=== PATIENT | male | born 1935 | race Caucasian/White ===

== ENCOUNTER 2020-06-05 06:22 | Emergency (ER) | payer MEDICARE, BC ==
[2020-06-05 06:29] VITALS: RESP 18; TEMP 97.7
--- NOTE | 2020-06-05 06:34 | ED ---
General Adult HPI - General Source: patient, EMS, RN notes reviewed Mode of arrival: EMS Limitations: no limitations <Eduard Bassett - Last Filed: 06/05/20 07:53> <Salomón Maldonado - Last Filed: 06/05/20 08:04> - General Chief complaint: Fall Stated complaint: FALL Time Seen by Provider: 06/05/20 06:26 - History of Present Illness Initial comments: Patient is an 85-year-old male with a past medical history of atrial fibrillation, CAD, heart failure, hypertension, MT presents to the emergency room for a chief complaint of head injury. Patient states that he was getting out of bed on the opposite side that he normally does. States he slipped and fell and hit his head. Patient did not lose consciousness. Patient denies headache at this time. However patient does take Coumadin and wanted to be evaluated. Patient denies any head or neck pain.Patient has no other complaints at this time including shortness of breath, chest pain, abdominal pain, nausea or vomiting, headache, or visual changes. (Eduard Bassett) - Related Data Home Medications Medication Instructions Recorded Confirmed Aspirin EC [Ecotrin Low Dose] 81 mg PO HS 07/11/16 07/11/16 Furosemide [Lasix] 40 mg PO DAILY 07/11/16 07/11/16 Lutein 10 mg PO BID 07/11/16 07/11/16 Nitroglycerin Sl Tabs [Nitrostat] 0.4 mg SUBLINGUAL Q5M PRN 07/11/16 07/11/16 Potassium Chloride ER [K-Dur 20] 20 meq PO DAILY 07/11/16 07/11/16 Simvastatin [Zocor] 80 mg PO QAM 07/11/16 07/11/16 Tamsulosin HCl [Flomax] 0.4 mg PO DAILY@1200 07/11/16 07/11/16 Warfarin [Coumadin] 1.25 mg PO MOWEFR 07/11/16 07/11/16 Warfarin [Coumadin] 2.5 mg PO SUTUTHSA 07/11/16 07/11/16 Previous Rx's Medication Instructions Recorded Benazepril [Lotensin] 5 mg PO DAILY #30 tab 07/13/16 atenoloL [Tenormin] 50 mg PO DAILY #30 tab 07/13/16 Allergies Allergy/AdvReac Type Severity Reaction Status Date / Time No Known Allergies Allergy Verified 06/05/20 06:29 Review of Systems ROS Other: All systems not noted in ROS Statement are negative. <Eduard Bassett - Last Filed: 06/05/20 07:53> ROS Other: All systems not noted in ROS Statement are negative. <Salomón Maldonado - Last Filed: 06/05/20 08:04> ROS Statement: Those systems with pertinent positive or pertinent negative responses have been documented in the HPI. Past Medical History Past Medical History: Atrial Fibrillation, Coronary Artery Disease (CAD), Heart Failure, Eye Disorder, Hypertension, Myocardial Infarction (MT), Osteoarthritis (OA), Prostate Disorder Additional Past Medical History / Comment(s): Bilateral macular degeneration- eyesight is poor, pt was told by physician that he had MT in past, "reyna's lung", bilateral lower leg edema-takes lasix and wears bilateral compression stockings. Last Myocardial Infarction Date:: unkn History of Any Multi-Drug Resistant Organisms: None Reported Past Surgical History: Hernia Repair, Joint Replacement Additional Past Surgical History / Comment(s): Bilateral total hip replacements, varicose veins stripped L leg, bilateral laser surgery on eyes for macular degeneration, bilateral inguinal hernia repairs with L testicle removed, eye injections. Additional Past Anesthesia/Blood Transfusion Reaction / Comment(s): Pt states he has been told that he is slow to wake with anesthesia. Past Psychological History: No Psychological Hx Reported Smoking Status: Never smoker Past Alcohol Use History: None Reported Past Drug Use History: None Reported - Past Family History Father Family Medical History: Cancer Additional Family Medical History / Comment(s): Father of leukemia at the age of 49 yrs. Mother Family Medical History: Coronary Artery Disease (CAD) Additional Family Medical History / Comment(s): Mother of a MT at the age of 67yrs. She also had varicose veins. <Eduard Bassett - Last Filed: 06/05/20 07:53> General Exam Limitations: no limitations General appearance: alert, in no apparent distress Head exam: Present: atraumatic (Small abrasion noted to the right parietal scalp as well as the right frontal scalp.) Eye exam: Present: normal appearance, PERRL, EOMI. Absent: scleral icterus, conjunctival injection, periorbital swelling ENT exam: Present: normal exam, mucous membranes moist Neck exam: Present: normal inspection, full ROM. Absent: tenderness, meningismus Respiratory exam: Present: normal lung sounds bilaterally. Absent: respiratory distress, wheezes, rales, rhonchi, stridor Cardiovascular Exam: Present: regular rate, normal rhythm, normal heart sounds. Absent: systolic murmur, diastolic murmur, rubs, gallop, clicks GI/Abdominal exam: Present: soft, normal bowel sounds. Absent: distended, tenderness, guarding, rebound, rigid Extremities exam: Present: other (Moving all extremities no evidence of trauma) Back exam: Absent: CVA tenderness (R), CVA tenderness (L), vertebral tenderness (No thoracic or lumbar spine tenderness) Neurological exam: Present: alert, oriented X3, other (GCS 15) <Eduard Bassett - Last Filed: 06/05/20 07:53> Course <Salomón Maldonado - Last Filed: 06/05/20 08:04> Vital Signs 06/05/20 06:25 Temperature 97.7 F Pulse Rate 65 Respiratory 18 Rate Blood Pressure 109/73 O2 Sat by Pulse 96 Oximetry - Reevaluation(s) Reevaluation #1: 06/05/20 08:04 PA supervision: I appreciated [id number] evaluation the patient. He did present after sliding out of bed this morning with my examination no complaints he did have a complete evaluation. No evidence of any bleeding. Patient is awake alert oriented 3 with a Justin Coma Scale of 15. He replaced CT imaging versus show some evidence of small balls in the cavernous sinus likely secondary to peripheral IV. The patient has no symptoms at this time. Patient will be discharge and do agree with the current assessment and plan. The patient family is agreeable to going home. (Salomón Maldonado) EKG Findings - EKG Comments: EKG Findings:: Ventricular rate 70, sinus rhythm with PVCs, CA interval 154, QTC 410 <Eduard Bassett - Last Filed: 06/05/20 07:53> Medical Decision Making - Lab Data Result diagrams: 06/05/20 06:36 06/05/20 06:36 <Eduard Bassett - Last Filed: 06/05/20 07:53> - Lab Data Result diagrams: 06/05/20 06:36 06/05/20 06:36 <Salomón Maldonado - Last Filed: 06/05/20 08:04> - Medical Decision Making CT brain showed a mild generalized atrophy and patchy changes. No acute intracranial abnormality seen. There is scattered venous air along the right side of the face, right pattern attendant space in within the right cavernous space probably relating to air introduced during peripheral line placement. Patient line was placed on the right upper extremity. No other acute fracture or of the cervical spine. At this time patient can be discharged home to follow up with primary care. He will return for any worsening symptoms. (Eduard Bassett) - Lab Data Lab Results 06/05/20 06/05/20 06/05/20 Range/Units 06:36 06:36 06:36 WBC 6.3 (3.8-10.6) k/uL RBC 4.77 (4.30-5.90) m/uL Hgb 14.4 (13.0-17.5) gm/dL Hct 46.5 (39.0-53.0) % MCV 97.4 (80.0-100.0) fL MCH 30.2 (25.0-35.0) pg MCHC 31.1 (31.0-37.0) g/dL RDW 15.3 (11.5-15.5) % Plt Count 187 (150-450) k/uL Neutrophils % 59 % Lymphocytes % 24 % Monocytes % 8 % Eosinophils % 6 % Basophils % 1 % Neutrophils # 3.7 (1.3-7.7) k/uL Lymphocytes # 1.5 (1.0-4.8) k/uL Monocytes # 0.5 (0-1.0) k/uL Eosinophils # 0.4 (0-0.7) k/uL Basophils # 0.1 (0-0.2) k/uL Hypochromasia Slight PT 20.2 H (9.0-12.0) sec INR 2.1 H (<1.2) APTT 30.4 H (22.0-30.0) sec Sodium 136 L (137-145) mmol/L Potassium 5.0 (3.5-5.1) mmol/L Chloride 102 (98-107) mmol/L Carbon Dioxide 25 (22-30) mmol/L Anion Gap 9 mmol/L BUN 20 (9-20) mg/dL Creatinine 0.69 (0.66-1.25) mg/dL Est GFR (CKD-EPI)AfAm >90 (>60 ml/min/1.73 sqM) Est GFR (CKD-EPI)NonAf 86 (>60 ml/min/1.73 sqM) Glucose 96 (74-99) mg/dL Calcium 9.2 (8.4-10.2) mg/dL Total Bilirubin 1.1 (0.2-1.3) mg/dL AST 23 (17-59) U/L ALT 13 (4-49) U/L Alkaline Phosphatase 102 (38-126) U/L Total Protein 7.0 (6.3-8.2) g/dL Albumin 4.0 (3.5-5.0) g/dL Disposition Is patient prescribed a controlled substance at d/c from ED?: No Time of Disposition: 07:45 <Eduard Bassett - Last Filed: 06/05/20 07:53> <Salomón Maldonado - Last Filed: 06/05/20 08:04> Clinical Impression: Head injury Disposition: HOME SELF-CARE Condition: Good Instructions (If sedation given, give patient instructions): Fall Prevention for Older Adults (ED), Head Injury (ED) Additional Instructions: Please follow up with primary care in 1-2 days. Return to the emergency room for any worsening symptoms Referrals: Ramiro Yost MD [Primary Care Provider] - 1-2 days
[2020-06-05 06:59] LABS: INR 2.1 (<1.2); Partial Thromboplastin Time 30.4 sec (22.0-30.0); Prothrombin Time 20.2 sec (9.0-12.0)
[2020-06-05 07:01] LABS: ALT 13 U/L (4-49); AST 23 U/L (17-59); African American GFR (CKD) >90 (>60 ml/min/1.73 sqM); Alkaline Phosphatase 102 U/L (38-126); Anion Gap 9 mmol/L; Blood Urea Nitrogen 20 mg/dL (9-20); Calcium 9.2 mg/dL (8.4-10.2); Carbon Dioxide 25 mmol/L (22-30); Chloride 102 mmol/L (98-107); Glucose 96 mg/dL (74-99); Non-African American GFR(CKD) 86 (>60 ml/min/1.73 sqM); Sodium 136 mmol/L (137-145); Total Bilirubin 1.1 mg/dL (0.2-1.3)
[2020-06-05 07:03] LABS: Basophils # (A) 0.1 k/uL (0-0.2); Basophils % (A) 1 %; Eosinophils # (A) 0.4 k/uL (0-0.7); Eosinophils % (A) 6 %; HCT 46.5 % (39.0-53.0); HGB 14.4 gm/dL (13.0-17.5); Hypochromasia Slight; Lymphocytes # (A) 1.5 k/uL (1.0-4.8); Lymphocytes % (A) 24 %; MCH 30.2 pg (25.0-35.0); MCHC 31.1 g/dL (31.0-37.0); MCV 97.4 fL (80.0-100.0); Mean Platelet Volume 7.9; Monocytes # (A) 0.5 k/uL (0-1.0); Monocytes % (A) 8 %; Neutrophils # (A) 3.7 k/uL (1.3-7.7); Neutrophils % (A) 59 %; Platelet Count 187 k/uL (150-450); RBC 4.77 m/uL (4.30-5.90); RDW 15.3 % (11.5-15.5); WBC 6.3 k/uL (3.8-10.6)
--- NOTE | 2020-06-05 07:35 | CT ---
EXAMINATION TYPE: CT brain lidia finley con DATE OF EXAM: 06/05/2020 COMPARISON: Brain 02/02/2010 HISTORY: 85-year-old male with head injury, pain, Fall CT DLP: 1450.6 mGycm Automated exposure control for dose reduction was used. Technique: Examination of the head was done in axial plane without intravenous contrast. Coronal and sagittal reconstructions performed. CT of the cervical spine was obtained in axial plane without intravenous injection of contrast mater ial. Coronal and sagittal reformatted images were obtained from the axial views for evaluation of f ractures, spinal alignment and canal. FINDINGS: Head: There is no evidence of acute intracranial hemorrhage, acute ischemic changes, mass, mass-effect, or extra-axial fluid collection. There is no effacement of cerebral sulci or basal subarachnoid cister ns. There is no hydrocephalus. There is no midline shift. Swenson-white matter distinction is preserv ed. Mild generalized supratentorial volume loss. Prostatic calcifications within the carotid siphons. Mil d patchy white matter hypodensities posterior hemispheres Scattered venous air along the right side of the face and right photo stylist space. Foci of air within the right cavernous sinus as well. Paranasal sinuses and mastoid air is also well pneumatized. Rightward nasal septal deviation. Orbits and globes are intact. No calvarial fracture. Cervical spine: No craniocervical junction abnormality, predental space widening, or prevertebral soft tissue swellin g. Degenerative changes of the C1 dens articulation. Degenerative grade 1 anterolisthesis at C2-C3, C3-C4, C4-C5. The remaining alignment is maintained. Moderate to advanced degenerative disc disease and endplate spondylosis C4-C7 levels. Multilevel facet and uncovertebral joint arthropathy. There is some degenerative bony ankylosis on the right involving the C4-C5 facet joints. No acute fracture of the cervical spine. Moderate right neuroforaminal stenosis at C3-C4, moderate to severe on the left at C5-C6, mild on the right at C7-T1. COMBINED IMPRESSION: 1. Mild generalized atrophy and patchy changes of chronic small vessel ischemic disease. No acute int racranial abnormality seen. 2. Scattered venous air along the right side of the face, right photo stylist space, and within the righ t cavernous sinus probably relating to air introduced during peripheral line placement. Clinically co rrelate to exclude other etiologies of venous air such as facial infection or IVDA. 3. No acute fracture of the cervical spine. Degenerative grade 1 anterolisthesis from C2 through C5 l evels. Moderate spondylotic change C4-C7 levels.
[2020-06-05 08:09] VITALS: BP 114/82; PULSE 53
== END 2020-06-05 08:09 | disposition home or self-care (01) ==
LOC: EC 06:22
DX: S09.90XA Unspecified injury of head, initial encounter (principal); G31.1 Senile degeneration of brain, not elsewhere classified; I48.91 Unspecified atrial fibrillation; I25.10 Atherosclerotic heart disease of native coronary artery without angina pectoris; I11.0 Hypertensive heart disease with heart failure; I50.9 Heart failure, unspecified; I25.2 Old myocardial infarction; Z79.01 Long term (current) use of anticoagulants; Z79.82 Long term (current) use of aspirin; Z79.899 Other long term (current) drug therapy; W01.198A Fall on same level from slipping, tripping and stumbling with subsequent striking against other object, initial encounter
CPT/HCPCS: 36415; 70450; 72125; 80053; 85025; 85610; 85730; 99284

== ENCOUNTER 2020-07-08 09:55 | Inpatient (IN) | payer MEDICARE, BC ==
[2020-07-08 10:26] LABS: Basophils % (A) 1 %; Eosinophils # (A) 0.2 k/uL (0-0.7); Eosinophils % (A) 2 %; HCT 40.7 % (39.0-53.0); HGB 13.1 gm/dL (13.0-17.5); Hypochromasia Slight; Lymphocytes # (A) 0.9 k/uL (1.0-4.8); Lymphocytes % (A) 12 %; MCH 31.2 pg (25.0-35.0); MCHC 32.2 g/dL (31.0-37.0); Monocytes # (A) 0.5 k/uL (0-1.0); Monocytes % (A) 7 %; Neutrophils # (A) 5.6 k/uL (1.3-7.7); Neutrophils % (A) 77 %; Platelet Count 147 k/uL (150-450); RBC 4.19 m/uL (4.30-5.90); WBC 7.2 k/uL (3.8-10.6)
[2020-07-08 10:34] LABS: ALT 12 U/L (4-49); AST 24 U/L (17-59); African American GFR (CKD) >90 (>60 ml/min/1.73 sqM); Albumin 3.1 g/dL (3.5-5.0); Alkaline Phosphatase 83 U/L (38-126); Anion Gap 6 mmol/L; Blood Urea Nitrogen 24 mg/dL (9-20); Calcium 8.7 mg/dL (8.4-10.2); Carbon Dioxide 25 mmol/L (22-30); Chloride 101 mmol/L (98-107); Glucose 97 mg/dL (74-99); Non-African American GFR(CKD) 83 (>60 ml/min/1.73 sqM); Potassium 4.6 mmol/L (3.5-5.1); Sodium 132 mmol/L (137-145); Total Bilirubin 1.3 mg/dL (0.2-1.3); Total Protein 5.8 g/dL (6.3-8.2)
[2020-07-08 10:37] LABS: INR 1.9 (<1.2)
[2020-07-08] MEDS ORDERED: FUROSEMIDE 10 MG/ML 4 ML VIAL IV STA (10:42)
--- NOTE | 2020-07-08 11:11 | XR ---
EXAMINATION TYPE: XR chest 2V DATE OF EXAM: 07/08/2020 COMPARISON: Chest CT 2013. Prior chest x-ray July 11, 2016 HISTORY: Difficulty breathing and lower extremity swelling. TECHNIQUE: Frontal and lateral views of the chest are obtained. FINDINGS: The osseous structures redemonstrated demineralized. Old left lateral rib fractures with a djacent pleural thickening redemonstrated. There is additional old posterior left fifth rib fracture redemonstrated. Advanced degenerative change bilateral glenohumeral joints noted. Background chronic emphysematous change with more prominent cardiomegaly along with atherosclerotic a nd ectatic thoracic aorta. No new suspicious focal airspace opacity or pneumothorax seen bilaterally. New small to tiny bilateral pleural effusions noted. IMPRESSION: More prominent cardiomegaly with new small to tiny bilateral pleural effusions. Correlat e for CHF exacerbation.
--- NOTE | 2020-07-08 11:54 | ED ---
General Adult HPI <Salomón Maldonado - Last Filed: 07/08/20 12:14> - General Source: patient, EMS, RN notes reviewed Mode of arrival: EMS Limitations: no limitations <German Hawk - Last Filed: 07/08/20 12:16> - General Chief complaint: Extremity Problem,Nontraumatic Stated complaint: Edema Time Seen by Provider: 07/08/20 09:55 - History of Present Illness Initial comments: This 85-year-old male presents emergency Department chief complaint of leg edema. This has been worsening over the last week or so. Patient did talk to her revenue audit clerk who advised increase Lasix and if worsened come emergency department. Patient does have shortness of breath but states this is ongoing. Patient denies any fevers or chills. He's had multiple falls this week. Patient does take Coumadin for A. fib. Patient states he did strike his head has mild headache which is improving. No neck pain. Patient states is difficult family secondary to swelling. (German Hawk) - Related Data Home Medications Medication Instructions Recorded Confirmed Aspirin EC [Ecotrin Low Dose] 81 mg PO HS 07/11/16 07/11/16 Furosemide [Lasix] 40 mg PO DAILY 07/11/16 07/11/16 Lutein 10 mg PO BID 07/11/16 07/11/16 Nitroglycerin Sl Tabs [Nitrostat] 0.4 mg SUBLINGUAL Q5M PRN 07/11/16 07/11/16 Potassium Chloride ER [K-Dur 20] 20 meq PO DAILY 07/11/16 07/11/16 Simvastatin [Zocor] 80 mg PO QAM 07/11/16 07/11/16 Tamsulosin HCl [Flomax] 0.4 mg PO DAILY@1200 07/11/16 07/11/16 Warfarin [Coumadin] 1.25 mg PO MOWEFR 07/11/16 07/11/16 Warfarin [Coumadin] 2.5 mg PO SUTUTHSA 07/11/16 07/11/16 Previous Rx's Medication Instructions Recorded Benazepril [Lotensin] 5 mg PO DAILY #30 tab 07/13/16 atenoloL [Tenormin] 50 mg PO DAILY #30 tab 07/13/16 Allergies Allergy/AdvReac Type Severity Reaction Status Date / Time No Known Allergies Allergy Verified 06/05/20 06:29 Review of Systems ROS Other: All systems not noted in ROS Statement are negative. <JoelSalomón - Last Filed: 07/08/20 12:14> ROS Other: All systems not noted in ROS Statement are negative. <RadhaGerman wright - Last Filed: 07/08/20 12:16> ROS Statement: Those systems with pertinent positive or pertinent negative responses have been documented in the HPI. Past Medical History Past Medical History: Atrial Fibrillation, Coronary Artery Disease (CAD), Heart Failure, Eye Disorder, Hypertension, Myocardial Infarction (MA), Osteoarthritis (OA), Prostate Disorder Additional Past Medical History / Comment(s): Bilateral macular degeneration- eyesight is poor, pt was told by physician that he had MA in past, "reyna's lung", bilateral lower leg edema-takes lasix and wears bilateral compression stockings. Last Myocardial Infarction Date:: unkn History of Any Multi-Drug Resistant Organisms: None Reported Past Surgical History: Hernia Repair, Joint Replacement Additional Past Surgical History / Comment(s): Bilateral total hip replacements, varicose veins stripped L leg, bilateral laser surgery on eyes for macular degeneration, bilateral inguinal hernia repairs with L testicle removed, eye injections. Additional Past Anesthesia/Blood Transfusion Reaction / Comment(s): Pt states he has been told that he is slow to wake with anesthesia. Past Psychological History: No Psychological Hx Reported Smoking Status: Never smoker Past Alcohol Use History: None Reported Past Drug Use History: None Reported - Past Family History Father Family Medical History: Cancer Additional Family Medical History / Comment(s): Father of leukemia at the age of 49 yrs. Mother Family Medical History: Coronary Artery Disease (CAD) Additional Family Medical History / Comment(s): Mother of a MA at the age of 67yrs. She also had varicose veins. <German Hawk Rajni - Last Filed: 07/08/20 12:16> General Exam Limitations: no limitations General appearance: alert, in no apparent distress Head exam: Present: atraumatic, normocephalic, normal inspection Neck exam: Present: normal inspection. Absent: tenderness, meningismus, lymphadenopathy Respiratory exam: Present: rales. Absent: normal lung sounds bilaterally, respi ratory distress, wheezes, rhonchi, stridor Cardiovascular Exam: Present: regular rate, normal rhythm, normal heart sounds. Absent: systolic murmur, diastolic murmur, rubs, gallop, clicks GI/Abdominal exam: Present: soft, normal bowel sounds. Absent: distended, tenderness, guarding, rebound, rigid Extremities exam: Present: pedal edema (Significant lower extremity swelling with pitting edema) Neurological exam: Present: alert, oriented X3, CN II-XII intact <German Hawk - Last Filed: 07/08/20 12:16> Course <Salomón Maldonado - Last Filed: 07/08/20 12:14> Vital Signs 07/08/20 09:56 Temperature 97.8 F Pulse Rate 73 Respiratory 19 Rate Blood Pressure 100/70 O2 Sat by Pulse 97 Oximetry - Reevaluation(s) Reevaluation #1: 07/08/20 12:14 PA supervision: I proceeded [id number] evaluation the patient. He does present with the shortness of breath and frequent falls. Does have evidence of CHF. The patient will be admitted lung sounds were diminished. Evidence of pleural effusion and increased pulmonary vascular congestion on x-ray. Case is discussed with Dr. Austin (Salomón Maldonado) EKG Findings - EKG Comments: EKG Findings:: EKG performed at 10:15 A. fib rate of 92 QRS 118 QT/QTC 386/477 <German Hawk - Last Filed: 07/08/20 12:16> Medical Decision Making - Lab Data Result diagrams: 07/08/20 10:13 07/08/20 10:13 <Salomón Maldonado - Last Filed: 07/08/20 12:14> - Lab Data Result diagrams: 07/08/20 10:13 07/08/20 10:13 <German Hawk - Last Filed: 07/08/20 12:16> - Medical Decision Making Chest x-ray reviewed shows evidence of deformity congestion, trace pleural effusion. CT of brain is unremarkable. Patient does have elevation of BNP of 4000. Patient has acute CHF exacerbation. Patient will be admitted for diuresis. (German Hawk) - Lab Data Lab Results 07/08/20 07/08/20 07/08/20 Range/Units 10:13 10:13 10:13 WBC 7.2 (3.8-10.6) k/uL RBC 4.19 L (4.30-5.90) m/uL Hgb 13.1 (13.0-17.5) gm/dL Hct 40.7 (39.0-53.0) % MCV 97.0 (80.0-100.0) fL MCH 31.2 (25.0-35.0) pg MCHC 32.2 (31.0-37.0) g/dL RDW 15.0 (11.5-15.5) % Plt Count 147 L (150-450) k/uL Neutrophils % 77 % Lymphocytes % 12 % Monocytes % 7 % Eosinophils % 2 % Basophils % 1 % Neutrophils # 5.6 (1.3-7.7) k/uL Lymphocytes # 0.9 L (1.0-4.8) k/uL Monocytes # 0.5 (0-1.0) k/uL Eosinophils # 0.2 (0-0.7) k/uL Basophils # 0.0 (0-0.2) k/uL Hypochromasia Slight PT 19.0 H (9.0-12.0) sec INR 1.9 H (<1.2) APTT 32.0 H (22.0-30.0) sec Sodium 132 L (137-145) mmol/L Potassium 4.6 (3.5-5.1) mmol/L Chloride 101 (98-107) mmol/L Carbon Dioxide 25 (22-30) mmol/L Anion Gap 6 mmol/L BUN 24 H (9-20) mg/dL Creatinine 0.73 (0.66-1.25) mg/dL Est GFR (CKD-EPI)AfAm >90 (>60 ml/min/1.73 sqM) Est GFR (CKD-EPI)NonAf 83 (>60 ml/min/1.73 sqM) Glucose 97 (74-99) mg/dL Plasma Lactic Acid Aakash (0.7-2.0) mmol/L Calcium 8.7 (8.4-10.2) mg/dL Magnesium 2.0 (1.6-2.3) mg/dL Total Bilirubin 1.3 (0.2-1.3) mg/dL AST 24 (17-59) U/L ALT 12 (4-49) U/L Alkaline Phosphatase 83 (38-126) U/L Troponin I (0.000-0.034) ng/mL NT-Pro-B Natriuret Pep pg/mL Total Protein 5.8 L (6.3-8.2) g/dL Albumin 3.1 L (3.5-5.0) g/dL 07/08/20 07/08/20 07/08/20 Range/Units 10:13 10:13 10:13 WBC (3.8-10.6) k/uL RBC (4.30-5.90) m/uL Hgb (13.0-17.5) gm/dL Hct (39.0-53.0) % MCV (80.0-100.0) fL MCH (25.0-35.0) pg MCHC (31.0-37.0) g/dL RDW (11.5-15.5) % Plt Count (150-450) k/uL Neutrophils % % Lymphocytes % % Monocytes % % Eosinophils % % Basophils % % Neutrophils # (1.3-7.7) k/uL Lymphocytes # (1.0-4.8) k/uL Monocytes # (0-1.0) k/uL Eosinophils # (0-0.7) k/uL Basophils # (0-0.2) k/uL Hypochromasia PT (9.0-12.0) sec INR (<1.2) APTT (22.0-30.0) sec Sodium (137-145) mmol/L Potassium (3.5-5.1) mmol/L Chloride (98-107) mmol/L Carbon Dioxide (22-30) mmol/L Anion Gap mmol/L BUN (9-20) mg/dL Creatinine (0.66-1.25) mg/dL Est GFR (CKD-EPI)AfAm (>60 ml/min/1.73 sqM) Est GFR (CKD-EPI)NonAf (>60 ml/min/1.73 sqM) Glucose (74-99) mg/dL Plasma Lactic Acid Aakash 2.1 H* (0.7-2.0) mmol/L Calcium (8.4-10.2) mg/dL Magnesium (1.6-2.3) mg/dL Total Bilirubin (0.2-1.3) mg/dL AST (17-59) U/L ALT (4-49) U/L Alkaline Phosphatase (38-126) U/L Troponin I 0.017 (0.000-0.034) ng/mL NT-Pro-B Natriuret Pep 4290 pg/mL Total Protein (6.3-8.2) g/dL Albumin (3.5-5.0) g/dL Disposition <Salomón Maldonado - Last Filed: 07/08/20 12:14> <German Hawk - Last Filed: 07/08/20 12:16> Clinical Impression: Multiple falls, Acute exacerbation of CHF (congestive heart failure) Disposition: ADMITTED IP TO THIS HOSP Condition: Fair Referrals: Ramiro Yost MD [Primary Care Provider] - 1-2 days
--- NOTE | 2020-07-08 12:12 | CT ---
EXAMINATION TYPE: CT brain cspine wo con DATE OF EXAM: 07/08/2020 COMPARISON: CT brain and cervical spine June 05, 2020 HISTORY: Fall, On coumadin with headache and neck pain. CT DLP: 1442.2 mGycm. Automated Exposure Control for Dose Reduction was Utilized. TECHNIQUE: CT scan of the head and cervical spine are performed without contrast. FINDINGS: There is no acute intracranial hemorrhage or midline shift identified. Diffuse ventricula r and sulcal prominence. Low-attenuation in the deep white matter. The calvarium is intact. Some hype rostosis frontalis redemonstrated. The globes are intact and the visualized sinuses are clear. Cervical spine is visualized in its entirety from C1 through upper thoracic levels and redemonstrates levoconvex scoliotic curvature centered upper thoracic spine and straightening of cervical spine on sagittal images without evidence of acute fracture or dislocation. Slight grade 1 anterolisthesis C2 on C3, C3 on C4, and C4 and C5 is redemonstrated. Vertebral body heights are maintained. Mild to mode rate disc space narrowing with disc calcification C4-C5 level. Moderate to advanced disc space narrow ing and moderate spurring C5-C6 level. Mild to moderate disc space narrowing with moderate spurring C 6-C7 level. Spinal canal grossly preserved. Prevertebral soft tissue appears within normal limits. T he C1-C2 articulation is within normal limits on the coronal images. Review of axial images shows multilevel uncovertebral facet degenerative changes contributing to mul tilevel bilateral neural foraminal narrowing, for reference bilateral C3-C4 level noted. Lung apices show no pneumothorax. IMPRESSION: 1. There is no acute fracture or dislocation evident in the cervical spine. Stable multilevel degener ative changes. 2. No acute intracranial hemorrhage or midline shift is seen. Moderate diffuse cerebral atrophy and m ild chronic small vessel ischemic change redemonstrated without significant interval change
[2020-07-08] MEDS ORDERED: IPRATROPIUM-ALBUTEROL 3 ML NEB INHALATION PRN (13:05)
--- NOTE | 2020-07-08 14:02 | P.CRDCN ---
History of Present Illness Consult date: 07/08/20 Chief complaint: Lower extremities edema History of present illness: This is a very pleasant 85-year-old gentleman who sees Dr. Gonzalez in the office on regular basis with a past medical history significant for permanent atrial fibrillation oral anticoagulation was Coumadin as well as hypertension and dyslipidemia who was brought by ambulance to the emergency department because of generalized weakness and lower extremities edema. The patient stated that the symptoms started was edema in the legs about 3 weeks ago but for the last 48 hours it has progressed significantly. He felt very weak earlier today. He was unable to move even for few steps. Beside that for the last 2 days he developed shortness of breath with exertion without any symptoms of chest pain or chest discomfort or dizziness or lightheadedness or any feeling of heart racing or fluttering. The patient is on oral diuretics at home and he stated that he has been compliant with all of his medications. Beside that he stated that he has been compliant with his diet as well. He doesn't eat any salt and his does not cook with any salt. In the emergency department he underwent a workup including computed tomography scan of the brain which showed no acute abnor malities. The EKG showed atrial fibrillation was controlled heart rate and diffuse ST and T wave abnormalities. The chest x-ray showed small bilateral pleural effusion. The BNP came in to be elevated. Lactic acid is elevated as well. The last echocardiogram was from 2015 and at that point the echo was technically difficult. On examination the patient does have severe bilateral lower extremity edema and diminished breathing sounds bilaterally. Past Medical History Past Medical History: Atrial Fibrillation, Coronary Artery Disease (CAD), Heart Failure, Eye Disorder, Hypertension, Myocardial Infarction (AL), Osteoarthritis (OA), Prostate Disorder Additional Past Medical History / Comment(s): Bilateral macular degeneration- eyesight is poor, pt was told by physician that he had AL in past, "reyna's lung", bilateral lower leg edema-takes lasix and wears bilateral compression stockings. Last Myocardial Infarction Date:: unkn History of Any Multi-Drug Resistant Organisms: None Reported Past Surgical History: Hernia Repair, Joint Replacement Additional Past Surgical History / Comment(s): Bilateral total hip replacements, varicose veins stripped L leg, bilateral laser surgery on eyes for macular degeneration, bilateral inguinal hernia repairs with L testicle removed, eye injections. Additional Past Anesthesia/Blood Transfusion Reaction / Comment(s): Pt states he has been told that he is slow to wake with anesthesia. Past Psychological History: No Psychological Hx Reported Smoking Status: Never smoker Past Alcohol Use History: None Reported Past Drug Use History: None Reported - Past Family History Father Family Medical History: Cancer Additional Family Medical History / Comment(s): Father of leukemia at the age of 49 yrs. Mother Family Medical History: Coronary Artery Disease (CAD) Additional Family Medical History / Comment(s): Mother of a AL at the age of 67yrs. She also had varicose veins. Medications and Allergies Home Medications Medication Instructions Recorded Confirmed Type Aspirin EC [Ecotrin Low Dose] 81 mg PO HS 07/11/16 07/11/16 History Furosemide [Lasix] 40 mg PO DAILY 07/11/16 07/11/16 History Lutein 10 mg PO BID 07/11/16 07/11/16 History Nitroglycerin Sl Tabs [Nitrostat] 0.4 mg SUBLINGUAL Q5M PRN 07/11/16 07/11/16 History Potassium Chloride ER [K-Dur 20] 20 meq PO DAILY 07/11/16 07/11/16 History Simvastatin [Zocor] 80 mg PO QAM 07/11/16 07/11/16 History Tamsulosin HCl [Flomax] 0.4 mg PO DAILY@1200 07/11/16 07/11/16 History Warfarin [Coumadin] 1.25 mg PO MOWEFR 07/11/16 07/11/16 History Warfarin [Coumadin] 2.5 mg PO SUTUTHSA 07/11/16 07/11/16 History Benazepril [Lotensin] 5 mg PO DAILY #30 tab 07/13/16 Rx atenoloL [Tenormin] 50 mg PO DAILY #30 tab 07/13/16 Rx Allergies Allergy/AdvReac Type Severity Reaction Status Date / Time No Known Allergies Allergy Verified 06/05/20 06:29 Physical Exam Vitals: Vital Signs Temp Pulse Resp BP Pulse Ox 07/08/20 12:30 104 H 18 94/66 97 07/08/20 12:00 101 H 21 101/81 97 07/08/20 11:30 107 H 19 138/104 95 07/08/20 11:28 108 H 07/08/20 09:56 97.8 F 73 19 100/70 97 Intake and Output 07/07/20 07/08/20 07/08/20 22:59 06:59 14:59 Other: Weight 117.934 kg - Constitutional General appearance: no acute distress - Respiratory Respiratory: bilateral: diminished - Cardiovascular Rhythm: irregularly irregular Heart sounds: normal: S1, S2 Abnormal Heart Sounds: systolic murmur Results 07/08/20 10:13 07/08/20 10:13 Cardiac Enzymes 07/08/20 07/08/20 Range/Units 10:13 10:13 AST 24 (17-59) U/L Troponin I 0.017 (0.000-0.034) ng/mL Coagulation 07/08/20 Range/Units 10:13 PT 19.0 H (9.0-12.0) sec APTT 32.0 H (22.0-30.0) sec CBC 07/08/20 Range/Units 10:13 WBC 7.2 (3.8-10.6) k/uL RBC 4.19 L (4.30-5.90) m/uL Hgb 13.1 (13.0-17.5) gm/dL Hct 40.7 (39.0-53.0) % Plt Count 147 L (150-450) k/uL Comprehensive Metabolic Panel 07/08/20 Range/Units 10:13 Sodium 132 L (137-145) mmol/L Potassium 4.6 (3.5-5.1) mmol/L Chloride 101 (98-107) mmol/L Carbon Dioxide 25 (22-30) mmol/L BUN 24 H (9-20) mg/dL Creatinine 0.73 (0.66-1.25) mg/dL Glucose 97 (74-99) mg/dL Calcium 8.7 (8.4-10.2) mg/dL AST 24 (17-59) U/L ALT 12 (4-49) U/L Alkaline Phosphatase 83 (38-126) U/L Total Protein 5.8 L (6.3-8.2) g/dL Albumin 3.1 L (3.5-5.0) g/dL Current Medications Generic Name Dose Route Start Last Admin Trade Name Freq PRN Reason Stop Dose Admin Albuterol/Ipratropium 3 ml 07/08/20 13:05 Ipratropium-Albuterol 3 Ml Neb INHALATION RT-QID PRN Shortness Of Breath Or Wheezing Furosemide 40 mg 07/08/20 21:00 Furosemide 10 Mg/Ml 4 Ml Vial IV Q12H RENNY Intake and Output 07/07/20 07/08/20 07/08/20 22:59 06:59 14:59 Other: Weight 117.934 kg Patient Weight 07/09/20 06:59 Weight 117.934 kg 07/08/20 10:13 07/08/20 10:13 Assessment and Plan Assessment: Assessment #1 congestive heart failure exacerbation of unknown etiology at this point #2 permanent atrial fibrillation was controlled heart rate #3 hypertension #4 dyslipidemia #5 multiple comorbid conditions Plan #1 the patient was started on Lasix IV we'll continue that #2 continue monitor the kidney function and electrolytes #3 obtain an echocardiogram was Doppler #4 continue oral anticoagulation #5 follow-up with the patient
[2020-07-08] MEDS ORDERED: ALBUTEROL HFA INHALER INHALATION PRN (19:56)
[2020-07-08] MEDS ORDERED: NITROGLYCERIN SL TABS 0.4 MG TAB SUBLINGUAL PRN (19:56)
[2020-07-08] MEDS ORDERED: WARFARIN 1.25 MG TAB PO ONE (20:00)
[2020-07-08] MEDS ORDERED: WARFARIN 2.5 MG TAB PO ONE (20:30)
[2020-07-08] MEDS: METOPROLOL TARTRATE 25 MG TAB PO SCH (20:56)
[2020-07-08] MEDS: FAMOTIDINE 20 MG/2 ML VIAL IV SCH (20:56)
[2020-07-08] MEDS: ASPIRIN 81 MG PO SCH (20:56)
[2020-07-08] MEDS: FUROSEMIDE 10 MG/ML 4 ML VIAL IV SCH (20:57)
--- NOTE | 2020-07-08 21:56 | P.HPIM ---
History of Present Illness This is a pleasant 85 years old male from home with multiple medical problems as below, he is a patient of Dr. Yost. Patient presents because of bilateral leg swelling, this professor of nursing referred him to the hospital for worsening like edema. He was started on Lasix and he'll also have some shortness of breath. Patient himself states that mainly he came because of worsening leg swelling over 2-3 weeks, he has some little dyspnea and he has chronic, with the lara phlegm with no recent worsening. He denies chest pain or abdominal pain he has some loose stool but no nausea vomiting. No change in urine habits. On exam his legs looks pretty swollen and there is some swelling in the abdominal area. He is slightly tachycardic at 101-104. Blood pressure 94/66. Lap showing unremarkable CBC, INR no acute fracture or dislocation. No acute intracranial hemorrhage or process by the radiologist diffuse cerebral atrophy. is 1.9, sodium 132, creatinine 0.7, lactic acid slightly high at 2.1. Liver enzymes not elevated. EKG: Atrial fibrillation at [address]-T changes. CT of the head and neck: No fracture or acute process, no intracranial process by radiologist Chest x-ray: His advanced changes no suspicious focal airspace opacity or pneumothorax by radiologist. New small to tiny bilateral pleural effusion noted. Review of Systems CONSTITUTIONAL: No fever, no malaise, no fatigue. HEENT: No recent visual problems or hearing problems. Denied any sore throat. CARDIOVASCULAR: No orthopnea, PND, no palpitations, no syncope. PULMONARY: No shortness of breath, no cough, no hemoptysis. GASTROINTESTINAL: No diarrhea, no nausea, no vomiting, no abdominal pain. Normo active bowel sounds. NEUROLOGICAL: No headaches, no weakness, no numbness. HEMATOLOGICAL: Denies any bleeding or petechiae. GENITOURINARY: Denies any burning micturition, frequency, or urgency. MUSCULOSKELETAL/RHEUMATOLOGICAL: Denies any joint pain, swelling, or any muscle pain. ENDOCRINE: Denies any polyuria or polydipsia. Past Medical History Past Medical History: Atrial Fibrillation, Coronary Artery Disease (CAD), Heart Failure, Eye Disorder, Hypertension, Myocardial Infarction (NV), Osteoarthritis (OA), Prostate Disorder Additional Past Medical History / Comment(s): Bilateral macular degeneration- eyesight is poor, pt was told by physician that he had NV in past, "reyna's lung", bilateral lower leg edema-takes lasix and wears bilateral compression stockings. Last Myocardial Infarction Date:: unkn History of Any Multi-Drug Resistant Organisms: None Reported Past Surgical History: Hernia Repair, Joint Replacement Additional Past Surgical History / Comment(s): Bilateral total hip replacements, varicose veins stripped L leg, bilateral laser surgery on eyes for macular degeneration, bilateral inguinal hernia repairs with L testicle removed, eye injections. Additional Past Anesthesia/Blood Transfusion Reaction / Comment(s): Pt states he has been told that he is slow to wake with anesthesia. Past Psychological History: No Psychological Hx Reported Smoking Status: Never smoker Past Alcohol Use History: None Reported Past Drug Use History: None Reported - Past Family History Father Family Medical History: Cancer Additional Family Medical History / Comment(s): Father of leukemia at the age of 49 yrs. Mother Family Medical History: Coronary Artery Disease (CAD) Additional Family Medical History / Comment(s): Mother of a NV at the age of 67yrs. She also had varicose veins. Medications and Allergies Home Medications Medication Instructions Recorded Confirmed Type Aspirin EC [Ecotrin Low Dose] 81 mg PO HS 07/11/16 07/11/16 History Furosemide [Lasix] 40 mg PO DAILY 07/11/16 07/11/16 History Lutein 10 mg PO BID 07/11/16 07/11/16 History Nitroglycerin Sl Tabs [Nitrostat] 0.4 mg SUBLINGUAL Q5M PRN 07/11/16 07/11/16 History Potassium Chloride ER [K-Dur 20] 20 meq PO DAILY 07/11/16 07/11/16 History Simvastatin [Zocor] 80 mg PO QAM 07/11/16 07/11/16 History Tamsulosin HCl [Flomax] 0.4 mg PO DAILY@1200 07/11/16 07/11/16 History Warfarin [Coumadin] 1.25 mg PO MOWEFR 07/11/16 07/11/16 History Warfarin [Coumadin] 2.5 mg PO SUTUTHSA 07/11/16 07/11/16 History Benazepril [Lotensin] 5 mg PO DAILY #30 tab 07/13/16 Rx atenoloL [Tenormin] 50 mg PO DAILY #30 tab 07/13/16 Rx Allergies Allergy/AdvReac Type Severity Reaction Status Date / Time No Known Allergies Allergy Verified 06/05/20 06:29 Physical Exam Vitals: Vital Signs Temp Pulse Resp BP Pulse Ox 07/08/20 12:30 104 H 18 94/66 97 07/08/20 12:00 101 H 21 101/81 97 07/08/20 11:30 107 H 19 138/104 95 07/08/20 11:28 108 H 07/08/20 09:56 97.8 F 73 19 100/70 97 Intake and Output 07/07/20 07/08/20 07/08/20 22:59 06:59 14:59 Other: Weight 117.934 kg GENERAL: The patient is alert and oriented x3, not in any acute distress. Well developed, well nourished. HEENT: Pupils are round and equally reacting to light. EOMI. No scleral icterus. No conjunctival pallor. Normocephalic, atraumatic. No pharyngeal erythema. No thyromegaly. CARDIOVASCULAR: S1 and S2 present. No murmurs, rubs, or gallops. PULMONARY: Chest is clear to auscultation, no wheezing or crackles. ABDOMEN: Soft, nontender, nondistended, normoactive bowel sounds. No palpable organomegaly. MUSCULOSKELETAL: No joint swelling or deformity. EXTREMITIES: No cyanosis, clubbing, or pedal edema. NEUROLOGICAL: Gross neurological examination did not reveal any focal deficits. SKIN: No rashes. No petechiae Results CBC & Chem 7: 07/08/20 10:13 07/08/20 10:13 Labs: Abnormal Lab Results - Last 24 Hours (Table) 07/08/20 07/08/20 07/08/20 Range/Units 10:13 10:13 10:13 RBC 4.19 L (4.30-5.90) m/uL Plt Count 147 L (150-450) k/uL Lymphocytes # 0.9 L (1.0-4.8) k/uL PT 19.0 H (9.0-12.0) sec INR 1.9 H (<1.2) APTT 32.0 H (22.0-30.0) sec Sodium 132 L (137-145) mmol/L BUN 24 H (9-20) mg/dL Plasma Lactic Acid Aakash (0.7-2.0) mmol/L Total Protein 5.8 L (6.3-8.2) g/dL Albumin 3.1 L (3.5-5.0) g/dL 07/08/20 Range/Units 10:13 RBC (4.30-5.90) m/uL Plt Count (150-450) k/uL Lymphocytes # (1.0-4.8) k/uL PT (9.0-12.0) sec INR (<1.2) APTT (22.0-30.0) sec Sodium (137-145) mmol/L BUN (9-20) mg/dL Plasma Lactic Acid Aakash 2.1 H* (0.7-2.0) mmol/L Total Protein (6.3-8.2) g/dL Albumin (3.5-5.0) g/dL Assessment and Plan Assessment: Fall Cardiomegaly with bilateral small pleural effusion, suspicious for acute on chronic heart failure, unknown ejection fraction. Bilateral leg edema, secondary to above Chronic atrial fibrillation Chronic heart failure Coronary artery disease Hypertension Osteoarthritis Benign prostatic hypertrophy This is a pleasant 85 years old female who presents with chronic swelling and fall. We'll ask for physical therapy evaluation This is a pleasant 85 years old male who presents with fall and bilateral leg edema, there is suspicion of some fluid overload of the chest x-ray. However hi s blood pressure is low normal at 94/66 reviewed. He was started on Lasix and emergency room. Keep monitoring kidney function, electrolytes and daily weights. Labs and medication were reviewed.. Continue same treatment. Continue with symptomatic treatment. Resume home medication. Monitor lytes and vitals. DVT and GI prophylaxis. Further recommendations depends on the clinical course of the patient DVT prophylaxisContinue with Coumadin GI Prophylaxis: Pepcid PT/OT: Pending Long-term prognosis is guarded
[2020-07-09] MEDS: POTASSIUM CHLORIDE ER 20 MEQ TAB.ER PO SCH (08:15)
[2020-07-09] MEDS: METOPROLOL TARTRATE 25 MG TAB PO SCH ×2 (08:15→20:55)
[2020-07-09] MEDS: FUROSEMIDE 10 MG/ML 4 ML VIAL IV SCH ×2 (08:15→20:55)
[2020-07-09] MEDS: FAMOTIDINE 20 MG/2 ML VIAL IV SCH ×2 (08:15→20:55)
[2020-07-09] MEDS: TAMSULOSIN 0.4 MG CAP.ER.24H PO SCH (08:15)
[2020-07-09 08:35] LABS: INR 2.1 (<1.2); Prothrombin Time 20.5 sec (9.0-12.0)
[2020-07-09 08:37] LABS: African American GFR (CKD) >90 (>60 ml/min/1.73 sqM); Anion Gap 7 mmol/L; Blood Urea Nitrogen 23 mg/dL (9-20); Calcium 8.7 mg/dL (8.4-10.2); Carbon Dioxide 28 mmol/L (22-30); Chloride 97 mmol/L (98-107); Glucose 106 mg/dL (74-99); Magnesium 1.9 mg/dL (1.6-2.3); Non-African American GFR(CKD) 80 (>60 ml/min/1.73 sqM); Potassium 4.4 mmol/L (3.5-5.1); Sodium 132 mmol/L (137-145)
[2020-07-09 09:02] LABS: HCT 42.7 % (39.0-53.0); HGB 13.7 gm/dL (13.0-17.5); Hypochromasia Slight; MCH 31.3 pg (25.0-35.0); MCHC 32.1 g/dL (31.0-37.0); MCV 97.7 fL (80.0-100.0); Platelet Count 166 k/uL (150-450); RBC 4.37 m/uL (4.30-5.90); RDW 14.9 % (11.5-15.5); WBC 6.6 k/uL (3.8-10.6)
[2020-07-09 10:54] LABS: Eosinophils # (M) 0.33 k/uL (0-0.7); Lymphocytes # (M) 1.06 k/uL (1.0-4.8); Monocytes # (M) 0.66 k/uL (0-1.0); Neutrophils # (M) 4.55 k/uL (1.3-7.7); Neutrophils % (M) 69 %; Nucleated Red Blood Cells 0 /100 WBC (0-0); Total Cells Counted 100
--- NOTE | 2020-07-09 11:47 | P.PN ---
Subjective Progress Note Date: 07/09/20 This is a very pleasant 85-year-old gentleman who sees Dr. Gonzalez in the office on regular basis with a past medical history significant for permanent atrial fibrillation oral anticoagulation was Coumadin as well as hypertension and dyslipidemia who was brought by ambulance to the emergency department because of generalized weakness and lower extremities edema. The patient stated that the symptoms started was edema in the legs about 3 weeks ago but for the last 48 hours it has progressed significantly. He felt very weak earlier today. He was unable to move even for few steps. Beside that for the last 2 days he developed shortness of breath with exertion without any symptoms of chest pain or chest discomfort or dizziness or lightheadedness or any feeling of heart racing or fluttering. The patient is on oral diuretics at home and he stated that he has been compliant with all of his medications. Beside that he stated that he has been compliant with his diet as well. He doesn't eat any salt and his does not cook with any salt. In the emergency department he underwent a workup inclu ding computed tomography scan of the brain which showed no acute abnormalities. The EKG showed atrial fibrillation was controlled heart rate and diffuse ST and T wave abnormalities. The chest x-ray showed small bilateral pleural effusion. The BNP came in to be elevated. Lactic acid is elevated as well. The last echocardiogram was from 2015 and at that point the echo was technically difficult. On examination the patient does have severe bilateral lower extremity edema and diminished breathing sounds bilaterally. 07/09: Echocardiogram report is pending. Patient has been afebrile, heart rate 62, blood pressure 116/73, pulse ox 91% on room air this morning and was placed on 2 L nasal cannula with pulse ox of 95-96%. He continues to have lower extremity edema but improving. Repeat blood work reveals CBC unremarkable. INR is 2.1. Potassium 132, potassium 4.4, chloride 97, CO2 28, BUN 23 and creatinine 0.81. Weight is documented as decreased by 12 kg. No accurate I&O's as patient is incontinent. He is currently on Lasix 40 mg IV every 12 hours. Patient continues to have shortness of breath with minimal activity. Physical examination Gen: This is obesity 5-year-old male. He is resting in bed and appears to be comfortable and in no acute distress. HEENT: Head is atraumatic, normocephalic. Pupils equal, round. Sclerae is anicteric. NECK: Supple. No lymphadenopathy. LUNGS: Clear to auscultation. No wheezes or rhonchi. No intercostal retractions. HEART Irregularly irregular rate and rhythm Systolic murmur. ABDOMEN: Soft. Bowel sounds are present. No masses. No tenderness. EXTREMITIES 2+ bilateral pedal edema. No calf tenderness.Dorsalis pedis palpable bilaterally. NEUROLOGICAL: Patient is awake, alert and oriented x3. Cranial nerves 2 through 12 are grossly intact. Assessment #1 congestive heart failure exacerbation of unknown etiology at this point #2 permanent atrial fibrillation was controlled heart rate #3 hypertension #4 dyslipidemia #5 multiple comorbid conditions Plan #1 continue Lasix 40 mg IV every 12 hours #2 continue monitor the kidney function and electrolytes, INR 1 daily weights #3 obtain an echocardiogra and Doppler #4 continue oral anticoagulation with Coumadin and monitor INR #5 follow-up with the patient Nurse practitioner note has been reviewed, I agree with documented findings and plan of care. Patient was seen and examined. Objective - Vital Signs Vital signs: Vital Signs Temp 97.8 F 07/09/20 08:00 Pulse 62 07/09/20 08:00 Resp 22 07/09/20 08:00 BP 116/73 07/09/20 08:00 Pulse Ox 92 L 07/09/20 08:00 Intake & Output 07/08/20 07/09/20 07/09/20 18:59 06:59 18:59 Weight 117.934 kg 95.5 kg Other: Voiding Method Urinal Urinal Diaper Diaper # Voids 0 1 # Bowel Movements 2 - Labs CBC & Chem 7: 07/09/20 07:59 07/09/20 07:59 Labs: Abnormal Lab Results - Last 24 Hours (Table) 07/09/20 07/09/20 Range/Units 07:59 07:59 PT 20.5 H (9.0-12.0) sec INR 2.1 H (<1.2) Sodium 132 L (137-145) mmol/L Chloride 97 L (98-107) mmol/L BUN 23 H (9-20) mg/dL Glucose 106 H (74-99) mg/dL
--- NOTE | 2020-07-09 13:05 | P.PN ---
Subjective This is a pleasant 85 years old male from home with multiple medical problems as below, he is a patient of Dr. Yost. Patient presents because of bilateral leg swelling, this insulator apprentice referred him to the hospital for worsening like edema. He was started on Lasix and he'll also have some shortness of breath. Patient himself states that mainly he came because of worsening leg swelling over 2-3 weeks, he has some little dyspnea and he has chronic, with the lara phlegm with no recent worsening. He denies chest pain or abdominal pain he has some loose stool but no nausea vomiting. No change in urine habits. On exam his legs looks pretty swollen and there is some swelling in the abdominal area. He is slightly tachycardic at 101-104. Blood pressure 94/66. Lap showing unremarkable CBC, INR no acute fracture or dislocation. No acute intracranial hemorrhage or process by the radiologist diffuse cerebral atrophy. is 1.9, sodium 132, creatinine 0.7, lactic acid slightly high at 2.1. Liver enzymes not elevated. EKG: Atrial fibrillation at [address]-T changes. CT of the head and neck: No fracture or acute process, no intracranial process by radiologist Chest x-ray: His advanced changes no suspicious focal airspace opacity or pneumothorax by radiologist. New small to tiny bilateral pleural effusion noted. 07/09/2020 Patient is still dyspneic with slight improvement. He continued to have a chronic cough with white phlegm. He still have significant bilateral lower extremity swelling. His hemodynamically stable. CBC is stable, creatinine is normal at 0.8, sodium stable 132, INR is 2.1 while on Coumadin. Lactic acid is back to normal at 1.1 Cardiology input is appreciated, echocardiogram is pending. Continue with Lasix 40 mg IV twice daily. Continue with Coumadin Review of Systems CONSTITUTIONAL: No fever, no malaise, no fatigue. HEENT: No recent visual problems or hearing problems. Denied any sore throat. CARDIOVASCULAR: No orthopnea, PND, no palpitations, no syncope. PULMONARY: No shortness of breath, no cough, no hemoptysis. GASTROINTESTINAL: No diarrhea, no nausea, no vomiting, no abdominal pain. Normoactive bowel sounds. NEUROLOGICAL: No headaches, no weakness, no numbness. HEMATOLOGICAL: Denies any bleeding or petechiae. GENITOURINARY: Denies any burning micturition, frequency, or urgency. MUSCULOSKELETAL/RHEUMATOLOGICAL: Denies any joint pain, swelling, or any muscle pain. ENDOCRINE: Denies any polyuria or polydipsia. Active Medications Generic Name Dose Route Start Last Admin Trade Name Freq PRN Reason Stop Dose Admin Albuterol/Ipratropium 3 ml 07/08/20 13:05 Ipratropium-Albuterol 3 Ml Neb INHALATION RT-QID PRN Shortness Of Breath Or Wheezing Aspirin 81 mg 07/08/20 21:00 07/08/20 20:56 Aspirin 81 Mg PO 81 mg HS RENNY Administration Famotidine 10 mg 07/08/20 21:00 07/09/20 08:15 Famotidine 20 Mg/2 Ml Vial IV 10 mg Q12HR RENNY Administration Furosemide 40 mg 07/08/20 21:00 07/09/20 08:15 Furosemide 10 Mg/Ml 4 Ml Vial IV 40 mg Q12H RENNY Administration Metoprolol Tartrate 25 mg 07/08/20 21:00 07/09/20 08:15 Metoprolol Tartrate 25 Mg Tab PO 25 mg BID RENNY Administration Miscellaneous Information 0 each 07/08/20 20:02 Warfarin Per Pharmacy MISCELLANE DIRECTED PRN PHARMACY DOSING WARFARIN Nitroglycerin 0.4 mg 07/08/20 19:56 Nitroglycerin Sl Tabs 0.4 Mg Tab SUBLINGUAL Q5M PRN Chest Pain Potassium Chloride 20 meq 07/09/20 09:00 07/09/20 08:15 Potassium Chloride Er 20 Meq Tab.Er PO 20 meq DAILY RENNY Administration Tamsulosin HCl 0.4 mg 07/09/20 12:00 07/09/20 08:15 Tamsulosin 0.4 Mg Cap.Er.24h PO 0.4 mg DAILY@1200 [facility] Administration Warfarin Sodium 1.25 mg 07/09/20 18:00 Warfarin 1.25 Mg Tab PO SuMoWeSa@1800 [facility] Protocol Warfarin Sodium 2.5 mg 07/11/20 18:00 Warfarin 2.5 Mg Tab PO TuThFr@1800 [facility] Protocol Objective - Vital Signs Vital signs: Vital Signs Temp 97.8 F 07/09/20 08:00 Pulse 62 07/09/20 08:00 Resp 22 07/09/20 08:00 BP 116/73 07/09/20 08:00 Pulse Ox 92 L 09/27/20 08:00 Intake & Output 07/08/20 07/09/20 07/09/20 18:59 06:59 18:59 Weight 117.934 kg 95.5 kg Other: Voiding Method Urinal Urinal Diaper Diaper # Voids 0 1 # Bowel Movements 2 - Exam GENERAL: The patient is alert and oriented x3, not in any acute distress. Well developed, well nourished. HEENT: Pupils are round and equally reacting to light. EOMI. No scleral icterus. No conjunctival pallor. Normocephalic, atraumatic. No pharyngeal erythema. No thyromegaly. CARDIOVASCULAR: S1 and S2 present. No murmurs, rubs, or gallops. PULMONARY: Chest is clear to auscultation, no wheezing or crackles. ABDOMEN: Soft, nontender, nondistended, normoactive bowel sounds. No palpable or ganomegaly. MUSCULOSKELETAL: No joint swelling or deformity. EXTREMITIES: No cyanosis, clubbing, or pedal edema. NEUROLOGICAL: Gross neurological examination did not reveal any focal deficits. SKIN: No rashes. No petechiae - Labs CBC & Chem 7: 07/09/20 07:59 07/09/20 07:59 Labs: Abnormal Lab Results - Last 24 Hours (Table) 07/09/20 07/09/20 Range/Units 07:59 07:59 PT 20.5 H (9.0-12.0) sec INR 2.1 H (<1.2) Sodium 132 L (137-145) mmol/L Chloride 97 L (98-107) mmol/L BUN 23 H (9-20) mg/dL Glucose 106 H (74-99) mg/dL Assessment and Plan Assessment: Fall Cardiomegaly with bilateral small pleural effusion, suspicious for acute on ch ronic heart failure, unknown ejection fraction. Bilateral leg edema, secondary to above Chronic atrial fibrillation Chronic heart failure Coronary artery disease Hypertension Osteoarthritis Benign prostatic hypertrophy This is a pleasant 85 years old female who presents with chronic swelling and fall. We'll ask for physical therapy evaluation This is a pleasant 85 years old male who presents with fall and bilateral leg edema, there is suspicion of some fluid overload of the chest x-ray. However his blood pressure is low normal at 94/66 reviewed. He was started on Lasix and emergency room. Keep monitoring kidney function, electrolytes and daily weights. Labs and medication were reviewed.. Continue same treatment. Continue with symptomatic treatment. Resume home medication. Monitor lytes and vitals. DVT and GI prophylaxis. Further recommendations depends on the clinical course of the patient DVT prophylaxisContinue with Coumadin GI Prophylaxis: Pepcid PT/OT: Pending Long-term prognosis is guarded
[2020-07-09] MEDS ORDERED: QUEtiapine 25 MG TAB PO STA (15:41)
[2020-07-09 17:24] LABS: Glucose,Whole Blood 94 mg/dL (75-99)
[2020-07-09] MEDS: WARFARIN 1.25 MG TAB PO SCH ×2 (17:31→17:36)
--- NOTE | 2020-07-09 17:36 | CT ---
EXAMINATION TYPE: CT brain wo con DATE OF EXAM: 07/09/2020 COMPARISON: Yesterday HISTORY: confusion CT DLP: 1149.4 mGycm Automated exposure control for dose reduction was used. There is cerebral atrophy. There is no mass effect nor midline shift. There is no sign of intracrania l hemorrhage. Calvarium is intact. IMPRESSION: Cerebral atrophy. No acute intracranial abnormality. No change compared to yesterday.
[2020-07-09 18:52] LABS: Amorphous Sediment,Urine Rare /hpf; Appearance,Urine Cloudy (Clear); Bacteria,Urine Rare /hpf; Bilirubin,Urine Negative (Negative); Blood,Urine Large (Negative); Color,Urine Yellow; Glucose,Urine (UA) Negative (Negative); Ketones,Urine Negative (Negative); Leukocyte Esterase,Urine Negative (Negative); Mucus,Urine Occasional /hpf; Nitrite,Urine Negative (Negative); Protein,Urine Negative (Negative); RBC,Urine 147 /hpf (0-5); Specific Gravity,Urine 1.007 (1.001-1.035); Urobilinogen,Urine <2.0 mg/dL (<2.0); WBC,Urine 3 /hpf (0-5)
[2020-07-09] MEDS: ASPIRIN 81 MG PO SCH (20:55)
[2020-07-10 07:59] LABS: Basophils % (A) 1 %; Eosinophils # (A) 0.2 k/uL (0-0.7); Eosinophils % (A) 3 %; HCT 44.8 % (39.0-53.0); HGB 13.9 gm/dL (13.0-17.5); Hypochromasia Slight; Lymphocytes % (A) 14 %; MCH 29.9 pg (25.0-35.0); MCV 96.4 fL (80.0-100.0); Mean Platelet Volume 7.8; Monocytes # (A) 0.5 k/uL (0-1.0); Monocytes % (A) 7 %; Neutrophils # (A) 5.1 k/uL (1.3-7.7); Neutrophils % (A) 74 %; Platelet Count 161 k/uL (150-450); RBC 4.65 m/uL (4.30-5.90); RDW 14.5 % (11.5-15.5); WBC 6.9 k/uL (3.8-10.6)
--- NOTE | 2020-07-10 08:05 | P.PN ---
Subjective Progress Note Date: 07/10/20 Principal diagnosis: The patient is here essentially for exacerbation of CHF. Still with some mild shortness of breath but his overall edematous leg and lower extremities are impr oving. No voiding difficulties. The patient states he had significant issues regarding his emotionality and is very remorseful this morning. Objective - Vital Signs Vital signs: Vital Signs Temp 97.8 F 07/09/20 20:00 Pulse 56 L 07/10/20 03:52 Resp 20 07/10/20 03:52 BP 117/79 07/10/20 03:52 Pulse Ox 93 L 07/10/20 03:52 Intake & Output 07/09/20 07/10/20 07/10/20 18:59 06:59 18:59 Intake Total 530 120 Output Total 700 550 Balance -170 -550 120 Weight 94.5 kg Intake: Oral 530 120 Output: Urine 700 550 Other: Voiding Method Urinal Indwelling Catheter Diaper # Voids 3 # Bowel Movements 1 - Constitutional General appearance: Present: average body habitus - EENT Eyes: Absent: abnormal pupil - Neck Neck: Absent: lymphadenopathy - Respiratory Respiratory: bilateral: diminished - Cardiovascular Rhythm: irregularly irregular Heart sounds: normal: S1, S2 Abnormal Heart Sounds: Absent: S3 Gallop - Gastrointestinal General gastrointestinal: Present: soft. Absent: splenomegaly, tenderness - Integumentary Integumentary: Absent: cellulitis - Labs CBC & Chem 7: 07/10/20 07:28 07/09/20 07:59 Labs: Abnormal Lab Results - Last 24 Hours (Table) 07/09/20 07/09/20 07/09/20 Range/Units 07:59 07:59 18:30 PT 20.5 H (9.0-12.0) sec INR 2.1 H (<1.2) Sodium 132 L (137-145) mmol/L Chloride 97 L (98-107) mmol/L BUN 23 H (9-20) mg/dL Glucose 106 H (74-99) mg/dL Urine Blood Large H (Negative) Urine RBC 147 H (0-5) /hpf Amorphous Sediment Rare H (None) /hpf Urine Bacteria Rare H (None) /hpf Urine Mucus Occasional H (None) /hpf Assessment and Plan (1) Acute exacerbation of CHF (congestive heart failure) Current Visit: Yes Status: Acute Code(s): I50.9 - HEART FAILURE, UNSPECIFIED SNOMED Code(s): 732337265 (2) Multiple falls Current Visit: Yes Status: Acute Code(s): R29.6 - REPEATED FALLS SNOMED Code(s): 402787476 (3) CAD (coronary artery disease) Current Visit: No Status: Acute Code(s): I25.10 - ATHSCL HEART DISEASE OF [place] CORONARY ARTERY W/O ANG PCTRS SNOMED Code(s): 26211501 (4) COPD (chronic obstructive pulmonary disease) Current Visit: No Status: Acute Code(s): J44.9 - CHRONIC OBSTRUCTIVE PULMONARY DISEASE, UNSPECIFIED SNOMED Code(s): 14936368 (5) HTN (hypertension) Current Visit: No Status: Acute Code(s): I10 - ESSENTIAL (PRIMARY) HYPERTEN SADAF SNOMED Code(s): 01518191 Plan: Continue appropriate diuresis. Check CBC and CMP in a.m. We'll continue follow with consultants. Time with Patient: Greater than 30
[2020-07-10 08:14] LABS: Prothrombin Time 19.7 sec (9.0-12.0)
[2020-07-10 08:15] LABS: African American GFR (CKD) >90 (>60 ml/min/1.73 sqM); Anion Gap 7 mmol/L; Blood Urea Nitrogen 23 mg/dL (9-20); Calcium 8.7 mg/dL (8.4-10.2); Carbon Dioxide 28 mmol/L (22-30); Chloride 98 mmol/L (98-107); Glucose 90 mg/dL (74-99); Non-African American GFR(CKD) 83 (>60 ml/min/1.73 sqM); Potassium 4.2 mmol/L (3.5-5.1); Sodium 133 mmol/L (137-145)
[2020-07-10] MEDS: FUROSEMIDE 10 MG/ML 4 ML VIAL IV SCH ×2 (09:01→21:20)
[2020-07-10] MEDS: POTASSIUM CHLORIDE ER 20 MEQ TAB.ER PO SCH (09:01)
[2020-07-10] MEDS: FAMOTIDINE 20 MG/2 ML VIAL IV SCH (09:01)
[2020-07-10] MEDS: METOPROLOL TARTRATE 25 MG TAB PO SCH ×2 (09:01→21:20)
--- NOTE | 2020-07-10 10:59 | P.PN ---
Subjective Progress Note Date: 07/10/20 This is a very pleasant 85-year-old gentleman who sees Dr. Gonzalez in the office on regular basis with a past medical history significant for permanent atrial fibrillation oral anticoagulation was Coumadin as well as hypertension and dyslipidemia who was brought by ambulance to the emergency department because of generalized weakness and lower extremities edema. Patient has been diuresing well on IV Lasix, his weight today is 1 down 1 kg. Blood pressure 116/70 with a heart rate in the 50s, 93% on 2 L of oxygen. Blood pressure 114/70 with a heart rate in the 50s, 94% on 2 L of oxygen. White blood cell count 6.9, hemoglobin 13.9, platelet count 161. INR 2.0. Sodium 133, potassium 4.2, BUN 23, cr eatinine 0.7. Objective - Vital Signs Vital signs: Vital Signs Temp 97.7 F 07/10/20 09:07 Pulse 57 L 07/10/20 09:08 Resp 20 07/10/20 09:07 BP 113/72 07/10/20 09:07 Pulse Ox 94 L 07/10/20 09:07 Intake & Output 07/09/20 07/10/20 07/10/20 18:59 06:59 18:59 Intake Total 530 200 Output Total 700 550 125 Balance -170 -550 75 Weight 94.5 kg Intake: Oral 530 200 Output: Urine 700 550 125 Uretheral (Mariee) 125 Other: Voiding Method Urinal Indwelling Catheter Indwelling Catheter Diaper # Voids 3 # Bowel Movements 1 - Exam Gen: This is obesity 5-year-old male. He is resting in bed and appears to be comfortable and in no acute distress. HEENT: Head is atraumatic, normocephalic. Pupils equal, round. Sclerae is anicteric. NECK: Supple. No lymphadenopathy. LUNGS: Clear to auscultation. No wheezes or rhonchi. No intercostal retractions. HEART Irregularly irregular rate and rhythm Systolic murmur. ABDOMEN: Soft. Bowel sounds are present. No masses. No tenderness. EXTREMITIES 2+ bilateral pedal edema. No calf tenderness.Dorsalis pedis palpable bilaterally. NEUROLOGICAL: Patient is awake, alert and oriented x3. Cranial nerves 2 through 12 are grossly intact. - Labs CBC & Chem 7: 07/10/20 07:28 07/10/20 07:28 Labs: Abnormal Lab Results - Last 24 Hours (Table) 07/09/20 07/10/20 07/10/20 Range/Units 18:30 07: 07:28 PT 19.7 H (9.0-12.0) sec INR 2.0 H (<1.2) Sodium 133 L (137-145) mmol/L BUN 23 H (9-20) mg/dL Urine Blood Large H (Negative) Urine RBC 147 H (0-5) /hpf Amorphous Sediment Rare H (None) /hpf Urine Bacteria Rare H (None) /hpf Urine Mucus Occasional H (None) /hpf Assessment and Plan Plan: Assessment and plan #1 congestive heart failure exacerbation of unknown etiology at this point, echo remains pending #2 permanent atrial fibrillation was controlled heart rate #3 hypertension #4 dyslipidemia #5 multiple comorbid conditions Plan We will continue the patient on current dose of IV Lasix, continue to monitor the intake and output along with daily weights and daily lytes BUN and creatinine. We will also review the patient's echocardiogram with Doppler study. DNP note has been reviewed, I agree with a documented findings and plan of care. Patient was seen and examined.
[2020-07-10] MEDS: TAMSULOSIN 0.4 MG CAP.ER.24H PO SCH (12:04)
--- NOTE | 2020-07-10 13:28 | P.CONS ---
History of Present Illness - Reason for Consult Consult date: 07/10/20 Wound care - History of Present Illness This is an 85-year-old patient being seen on 3 S. by the wound care center for nonhealing ulceration to the right gluteus. Patient states that the ulceration has been there for about a week and half. He is unsure how it started. Patient states that he has significant amount of pain to the site. Patient has not been utilizing any type of dressing to the site. She test medical history significant for coronary artery disease, atrial fibrillation, heart failure, hypertension, myocardial infection, prostate disorder, Review of Systems Review Of Systems: Constitutional: No fever, no chills, no night sweats. No weight change. No weakness, fatigue or lethargy. No daytime sleepiness. Integumentary:reports wounds, no lesions. No rash or pruritus. No unusual bruising. No change in hair or nails. Past Medical History Past Medical History: Atrial Fibrillation, Coronary Artery Disease (CAD), Heart Failure, Eye Disorder, Hypertension, Myocardial Infarction (MA), Osteoarthritis (OA), Prostate Disorder Additional Past Medical History / Comment(s): Bilateral macular degeneration- eyesight is poor, pt was told by physician that he had MA in past, "reyna's lung", bilateral lower leg edema-takes lasix and wears bilateral compression stockings. Last Myocardial Infarction Date:: unkn History of Any Multi-Drug Resistant Organisms: None Reported Past Surgical History: Hernia Repair, Joint Replacement Additional Past Surgical History / Comment(s): Bilateral total hip replacements, varicose veins stripped L leg, bilateral laser surgery on eyes for macular degeneration, bilateral inguinal hernia repairs with L testicle removed, eye injections. Past Anesthesia/Blood Transfusion Reactions: No Reported Reaction Additional Past Anesthesia/Blood Transfusion Reaction / Comm: Pt states he has been told that he is slow to wake with anesthesia. Past Psychological History: No Psychological Hx Reported Smoking Status: Never smoker Past Alcohol Use History: None Reported Past Drug Use History: None Reported - Past Family History Father Family Medical History: Cancer Additional Family Medical History / Comment(s): Father of leukemia at the age of 49 yrs. Mother Family Medical History: Coronary Artery Disease (CAD) Additional Family Medical History / Comment(s): Mother of a MA at the age of 67yrs. She also had varicose veins. Medications and Allergies Home Medications Medication Instructions Recorded Confirmed Type Aspirin EC [Ecotrin Low Dose] 81 mg PO HS 07/11/16 07/08/20 History Nitroglycerin Sl Tabs [Nitrostat] 0.4 mg SUBLINGUAL Q5M PRN 07/11/16 07/08/20 History Potassium Chloride ER [K-Dur 20] 20 meq PO DAILY 07/11/16 07/08/20 History Simvastatin [Zocor] 80 mg PO QAM 07/11/16 07/08/20 History Tamsulosin HCl [Flomax] 0.4 mg PO DAILY@1200 07/11/16 07/08/20 History Warfarin [Coumadin] 1.25 mg PO [place] 07/11/16 07/08/20 History Warfarin [Coumadin] 2.5 mg PO TUTHFR 07/11/16 07/08/20 History Albuterol Inhaler [Ventolin Hfa 2 puff INHALATION RT-Q4H PRN 07/08/20 07/08/20 History Inhaler] Benazepril [Lotensin] 10 mg PO DAILY 07/08/20 07/08/20 History Furosemide [Lasix] 20 mg PO DAILY 07/08/20 07/08/20 History Metoprolol Tartrate [Lopressor] 25 mg PO BID 07/08/20 07/08/20 History Vit C/E/Zn/Coppr/Lutein/Zeaxan 1 tab PO BID 07/08/20 07/08/20 History [Preservision Areds 2 Softgel] Allergies Allergy/AdvReac Type Severity Reaction Status Date / Time No Known Allergies Allergy Verified 07/08/20 14:17 Physical Exam Vitals: Vital Signs Temp Pulse Resp BP Pulse Ox 07/10/20 11:10 97.5 F L 56 L 18 112/73 95 07/10/20 09:08 57 L 07/10/20 09:07 97.7 F 57 L 20 113/72 94 L 07/10/20 03:52 56 L 20 117/79 93 L 07/10/20 00:00 54 L 20 101/63 95 07/09/20 20:00 97.8 F 56 L 20 146/84 97 07/09/20 16:00 97.8 F 61 20 124/76 98 Intake and Output 07/09/20 07/10/20 07/10/20 22:59 06:59 14:59 Intake Total 200 200 Output Total 700 550 675 Balance -500 -727 -801 Intake: Oral 200 200 Output: Urine 700 550 675 Uretheral (Mariee) 675 Other: Voiding Method Indwelling Catheter Indwelling Catheter Indwelling Catheter # Bowel Movements 1 Weight 94.5 kg 94.5 kg Physical exam: General Appearance: Alert, cooperative, no distress, appears stated age. Skin: Nonhealing ulceration to the right gluteus Limited to skin breakdown. Periwound shows excoriation and maceration. No tunneling or undermining noted granulation seen throughout the wound bed. Measuring approximately 4 x 3 x 0.1 cm all other Skin color, texture, tugor normal, no rashes or lesions. 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 Keep the area clean and dry. Thank you, for the consultation any questions contact the wound care center DNP note has been reviewed and discussed with Dr. Gamble and the impression and plan of care has been directed as dictated.
[2020-07-10] MEDS: HYDROPHILIC CREAM 180 GM TUBE TOPICAL SCH (17:40)
[2020-07-10] MEDS ORDERED: WARFARIN 2.5 MG TAB PO ONE (18:00)
--- NOTE | 2020-07-10 18:00 | ECHOF ---
Referral Reason:CHF MEASUREMENTS -------- HEIGHT: 175.3 cm WEIGHT: 94.3 kg BP: 117/79 RVIDd: 4.1 cm (< 3.3) IVSd: 1.9 cm (0.6 - 1.1) LVIDd: 4.8 cm (3.9 - 5.3) LVPWd: 1.9 cm (0.6 - 1.1) IVSs: 1.8 cm LVIDs: 4.3 cm LVPWs: 2.1 cm LAESV Index (A-L): 122.64 ml/m Ao Diam: 3.5 cm (2.0 - 3.7) AV Cusp: 2.1 cm (1.5 - 2.6) LA Diam: 6.6 cm (2.7 - 3.8) MV EXCURSION: 15.662 mm (> 18.000) MV EF SLOPE: 100 mm/s (70 - 150) EPSS: 1.5 cm AR PHT: 430 ms RAP: 20.00 mmHg RVSP: 68.23 mmHg FINDINGS -------- This was a technically adequate study. The left ventricular size is normal. There is severe concentric left ventricular hypertrophy. The re is severe global hypokinesis of LV . Overall left ventricular systolic function is severely impa ired with, an EF between 20 - 25 %. Left ventricular fillimg pressure cannot be estimated due to At rial fibrillation. The right ventricle is moderately enlarged. LA is severely dilated >40 ml/m2 The right atrium is markedly enlarged. Interatrial and interventricular septum intact. There is mild aortic valve sclerosis. There is mild aortic regurgitation. There is no evidence of aortic stenosis. Cqzdpkxo-rd-qxbnsl mitral regurgitation is present. Moderate to severe tricuspid regurgitation present. There is severe pulmonary hypertension. The r ight ventricular systolic pressure, as measured by Doppler, is 68.23mmHg. There is no pulmonic regurgitation present. The aortic root size is normal. The inferior vena cava is dilated with no significant inspiratory collapse which is consistent estima mickey right atrial pressure of >20 mmHg. There is no pericardial effusion. CONCLUSIONS -------- 1. The left ventricular size is normal. 2. There is severe concentric left ventricular hypertrophy. 3. There is severe global hypokinesis of LV . 4. Overall left ventricular systolic function is severely impaired with, an EF between 20 - 25 %. 5. Left ventricular fillimg pressure cannot be estimated due to Atrial fibrillation. 6. The right ventricle is moderately enlarged. 7. LA is severely dilated >40 ml/m2 8. The right atrium is markedly enlarged. 9. There is mild aortic valve sclerosis. 10. There is mild aortic regurgitation. 11. Ixtyxguj-jx-erynei mitral regurgitation is present. 12. Moderate to severe tricuspid regurgitation present. 13. There is severe pulmonary hypertension. 14. The right ventricular systolic pressure, as measured by Doppler, is 68.23mmHg. GENERATION MANAGER: Mana Leija RDCS
[2020-07-10] MEDS: FAMOTIDINE 20 MG TAB PO SCH (21:20)
[2020-07-10] MEDS: ASPIRIN 81 MG PO SCH (21:20)
--- NOTE | 2020-07-11 08:03 | P.PN ---
Subjective Principal diagnosis: The patient is here essentially for exacerbation of CHF. Still with some mild shortness of breath but his overall edematous leg and lower extremities are improving. No voiding difficulties. The patient states he had significant issues regarding his emotionality and is very remorseful this morning. He is so much better. We will switch over to oral diuresis today. Objective - Vital Signs Vital signs: Vital Signs Temp 98.2 F 07/10/20 20:00 Pulse 70 07/11/20 04:00 Resp 18 07/11/20 04:00 BP 128/70 07/11/20 04:00 Pulse Ox 91 L 07/11/20 04:00 Intake & Output 07/10/20 07/11/20 07/11/20 18:59 06:59 18:59 Intake Total 840 Output Total 1175 1620 Balance -335 -1620 Weight 94.5 kg 75.5 kg Intake: Oral 840 Output: Urine 1175 1620 Uretheral (Mariee) 1175 500 Other: Voiding Method Indwelling Catheter Indwelling Catheter # Voids 2 - Constitutional General appearance: Present: cooperative, no acute distress - EENT Eyes: Absent: abnormal pupil - Neck Neck: Absent: lymphadenopathy - Respiratory Respiratory: bilateral: diminished - Cardiovascular Rhythm: regular Heart sounds: normal: S1, S2 Abnormal Heart Sounds: Absent: S3 Gallop - Gastrointestinal General gastrointestinal: Present: soft. Absent: tenderness - Integumentary Integumentary: Absent: cellulitis - Musculoskeletal Musculoskeletal: Present: generalized weakness - Psychiatric Psychiatric: Present: A&O x's 3 - Labs CBC & Chem 7: 07/10/20 07:28 07/10/20 07:28 Labs: Abnormal Lab Results - Last 24 Hours (Table) 07/10/20 07/10/20 Range/Units 07:28 07:28 PT 19.7 H (9.0-12.0) sec INR 2.0 H (<1.2) Sodium 133 L (137-145) mmol/L BUN 23 H (9-20) mg/dL Assessment and Plan (1) Acute exacerbation of CHF (congestive heart failure) Current Visit: Yes Status: Acute Code(s): I50.9 - HEART FAILURE, UNSPECIFIED SNOMED Code(s): 437901451 (2) Multiple falls Current Visit: Yes Status: Acute Code(s): R29.6 - REPEATED FALLS SNOMED Code(s): 263631303 (3) CAD (coronary artery disease) Current Visit: No Status: Acute Code(s): I25.10 - ATHSCL HEART DISEASE OF [place] CORONARY ARTERY W/O ANG PCTRS SNOMED Code(s): 85984217 (4) COPD (chronic obstructive pulmonary disease) Current Visit: No Status: Acute Code(s): J44.9 - CHRONIC OBSTRUCTIVE PULMONARY DISEASE, UNSPECIFIED SNOMED Code(s): 95140216 (5) HTN (hypertension) Current Visit: No Status: Acute Code(s): I10 - ESSENTIAL (PRIMARY) HYPER TENSION SNOMED Code(s): 20364044 Plan: Continue appropriate diuresis. We'll switch over to oral Lasix today. Check CMP in a.m. Anticipate discharge in next 24 hours
[2020-07-11] MEDS: METOPROLOL TARTRATE 25 MG TAB PO SCH ×2 (08:24→19:52)
[2020-07-11] MEDS: POTASSIUM CHLORIDE ER 20 MEQ TAB.ER PO SCH (08:24)
[2020-07-11] MEDS: FUROSEMIDE 40 MG TAB PO SCH ×2 (08:24→16:54)
[2020-07-11] MEDS: HYDROPHILIC CREAM 180 GM TUBE TOPICAL SCH (08:24)
[2020-07-11] MEDS: FAMOTIDINE 20 MG TAB PO SCH ×2 (08:27→19:52)
[2020-07-11 08:44] LABS: Basophils # (A) 0.1 k/uL (0-0.2); Basophils % (A) 1 %; Eosinophils # (A) 0.3 k/uL (0-0.7); Eosinophils % (A) 6 %; HCT 42.4 % (39.0-53.0); HGB 13.1 gm/dL (13.0-17.5); Hypochromasia Slight; Lymphocytes # (A) 0.9 k/uL (1.0-4.8); Lymphocytes % (A) 16 %; MCH 29.9 pg (25.0-35.0); MCHC 30.8 g/dL (31.0-37.0); Mean Platelet Volume 8.1; Monocytes # (A) 0.4 k/uL (0-1.0); Monocytes % (A) 6 %; Neutrophils # (A) 4.1 k/uL (1.3-7.7); Neutrophils % (A) 70 %; Platelet Count 153 k/uL (150-450); RBC 4.37 m/uL (4.30-5.90); RDW 14.5 % (11.5-15.5); WBC 5.9 k/uL (3.8-10.6)
[2020-07-11 08:48] LABS: INR 2.4 (<1.2); Prothrombin Time 23.1 sec (9.0-12.0)
[2020-07-11 09:11] LABS: ALT 13 U/L (4-49); AST 24 U/L (17-59); African American GFR (CKD) >90 (>60 ml/min/1.73 sqM); Alkaline Phosphatase 86 U/L (38-126); Anion Gap 5 mmol/L; Blood Urea Nitrogen 21 mg/dL (9-20); Calcium 8.6 mg/dL (8.4-10.2); Carbon Dioxide 30 mmol/L (22-30); Chloride 95 mmol/L (98-107); Glucose 103 mg/dL (74-99); Magnesium 1.9 mg/dL (1.6-2.3); Non-African American GFR(CKD) 88 (>60 ml/min/1.73 sqM); Potassium 4.3 mmol/L (3.5-5.1); Sodium 130 mmol/L (137-145); Total Bilirubin 0.9 mg/dL (0.2-1.3); Total Protein 5.7 g/dL (6.3-8.2)
[2020-07-11] MEDS: TAMSULOSIN 0.4 MG CAP.ER.24H PO SCH (11:45)
--- NOTE | 2020-07-11 13:32 | P.PN ---
Subjective Progress Note Date: 07/11/20 This is a very pleasant 85-year-old gentleman who sees Dr. Gonzalez in the office on regular basis with a past medical history significant for permanent atrial fibrillation oral anticoagulation was Coumadin as well as hypertension and dyslipidemia who was brought by ambulance to the emergency department because of generalized weakness and lower extremities edema. Patient has been diuresing well on IV Lasix, his weight today is 1 down 1 kg. Blood pressure 116/70 with a heart rate in the 50s, 93% on 2 L of oxygen. Blood pressure 114/70 with a heart rate in the 50s, 94% on 2 L of oxygen. White blood cell count 6.9, hemoglobin 13.9, platelet count 161. INR 2.0. Sodium 133, potassium 4.2, BUN 23, cr eatinine 0.7. 07/11/2020 Patient was seen and examined this morning, he does still state that he feels significantly better than he did on arrival here, he continues to diurese, his urine is very dark in color. Echocardiogram with Doppler study revealed an ejection fraction of 20-25%, moderate to severe MR with moderate to severe TR. Patient states that he does recall being told in the past to have a weak heart muscle but he was unsure of just how week it was in the past. Blood pressure 110/60 with a heart rate in the 80s, 98% on 2 L of oxygen. White blood cell count 5.9, hemoglobin 13.1, platelet count 153. INR 2.4 today. Objective - Vital Signs Vital signs: Vital Signs Temp 96.9 F L 07/11/20 12:00 Pulse 86 07/11/20 12:00 Resp 18 07/11/20 12:00 BP 110/60 07/11/20 12:00 Pulse Ox 98 07/11/20 12:00 Intake & Output 07/10/20 07/11/20 07/11/20 18:59 06:59 18:59 Intake Total 840 630 Output Total 1175 1620 200 Balance -335 -1620 430 Weight 94.5 kg 75.5 kg Intake: Oral 840 630 Output: Urine 1175 1620 200 Uretheral (Mariee) 1175 500 200 Other: Voiding Method Indwelling Catheter Indwelling Catheter Indwelling Catheter # Voids 2 - Exam Gen: This is obesity 5-year-old male. He is resting in bed and appears to be comfortable and in no acute distress. HEENT: Head is atraumatic, normocephalic. Pupils equal, round. Sclerae is anicteric. NECK: Supple. No lymphadenopathy. LUNGS: Clear to auscultation. No wheezes or rhonchi. No intercostal retractions. HEART Irregularly irregular rate and rhythm Systolic murmur. ABDOMEN: Soft. Bowel sounds are present. No masses. No tenderness. EXTREMITIES 2+ bilateral pedal edema. No calf tenderness.Dorsalis pedis palpable bilaterally. NEUROLOGICAL: Patient is awake, alert and oriented x3. Cranial nerves 2 through 12 are grossly intact. - Labs CBC & Chem 7: 07/11/20 08:07 07/11/20 08:07 Labs: Abnormal Lab Results - Last 24 Hours (Table) 07/11/20 07/11/20 07/11/20 Range/Units 08:07 08:07 08:07 MCHC 30.8 L (31.0-37.0) g/dL Lymphocytes # 0.9 L (1.0-4.8) k/uL PT 23.1 H (9.0-12.0) sec INR 2.4 H (<1.2) Sodium 130 L (137-145) mmol/L Chloride 95 L (98-107) mmol/L BUN 21 H (9-20) mg/dL Creatinine 0.64 L (0.66-1.25) mg/dL Glucose 103 H (74-99) mg/dL Total Protein 5.7 L (6.3-8.2) g/dL Albumin 3.0 L (3.5-5.0) g/dL Assessment and Plan Plan: Assessment and plan #1 congestive heart failure exacerbation of systolic acute on chronic #2 permanent atrial fibrillation was controlled heart rate #3 hypertension #4 dyslipidemia #5 multiple comorbid conditions Plan We will continue the patient on current dose of IV Lasix, continue to monitor the intake and output along with daily weights and daily lytes BUN and creati nine. We will also repeat a chest x-ray, resume the patient's metoprolol and add Aldactone to the medication regime, discontinue the potassium. DNP note has been reviewed, I agree with a documented findings and plan of care. Patient was seen and examined.
--- NOTE | 2020-07-11 15:13 | XR ---
EXAMINATION TYPE: XR chest 2V DATE OF EXAM: 07/11/2020 COMPARISON: Prior chest x-ray 07/08/2020 HISTORY: Congestive heart failure, follow-up TECHNIQUE: Frontal and lateral views of the chest are obtained on 3 images. FINDINGS: The heart is markedly enlarged. Aorta is dense and aneurysmal. Patient is rotated. There i s no evident pneumothorax. Blunting the posterior costophrenic angles is present. The lungs show incr eased volume suggesting underlying COPD. Multiple old rib fractures are present, thoracic spine shows multilevel spondylosis. No evident pneumothorax. Interstitium is increased. IMPRESSION: There are pleural effusions. Marked cardiomegaly. Rotated exam. There may be component o f interstitial edema. Aortic aneurysm.
[2020-07-11 16:23] LABS: Appearance,Urine Cloudy (Clear); Bacteria,Urine Rare /hpf; Bilirubin,Urine Negative (Negative); Blood,Urine Large (Negative); Color,Urine Light Red; Glucose,Urine (UA) Negative (Negative); Ketones,Urine Negative (Negative); Leukocyte Esterase,Urine Large (Negative); Mucus,Urine Rare /hpf; Nitrite,Urine Negative (Negative); Protein,Urine Trace (Negative); RBC,Urine 170 /hpf (0-5); Specific Gravity,Urine 1.007 (1.001-1.035); Squamous Epithelial Cell,Urine <1 /hpf (0-4); Urobilinogen,Urine <2.0 mg/dL (<2.0); WBC,Urine 17 /hpf (0-5)
[2020-07-11] MEDS: WARFARIN 2.5 MG TAB PO SCH (16:55)
[2020-07-11] MEDS: ASPIRIN 81 MG PO SCH (19:52)
[2020-07-12 07:39] LABS: ALT 16 U/L (4-49); AST 28 U/L (17-59); African American GFR (CKD) >90 (>60 ml/min/1.73 sqM); Albumin 3.3 g/dL (3.5-5.0); Alkaline Phosphatase 92 U/L (38-126); Anion Gap 9 mmol/L; Blood Urea Nitrogen 24 mg/dL (9-20); Calcium 8.7 mg/dL (8.4-10.2); Carbon Dioxide 28 mmol/L (22-30); Chloride 95 mmol/L (98-107); Glucose 104 mg/dL (74-99); Non-African American GFR(CKD) 79 (>60 ml/min/1.73 sqM); Potassium 4.3 mmol/L (3.5-5.1); Sodium 132 mmol/L (137-145); Total Protein 6.1 g/dL (6.3-8.2)
[2020-07-12 07:48] LABS: INR 2.3 (<1.2); Prothrombin Time 22.2 sec (9.0-12.0)
--- NOTE | 2020-07-12 08:01 | P.PN ---
Subjective Principal diagnosis: The patient is here essentially for exacerbation of CHF. Still with some mild shortness of breath but his overall edematous leg and lower extremities are improving. No voiding difficulties. The patient states he had significant issues regarding his emotionality and is very remorseful this morning. He is so much better. We will switch over to oral diuresis today. The patient is complaining of significant weakness. Hopefully we can DC Mariee today. Objective - Vital Signs Vital signs: Vital Signs Temp 97.4 F L 07/12/20 04:00 Pulse 106 H 07/12/20 04:00 Resp 20 07/12/20 04:00 BP 132/81 07/12/20 04:00 Pulse Ox 94 L 07/12/20 04:00 Intake & Output 07/11/20 07/12/20 07/12/20 18:59 06:59 18:59 Intake Total 966 Output Total 1050 800 Balance -84 -800 Weight 93 kg Intake: Oral 966 Output: Urine 1050 800 Uretheral (Mariee) 1050 Other: Voiding Method Indwelling Catheter Indwelling Catheter - Constitutional General appearance: Present: obese - Neck Neck: Absent: lymphadenopathy - Respiratory Respiratory: bilateral: CTA - Cardiovascular Rhythm: regular Heart sounds: normal: S1, S2 Abnormal Heart Sounds: Absent: S3 Gallop - Gastrointestinal General gastrointestinal: Absent: tenderness - Integumentary Integumentary: Absent: cellulitis - Labs CBC & Chem 7: 07/11/20 08:07 07/12/20 07:09 Labs: Abnormal Lab Results - Last 24 Hours (Table) 07/11/20 07/11/20 07/11/20 Range/Units 08:07 08:07 08:07 MCHC 30.8 L (31.0-37.0) g/dL Lymphocytes # 0.9 L (1.0-4.8) k/uL PT 23.1 H (9.0-12.0) sec INR 2.4 H (<1.2) Sodium 130 L (137-145) mmol/L Chloride 95 L (98-107) mmol/L BUN 21 H (9-20) mg/dL Creatinine 0.64 L (0.66-1.25) mg/dL Glucose 103 H (74-99) mg/dL Total Protein 5.7 L (6.3-8.2) g/dL Albumin 3.0 L (3.5-5.0) g/dL Urine Protein (Negative) Urine Blood (Negative) Ur Leukocyte Esterase (Negative) Urine RBC (0-5) /hpf Urine WBC (0-5) /hpf Urine Bacteria (None) /hpf Urine Mucus (None) /hpf 07/11/20 07/12/20 07/12/20 Range/Units 16:01 07:09 07:09 MCHC (31.0-37.0) g/dL Lymphocytes # (1.0-4.8) k/uL PT 22.2 H (9.0-12.0) sec INR 2.3 H (<1.2) Sodium 132 L (137-145) mmol/L Chloride 95 L (98-107) mmol/L BUN 24 H (9-20) mg/dL Creatinine (0.66-1.25) mg/dL Glucose 104 H (74-99) mg/dL Total Protein 6.1 L (6.3-8.2) g/dL Albumin 3.3 L (3.5-5.0) g/dL Urine Protein Trace H (Negative) Urine Blood Large H (Negative) Ur Leukocyte Esterase Large H (Negative) Urine RBC 170 H (0-5) /hpf Urine WBC 17 H (0-5) /hpf Urine Bacteria Rare H (None) /hpf Urine Mucus Rare H (None) /hpf Microbiology - Last 24 Hours (Table) 07/11/20 16:01 Urine Culture - Preliminary Urine,Voided Assessment and Plan (1) Acute exacerbation of CHF (congestive heart failure) Current Visit: Yes Status: Acute Code(s): I50.9 - HEART FAILURE, UNSPECIFIED SNOMED Code(s): 293721232 (2) Multiple falls Current Visit: Yes Status: Acute Code(s): R29.6 - REPEATED FALLS SNOMED Code(s): 926720213 (3) CAD (coronary artery disease) Current Visit: No Status: Acute Code(s): I25.10 - ATHSCL HEART DISEASE OF [place] CORONARY ARTERY W/O ANG PCTRS SNOMED Code(s): 49287383 (4) COPD (chronic obstructive pulmonary disease) Current Visit: No Status: Acute Code(s): J44.9 - CHRONIC OBSTRUCTIVE PULMONARY DISEASE, UNSPECIFIED SNOMED Code(s): 49190879 (5) HTN (hypertension) Current Visit: No Status: Acute Code(s): I10 - ESSENTIAL (PRIMARY) HYPERTENSION SNOMED Code(s): 16636023 Plan: Continue appropriate diuresis. We'll switch over to oral Lasix today. NADINE Mariee today. Increase ambulation. Transferred to rehab in the next 24-48 hours.
[2020-07-12] MEDS: FAMOTIDINE 20 MG TAB PO SCH ×2 (08:45→19:35)
[2020-07-12] MEDS: METOPROLOL TARTRATE 25 MG TAB PO SCH ×2 (08:46→19:34)
[2020-07-12] MEDS: SPIRONOLACTONE 25 MG TAB PO SCH (08:46)
[2020-07-12] MEDS: lisinopriL 10 MG TAB PO SCH (08:46)
[2020-07-12] MEDS: HYDROPHILIC CREAM 180 GM TUBE TOPICAL SCH (08:46)
[2020-07-12] MEDS: FUROSEMIDE 40 MG TAB PO SCH ×2 (08:47→17:14)
--- NOTE | 2020-07-12 12:51 | P.PN ---
Subjective Progress Note Date: 07/12/20 This is a very pleasant 85-year-old gentleman who sees Dr. Gonzalez in the office on regular basis with a past medical history significant for permanent atrial fibrillation oral anticoagulation was Coumadin as well as hypertension and dyslipidemia who was brought by ambulance to the emergency department because of generalized weakness and lower extremities edema. Patient has been diuresing well on IV Lasix, his weight today is 1 down 1 kg. Blood pressure 116/70 with a heart rate in the 50s, 93% on 2 L of oxygen. Blood pressure 114/70 with a heart rate in the 50s, 94% on 2 L of oxygen. White blood cell count 6.9, hemoglobin 13.9, platelet count 161. INR 2.0. Sodium 133, potassium 4.2, BUN 23, cr eatinine 0.7. 07/11/2020 Patient was seen and examined this morning, he does still state that he feels significantly better than he did on arrival here, he continues to diurese, his urine is very dark in color. Echocardiogram with Doppler study revealed an ejection fraction of 20-25%, moderate to severe MR with moderate to severe TR. Patient states that he does recall being told in the past to have a weak heart muscle but he was unsure of just how week it was in the past. Blood pressure 110/60 with a heart rate in the 80s, 98% on 2 L of oxygen. White blood cell count 5.9, hemoglobin 13.1, platelet count 153. INR 2.4 today. 07/12/2020 Patient was seen and examined this morning, sitting up in the chair at bedside. He still complains today of feeling quite short of breath. He was changed over to oral diuretics today. His chest x-ray shows pleural effusions, marked cardiomegaly, interstitial edema. Blood pressure 132/70 with a heart rate in the 70s, 98% on 2 L. Pro time 22.2, INR 2.3. Sodium 132, potassium 4.3, BUN 24, creatinine 0.8. Positive UTI. Objective - Vital Signs Vital signs: Vital Signs Temp 97.9 F 07/12/20 11:47 Pulse 106 H 07/12/20 11:47 Resp 19 07/12/20 11:47 BP 133/75 07/12/20 11:47 Pulse Ox 98 07/12/20 11:47 Intake & Output 07/11/20 07/12/20 07/12/20 18:59 06:59 18:59 Intake Total 966 Output Total 1050 800 Balance -84 -800 Weight 93 kg Intake: Oral 966 Output: Urine 1050 800 Uretheral (Mariee) 1050 Other: Voiding Method Indwelling Catheter Indwelling Catheter Indwelling Catheter - Exam Gen: This is obesity 5-year-old male. He is resting in bed and appear s to be comfortable and in no acute distress. HEENT: Head is atraumatic, normocephalic. Pupils equal, round. Sclerae is anicteric. NECK: Supple. No lymphadenopathy. LUNGS: Clear to auscultation. No wheezes or rhonchi. No intercostal retractions. HEART Irregularly irregular rate and rhythm Systolic murmur. ABDOMEN: Soft. Bowel sounds are present. No masses. No tenderness. EXTREMITIES 2+ bilateral pedal edema. No calf tenderness.Dorsalis pedis palpable bilaterally. NEUROLOGICAL: Patient is awake, alert and oriented x3. Cranial nerves 2 through 12 are grossly intact. - Labs CBC & Chem 7: 07/11/20 08:07 07/12/20 07:09 Labs: Abnormal Lab Results - Last 24 Hours (Table) 07/11/20 07/12/20 07/12/20 Range/Units 16:01 07:09 07:09 PT 22.2 H (9.0-12.0) sec INR 2.3 H (<1.2) Sodium 132 L (137-145) mmol/L Chloride 95 L (98-107) mmol/L BUN 24 H (9-20) mg/dL Glucose 104 H (74-99) mg/dL Total Protein 6.1 L (6.3-8.2) g/dL Albumin 3.3 L (3.5-5.0) g/dL Urine Protein Trace H (Negative) Urine Blood Large H (Negative) Ur Leukocyte Esterase Large H (Negative) Urine RBC 170 H (0-5) /hpf Urine WBC 17 H (0-5) /hpf Urine Bacteria Rare H (None) /hpf Urine Mucus Rare H (None) /hpf Microbiology - Last 24 Hours (Table) 07/11/20 16:01 Urine Culture - Preliminary Urine,Voided Assessment and Plan Plan: Assessment and plan #1 congestive heart failure exacerbation of systolic acute on chronic #2 permanent atrial fibrillation was controlled heart rate #3 hypertension #4 dyslipidemia #5 multiple comorbid conditions Plan Patient has been changed over to oral diuretics. Repeat chest x-ray showed pleural effusions, component of interstitial edema. Patient is anticipating transferred to rehab soon. DNP note has been reviewed, I agree with a documented findings and plan of care. Patient was seen and examined.
[2020-07-12] MEDS: TAMSULOSIN 0.4 MG CAP.ER.24H PO SCH (13:56)
[2020-07-12] MEDS ORDERED: FUROSEMIDE 10 MG/ML 4 ML VIAL IV STA (14:08)
[2020-07-12] MEDS ORDERED: WARFARIN 1.25 MG TAB PO SCH (18:00)
[2020-07-12] MEDS: ASPIRIN 81 MG PO SCH (19:34)
--- NOTE | 2020-07-13 08:03 | P.PN ---
Subjective Principal diagnosis: The patient is here essentially for exacerbation of CHF. Still with some mild shortness of breath but his overall edematous leg and lower extremities are improving. No voiding difficulties. The patient seems in better spirits however today. The patient is wanting to be transferred soon. The patient is complaining of significant weakness. Jaylene has been DC'd as of this morning. We will make sure that he can void prior to discharge. Heart rate has been very very erratic with significant tachycardia and multiple PVCs. Objective - Vital Signs Vital signs: Vital Signs Temp 97.6 F 07/13/20 04:00 Pulse 57 L 07/13/20 04:00 Resp 18 07/13/20 04:00 BP 102/70 07/13/20 04:00 Pulse Ox 96 07/13/20 04:00 Intake & Output 07/12/20 07/13/20 07/13/20 18:59 06:59 18:59 Intake Total 720 Output Total 1200 1350 Balance -480 -1350 Intake: Oral 720 Output: Urine 1200 1350 Uretheral (Mariee) 650 Other: Voiding Method Indwelling Catheter Indwelling Catheter # Voids 2 - Constitutional General appearance: Present: no acute distress - EENT Eyes: Absent: abnormal pupil - Neck Neck: Absent: lymphadenopathy - Respiratory Respiratory: bilateral: diminished - Cardiovascular Rhythm: irregularly irregular Heart sounds: normal: S1, S2 Abnormal Heart Sounds: Absent: S3 Gallop - Gastrointestinal General gastrointestinal: Present: soft. Absent: tenderness - Integumentary Integumentary: Absent: cellulitis - Neurologic Neurologic: Present: CNII-XII intact - Labs CBC & Chem 7: 07/11/20 08:07 07/12/20 07:09 Labs: Microbiology - Last 24 Hours (Table) 07/11/20 16:01 Urine Culture - Final Urine,Voided Assessment and Plan (1) Acute exacerbation of CHF (congestive heart failure) Current Visit: Yes Status: Acute Code(s): I50.9 - HEART FAILURE, UNSPECIFIED SNOMED Code(s): 261192105 (2) Multiple falls Current Visit: Yes Status: Acute Code(s): R29.6 - REPEATED FALLS SNOMED Code(s): 167447637 (3) CAD (coronary artery disease) Current Visit: No Status: Acute Code(s): I25.10 - ATHSCL HEART DISEASE OF [place] CORONARY ARTERY W/O ANG PCTRS SNOMED Code(s): 01807313 (4) COPD (chronic obstructive pulmonary disease) Current Visit: No Status: Acute Code(s): J44.9 - CHRONIC OBSTRUCTIVE PULMONARY DISEASE, UNSPECIFIED SNOMED Code(s): 88506232 (5) HTN (hypertension) Current Visit: No Status: Acute Code(s): I10 - ESSENTIAL (PRIMARY) HYPERTENSION SNOMED Code(s): 69613461 Plan: Continue appropriate diuresis. We'll switch over to oral Lasix today. NADINE Mariee today. Increase ambulation. Transferred to rehab in the next 24-48 hours.
[2020-07-13] MEDS: SPIRONOLACTONE 25 MG TAB PO SCH (09:16)
[2020-07-13] MEDS: FAMOTIDINE 20 MG TAB PO SCH ×2 (09:16→19:44)
[2020-07-13] MEDS: METOPROLOL TARTRATE 25 MG TAB PO SCH ×2 (09:16→19:44)
[2020-07-13] MEDS: lisinopriL 10 MG TAB PO SCH (09:16)
[2020-07-13] MEDS: FUROSEMIDE 40 MG TAB PO SCH (09:16)
[2020-07-13] MEDS: HYDROPHILIC CREAM 180 GM TUBE TOPICAL SCH (09:17)
[2020-07-13 09:48] LABS: HCT 43.8 % (39.0-53.0); HGB 13.4 gm/dL (13.0-17.5); Hypochromasia Slight; MCH 29.9 pg (25.0-35.0); MCHC 30.6 g/dL (31.0-37.0); MCV 97.7 fL (80.0-100.0); Mean Platelet Volume 7.6; Platelet Count 209 k/uL (150-450); RBC 4.48 m/uL (4.30-5.90); RDW 14.5 % (11.5-15.5); WBC 7.2 k/uL (3.8-10.6)
[2020-07-13 09:58] LABS: ALT 18 U/L (4-49); AST 29 U/L (17-59); African American GFR (CKD) >90 (>60 ml/min/1.73 sqM); Alkaline Phosphatase 88 U/L (38-126); Anion Gap 5 mmol/L; Blood Urea Nitrogen 24 mg/dL (9-20); Calcium 8.7 mg/dL (8.4-10.2); Carbon Dioxide 35 mmol/L (22-30); Chloride 95 mmol/L (98-107); Glucose 104 mg/dL (74-99); Non-African American GFR(CKD) 87 (>60 ml/min/1.73 sqM); Potassium 3.9 mmol/L (3.5-5.1); Sodium 135 mmol/L (137-145); Total Bilirubin 0.9 mg/dL (0.2-1.3); Total Protein 5.9 g/dL (6.3-8.2)
[2020-07-13 10:13] LABS: INR 2.1 (<1.2); Prothrombin Time 20.7 sec (9.0-12.0)
[2020-07-13] MEDS: TAMSULOSIN 0.4 MG CAP.ER.24H PO SCH (11:24)
--- NOTE | 2020-07-13 11:45 | P.PN ---
Subjective Progress Note Date: 07/13/20 This is a very pleasant 85-year-old gentleman who sees Dr. Gonzalez in the office on regular basis with a past medical history significant for permanent atrial fibrillation oral anticoagulation was Coumadin as well as hypertension and dyslipidemia who was brought by ambulance to the emergency department because of generalized weakness and lower extremities edema. Patient has been diuresing well on IV Lasix, his weight today is 1 down 1 kg. Blood pressure 116/70 with a heart rate in the 50s, 93% on 2 L of oxygen. Blood pressure 114/70 with a heart rate in the 50s, 94% on 2 L of oxygen. White blood cell count 6.9, hemoglobin 13.9, platelet count 161. INR 2.0. Sodium 133, potassium 4.2, BUN 23, cr eatinine 0.7. 07/11/2020 Patient was seen and examined this morning, he does still state that he feels significantly better than he did on arrival here, he continues to diurese, his urine is very dark in color. Echocardiogram with Doppler study revealed an ejection fraction of 20-25%, moderate to severe MR with moderate to severe TR. Patient states that he does recall being told in the past to have a weak heart muscle but he was unsure of just how week it was in the past. Blood pressure 110/60 with a heart rate in the 80s, 98% on 2 L of oxygen. White blood cell count 5.9, hemoglobin 13.1, platelet count 153. INR 2.4 today. 07/12/2020 Patient was seen and examined this morning, sitting up in the chair at bedside. He still complains today of feeling quite short of breath. He was changed over to oral diuretics today. His chest x-ray shows pleural effusions, marked cardiomegaly, interstitial edema. Blood pressure 132/70 with a heart rate in the 70s, 98% on 2 L. Pro time 22.2, INR 2.3. Sodium 132, potassium 4.3, BUN 24, creatinine 0.8. Positive UTI. 07/13/2020 Patient seen and examined this morning sitting up in the chair at bedside. Breathing appears to be improved as compared with yesterday, still quite short of breath just with speaking. He continues to have significant bilateral peripheral edema. He has atrial fibrillation on the monitor with frequent PVCs and short runs of nonsustained ventricular tachycardia. Blood pressure 98/60 with a heart rate in the 90s, 97% on 2 L of oxygen. White blood cell count 7.2, hemoglobin 13.4, platelet count 209. Pro time 20.7 with an INR of 2.1. Sodium 135, potassium 3.9, BUN 24 and creatinine 0.6. Objective - Vital Signs Vital signs: Vital Signs Temp 97.4 F L 07/13/20 11:23 Pulse 95 07/13/20 11:23 Resp 17 07/13/20 11:23 BP 97/61 07/13/20 11:23 Pulse Ox 97 07/13/20 11:23 Intake & Output 07/12/20 07/13/20 07/13/20 18:59 06:59 18:59 Intake Total 720 Output Total 1200 1350 Balance -480 -1350 Intake: Oral 720 Output: Urine 1200 1350 Uretheral (Mariee) 650 Other: Voiding Method Indwelling Catheter Indwelling Catheter Urinal Indwelling Catheter # Voids 2 - Exam Gen: This is obesity 5-year-old male. He is resting in bed and appears to be comfortable and in no acute distress. HEENT: Head is atraumatic, normocephalic. Pupils equal, round. Sclerae is anicteric. NECK: Supple. No lymphadenopathy. LUNGS: Clear to auscultation. No wheezes or rhonchi. No intercostal retractions. HEART Irregularly irregular rate and rhythm Systolic murmur. ABDOMEN: Soft. Bowel sounds are present. No masses. No tenderness. EXTREMITIES 2+ bilateral pedal edema. No calf tenderness.Dorsalis pedis palpable bilaterally. NEUROLOGICAL: Patient is awake, alert and oriented x3. Cranial nerves 2 through 12 are grossly intact. - Labs CBC & Chem 7: 07/13/20 08:52 07/13/20 08:52 Labs: Abnormal Lab Results - Last 24 Hours (Table) 07/13/20 07/13/20 07/13/20 Range/Units 08:52 08:52 08:52 MCHC 30.6 L (31.0-37.0) g/dL PT 20.7 H (9.0-12.0) sec INR 2.1 H (<1.2) Sodium 135 L (137-145) mmol/L Chloride 95 L (98-107) mmol/L Carbon Dioxide 35 H (22-30) mmol/L BUN 24 H (9-20) mg/dL Glucose 104 H (74-99) mg/dL Total Protein 5.9 L (6.3-8.2) g/dL Albumin 3.0 L (3.5-5.0) g/dL Microbiology - Last 24 Hours (Table) 07/11/20 16:01 Urine Culture - Final Urine,Voided Assessment and Plan Plan: Assessment and plan #1 congestive heart failure exacerbation of systolic acute on chronic #2 permanent atrial fibrillation was controlled heart rate #3 hypertension #4 dyslipidemia #5 multiple comorbid conditions Plan We will discontinue the oral diuretics today and start the patient back on IV diuretics, monitor intake and output along with daily weight. Check labs in the morning. DNP note has been reviewed, I agree with a documented findings and plan of care. Patient was seen and examined.
[2020-07-13] MEDS: FUROSEMIDE 10 MG/ML 4 ML VIAL IV SCH ×2 (12:33→19:44)
[2020-07-13 14:36] VITALS: BMI 30.2
[2020-07-13] MEDS: WARFARIN 2.5 MG TAB PO SCH (18:26)
[2020-07-13] MEDS: ASPIRIN 81 MG PO SCH (19:44)
[2020-07-14 04:50] VITALS: RESP 18
--- NOTE | 2020-07-14 08:33 | P.DS ---
Providers Date of admission: 07/08/20 12:11 Attending physician: Ramiro Yost Consults: 07/08/20 12:17 Consult Physician Routine Consulting Provider: Mark Anthony Gonzalez Consult Reason/Comments: CHF Do you want consulting provider notified?: Yes Primary care physician: Ramiro Yost - Discharge Diagnosis(es) (1) Acute exacerbation of CHF (congestive heart failure) Current Visit: Yes Status: Acute (2) Multiple falls Current Visit: Yes Status: Acute (3) CAD (coronary artery disease) Current Visit: No Status: Acute (4) COPD (chronic obstructive pulmonary disease) Current Visit: No Status: Acute (5) HTN (hypertension) Current Visit: No Status: Acute Hospital Course: This is a discharge summary 85-year-old white male essentially admitted for congestive heart failure. The patient has also urinary retention element and will go home with ECF with element of the catheter. The patient was diuresed and still has significant issues secondary to multiple comorbidities. He will be discharged in stable but guarded condition once cleared by cardiology on increase of Lasix as noted in his discharge medication reconciliation. The patient will follow-up with me in 3-4 days. Patient Condition at Discharge: Fair Plan - Discharge Summary Discharge Rx Participant: Yes New Discharge Prescriptions: New Spironolactone [Aldactone] 25 mg PO DAILY #30 tab Hydrophilic Cream [Triad Cream] 1 applic TOPICAL DAILY #120 gm Continue Warfarin [Coumadin] 2.5 mg PO TUTHFR Warfarin [Coumadin] 1.25 mg PO [place] Tamsulosin HCl [Flomax] 0.4 mg PO DAILY@1200 Potassium Chloride ER [K-Dur 20] 20 meq PO DAILY Nitroglycerin Sl Tabs [Nitrostat] 0.4 mg SUBLINGUAL Q5M PRN PRN Reason: Chest Pain Aspirin EC [Ecotrin Low Dose] 81 mg PO HS Simvastatin [Zocor] 80 mg PO QAM Vit C/E/Zn/Coppr/Lutein/Zeaxan [Preservision Areds 2 Softgel] 1 tab PO BID Benazepril [Lotensin] 10 mg PO DAILY Metoprolol Tartrate [Lopressor] 25 mg PO BID Albuterol Inhaler [Ventolin Hfa Inhaler] 2 puff INHALATION RT-Q4H PRN PRN Reason: Shortness Of Breath Changed Furosemide [Lasix] 20 mg PO BID #60 tab Discharge Medication List Aspirin EC [Ecotrin Low Dose] 81 mg PO HS 07/11/16 [History] Nitroglycerin Sl Tabs [Nitrostat] 0.4 mg SUBLINGUAL Q5M PRN 07/11/16 [History] Potassium Chloride ER [K-Dur 20] 20 meq PO DAILY 07/11/16 [History] Simvastatin [Zocor] 80 mg PO QAM 07/11/16 [History] Tamsulosin HCl [Flomax] 0.4 mg PO DAILY@1200 07/11/16 [History] Warfarin [Coumadin] 1.25 mg PO [place] 07/11/16 [History] Warfarin [Coumadin] 2.5 mg PO TUTHFR 07/11/16 [History] Albuterol Inhaler [Ventolin Hfa Inhaler] 2 puff INHALATION RT-Q4H PRN 07/08/20 [History] Benazepril [Lotensin] 10 mg PO DAILY 07/08/20 [History] Metoprolol Tartrate [Lopressor] 25 mg PO BID 07/08/20 [History] Vit C/E/Zn/Coppr/Lutein/Zeaxan [Preservision Areds 2 Softgel] 1 tab PO BID 07/08/20 [History] Furosemide [Lasix] 20 mg PO BID #60 tab 07/14/20 [Rx] Hydrophilic Cream [Triad Cream] 1 applic TOPICAL DAILY #120 gm 07/14/20 [Rx] Spironolactone [Aldactone] 25 mg PO DAILY #30 tab 07/14/20 [Rx] Follow up Appointment(s)/Referral(s): Ramiro Yost MD [Primary Care Provider] - 3 Days Discharge Disposition: TRANSFER TO SNF/ECF
[2020-07-14] MEDS: FUROSEMIDE 10 MG/ML 4 ML VIAL IV SCH (08:51)
[2020-07-14] MEDS: SPIRONOLACTONE 25 MG TAB PO SCH (08:52)
[2020-07-14] MEDS: lisinopriL 10 MG TAB PO SCH (08:52)
[2020-07-14] MEDS: METOPROLOL TARTRATE 25 MG TAB PO SCH (08:52)
[2020-07-14] MEDS: FAMOTIDINE 20 MG TAB PO SCH (08:52)
[2020-07-14 09:04] VITALS: BP 122/68; PULSE 53; TEMP 98.2
--- NOTE | 2020-07-14 11:59 | PN ---
PROGRESS NOTE Mr. Chatterjee is an 85-year-old male who presented with symptoms of worsening dyspnea. He has evidence of congestive heart failure. He is feeling reasonably better today. His breathing is better. He denies any dizziness or palpitation. He denies any nausea. He continues to be on Coumadin, spironolactone 25 mg daily, metoprolol tartrate 25 mg twice a day, Zestril 10 mg daily, furosemide 40 mg IV q.12 hours, and aspirin. PHYSICAL EXAMINATION: Blood pressure running in the 90s with a heart rate in 90s. LUNGS: No wheezes. HEART: Irregular, regular. S1-S2. No S3, with a systolic ejection murmur. No diastolic murmur, no rub. ABDOMEN: Soft and nontender. EXTREMITIES: +1 edema bilaterally. LAB DATA: Revealed an INR of 2.1, BUN and creatinine 24 and 0.66, potassium 3.9. IMPRESSION: 1. Congestive heart failure with severe cardiomyopathy. 2. Atrial fibrillation, anticoagulated. 3. Hyperlipidemia. RECOMMENDATION: From the cardiac standpoint, he should be able to be discharged home to extended care facility and follow up with Dr. Gonzalez on a regular basis. MMODL / IJN: [id number] /
== END 2020-07-14 10:57 | DRG 292 ==
LOC: EC 09:55 → 3SCARD 12:11
PROVIDERS: ADMIT Family Medicine; ATTEND Family Medicine
DX: I11.0 Hypertensive heart disease with heart failure (principal); I48.21 Permanent atrial fibrillation; I47.2 Ventricular tachycardia; I42.9 Cardiomyopathy, unspecified; E78.5 Hyperlipidemia, unspecified; I25.10 Atherosclerotic heart disease of native coronary artery without angina pectoris; I50.23 Acute on chronic systolic (congestive) heart failure; J44.9 Chronic obstructive pulmonary disease, unspecified; M19.90 Unspecified osteoarthritis, unspecified site; N40.0 Benign prostatic hyperplasia without lower urinary tract symptoms; H35.30 Unspecified macular degeneration; Z96.643 Presence of artificial hip joint, bilateral; I49.3 Ventricular premature depolarization; L89.312 Pressure ulcer of right buttock, stage 2; I08.1 Rheumatic disorders of both mitral and tricuspid valves; R29.6 Repeated falls; I25.2 Old myocardial infarction; Z79.899 Other long term (current) drug therapy; Z79.01 Long term (current) use of anticoagulants; Z98.890 Other specified postprocedural states; Z90.79 Acquired absence of other genital organ(s); Z82.49 Family history of ischemic heart disease and other diseases of the circulatory system; Z80.6 Family history of leukemia; Z91.81 History of falling
CPT/HCPCS: 36415; 70450; 71046; 72125; 80048; 80053; 81001; 83605; 83735; 83880; 84484; 85025; 85027; 85610; 85730; 87086; 93005; 93306; 96374; 99285

== ENCOUNTER 2020-07-22 23:22 | Emergency (ER) | payer MEDICARE, BC ==
[2020-07-22 23:34] VITALS: TEMP 98.1
[2020-07-23 00:20] LABS: Basophils % (A) 1 %; Eosinophils # (A) 0.3 k/uL (0-0.7); Eosinophils % (A) 3 %; HCT 42.6 % (39.0-53.0); HGB 13.2 gm/dL (13.0-17.5); Hypochromasia Slight; Lymphocytes # (A) 0.8 k/uL (1.0-4.8); Lymphocytes % (A) 11 %; MCH 29.7 pg (25.0-35.0); MCV 95.8 fL (80.0-100.0); Mean Platelet Volume 7.7; Monocytes # (A) 0.6 k/uL (0-1.0); Monocytes % (A) 7 %; Neutrophils # (A) 6.1 k/uL (1.3-7.7); Neutrophils % (A) 77 %; Platelet Count 213 k/uL (150-450); RBC 4.44 m/uL (4.30-5.90); RDW 14.9 % (11.5-15.5)
[2020-07-23 00:25] LABS: INR 2.6 (<1.2); Prothrombin Time 24.9 sec (9.0-12.0)
[2020-07-23 01:01] LABS: Appearance,Urine Turbid (Clear); Bilirubin,Urine Negative (Negative); Blood,Urine Large (Negative); Color,Urine Red; Glucose,Urine (UA) Negative (Negative); Ketones,Urine Negative (Negative); Leukocyte Esterase,Urine Large (Negative); Mucus,Urine Many /hpf; Nitrite,Urine Negative (Negative); PH, Urine 5.5 (5.0-8.0); Protein,Urine 2+ (Negative); RBC,Urine >182 /hpf (0-5); Specific Gravity,Urine 1.021 (1.001-1.035); Squamous Epithelial Cell,Urine 2 /hpf (0-4); Urobilinogen,Urine <2.0 mg/dL (<2.0); WBC,Urine >182 /hpf (0-5)
[2020-07-23] MEDS ORDERED: SULFAMETH-TMP DS STARTER PACK 2 TAB BTL PO STA (01:12)
--- NOTE | 2020-07-23 01:13 | ED ---
Male Urogenital HPI - General Chief complaint: Urogenital Stated complaint: Blood in Urine Time Seen by Provider: 07/22/20 23:38 Source: EMS Mode of arrival: EMS Limitations: no limitations - History of Present Illness Initial comments: 85-year-old male presents to emergency department this evening with complaints of blood in his Mariee catheter. Patient states he was discharged from [facility] earlier today and prior to departure staff changed his Mariee catheter because the existing one had been in for 7 days. Denies any difficulty with Mariee insertion but states he noticed blood in the urine immediately after placement. States he was informed that bleeding after Mariee insertion is not uncommon and that it ought to resolve by the end of the day. He expresses concern that the blood does not appear to be lessening. History of urinary incontinence for which the catheter was initially placed. Patient denies any recent rash, fever, chills, shortness of breath, chest pain, abdominal pain, nausea, vomiting, diarrhea, constipation, back pain, numbness, tingling, dizziness, weakness,dysuria, headache, visual changes, or any other complaints. - Related Data Home Medications Medication Instructions Recorded Confirmed Aspirin EC [Ecotrin Low Dose] 81 mg PO HS 07/11/16 07/08/20 Nitroglycerin Sl Tabs [Nitrostat] 0.4 mg SUBLINGUAL Q5M PRN 07/11/16 07/08/20 Potassium Chloride ER [K-Dur 20] 20 meq PO DAILY 07/11/16 07/08/20 Simvastatin [Zocor] 80 mg PO QAM 07/11/16 07/08/20 Tamsulosin HCl [Flomax] 0.4 mg PO DAILY@1200 07/11/16 07/08/20 Warfarin [Coumadin] 1.25 mg PO SUMOWESA 07/11/16 07/08/20 Warfarin [Coumadin] 2.5 mg PO TUTHFR 07/11/16 07/08/20 Albuterol Inhaler [Ventolin Hfa 2 puff INHALATION RT-Q4H PRN 07/08/20 07/08/20 Inhaler] Benazepril [Lotensin] 10 mg PO DAILY 07/08/20 07/08/20 Metoprolol Tartrate [Lopressor] 25 mg PO BID 07/08/20 07/08/20 Vit C/E/Zn/Coppr/Lutein/Zeaxan 1 tab PO BID 07/08/20 07/08/20 [Preservision Areds 2 Softgel] Previous Rx's Medication Instructions Recorded Furosemide [Lasix] 40 mg PO BID #60 tablet 07/14/20 Hydrophilic Cream [Triad Cream] 1 applic TOPICAL DAILY #120 gm 07/14/20 Spironolactone [Aldactone] 25 mg PO DAILY #30 tab 07/14/20 Sulfamethoxazole/Trimethoprim 1 each PO BID #20 tablet 07/23/20 [Bactrim DS 800-160 mg] Allergies Allergy/AdvReac Type Severity Reaction Status Date / Time No Known Allergies Allergy Verified 07/22/20 23:34 Review of Systems ROS Statement: Those systems with pertinent positive or pertinent negative responses have been documented in the HPI. ROS Other: All systems not noted in ROS Statement are negative. Past Medical History Past Medical History: Atrial Fibrillation, Coronary Artery Disease (CAD), Heart Failure, Eye Disorder, Hypertension, Myocardial Infarction (CA), Osteoarthritis (OA), Prostate Disorder Additional Past Medical History / Comment(s): Bilateral macular degeneration- eyesight is poor, pt was told by physician that he had CA in past, "reyna's lung", bilateral lower leg edema-takes lasix and wears bilateral compression stockings. Last Myocardial Infarction Date:: unkn History of Any Multi-Drug Resistant Organisms: None Reported Past Surgical History: Hernia Repair, Joint Replacement Additional Past Surgical History / Comment(s): Bilateral total hip replacements, varicose veins stripped L leg, bilateral laser surgery on eyes for macular degeneration, bilateral inguinal hernia repairs with L testicle removed, eye injections. Past Anesthesia/Blood Transfusion Reactions: No Reported Reaction Additional Past Anesthesia/Blood Transfusion Reaction / Comment(s): Pt states he has been told that he is slow to wake with anesthesia. Past Psychological History: No Psychological Hx Reported Smoking Status: Never smoker Past Alcohol Use History: None Reported Past Drug Use History: None Reported - Past Family History Father Family Medical History: Cancer Additional Family Medical History / Comment(s): Father of leukemia at the age of 49 yrs. Mother Family Medical History: Coronary Artery Disease (CAD) Additional Family Medical History / Comment(s): Mother of a CA at the age of 67yrs. She also had varicose veins. General Exam Limitations: no limitations General appearance: alert, in no apparent distress, other (Well-developed, well- nourished male in no acute distress. Initial temperature 98.1F, pulse 59, respirations 20, blood pressure 128/48, pulse ox 98% on room air.) Respiratory exam: Present: normal lung sounds bilaterally. Absent: respiratory distress, wheezes, rales, rhonchi, stridor Cardiovascular Exam: Present: regular rate, normal rhythm, normal heart sounds. Absent: systolic murmur, diastolic murmur, rubs, gallop, clicks GI/Abdominal exam: Present: soft, normal bowel sounds. Absent: distended, tenderness, guarding, rebound, rigid exam: Present: other (The Mariee catheter in place draining jay urine with red sediment.) Neurological exam: Present: alert, oriented X3, CN II-XII intact Psychiatric exam: Present: normal affect, normal mood Skin exam: Present: warm, dry, intact, normal color. Absent: rash Course Vital Signs 07/22/20 07/23/20 23:28 01:54 Temperature 98.1 F 98.1 F Pulse Rate 59 L 66 Respiratory 20 18 Rate Blood Pressure 128/48 102/58 O2 Sat by Pulse 98 95 Oximetry Medical Decision Making - Medical Decision Making 85-year-old male presents to the emergency department with Mariee catheter in place draining jay colored urine with dark red sediment. Patient's Mariee was changed today prior to his discharge from [facility]. Patient acknowledges blood in his urine immediately after insertion. Reports concern that the bleeding has appeared to lessen. Patient does take Coumadin and baby aspirin daily. Coags were drawn, PT was 24.9 and INR was 2.6. Urine was positive for large amounts of blood and leukocyte esterase, and white blood cell clumps. Patient is pain- free and afebrile. Will be discharged home with Mariee in place and on antibi otics. Instructed to follow-up with his primary care doctor in the next 1-2 days. Return parameters were discussed. Patient verbalizes understanding and agrees with this plan. - Lab Data Result diagrams: 07/23/20 00:01 Lab Results 07/23/20 07/23/20 07/23/20 Range/Units 00:01 00:01 00:23 WBC 8.0 (3.8-10.6) k/uL RBC 4.44 (4.30-5.90) m/uL Hgb 13.2 (13.0-17.5) gm/dL Hct 42.6 (39.0-53.0) % MCV 95.8 (80.0-100.0) fL MCH 29.7 (25.0-35.0) pg MCHC 31.0 (31.0-37.0) g/dL RDW 14.9 (11.5-15.5) % Plt Count 213 (150-450) k/uL Neutrophils % 77 % Lymphocytes % 11 % Monocytes % 7 % Eosinophils % 3 % Basophils % 1 % Neutrophils # 6.1 (1.3-7.7) k/uL Lymphocytes # 0.8 L (1.0-4.8) k/uL Monocytes # 0.6 (0-1.0) k/uL Eosinophils # 0.3 (0-0.7) k/uL Basophils # 0.0 (0-0.2) k/uL Hypochromasia Slight PT 24.9 H (9.0-12.0) sec INR 2.6 H (<1.2) Urine Color Red Urine Appearance Turbid (Clear) Urine pH 5.5 (5.0-8.0) Ur Specific [place] 1.021 (1.001-1.035) Urine Protein 2+ H (Negative) Urine Glucose (UA) Negative (Negative) Urine Ketones Negative (Negative) Urine Blood Large H (Negative) Urine Nitrite Negative (Negative) Urine Bilirubin Negative (Negative) Urine Urobilinogen <2.0 (<2.0) mg/dL Ur Leukocyte Esterase Large H (Negative) Urine RBC >182 H (0-5) /hpf Urine WBC >182 H (0-5) /hpf Urine WBC Clumps Many H (None) /hpf Ur Squamous Epith Cells 2 (0-4) /hpf Urine Mucus Many H (None) /hpf Disposition Clinical Impression: Hematuria, Mariee catheter in place on admission Disposition: HOME SELF-CARE Condition: Good Instructions (If sedation given, give patient instructions): Mariee Catheter Placement and Care (ED), Hematuria (ED) Additional Instructions: Increase fluids. Complete antibiotic prescription in full. Follow-up with your primary care physician and the urologist for further evaluation as soon as possible. Return to the emergency department immediately for any new, worsening, or concerning symptoms. Prescriptions: Sulfamethoxazole/Trimethoprim [Bactrim DS 800-160 mg] 1 each PO BID #20 tablet Is patient prescribed a controlled substance at d/c from ED?: No Referrals: Ramiro Yots MD [Primary Care Provider] - 1-2 days Bradley Guzman MD [STAFF PHYSICIAN] - 1-2 days Time of Disposition: 01:13
[2020-07-23 01:58] VITALS: BP 102/58; PULSE 66; RESP 18
== END 2020-07-23 01:58 | disposition home or self-care (01) ==
LOC: EC 23:22
DX: R31.9 Hematuria, unspecified (principal); I11.0 Hypertensive heart disease with heart failure; I50.9 Heart failure, unspecified; M19.90 Unspecified osteoarthritis, unspecified site; I25.2 Old myocardial infarction; Z79.899 Other long term (current) drug therapy; Z79.82 Long term (current) use of aspirin; Z79.01 Long term (current) use of anticoagulants; Z96.643 Presence of artificial hip joint, bilateral; Z96.0 Presence of urogenital implants
CPT/HCPCS: 36415; 81001; 85025; 85610; 87086; 99283

== ENCOUNTER 2020-11-17 17:23 | Inpatient (IN) | payer MEDICARE, BC ==
[2020-11-17 17:56] LABS: Basophils # (A) 0.1 k/uL (0-0.2); Basophils % (A) 1 %; Eosinophils # (A) 0.2 k/uL (0-0.7); Eosinophils % (A) 3 %; HCT 43.3 % (39.0-53.0); Lymphocytes # (A) 1.1 k/uL (1.0-4.8); Lymphocytes % (A) 15 %; MCH 32.2 pg (25.0-35.0); MCHC 32.3 g/dL (31.0-37.0); MCV 99.6 fL (80.0-100.0); Macrocytosis Slight; Mean Platelet Volume 8.4; Monocytes # (A) 0.6 k/uL (0-1.0); Monocytes % (A) 8 %; Neutrophils # (A) 5.1 k/uL (1.3-7.7); Neutrophils % (A) 72 %; Platelet Count 123 k/uL (150-450); RBC 4.35 m/uL (4.30-5.90); WBC 7.1 k/uL (3.8-10.6)
--- NOTE | 2020-11-17 17:57 | ED ---
General Adult HPI - General Chief complaint: Extremity Problem,Nontraumatic Stated complaint: Bilateral Leg Swelling Time Seen by Provider: 11/17/20 17:25 Source: patient, RN notes reviewed, old records reviewed Mode of arrival: EMS Limitations: no limitations - History of Present Illness Initial comments: 85-year-old male presented for evaluation of worsening bilateral lower extremity swelling. He states this is predominantly behind his knees. He has history of CHF, atrial fibrillation, and chronic dyspnea. He states that he does have dyspnea but believes this is not much worse than normal. He denies central chest pain. He denies fever. He's had a minimally productive cough. - Related Data Home Medications Medication Instructions Recorded Confirmed Aspirin EC [Ecotrin Low Dose] 81 mg PO HS 07/11/16 11/17/20 Nitroglycerin Sl Tabs [Nitrostat] 0.4 mg SUBLINGUAL Q5M PRN 07/11/16 11/17/20 Potassium Chloride ER [K-Dur 20] 20 meq PO DAILY 07/11/16 11/17/20 Simvastatin [Zocor] 80 mg PO QAM 07/11/16 11/17/20 Tamsulosin HCl [Flomax] 0.4 mg PO DAILY@1200 07/11/16 11/17/20 Warfarin [Coumadin] 1.25 mg PO SUM[place]ESA 07/11/16 11/17/20 Warfarin [Coumadin] 2.5 mg PO TUTHFR 07/11/16 11/17/20 Albuterol Inhaler [Ventolin Hfa 2 puff INHALATION RT-Q4H PRN 07/08/20 11/17/20 Inhaler] Benazepril [Lotensin] 10 mg PO DAILY 07/08/20 11/17/20 Metoprolol Tartrate [Lopressor] 25 mg PO BID 07/08/20 11/17/20 Vit C/E/Zn/Coppr/Lutein/Zeaxan 1 tab PO BID 07/08/20 11/17/20 [Preservision Areds 2 Softgel] Furosemide [Lasix] 20 mg PO DAILY PRN 11/17/20 11/17/20 Previous Rx's Medication Instructions Recorded Hydrophilic Cream [Triad Cream] 1 applic TOPICAL DAILY #120 gm 07/14/20 Spironolactone [Aldactone] 25 mg PO DAILY #30 tab 07/14/20 Allergies Allergy/AdvReac Type Severity Reaction Status Date / Time No Known Allergies Allergy Verified 11/17/20 17:33 Review of Systems ROS Statement: Those systems with pertinent positive or pertinent negative responses have been documented in the HPI. ROS Other: All systems not noted in ROS Statement are negative. Past Medical History Past Medical History: Atrial Fibrillation, Coronary Artery Disease (CAD), Heart Failure, Eye Disorder, Hypertension, Myocardial Infarction (ME), Osteoarthritis (OA), Prostate Disorder Additional Past Medical History / Comment(s): Bilateral macular degeneration- eyesight is poor, pt was told by physician that he had ME in past, "reyna's lung", bilateral lower leg edema-takes lasix and wears bilateral compression stockings. Last Myocardial Infarction Date:: unkn History of Any Multi-Drug Resistant Organisms: None Reported Past Surgical History: Hernia Repair, Joint Replacement Additional Past Surgical History / Comment(s): Bilateral total hip replacements, varicose veins stripped L leg, bilateral laser surgery on eyes for macular degeneration, bilateral inguinal hernia repairs with L testicle removed, eye injections. Past Anesthesia/Blood Transfusion Reactions: No Reported Reaction Additional Past Anesthesia/Blood Transfusion Reaction / Comment(s): Pt states he has been told that he is slow to wake with anesthesia. Past Psychological History: No Psychological Hx Reported Smoking Status: Never smoker Past Alcohol Use History: None Reported Past Drug Use History: None Reported - Past Family History Father Family Medical History: Cancer Additional Family Medical History / Comment(s): Father of leukemia at the age of 49 yrs. Mother Family Medical History: Coronary Artery Disease (CAD) Additional Family Medical History / Comment(s): Mother of a ME at the age of 67yrs. She also had varicose veins. General Exam Limitations: no limitations General appearance: alert, in no apparent distress Head exam: Present: atraumatic, normocephalic Eye exam: Present: normal appearance, PERRL Neck exam: Present: normal inspection. Absent: tenderness, meningismus Respiratory exam: Present: respiratory distress, rales, decreased breath sounds Cardiovascular Exam: Present: normal rhythm, irregular rhythm GI/Abdominal exam: Present: soft. Absent: distended, tenderness Extremities exam: Present: normal capillary refill, pedal edema, calf tenderness Neurological exam: Present: alert Psychiatric exam: Present: normal affect, normal mood Skin exam: Present: warm, dry, intact. Absent: cyanosis, diaphoretic Course Vital Signs 11/17/20 11/17/20 17:27 18:48 Temperature 97.9 F Pulse Rate 110 H 98 Respiratory 18 18 Rate Blood Pressure 125/96 112/92 O2 Sat by Pulse 96 98 Oximetry EKG Findings - EKG Comments: EKG Findings:: EKG: Atrial fibrillation with RVR, left axis, no ST segment elevation, rate of 115, QRS duration 122, QTC 462 Medical Decision Making - Medical Decision Making 85-year-old with bilateral lower extremity swelling, and dyspnea. Chest x-ray showing CHF, ultrasound performed of both legs which is negative for DVT. Patient has a negative troponin, elevated BNP 5300. He will be admitted for IV diuresis. Case discussed with Nya chan for [facility]. - Lab Data Result diagrams: 11/17/20 17:43 11/17/20 17:43 Lab Results 11/17/20 11/17/20 11/17/20 Range/Units 17:43 17:43 17:43 WBC 7.1 (3.8-10.6) k/uL RBC 4.35 (4.30-5.90) m/uL Hgb 14.0 (13.0-17.5) gm/dL Hct 43.3 (39.0-53.0) % MCV 99.6 (80.0-100.0) fL MCH 32.2 (25.0-35.0) pg MCHC 32.3 (31.0-37.0) g/dL RDW 15.0 (11.5-15.5) % Plt Count 123 L (150-450) k/uL MPV 8.4 Neutrophils % 72 % Lymphocytes % 15 % Monocytes % 8 % Eosinophils % 3 % Basophils % 1 % Neutrophils # 5.1 (1.3-7.7) k/uL Lymphocytes # 1.1 (1.0-4.8) k/uL Monocytes # 0.6 (0-1.0) k/uL Eosinophils # 0.2 (0-0.7) k/uL Basophils # 0.1 (0-0.2) k/uL Macrocytosis Slight PT 18.1 H (9.0-12.0) sec INR 1.8 H (<1.2) APTT 28.8 (22.0-30.0) sec Sodium 130 L (137-145) mmol/L Potassium 4.6 (3.5-5.1) mmol/L Chloride 93 L (98-107) mmol/L Carbon Dioxide 27 (22-30) mmol/L Anion Gap 10 mmol/L BUN 16 (9-20) mg/dL Creatinine 0.62 L (0.66-1.25) mg/dL Est GFR (CKD-EPI)AfAm >90 (>60 ml/min/1.73 sqM) Est GFR (CKD-EPI)NonAf 90 (>60 ml/min/1.73 sqM) Glucose 106 H (74-99) mg/dL Plasma Lactic Acid Aakash (0.7-2.0) mmol/L Calcium 9.3 (8.4-10.2) mg/dL Total Bilirubin 1.2 (0.2-1.3) mg/dL AST 21 (17-59) U/L ALT 13 (4-49) U/L Alkaline Phosphatase 93 (38-126) U/L Troponin I (0.000-0.034) ng/mL NT-Pro-B Natriuret Pep pg/mL Total Protein 6.7 (6.3-8.2) g/dL Albumin 3.8 (3.5-5.0) g/dL 11/17/20 11/17/20 11/17/20 Range/Units 17:43 17:43 17:43 WBC (3.8-10.6) k/uL RBC (4.30-5.90) m/uL Hgb (13.0-17.5) gm/dL Hct (39.0-53.0) % MCV (80.0-100.0) fL MCH (25.0-35.0) pg MCHC (31.0-37.0) g/dL RDW (11.5-15.5) % Plt Count (150-450) k/uL MPV Neutrophils % % Lymphocytes % % Monocytes % % Eosinophils % % Basophils % % Neutrophils # (1.3-7.7) k/uL Lymphocytes # (1.0-4.8) k/uL Monocytes # (0-1.0) k/uL Eosinophils # (0-0.7) k/uL Basophils # (0-0.2) k/uL Macrocytosis PT (9.0-12.0) sec INR (<1.2) APTT (22.0-30.0) sec Sodium (137-145) mmol/L Potassium (3.5-5.1) mmol/L Chloride (98-107) mmol/L Carbon Dioxide (22-30) mmol/L Anion Gap mmol/L BUN (9-20) mg/dL Creatinine (0.66-1.25) mg/dL Est GFR (CKD-EPI)AfAm (>60 ml/min/1.73 sqM) Est GFR (CKD-EPI)NonAf (>60 ml/min/1.73 sqM) Glucose (74-99) mg/dL Plasma Lactic Acid Aakash 2.6 H* (0.7-2.0) mmol/L Calcium (8.4-10.2) mg/dL Total Bilirubin (0.2-1.3) mg/dL AST (17-59) U/L ALT (4-49) U/L Alkaline Phosphatase (38-126) U/L Troponin I <0.012 (0.000-0.034) ng/mL NT-Pro-B Natriuret Pep 5330 pg/mL Total Protein (6.3-8.2) g/dL Albumin (3.5-5.0) g/dL Disposition Clinical Impression: Acute exacerbation of CHF (congestive heart failure) Disposition: ADMITTED IP TO THIS HOSP Condition: Stable Is patient prescribed a controlled substance at d/c from ED?: No Referrals: Ramiro Yost MD [Primary Care Provider] - 1-2 days Decision to Admit Reason: Admit from EC Decision Date: 11/17/20 Decision Time: 19:48
--- NOTE | 2020-11-17 18:04 | XR ---
EXAMINATION TYPE: XR chest 2V DATE OF EXAM: 11/17/2020 COMPARISON: 07/11/2020 HISTORY: Short of breath TECHNIQUE: 2 views FINDINGS: There is blunting of the costophrenic angles bilaterally. Heart is enlarged. There is mild pulmonary congestion. There are chest leads. Thoracic aorta is atheromatous. IMPRESSION: Mild heart failure. Increased pleural fluid compared to old exam. Cardiomegaly unchanged.
[2020-11-17 18:05] LABS: ALT 13 U/L (4-49); AST 21 U/L (17-59); African American GFR (CKD) >90 (>60 ml/min/1.73 sqM); Albumin 3.8 g/dL (3.5-5.0); Alkaline Phosphatase 93 U/L (38-126); Anion Gap 10 mmol/L; Blood Urea Nitrogen 16 mg/dL (9-20); Calcium 9.3 mg/dL (8.4-10.2); Carbon Dioxide 27 mmol/L (22-30); Chloride 93 mmol/L (98-107); Glucose 106 mg/dL (74-99); INR 1.8 (<1.2); Non-African American GFR(CKD) 90 (>60 ml/min/1.73 sqM); Partial Thromboplastin Time 28.8 sec (22.0-30.0); Potassium 4.6 mmol/L (3.5-5.1); Prothrombin Time 18.1 sec (9.0-12.0); Sodium 130 mmol/L (137-145); Total Bilirubin 1.2 mg/dL (0.2-1.3); Total Protein 6.7 g/dL (6.3-8.2)
[2020-11-17] MEDS ORDERED: FUROSEMIDE 10 MG/ML 4 ML VIAL IV STA (18:42)
--- NOTE | 2020-11-17 19:34 | US ---
EXAMINATION TYPE: US venous doppler duplex LE DATE OF EXAM: 11/17/2020 6:38 PM COMPARISON: NONE CLINICAL HISTORY: DVT. Swelling x 1 day. R/O DVT. Patient on warfarin. Poor historian. SIDE PERFORMED: Bilateral TECHNIQUE: The lower extremity deep venous system is examined utilizing real time linear array sonog kole with graded compression, doppler sonography and color-flow sonography. VESSELS IMAGED: Common Femoral Vein Deep Femoral Vein Greater Saphenous Vein * Femoral Vein Popliteal Vein Small Saphenous Vein * Proximal Calf Veins (* superficial vessels) Right Leg: Limited due to edema. No evidence of DVT in veins imaged at this time from prox calf vein s to CFV/GSV. Left Leg: Limited due to edema. No evidence of DVT in veins imaged at this time from prox calf veins to CFV/GSV. IMPRESSION: No sign of deep vein thrombosis in both legs.
[2020-11-17] MEDS ORDERED: NALOXONE 0.4 MG/ML 1 ML VIAL IV PRN (19:44)
[2020-11-17] MEDS ORDERED: ACETAMINOPHEN TAB 325 MG TAB PO PRN (19:44)
[2020-11-17] MEDS ORDERED: ALBUTEROL HFA INHALER INHALATION PRN (19:44)
[2020-11-17] MEDS ORDERED: WARFARIN 2.5 MG TAB PO SCH (19:45)
[2020-11-17] MEDS ORDERED: WARFARIN 3 MG TAB PO ONE (21:00)
[2020-11-17] MEDS: FUROSEMIDE 10 MG/ML 4 ML VIAL IV SCH (21:16)
[2020-11-17] MEDS: ASPIRIN 81 MG PO SCH (21:27)
[2020-11-17] MEDS: METOPROLOL TARTRATE 25 MG TAB PO SCH (21:27)
[2020-11-18 08:41] LABS: INR 1.8 (<1.2); Prothrombin Time 17.5 sec (9.0-12.0)
[2020-11-18] MEDS ORDERED: lisinopriL 10 MG TAB PO SCH (09:00)
[2020-11-18] MEDS: SPIRONOLACTONE 25 MG TAB PO SCH (10:02)
[2020-11-18] MEDS: FUROSEMIDE 10 MG/ML 4 ML VIAL IV SCH ×2 (10:02→21:06)
[2020-11-18] MEDS: METOPROLOL TARTRATE 25 MG TAB PO SCH ×4 (10:02→21:05)
[2020-11-18] MEDS: POTASSIUM CHLORIDE ER 20 MEQ TAB.ER PO SCH (10:03)
--- NOTE | 2020-11-18 13:13 | P.CRDCN ---
History of Present Illness Consult date: 11/18/20 Consult reason: congestive heart failure History of present illness: The patient is a 85-year-old male who follows with Dr. Gonzalez in the office. His past history includes persistent atrial fibrillation, hypertension, dyslipidemia, coronary artery disease, and known cardiomyopathy, who presented to the hospital with increased shortness of breath and lower extremity edema. The patient states he became quite tired and fatigued. Previous admission last fall for heart failure, echocardiogram revealed severe global hypokinesis with ejection fraction at 20-25% with moderate to severe mitral regurgitation and moderate to severe tricuspid regurgitation. Severe pulmonary hypertension was noted with RVSP at 60 mmHg. DIAGNOSTICS: Chest x-ray shows mild heart failure with increased pleural fluid and cardiomegaly EKG shows atrial fibrillation with heart rate 115 bpm His laboratory data shows WBC 7.1, hemoglobin 14.0, hematocrit 43.3, platelet 123, sodium 130, potassium 4.6, BUN 16, creatinine 0.62, AST 21, ALT 13, troponin less than 0.012, BNP 5330 Ultrasound of lower extremities negative for DVT PAST MEDICAL HISTORY: Persistent atrial fibrillation, coronary artery disease, heart failure, hypertension, myocardial infarction, cardiomyopathy, hypertension, and dyslipidemia REVIEW OF SYSTEMS: No fever or chills. No cough or expectoration. No diaphoresis. Patient denies headache, dizziness, blurred vision, double vision. Patient denies any stomach discomfort. No nausea, vomiting. No hematochezia. No hematemesis. Denies any black stools or blood in his stools. Denies dysuria or hematuria. No muscle weakness or numbness. PHYSICAL EXAMINATION: This is a 85-year-old male in no apparent distress at the time of my examination. HEENT: Head is atraumatic, normocephalic. Pupils are equal, round. Sclerae anicteric. Conjunctivae are clear. Mucous membranes of the mouth are moist. Neck is supple. There is no jugular venous distention. No carotid bruit is heard. CHEST EXAMINATION: Lungs are clear to auscultation. No chest wall tenderness is noted on palpation or with deep breathing. HEART EXAMINATION: Irregular rate and rhythm. S1, S2 heard. Systolic murmur. No gallops or rub. ABDOMEN: Soft, nontender. Bowel sounds are heard. No organomegaly noted. EXTREMITIES: 2+ peripheral pulses. Mild peripheral edema. No calf tenderness noted. NEUROLOGIC EXAMINATION: Patient is awake, alert and oriented x3. FINAL ASSESSMENT AND PLAN: #1 acute exacerbation of congestive heart failure, BNP 5330 #2 known cardiomyopathy, previous refusal AICD implant #3 persistent atrial fibrillation, currently RVR, on Coumadin #4 history of coronary artery disease #5 hypertension #6 dyslipidemia PLAN: Discontinue lisinopril and start Entresto after 71 hours for heart failure and cardiomyopathy Continue diuresis and monitoring electrolytes Increase metoprolol to 3 times a day for rate control Recommend compression sleeves/socks for edema Continue to monitor closely The patient has been seen and evaluated. Plan of care has been reviewed and agreed upon by Dr Grossman. Past Medical History Past Medical History: Atrial Fibrillation, Coronary Artery Disease (CAD), Heart Failure, Eye Disorder, Hypertension, Myocardial Infarction ([place]), Osteoarthritis (OA), Prostate Disorder Additional Past Medical History / Comment(s): Bilateral macular degeneration- eyesight is poor, pt was told by physician that he had [place] in past, "reyna's lung", bilateral lower leg edema-takes lasix and wears bilateral compression stockings. Last Myocardial Infarction Date:: unkn History of Any Multi-Drug Resistant Organisms: None Reported Past Surgical History: Hernia Repair, Joint Replacement Additional Past Surgical History / Comment(s): Bilateral total hip replacements, varicose veins stripped L leg, bilateral laser surgery on eyes for macular degeneration, bilateral inguinal hernia repairs with L testicle removed, eye injections. Past Anesthesia/Blood Transfusion Reactions: No Reported Reaction Additional Past Anesthesia/Blood Transfusion Reaction / Comment(s): Pt states he has been told that he is slow to wake with anesthesia. Past Psychological History: No Psychological Hx Reported Additional Psychological History / Comment(s): Pt resides with his spouse. He has a wheeled walker that he uses. He no longer drives d/t poor vision-his can drive him to [employer]. Smoking Status: Never smoker Past Alcohol Use History: None Reported Additional Past Alcohol Use History / Comment(s): Pt states he would smoke a rare cigar. He quit smoking cigars around 1981. Past Drug Use History: None Reported - Past Family History Father Family Medical History: Cancer Additional Family Medical History / Comment(s): Father of leukemia at the age of 49 yrs. Mother Family Medical History: Coronary Artery Disease (CAD) Additional Family Medical History / Comment(s): Mother of a [place] at the age of 67yrs. She also had varicose veins. Medications and Allergies Home Medications Medication Instructions Recorded Confirmed Type Aspirin EC [Ecotrin Low Dose] 81 mg PO HS 07/11/16 11/17/20 History Nitroglycerin Sl Tabs [Nitrostat] 0.4 mg SUBLINGUAL Q5M PRN 07/11/16 11/17/20 History Potassium Chloride ER [K-Dur 20] 20 meq PO DAILY 07/11/16 11/17/20 History Simvastatin [Zocor] 80 mg PO QAM 07/11/16 11/17/20 History Tamsulosin HCl [Flomax] 0.4 mg PO DAILY@1200 07/11/16 11/17/20 History Warfarin [Coumadin] 1.25 mg PO [place]A 07/11/16 11/17/20 History Warfarin [Coumadin] 2.5 mg PO TUTHFR 07/11/16 11/17/20 History Albuterol Inhaler [Ventolin Hfa 2 puff INHALATION RT-Q4H PRN 07/08/20 11/17/20 History Inhaler] Benazepril [Lotensin] 10 mg PO DAILY 07/08/20 11/17/20 History Metoprolol Tartrate [Lopressor] 25 mg PO BID 07/08/20 11/17/20 History Vit C/E/Zn/Coppr/Lutein/Zeaxan 1 tab PO BID 07/08/20 11/17/20 History [Preservision Areds 2 Softgel] Hydrophilic Cream [Triad Cream] 1 applic TOPICAL DAILY #120 gm 07/14/20 11/17/20 Rx Spironolactone [Aldactone] 25 mg PO DAILY #30 tab 07/14/20 11/17/20 Rx Furosemide [Lasix] 20 mg PO DAILY PRN 11/17/20 11/17/20 History Allergies Allergy/AdvReac Type Severity Reaction Status Date / Time No Known Allergies Allergy Verified 11/17/20 17:33 Physical Exam Vitals: Vital Signs Temp Pulse Pulse Resp BP BP Pulse Ox 11/18/20 08:00 97.9 F 84 19 115/72 95 11/18/20 03:40 97.4 F L 64 17 103/69 95 11/17/20 23:50 98.2 F 90 17 114/71 100 11/17/20 21:56 97.7 F 70 17 110/66 97 11/17/20 21:37 98.3 F 112 H 18 99/63 97 11/17/20 20:07 110 H 18 119/80 97 11/17/20 18:48 98 18 112/92 98 11/17/20 17:27 97.9 F 110 H 18 125/96 96 Intake and Output 11/17/20 11/18/20 11/18/20 22:59 06:59 14:59 Output Total 900 1200 600 Balance -900 -1200 -600 Output: Urine 900 1200 600 Other: Voiding Method Indwelling Catheter Indwelling Catheter # Bowel Movements 1 Weight 107.955 kg 101 kg Results 11/17/20 17:43 11/17/20 17:43 Cardiac Enzymes 11/17/20 11/17/20 Range/Units 17:43 17:43 AST 21 (17-59) U/L Troponin I <0.012 (0.000-0.034) ng/mL Coagulation 11/17/20 11/18/20 Range/Units 17:43 08:18 PT 18.1 H 17.5 H (9.0-12.0) sec APTT 28.8 (22.0-30.0) sec CBC 11/17/20 Range/Units 17:43 WBC 7.1 (3.8-10.6) k/uL RBC 4.35 (4.30-5.90) m/uL Hgb 14.0 (13.0-17.5) gm/dL Hct 43.3 (39.0-53.0) % Plt Count 123 L (150-450) k/uL Comprehensive Metabolic Panel 11/17/20 Range/Units 17:43 Sodium 130 L (137-145) mmol/L Potassium 4.6 (3.5-5.1) mmol/L Chloride 93 L (98-107) mmol/L Carbon Dioxide 27 (22-30) mmol/L BUN 16 (9-20) mg/dL Creatinine 0.62 L (0.66-1.25) mg/dL Glucose 106 H (74-99) mg/dL Calcium 9.3 (8.4-10.2) mg/dL AST 21 (17-59) U/L ALT 13 (4-49) U/L Alkaline Phosphatase 93 (38-126) U/L Total Protein 6.7 (6.3-8.2) g/dL Albumin 3.8 (3.5-5.0) g/dL Current Medications Generic Name Dose Route Start Last Admin Trade Name Freq PRN Reason Stop Dose Admin Acetaminophen 650 mg 11/17/20 19:44 Acetaminophen Tab 325 Mg Tab PO Q6HR PRN Mild Pain or Fever > 100.5 Albuterol Sulfate 2 puff 11/17/20 19:44 Albuterol Hfa Inhaler INHALATION RT-Q4H PRN Shortness Of Breath Aspirin 81 mg 11/17/20 21:00 11/17/20 21:27 Aspirin 81 Mg PO 81 mg DAILY@2100 RENNY Administration Furosemide 40 mg 11/17/20 21:00 11/18/20 10:02 Furosemide 10 Mg/Ml 4 Ml Vial IV 40 mg Q12HR RENNY Administration Metoprolol Tartrate 25 mg 11/17/20 21:00 11/18/20 10:02 Metoprolol Tartrate 25 Mg Tab PO 25 mg BID RENNY Administration Miscellaneous Information 0 each 11/17/20 20:05 Warfarin Per Pharmacy MISCELLANE DIRECTED PRN PHARMACY DOSING PROTOCOL Naloxone HCl 0.2 mg 11/17/20 19:44 Naloxone 0.4 Mg/Ml 1 Ml Vial IV Q2M PRN Opioid Reversal Potassium Chloride 20 meq 11/18/20 09:00 11/18/20 10:03 Potassium Chloride Er 20 Meq Tab.Er PO 20 meq DAILY RENNY Administration Spironolactone 25 mg 11/18/20 09:00 11/18/20 10:02 Spironolactone 25 Mg Tab PO 25 mg DAILY RENNY Administration Warfarin Sodium 3 mg 11/18/20 18:00 Warfarin 3 Mg Tab PO 11/18/20 18:01 ONCE@1800 ONE Intake and Output 11/17/20 11/18/20 11/18/20 22:59 06:59 14:59 Output Total 900 1200 600 Balance -900 -1200 -600 Output: Urine 900 1200 600 Other: Voiding Method Indwelling Catheter Indwelling Catheter # Bowel Movements 1 Weight 107.955 kg 101 kg Patient Weight 11/19/20 06:59 Weight 101 kg 11/17/20 17:43 11/17/20 17:43
[2020-11-18] MEDS ORDERED: NITROGLYCERIN SL TABS 0.4 MG TAB SUBLINGUAL PRN (16:37)
[2020-11-18] MEDS ORDERED: ALPRAZolam 0.25 MG TAB PO PRN (16:38)
[2020-11-18] MEDS ORDERED: WARFARIN 3 MG TAB PO ONE (18:00)
[2020-11-18] MEDS: NYSTATIN 100,000 UNIT/GM POWD 15 GM TOPICAL SCH ×2 (18:48→22:48)
--- NOTE | 2020-11-18 19:08 | HP ---
HISTORY AND PHYSICAL I am covering for Dr. Yost. DATE OF SERVICE: 11/18/2020. CHIEF COMPLAINTS: Bilateral leg swelling and shortness of breath. HISTORY OF PRESENT ILLNESS: This 85-year-old gentleman with a past medical history of multiple medical problems including history of atrial fibrillation, CHF, hypertension, hyperlipidemia, being followed by Dr. Yost in the outpatient setting is complaining of increasing shortness of breath and as well as bilateral leg swelling. The swelling was predominantly behind the knee and the patient came to [facility] and was admitted for further evaluation and treatment. Cardiology evaluation in progress and customer response representative recommended continue with IV diuretics at this time. The patient has persistent atrial fibrillation. The patient also had history of cardiomyopathy, previously refused AICD. The venous Doppler was limited because of edema. No evidence of DVT was noted. There is no history of fever, rigors. No history of headache, loss of consciousness or seizures. PAST MEDICAL HISTORY: Atrial fibrillation, CAD, CHF, history of myocardial infarction, DJD, history of hernia repair. MEDICATIONS: Home medications are Coumadin, Flomax, Aldactone, Zocor, K-Dur, Nitrostat. Lopressor, triad cream, , Lotensin. ALLERGIES: None. FAMILY HISTORY: History of leukemia. SOCIAL HISTORY: Previous history of smoking. No history of current smoking or alcohol intake. REVIEW OF SYSTEMS: ENT: No diminished vision. No diminished hearing. CARDIOVASCULAR as mentioned earlier. RESPIRATORY: As mentioned earlier. GI no nausea or vomiting. no dysuria or hematuria. NERVOUS SYSTEM: No numbness, weakness. ALLERGY/IMMUNOLOGY: No asthma or hayfever. MUSCULOSKELETAL: As mentioned earlier. HEMATOLOGY/ONCOLOGY: No history of anemia. ENDOCRINE: No history of diabetes. CONSTITUTIONAL: As mentioned earlier. DERMATOLOGY: Negative. RHEUMATOLOGY: Negative. PSYCHIATRIC: As mentioned earlier. PHYSICAL EXAMINATION: Alert and oriented x2. Pulse 77, blood pressure 105/69, respiration 18, temperature 98.4, pulse ox 97% on 2 L. HEENT: Conjunctivae normal. Oral mucosa moist. NECK is no jugular venous distention. CARDIOVASCULAR system: S1, S2 muffled. RESPIRATIONS: A few scattered rhonchi. ABDOMEN: Soft, obese, nontender. LEGS: Bilateral leg edema. NERVOUS SYSTEM: Higher functions as mentioned earlier. Moves all 4 limbs. No focal motor or sensory deficits. LYMPHATICS: No lymph nodes palpable in the neck, axillae or groin. SKIN: No ulcer, no rash and no bleeding. JOINTS: No active deforming arthropathy. LABS: CBC showed platelets 123. INR 1.2, sodium 130. Lactic acid 2.6 and BNP was 5330. Chest x-ray reviewed personally. Covid 19 was negative. ASSESSMENT: 1. Congestive heart failure acute exacerbation with acute on chronic systolic dysfunction, ejection fraction 20-25 percent. 2. Possible ischemic cardiomyopathy, refused AICD before. 3. Atrial fibrillation, chronic, persistent. 4. History of coronary artery disease. 5. Hypertension. 6. History of myocardial infarction. 7. History of degenerative joint disease. 8. History of bilateral macular degeneration. 9. History of hernia repair. 10.History of degenerative joint disease. 11.Obesity with body mass index of 31.9. 12.FULL CODE. RECOMMENDATIONS AND DISCUSSION: This 85-year-old gentleman who presented with multiple complex medical issues, we will monitor the patient closely. Continue the current medications. Continue symptomatic treatment. We will initiate diuresis, Lasix 40 mg IV b.i.d. Continue the rest of the home medication. Monitor PT, INR closely. Monitor fluid and electrolyte balance and lytes very closely. Closely follow with Cardiology. The prognosis guarded because of multiple complex medical issues. Further recommendations to follow. Symptomatic treatment will be provided. Repeat labs. A copy of dictation being forwarded to Dr. Yost who is the primary physician. MONICA / LILY: [id number] / MTDD
[2020-11-18] MEDS ORDERED: WARFARIN 2.5 MG TAB PO SCH (19:44)
[2020-11-18] MEDS: ASPIRIN 81 MG PO SCH (21:05)
[2020-11-19] MEDS: PANTOPRAZOLE 40 MG TABLET PO SCH (06:30)
[2020-11-19 07:17] LABS: Basophils % (A) 1 %; Eosinophils # (A) 0.2 k/uL (0-0.7); Eosinophils % (A) 4 %; HCT 41.7 % (39.0-53.0); HGB 13.4 gm/dL (13.0-17.5); Lymphocytes # (A) 0.9 k/uL (1.0-4.8); Lymphocytes % (A) 16 %; MCH 32.4 pg (25.0-35.0); MCHC 32.2 g/dL (31.0-37.0); MCV 100.7 fL (80.0-100.0); Macrocytosis Slight; Mean Platelet Volume 8.2; Monocytes # (A) 0.5 k/uL (0-1.0); Monocytes % (A) 10 %; Neutrophils # (A) 3.8 k/uL (1.3-7.7); Neutrophils % (A) 68 %; Platelet Count 122 k/uL (150-450); RBC 4.14 m/uL (4.30-5.90); RDW 14.8 % (11.5-15.5); WBC 5.6 k/uL (3.8-10.6)
[2020-11-19 07:21] LABS: INR 2.1 (<1.2); Prothrombin Time 20.4 sec (9.0-12.0)
[2020-11-19 07:29] LABS: African American GFR (CKD) >90 (>60 ml/min/1.73 sqM); Anion Gap 7 mmol/L; Blood Urea Nitrogen 16 mg/dL (9-20); Carbon Dioxide 32 mmol/L (22-30); Chloride 95 mmol/L (98-107); Glucose 92 mg/dL (74-99); Non-African American GFR(CKD) 87 (>60 ml/min/1.73 sqM); Potassium 4.1 mmol/L (3.5-5.1); Sodium 134 mmol/L (137-145)
[2020-11-19] MEDS: METOPROLOL TARTRATE 25 MG TAB PO SCH ×4 (07:44→20:42)
[2020-11-19] MEDS: VIT A,C & E-LUTEIN-MINERALS 1 EACH TAB PO SCH (09:23)
[2020-11-19] MEDS: HYDROPHILIC CREAM 180 GM TUBE TOPICAL SCH (09:23)
[2020-11-19] MEDS: POTASSIUM CHLORIDE ER 20 MEQ TAB.ER PO SCH (09:23)
[2020-11-19] MEDS: ATORVASTATIN 40 MG TAB PO SCH (09:23)
[2020-11-19] MEDS: SPIRONOLACTONE 25 MG TAB PO SCH (09:23)
[2020-11-19] MEDS: FUROSEMIDE 10 MG/ML 4 ML VIAL IV SCH (09:24)
[2020-11-19] MEDS: MULTIVITAMINS, THERA 1 EACH TAB PO SCH (12:40)
[2020-11-19] MEDS: TAMSULOSIN 0.4 MG CAP.ER.24H PO SCH (12:40)
[2020-11-19] MEDS: NYSTATIN 100,000 UNIT/GM POWD 15 GM TOPICAL SCH ×2 (12:41→17:26)
--- NOTE | 2020-11-19 12:45 | P.PN ---
Subjective Progress Note Date: 11/19/20 The patient was interviewed and examined lying comfortably in bed. He states he continues to improve. He states his shortness of breath is not apparent, however he has not been up ambulating at this morning. He does not have any chest pain, chest pressure, palpitations, dizziness, or lightheadedness. GENERAL: Well-appearing, well-nourished and in no acute distress. NECK: Supple without JVD or thyromegaly. LUNGS: Breath sounds clear to auscultation bilaterally. Respiration equal and unlabored. No wheezes, rales or rhonchi. HEART: Irregular rate and rhythm without murmurs, rubs or gallops. S1 and S2 heard. EXTREMITIES: Normal range of motion. Trace edema. No clubbing or cyanosis. Peripheral pulses intact and strong. VITALS: Blood pressure 103/64, heart rate 86, respiratory rate 18, SpO2 94% on 2 L nasal cannula, temperature 97.8F TELEMETRY: Rate controlled atrial fibrillation in 80s LABS: WBC 5.6, hemoglobin 13.4, hematocrit 41.7, platelet 122, sodium 134, BUN 16, c reatinine 0.67 IMPRESSION: #1 acute exacerbation of congestive heart failure, improving #2 known cardiomyopathy, previous refusal of ASCVD, starting Entresto #3 persistent atrial fibrillation, on warfarin #4 history of coronary artery disease #5 hypertension #6 dyslipidemia PLAN: Transition patient to oral diuretics as he has lost approximately 6 kg since admission Will start Entresto tomorrow which will be 48 hour washout after stopping benazepril Continue with compression socks and leg elevation for lower extremity swelling, which is almost completely resolved The patient has been seen and evaluated. Plan of care has been reviewed and agreed upon by Dr Grossman. Objective - Vital Signs Vital signs: Vital Signs Temp 97.8 F 11/19/20 08:00 Pulse 86 11/19/20 08:00 Resp 18 11/19/20 08:00 BP 103/64 11/19/20 08:00 Pulse Ox 94 L 11/19/20 08:00 Intake & Output 11/18/20 11/19/20 11/19/20 18:59 06:59 18:59 Intake Total 720 480 Output Total 2074 1400 1200 Balance -1355 -1400 -720 Weight 101 kg 101.5 kg Intake: Oral 720 480 Output: Urine 2075 1400 1200 Other: Voiding Method Indwelling Catheter Indwelling Catheter Indwelling Catheter # Bowel Movements 1 - Labs CBC & Chem 7: 11/19/20 06:53 11/19/20 06:53 Labs: Abnormal Lab Results - Last 24 Hours (Table) 11/19/20 11/19/20 11/19/20 Range/Units 06:53 06:53 06:53 RBC 4.14 L (4.30-5.90) m/uL MCV 100.7 H (80.0-100.0) fL Plt Count 122 L (150-450) k/uL Lymphocytes # 0.9 L (1.0-4.8) k/uL PT 20.4 H (9.0-12.0) sec INR 2.1 H (<1.2) Sodium 134 L (137-145) mmol/L Chloride 95 L (98-107) mmol/L Carbon Dioxide 32 H (22-30) mmol/L
--- NOTE | 2020-11-19 14:03 | PN ---
PROGRESS NOTE DATE OF SERVICE: 11/19/2020 I am covering for Dr. Yost. This 85-year-old gentleman who was admitted with CHF acute exacerbation, ejection fraction 20 to 25% being closely monitored at this time. Cardiology following the patient closely. The patient's INR is 2.1. Sodium is 134. The patient is apparently diuresing about -2.7 L since yesterday. Past medical history reviewed. REVIEW OF SYSTEMS: CARDIOVASCULAR: No angina. RESPIRATORY: As mentioned earlier. GI as mentioned earlier. no dysuria. NERVOUS SYSTEM: No numbness or weakness. CURRENT MEDICATIONS: Tylenol, Ventolin, Xanax, aspirin, Lipitor, Lasix, Lopressor. Doses reviewed. PHYSICAL EXAMINATION: The patient is alert and oriented times two. Pulse 86, blood pressure 103/64, respiration 18, temperature 97.8, pulse ox 94% on 2 L. HEENT: Conjunctivae normal. NECK: No JVD. CARDIOVASCULAR: S1, S2 muffled. RESPIRATIONS: Breath sounds diminished in the bases. A few scattered rhonchi and crackles. ABDOMEN: Soft. LEGS: Bilateral leg edema. NERVOUS SYSTEM: No focal deficits. LABS: WBC 5.2, hemoglobin 13.5 and INR 2.1, sodium 134. Chest x-ray which was reviewed personally by me showed some evidence of CHF and maybe some pleural effusion. ASSESSMENT: 1. Congestive heart failure, acute exacerbation with acute on chronic systolic dysfunction, ejection fraction 20-25 percent. 2. Possible ischemic cardiomyopathy, refused AICD before. 3. Atrial fibrillation, chronic persistent. 4. History of coronary artery disease. 5. Hypertension. 6. History of myocardial infarction. 7. History of degenerative joint disease. 8. History of bilateral macular degeneration. 9. History of hernia repair. 10.Obesity with body mass index of 31.9. 11.FULL CODE. RECOMMENDATIONS AND DISCUSSION: Continue current medications, management and symptomatic treatment. The patient is on Lasix currently and continue to monitor. Continue the Coumadin. Repeat labs. Monitor potassium closely. Entresto has been initiated, b.i.d. dosage. Dr. Yost will follow tomorrow. MMODL / IJN: [id number] /
[2020-11-19] MEDS: FUROSEMIDE 20 MG TAB PO SCH (17:26)
[2020-11-19] MEDS ORDERED: WARFARIN 1.25 MG TAB PO ONE (18:00)
[2020-11-19] MEDS: ASPIRIN 81 MG PO SCH (20:42)
[2020-11-20] MEDS: NYSTATIN 100,000 UNIT/GM POWD 15 GM TOPICAL SCH ×4 (00:12→20:42)
[2020-11-20 07:02] LABS: Basophils # (A) 0.1 k/uL (0-0.2); Basophils % (A) 1 %; Eosinophils # (A) 0.4 k/uL (0-0.7); Eosinophils % (A) 6 %; HCT 41.6 % (39.0-53.0); HGB 13.4 gm/dL (13.0-17.5); Lymphocytes % (A) 15 %; MCH 32.4 pg (25.0-35.0); MCHC 32.3 g/dL (31.0-37.0); MCV 100.3 fL (80.0-100.0); Macrocytosis Slight; Mean Platelet Volume 8.1; Monocytes # (A) 0.6 k/uL (0-1.0); Monocytes % (A) 9 %; Neutrophils # (A) 4.2 k/uL (1.3-7.7); Neutrophils % (A) 67 %; Platelet Count 122 k/uL (150-450); RBC 4.14 m/uL (4.30-5.90); RDW 14.7 % (11.5-15.5); WBC 6.3 k/uL (3.8-10.6)
[2020-11-20] MEDS: PANTOPRAZOLE 40 MG TABLET PO SCH (07:04)
[2020-11-20 07:14] LABS: INR 2.1 (<1.2); Prothrombin Time 20.8 sec (9.0-12.0)
[2020-11-20 07:17] LABS: African American GFR (CKD) >90 (>60 ml/min/1.73 sqM); Anion Gap 7 mmol/L; Blood Urea Nitrogen 17 mg/dL (9-20); Carbon Dioxide 33 mmol/L (22-30); Chloride 93 mmol/L (98-107); Glucose 91 mg/dL (74-99); Non-African American GFR(CKD) 86 (>60 ml/min/1.73 sqM); Sodium 133 mmol/L (137-145)
[2020-11-20] MEDS: VIT A,C & E-LUTEIN-MINERALS 1 EACH TAB PO SCH (08:18)
[2020-11-20] MEDS: ATORVASTATIN 40 MG TAB PO SCH (08:18)
[2020-11-20] MEDS: SPIRONOLACTONE 25 MG TAB PO SCH (08:18)
[2020-11-20] MEDS: POTASSIUM CHLORIDE ER 20 MEQ TAB.ER PO SCH (08:18)
[2020-11-20] MEDS: SACUBITRIL/VALSARTAN 24 MG-26 MG TABLET PO SCH ×2 (08:18→21:24)
[2020-11-20] MEDS: HYDROPHILIC CREAM 180 GM TUBE TOPICAL SCH (08:19)
[2020-11-20] MEDS: METOPROLOL TARTRATE 25 MG TAB PO SCH ×3 (08:19→20:42)
[2020-11-20] MEDS: FUROSEMIDE 20 MG TAB PO SCH ×2 (08:19→16:03)
[2020-11-20] MEDS: TAMSULOSIN 0.4 MG CAP.ER.24H PO SCH (11:40)
[2020-11-20] MEDS: MULTIVITAMINS, THERA 1 EACH TAB PO SCH (11:40)
[2020-11-20] MEDS ORDERED: ALPRAZolam 0.5 MG TAB PO PRN (12:39)
--- NOTE | 2020-11-20 12:42 | P.PN ---
Subjective Progress Note Date: 11/20/20 Principal diagnosis: The patient is here essentially because of just of heart failure. He does seem fatigued today. Appreciate cardiology input. No significant nausea, vomiting or diarrhea. The patient states no voiding difficulties but is not very ambulatory at this point. Objective - Vital Signs Vital signs: Vital Signs Temp 97.6 F 11/20/20 11:37 Pulse 53 L 11/20/20 11:37 Resp 18 11/20/20 11:37 BP 112/61 11/20/20 11:37 Pulse Ox 96 11/20/20 11:37 Intake & Output 11/19/20 11/20/20 11/20/20 18:59 06:59 18:59 Intake Total 720 240 480 Output Total 2850 600 300 Balance -2130 -360 180 Weight 101 kg Intake: Oral 720 240 480 Output: Urine 2850 600 300 Other: Voiding Method Indwelling Catheter Indwelling Catheter Indwelling Catheter - Constitutional General appearance: Present: mild distress - EENT Eyes: Absent: abnormal pupil - Neck Neck: Absent: lymphadenopathy - Respiratory Respiratory: bilateral: CTA - Cardiovascular Rhythm: regular Heart sounds: normal: S1, S2 Abnormal Heart Sounds: Absent: S3 Gallop - Gastrointestinal General gastrointestinal: Present: soft. Absent: tenderness - Integumentary Integumentary: Absent: cellulitis - Labs CBC & Chem 7: 11/20/20 06:24 11/20/20 06:24 Labs: Abnormal Lab Results - Last 24 Hours (Table) 11/20/20 11/20/20 11/20/20 Range/Units 06:24 06:24 06:24 RBC 4.14 L (4.30-5.90) m/uL MCV 100.3 H (80.0-100.0) fL Plt Count 122 L (150-450) k/uL PT 20.8 H (9.0-12.0) sec INR 2.1 H (<1.2) Sodium 133 L (137-145) mmol/L Chloride 93 L (98-107) mmol/L Carbon Dioxide 33 H (22-30) mmol/L Assessment and Plan (1) Acute exacerbation of CHF (congestive heart failure) Current Visit: Yes Status: Acute Code(s): I50.9 - HEART FAILURE, UNSPECIFIED SNOMED Code(s): 913784116 (2) COPD (chronic obstructive pulmonary disease) Current Visit: No Status: Acute Code(s): J44.9 - CHRONIC OBSTRUCTIVE PULMONARY DISEASE, UNSPECIFIED SNOMED Code(s): 28033753 (3) Multiple falls Current Visit: No Status: Acute Code(s): R29.6 - REPEATED FALLS SNOMED Code(s): 236028022 Plan: The patient is here essentially because of significant problems related to congestive heart failure. Continue current regimen of medication as per cardiology We will go ahead and increase his Xanax when necessary. Check CBC and CMP in a.m. Anticipate discharge in the next 24-48 hours if he continues appropriate Trajectory of recovery.
--- NOTE | 2020-11-20 14:43 | P.PN ---
Subjective Progress Note Date: 11/20/20 HISTORY OF PRESENT ILLNESS: 85-year-old male, patient of Dr. Gonzalez, who was admitted to the hospital secondary to congestive heart failure. Patient examined this morning at the bedside. Denies chest pain or pressure. Denies dizziness or lightheadedness. Patient has been transitioned to oral Lasix. Vital signs are stable. PHYSICAL EXAM: VITAL SIGNS: Reviewed. GENERAL: Well-developed in no acute distress. NECK: Supple. No JVD or thyromegaly LUNGS: Respirations even and unlabored. Lungs essentially clear to auscultation bilaterally. HEART: Irregular rate and rhythm. S1 and S2 heard. EXTREMITIES: Normal range of motion. No clubbing or cyanosis. Peripheral pulses intact. Trace bilateral lower extremity edema ASSESSMENT: Acute exacerbation of systolic heart failure, EF 20-25% Chronic persistent atrial fibrillation, on anticoagulation with Coumadin Ischemic cardiomyopathy, previously refused AICD History of coronary artery disease Hypertension Hyperlipidemia PLAN: Patient started on Entresto today Monitor kidney function and blood pressure Continue Coumadin Continue oral Lasix and spironolactone Possible discharge tomorrow if patient remains stable Nurse practitioner note has been reviewed by physician. Signing provider agrees with the documented findings, assessment, and plan of care. Objective - Vital Signs Vital signs: Vital Signs Temp 97.6 F 11/20/20 11:37 Pulse 53 L 11/20/20 13:35 Resp 18 11/20/20 13:35 BP 112/61 11/20/20 11:37 Pulse Ox 96 11/20/20 11:37 Intake & Output 11/19/20 11/20/20 11/20/20 18:59 06:59 18:59 Intake Total 720 240 480 Output Total 2850 600 300 Balance -2130 -360 180 Weight 101 kg Intake: Oral 720 240 480 Output: Urine 2850 600 300 Other: Voiding Method Indwelling Catheter Indwelling Catheter Indwelling Catheter - Labs CBC & Chem 7: 11/20/20 06:24 11/20/20 06:24 Labs: Abnormal Lab Results - Last 24 Hours (Table) 11/20/20 11/20/20 11/20/20 Range/Units 06:24 06:24 06:24 RBC 4.14 L (4.30-5.90) m/uL MCV 100.3 H (80.0-100.0) fL Plt Count 122 L (150-450) k/uL PT 20.8 H (9.0-12.0) sec INR 2.1 H (<1.2) Sodium 133 L (137-145) mmol/L Chloride 93 L (98-107) mmol/L Carbon Dioxide 33 H (22-30) mmol/L
[2020-11-20] MEDS ORDERED: WARFARIN 1.25 MG TAB PO ONE (18:00)
[2020-11-20] MEDS: ASPIRIN 81 MG PO SCH (20:41)
[2020-11-21 05:11] VITALS: RESP 18
[2020-11-21] MEDS: PANTOPRAZOLE 40 MG TABLET PO SCH (06:42)
--- NOTE | 2020-11-21 08:04 | P.DS ---
Providers Date of admission: 11/17/20 19:44 Attending physician: Ramiro Yost Consults: 11/18/20 09:54 Consult Physician Routine Consulting Provider: Jean Grossman Consult Reason/Comments: heart failure Do you want consulting provider notified?: Already Contacted Primary care physician: Ramiro Yost - Discharge Diagnosis(es) (1) Acute exacerbation of CHF (congestive heart failure) Current Visit: Yes Status: Acute (2) COPD (chronic obstructive pulmonary disease) Current Visit: No Status: Acute (3) Multiple falls Current Visit: No Status: Acute Hospital Course: Discharge summary 68-year-old white male admitted for CHF. The patient significant immobility but does not want time. His been stabilized with congestive and appropriate beta ankur. The patient will be discharged in stable condition to follow-up in about 3 days Patient Condition at Discharge: Stable Plan - Discharge Summary Discharge Rx Participant: No New Discharge Prescriptions: New Sacubitril/Valsartan [Entresto 24 mg-26 mg Tablet] 1 each PO BID #60 tablet Metoprolol Tartrate [Lopressor] 25 mg PO TID #90 tab Nystatin 100,000 Unit/gm Powd [Mycostatin Powder] 1 applic TOPICAL TID applic Continue Warfarin [Coumadin] 2.5 mg PO TUTHFR Warfarin [Coumadin] 1.25 mg PO SUMOWESA Tamsulosin HCl [Flomax] 0.4 mg PO DAILY@1200 Potassium Chloride ER [K-Dur 20] 20 meq PO DAILY Nitroglycerin Sl Tabs [Nitrostat] 0.4 mg SUBLINGUAL Q5M PRN PRN Reason: Chest Pain Aspirin EC [Ecotrin Low Dose] 81 mg PO HS Simvastatin [Zocor] 80 mg PO QAM Vit C/E/Zn/Coppr/Lutein/Zeaxan [Preservision Areds 2 Softgel] 1 tab PO BID Benazepril [Lotensin] 10 mg PO DAILY Albuterol Inhaler [Ventolin Hfa Inhaler] 2 puff INHALATION RT-Q4H PRN PRN Reason: Shortness Of Breath Spironolactone [Aldactone] 25 mg PO DAILY #30 tab Hydrophilic Cream [Triad Cream] 1 applic TOPICAL DAILY #120 gm Furosemide [Lasix] 20 mg PO DAILY PRN PRN Reason: Edema Discontinued Metoprolol Tartrate [Lopressor] 25 mg PO BID Discharge Medication List Aspirin EC [Ecotrin Low Dose] 81 mg PO HS 07/11/16 [History] Nitroglycerin Sl Tabs [Nitrostat] 0.4 mg SUBLINGUAL Q5M PRN 07/11/16 [History] Potassium Chloride ER [K-Dur 20] 20 meq PO DAILY 07/11/16 [History] Simvastatin [Zocor] 80 mg PO QAM 07/11/16 [History] Tamsulosin HCl [Flomax] 0.4 mg PO DAILY@1200 07/11/16 [History] Warfarin [Coumadin] 1.25 mg PO SUM[place]ESA 07/11/16 [History] Warfarin [Coumadin] 2.5 mg PO TUTHFR 07/11/16 [History] Albuterol Inhaler [Ventolin Hfa Inhaler] 2 puff INHALATION RT-Q4H PRN 07/08/20 [History] Benazepril [Lotensin] 10 mg PO DAILY 07/08/20 [History] Vit C/E/Zn/Coppr/Lutein/Zeaxan [Preservision Areds 2 Softgel] 1 tab PO BID 07/08/20 [History] Hydrophilic Cream [Triad Cream] 1 applic TOPICAL DAILY #120 gm 07/14/20 [Rx] Spironolactone [Aldactone] 25 mg PO DAILY #30 tab 07/14/20 [Rx] Furosemide [Lasix] 20 mg PO DAILY PRN 11/17/20 [History] Metoprolol Tartrate [Lopressor] 25 mg PO TID #90 tab 11/21/20 [Rx] Nystatin 100,000 Unit/gm Powd [Mycostatin Powder] 1 applic TOPICAL TID applic 11/21/20 [Rx] Sacubitril/Valsartan [Entresto 24 mg-26 mg Tablet] 1 each PO BID #60 tablet 11/21/20 [Rx] Follow up Appointment(s)/Referral(s): [facility] Vis[facility] Nurse, [NON-STAFF] - 1 Week Ramiro Yost MD [Primary Care Provider] - 3 Days
[2020-11-21 08:12] LABS: Basophils # (A) 0.1 k/uL (0-0.2); Basophils % (A) 1 %; Eosinophils # (A) 0.5 k/uL (0-0.7); Eosinophils % (A) 8 %; HCT 44.5 % (39.0-53.0); HGB 14.3 gm/dL (13.0-17.5); Lymphocytes # (A) 0.8 k/uL (1.0-4.8); Lymphocytes % (A) 14 %; MCH 32.6 pg (25.0-35.0); MCHC 32.1 g/dL (31.0-37.0); MCV 101.6 fL (80.0-100.0); Macrocytosis Slight; Mean Platelet Volume 7.9; Monocytes # (A) 0.5 k/uL (0-1.0); Monocytes % (A) 8 %; Neutrophils % (A) 68 %; Platelet Count 133 k/uL (150-450); RBC 4.38 m/uL (4.30-5.90); RDW 14.6 % (11.5-15.5)
[2020-11-21 08:31] LABS: ALT 12 U/L (4-49); AST 22 U/L (17-59); African American GFR (CKD) >90 (>60 ml/min/1.73 sqM); Albumin 3.4 g/dL (3.5-5.0); Alkaline Phosphatase 76 U/L (38-126); Anion Gap 5 mmol/L; Blood Urea Nitrogen 20 mg/dL (9-20); Calcium 8.9 mg/dL (8.4-10.2); Carbon Dioxide 33 mmol/L (22-30); Chloride 95 mmol/L (98-107); Glucose 87 mg/dL (74-99); Non-African American GFR(CKD) 86 (>60 ml/min/1.73 sqM); Potassium 4.2 mmol/L (3.5-5.1); Sodium 133 mmol/L (137-145); Total Protein 6.1 g/dL (6.3-8.2)
[2020-11-21 08:36] LABS: INR 2.2 (<1.2); Prothrombin Time 21.1 sec (9.0-12.0)
[2020-11-21 08:40] VITALS: BP 113/61; PULSE 57; TEMP 97.6
[2020-11-21] MEDS: FUROSEMIDE 20 MG TAB PO SCH (10:25)
[2020-11-21] MEDS: ATORVASTATIN 40 MG TAB PO SCH (10:25)
[2020-11-21] MEDS: METOPROLOL TARTRATE 25 MG TAB PO SCH (10:27)
[2020-11-21] MEDS: POTASSIUM CHLORIDE ER 20 MEQ TAB.ER PO SCH (10:27)
[2020-11-21] MEDS: SPIRONOLACTONE 25 MG TAB PO SCH (10:28)
[2020-11-21] MEDS: SACUBITRIL/VALSARTAN 24 MG-26 MG TABLET PO SCH (10:28)
[2020-11-21] MEDS: VIT A,C & E-LUTEIN-MINERALS 1 EACH TAB PO SCH (10:29)
--- NOTE | 2020-11-21 14:34 | P.PN ---
Subjective Progress Note Date: 11/21/20 HISTORY OF PRESENT ILLNESS: 11/20/2020 85-year-old male, patient of Dr. Gonzalez, who was admitted to the hospital secondary to congestive heart failure. Patient examined this morning at the bedside. Denies chest pain or pressure. Denies dizziness or lightheadedness. Patient has been transitioned to oral Lasix. Vital signs are stable. 11/21/2020 Patient examined this point bedside. Patient denies chest pain or pressure. Denies shortness of breath. He remains on oral Lasix. He is hoping to be discharged home today. PHYSICAL EXAM: VITAL SIGNS: Reviewed. GENERAL: Well-developed in no acute distress. NECK: Supple. No JVD or thyromegaly LUNGS: Respirations even and unlabored. Lungs essentially clear to auscultation bilaterally. HEART: Irregular rate and rhythm. S1 and S2 heard. EXTREMITIES: Normal range of motion. No clubbing or cyanosis. Peripheral pulses intact. Trace bilateral lower extremity edema ASSESSMENT: Acute exacerbation of systolic heart failure, EF 20-25% Chronic persistent atrial fibrillation, on anticoagulation with Coumadin Ischemic cardiomyopathy, previously refused AICD History of coronary artery disease Hypertension Hyperlipidemia PLAN: Continue current cardiac medications Patient is stable for discharge home today from a cardiac standpoint. Patient to follow up outpatient with Dr. Gonzalez. Nurse practitioner note has been reviewed by physician. Signing provider agrees with the documented findings, assessment, and plan of care. Objective - Vital Signs Vital signs: Vital Signs Temp 97.6 F 11/21/20 08:00 Pulse 57 L 11/21/20 08:00 Resp 18 11/21/20 08:00 BP 113/61 11/21/20 08:00 Pulse Ox 95 11/21/20 08:00 Intake & Output 11/20/20 11/21/20 11/21/20 18:59 06:59 18:59 Intake Total 960 240 Output Total 1050 900 Balance -90 -900 240 Weight 96.5 kg Intake: Oral 960 240 Output: Urine 1050 900 Other: Voiding Method Indwelling Catheter Indwelling Catheter Indwelling Catheter - Labs CBC & Chem 7: 11/21/20 07:27 11/21/20 07:27 Labs: Abnormal Lab Results - Last 24 Hours (Table) 11/21/20 11/21/20 11/21/20 Range/Units 07:27 07:27 07:27 MCV 101.6 H (80.0-100.0) fL Plt Count 133 L (150-450) k/uL Lymphocytes # 0.8 L (1.0-4.8) k/uL PT 21.1 H (9.0-12.0) sec INR 2.2 H (<1.2) Sodium 133 L (137-145) mmol/L Chloride 95 L (98-107) mmol/L Carbon Dioxide 33 H (22-30) mmol/L Total Protein 6.1 L (6.3-8.2) g/dL Albumin 3.4 L (3.5-5.0) g/dL
[2020-11-21] MEDS ORDERED: WARFARIN 2.5 MG TAB PO ONE (18:00)
== END 2020-11-21 11:53 | disposition home or self-care (01) | DRG 292 ==
LOC: EC 17:23 → 3SCARD 19:44
PROVIDERS: ADMIT Family Medicine; ATTEND Family Medicine
DX: I11.0 Hypertensive heart disease with heart failure (principal); I48.19 Other persistent atrial fibrillation; E66.9 Obesity, unspecified; E78.5 Hyperlipidemia, unspecified; I08.1 Rheumatic disorders of both mitral and tricuspid valves; I25.10 Atherosclerotic heart disease of native coronary artery without angina pectoris; I25.2 Old myocardial infarction; I25.5 Ischemic cardiomyopathy; I27.20 Pulmonary hypertension, unspecified; I50.23 Acute on chronic systolic (congestive) heart failure; M19.90 Unspecified osteoarthritis, unspecified site; J44.9 Chronic obstructive pulmonary disease, unspecified; R29.6 Repeated falls; Z68.31 Body mass index [BMI] 31.0-31.9, adult; Z79.01 Long term (current) use of anticoagulants; Z79.899 Other long term (current) drug therapy; Z80.6 Family history of leukemia; Z82.49 Family history of ischemic heart disease and other diseases of the circulatory system; Z87.891 Personal history of nicotine dependence; Z90.79 Acquired absence of other genital organ(s); Z96.643 Presence of artificial hip joint, bilateral; Z95.810 Presence of automatic (implantable) cardiac defibrillator; H35.30 Unspecified macular degeneration
CPT/HCPCS: 36415; 71046; 80048; 80053; 83605; 83880; 84484; 85025; 85610; 85730; 87635; 93005; 93970; 96374; 99285

== ENCOUNTER 2020-12-31 09:58 | Emergency (ER) | payer MEDICARE, BC ==
[2020-12-31 10:17] VITALS: BP 94/57; PULSE 70; RESP 18; TEMP 97.5
[2020-12-31] MEDS ORDERED: LIDOCAINE/EPINEPHR/TETRACAINE 5 ML BOTTLE TOPICAL ONE (10:42)
--- NOTE | 2020-12-31 10:49 | ED ---
Skin/Abscess/FB HPI - General Chief complaint: Skin/Abscess/Foreign Body Stated complaint: Boil on back & sores on buttocks Time Seen by Provider: 12/31/20 10:33 Source: patient, RN notes reviewed Mode of arrival: ambulatory Limitations: no limitations - History of Present Illness Initial comments: 85-year-old white male presents with family member with complaints of a boil to the upper back for 4 days today is the first day it has not been draining per patient. They've been using [id number] drawing salve with adhesive bandage. Patient denies any fevers, nausea or vomiting. Site is ecchymotic and family states she has been trying to squeeze it to express pus for the past 4 days. Patient states he takes blood thinner for his atrial fibrillation but denies any bleeding from the site. Patient states he has ulcers to his buttocks which are being seen by the home care nurse and does not want those assessed today. Patient adamant that he only wants the abscess drained today and wants to go home. MD complaint: abscess/boil (upper back, no drainage) -: days(s) (4) Location: back Severity: mild Severity scale (1-10): 3 Quality: dull, other Consistency: intermittent Improves with: none Worsens with: palpation Associated symptoms: denies other symptoms Treatments Prior to Arrival: OTC topical medication (drawing salve OTC) - Related Data Home Medications Medication Instructions Recorded Confirmed Aspirin EC [Ecotrin Low Dose] 81 mg PO HS 07/11/16 11/17/20 Nitroglycerin Sl Tabs [Nitrostat] 0.4 mg SUBLINGUAL Q5M PRN 07/11/16 11/17/20 Potassium Chloride ER [K-Dur 20] 20 meq PO DAILY 07/11/16 11/17/20 Simvastatin [Zocor] 80 mg PO QAM 07/11/16 11/17/20 Tamsulosin HCl [Flomax] 0.4 mg PO DAILY@1200 07/11/16 11/17/20 Warfarin [Coumadin] 1.25 mg PO [place]ESA 07/11/16 11/17/20 Warfarin [Coumadin] 2.5 mg PO TUTHFR 07/11/16 11/17/20 Albuterol Inhaler [Ventolin Hfa 2 puff INHALATION RT-Q4H PRN 07/08/20 11/17/20 Inhaler] Benazepril [Lotensin] 10 mg PO DAILY 07/08/20 11/17/20 Vit C/E/Zn/Coppr/Lutein/Zeaxan 1 tab PO BID 07/08/20 11/17/20 [Preservision Areds 2 Softgel] Furosemide [Lasix] 20 mg PO DAILY PRN 11/17/20 11/17/20 Previous Rx's Medication Instructions Recorded Hydrophilic Cream [Triad Cream] 1 applic TOPICAL DAILY #120 gm 07/14/20 Spironolactone [Aldactone] 25 mg PO DAILY #30 tab 07/14/20 Metoprolol Tartrate [Lopressor] 25 mg PO TID #90 tab 11/21/20 Nystatin 100,000 Unit/gm Powd 1 applic TOPICAL TID applic 11/21/20 [Mycostatin Powder] Sacubitril/Valsartan [Entresto 24 1 each PO BID #60 tablet 11/21/20 mg-26 mg Tablet] Cephalexin [Keflex] 500 mg PO Q6HR 1 Days #4 cap 12/31/20 Allergies Allergy/AdvReac Type Severity Reaction Status Date / Time No Known Allergies Allergy Verified 12/31/20 10:17 Review of Systems ROS Statement: Those systems with pertinent positive or pertinent negative responses have been documented in the HPI. ROS Other: All systems not noted in ROS Statement are negative. Past Medical History Past Medical History: Atrial Fibrillation, Coronary Artery Disease (CAD), Heart Failure, Eye Disorder, Hypertension, Myocardial Infarction (VT), Osteoarthritis (OA), Prostate Disorder Additional Past Medical History / Comment(s): Bilateral macular degeneration- eyesight is poor, pt was told by physician that he had VT in past, "reyna's lung", bilateral lower leg edema-takes lasix and wears bilateral compression stockings. Last Myocardial Infarction Date:: unkn History of Any Multi-Drug Resistant Organisms: None Reported Past Surgical History: Hernia Repair, Joint Replacement Additional Past Surgical History / Comment(s): Bilateral total hip replacements, varicose veins stripped L leg, bilateral laser surgery on eyes for macular degeneration, bilateral inguinal hernia repairs with L testicle removed, eye injections. Past Anesthesia/Blood Transfusion Reactions: No Reported Reaction Additional Past Anesthesia/Blood Transfusion Reaction / Comment(s): Pt states he has been told that he is slow to wake with anesthesia. Past Psychological History: No Psychological Hx Reported Smoking Status: Never smoker Past Alcohol Use History: None Reported Past Drug Use History: None Reported - Past Family History Father Family Medical History: Cancer Additional Family Medical History / Comment(s): Father of leukemia at the age of 49 yrs. Mother Family Medical History: Coronary Artery Disease (CAD) Additional Family Medical History / Comment(s): Mother of a VT at the age of 67yrs. She also had varicose veins. General Exam Limitations: no limitations General appearance: alert, in no apparent distress Head exam: Present: atraumatic, normocephalic, normal inspection Eye exam: Present: normal appearance (glasses), PERRL, EOMI. Absent: scleral icterus, conjunctival injection, periorbital swelling ENT exam: Present: other (dry mucous membranes) Neck exam: Present: normal inspection, full ROM. Absent: tenderness, meningismus, lymphadenopathy Respiratory exam: Present: decreased breath sounds Cardiovascular Exam: Present: regular rate, irregular rhythm, normal heart sounds. Absent: systolic murmur, diastolic murmur, rubs, gallop, clicks GI/Abdominal exam: Present: soft, normal bowel sounds. Absent: distended, tenderness, guarding, rebound, rigid Rectal exam: Present: deferred Back exam: Present: tenderness, other (abscess noted to upper back , area of fluctuance and induration 10cm x 6cm) Neurological exam: Present: alert, oriented X3, CN II-XII intact Psychiatric exam: Present: normal affect, normal mood Skin exam: Present: warm, dry, intact, normal color. Absent: rash Course Vital Signs 12/31/20 10:08 Temperature 97.5 F L Pulse Rate 70 Respiratory 18 Rate Blood Pressure 94/57 Procedures - Incision & Drainage Site: back Size (cm): 10 (10 x 6) I&D Cleaning Method: Betadine Sterile Field Used?: Yes Scalpel Used: #11 Needle Aspiration Performed?: No Irrigation Performed?: No I&D Drainage Obtained: Pus, Blood Culture Obtained?: Yes Patient Tolerated Procedure: well Medical Decision Making - Medical Decision Making The patient and family member these are recurrent abscesses. Patient nontoxic appearing, no fevers, wound culture sent, has a home care nurse scheduled to come tomorrow, directed to use bacitracin and bandage and return if worsening. Patient will be placed on oral antibiotics. Case discussed with Dr. Maldonado who is agreeable to this plan. Disposition Clinical Impression: Abscess Disposition: HOME SELF-CARE Condition: Good Instructions (If sedation given, give patient instructions): Abscess Incision and Drainage (ED) Additional Instructions: Bacitracin and bandage on-site and change twice a day. Take antibiotic medication as prescribed. Prescriptions: Cephalexin [Keflex] 500 mg PO Q6HR 1 Days #4 cap Is patient prescribed a controlled substance at d/c from ED?: No Referrals: Ramiro Yost MD [Primary Care Provider] - 1-2 days Time of Disposition: 11:36
== END 2020-12-31 12:17 | disposition home or self-care (01) ==
LOC: EC 09:58
DX: L02.31 Cutaneous abscess of buttock (principal); I11.0 Hypertensive heart disease with heart failure; I50.9 Heart failure, unspecified; I25.10 Atherosclerotic heart disease of native coronary artery without angina pectoris; I48.91 Unspecified atrial fibrillation; M19.90 Unspecified osteoarthritis, unspecified site; I25.2 Old myocardial infarction
CPT/HCPCS: 10060; 87070; 87205; 99283

== ENCOUNTER 2021-02-04 14:21 | Inpatient (IN) | payer MEDICARE, BC ==
[2021-02-04] MEDS ORDERED: ALBUTEROL HFA INHALER INHALATION STA (14:33)
[2021-02-04] MEDS ORDERED: ALBUTEROL HFA INHALER INHALATION PRN (14:33)
--- NOTE | 2021-02-04 14:35 | ED ---
General Adult HPI - General Source: patient, EMS, RN notes reviewed Mode of arrival: EMS Limitations: no limitations <Sadi Moreau - Last Filed: 02/04/21 14:51> <Salomón Trujillo - Last Filed: 02/04/21 17:00> - General Chief complaint: Shortness of Breath Stated complaint: LEVI Time Seen by Provider: 02/04/21 14:26 - History of Present Illness Initial comments: Patient is a pleasant 85-year-old male presenting to the emergency department with difficulty in breathing. Onset of symptoms was close to 2 weeks ago. Patient was tested positive for Crohn virus as an outpatient. Patient is somewhat a poor historian. Dyspnea has increased over the past day or so. Patient does have cough. Patient has had some leg swelling. No calf pain. No chest pain. (Sadi Moreau) - Related Data Home Medications Medication Instructions Recorded Confirmed Aspirin EC [Ecotrin Low Dose] 81 mg PO HS 07/11/16 02/04/21 Nitroglycerin Sl Tabs [Nitrostat] 0.4 mg SUBLINGUAL Q5M PRN 07/11/16 02/04/21 Potassium Chloride ER [K-Dur 20] 20 meq PO DAILY 07/11/16 02/04/21 Simvastatin [Zocor] 80 mg PO HS 07/11/16 02/04/21 Tamsulosin HCl [Flomax] 0.4 mg PO DAILY 07/11/16 02/04/21 Warfarin [Coumadin] 1.25 mg PO [place] 07/11/16 02/04/21 Warfarin [Coumadin] 2.5 mg PO TUTHFR 07/11/16 02/04/21 Vit C/E/Zn/Coppr/Lutein/Zeaxan 1 tab PO BID 07/08/20 02/04/21 [Preservision Areds 2 Softgel] Furosemide [Lasix] 20 mg PO DAILY 11/17/20 02/04/21 ALPRAZolam [Xanax] 0.5 mg PO TID PRN 02/04/21 02/04/21 Metoprolol Tartrate [Lopressor] 25 mg PO BID 02/04/21 02/04/21 Nitrofurantoin Monohyd/M-Cryst 100 mg PO Q12HR 02/04/21 02/04/21 [Macrobid] Sacubitril/Valsartan [Entresto 24 1 tab PO BID 02/04/21 02/04/21 mg-26 mg Tablet] methylPREDNISolone Dose Pack See Taper PO DAILY 02/04/21 02/04/21 [Medrol Dose Pack] Allergies Allergy/AdvReac Type Severity Reaction Status Date / Time No Known Allergies Allergy Verified 02/04/21 14:45 Review of Systems ROS Other: All systems not noted in ROS Statement are negative. Constitutional: Reports: chills Eyes: Denies: eye pain ENT: Denies: ear pain Respiratory: Reports: cough, dyspnea Cardiovascular: Denies: chest pain Endocrine: Reports: fatigue Gastrointestinal: Denies: abdominal pain Genitourinary: Denies: urgency Musculoskeletal: Denies: back pain Skin: Denies: rash Neurological: Denies: headache <Sadi Moreau - Last Filed: 02/04/21 14:51> ROS Other: All systems not noted in ROS Statement are negative. <Salomón Trujillo - Last Filed: 02/04/21 17:00> ROS Statement: Those systems with pertinent positive or pertinent negative responses have been documented in the HPI. Past Medical History Past Medical History: Atrial Fibrillation, Coronary Artery Disease (CAD), Heart Failure, Eye Disorder, Hypertension, Myocardial Infarction (NM), Osteoarthritis (OA), Prostate Disorder Additional Past Medical History / Comment(s): Bilateral macular degeneration- eyesight is poor, pt was told by physician that he had NM in past, "reyna's lung", bilateral lower leg edema-takes lasix and wears bilateral compression stockings. Last Myocardial Infarction Date:: unkn History of Any Multi-Drug Resistant Organisms: CRE Date of last positivie culture/infection: 01/26/21 MDRO Source:: URINE Past Surgical History: Hernia Repair, Joint Replacement Additional Past Surgical History / Comment(s): Bilateral total hip replacements, varicose veins stripped L leg, bilateral laser surgery on eyes for macular degeneration, bilateral inguinal hernia repairs with L testicle removed, eye injections. Past Anesthesia/Blood Transfusion Reactions: No Reported Reaction Additional Past Anesthesia/Blood Transfusion Reaction / Comment(s): Pt states he has been told that he is slow to wake with anesthesia. Past Psychological History: No Psychological Hx Reported Smoking Status: Never smoker Past Alcohol Use History: None Reported Past Drug Use History: None Reported - Past Family History Father Family Medical History: Cancer Additional Family Medical History / Comment(s): Father of leukemia at the age of 49 yrs. Mother Family Medical History: Coronary Artery Disease (CAD) Additional Family Medical History / Comment(s): Mother of a NM at the age of 67yrs. She also had varicose veins. <Sadi Moreau - Last Filed: 02/04/21 14:51> General Exam Limitations: no limitations General appearance: alert Head exam: Present: normocephalic Eye exam: Present: normal appearance Neck exam: Present: normal inspection Respiratory exam: Present: respiratory distress, rhonchi Cardiovascular Exam: Present: tachycardia GI/Abdominal exam: Present: soft. Absent: tenderness Extremities exam: Present: pedal edema. Absent: calf tenderness Neurological exam: Present: alert Psychiatric exam: Present: normal affect, normal mood Skin exam: Present: normal color <Sadi Moreau - Last Filed: 02/04/21 14:51> Course Vital Signs 02/04/21 02/04/21 02/04/21 14:23 15:48 16:00 Temperature 96 F L Pulse Rate 64 121 H 118 H Respiratory 24 22 22 Rate Blood Pressure 125/89 106/72 120/104 O2 Sat by Pulse 95 96 96 Oximetry 02/04/21 16:55 Temperature Pulse Rate 104 H Respiratory 22 Rate Blood Pressure O2 Sat by Pulse 96 Oximetry EKG Findings - EKG Comments: EKG Findings:: A. fib with rate of 141. QRS 116. QT 302. QTC 462. Left axis. Poor R-wave progression. Nonspecific ST-T. <Sadi Moreau - Last Filed: 02/04/21 14:51> Medical Decision Making - Lab Data Result diagrams: 02/04/21 14:50 02/04/21 15:58 <Salomón Trujillo - Last Filed: 02/04/21 17:00> - Medical Decision Making Patient will be admitted for multifactorial dyspnea, CHF, COPD, recent diagnosis of coronavirus. His BMP is significant elevated 7900. Given IV diuresis in the emergency department. He had been started on Cardizem 4H fibrillation with RVR. He is rate controlled while in the emergency department. He's given diuretics, his Coumadin will be held second or 2 elevated INR. No signs of active bleeding, stable hemoglobin. Discussed with Dr. Underwood who will admit, cardiology placed on consult. ([facility] Salomón ray) - Lab Data Lab Results 02/04/21 02/04/21 02/04/21 Range/Units 14:35 14:50 14:50 WBC 9.8 (3.8-10.6) k/uL RBC 4.75 (4.30-5.90) m/uL Hgb 14.5 (13.0-17.5) gm/dL Hct 44.9 (39.0-53.0) % MCV 94.5 (80.0-100.0) fL MCH 30.5 (25.0-35.0) pg MCHC 32.3 (31.0-37.0) g/dL RDW 14.6 (11.5-15.5) % Plt Count 142 L (150-450) k/uL MPV 9.7 Neutrophils % 88 % Lymphocytes % 5 % Monocytes % 6 % Eosinophils % 0 % Basophils % 0 % Neutrophils # 8.6 H (1.3-7.7) k/uL Lymphocytes # 0.5 L (1.0-4.8) k/uL Monocytes # 0.5 (0-1.0) k/uL Eosinophils # 0.0 (0-0.7) k/uL Basophils # 0.0 (0-0.2) k/uL Hypochromasia Slight PT (9.0-12.0) sec INR (<1.2) APTT (22.0-30.0) sec Sodium (137-145) mmol/L Potassium (3.5-5.1) mmol/L Chloride (98-107) mmol/L Carbon Dioxide (22-30) mmol/L Anion Gap mmol/L BUN (9-20) mg/dL Creatinine (0.66-1.25) mg/dL Est GFR (CKD-EPI)AfAm (>60 ml/min/1.73 sqM) Est GFR (CKD-EPI)NonAf (>60 ml/min/1.73 sqM) Glucose (74-99) mg/dL Plasma Lactic Acid Aakash 2.3 H* (0.7-2.0) mmol/L Calcium (8.4-10.2) mg/dL Magnesium (1.6-2.3) mg/dL Total Bilirubin (0.2-1.3) mg/dL AST (17-59) U/L ALT (4-49) U/L Alkaline Phosphatase (38-126) U/L Lactate Dehydrogenase (313-618) U/L C-Reactive Protein (<1.0) mg/dL NT-Pro-B Natriuret Pep 7900 pg/mL Total Protein (6.3-8.2) g/dL Albumin (3.5-5.0) g/dL 02/04/21 02/04/21 Range/Units 15:58 15:58 WBC (3.8-10.6) k/uL RBC (4.30-5.90) m/uL Hgb (13.0-17.5) gm/dL Hct (39.0-53.0) % MCV (80.0-100.0) fL MCH (25.0-35.0) pg MCHC (31.0-37.0) g/dL RDW (11.5-15.5) % Plt Count (150-450) k/uL MPV Neutrophils % % Lymphocytes % % Monocytes % % Eosinophils % % Basophils % % Neutrophils # (1.3-7.7) k/uL Lymphocytes # (1.0-4.8) k/uL Monocytes # (0-1.0) k/uL Eosinophils # (0-0.7) k/uL Basophils # (0-0.2) k/uL Hypochromasia PT 103.9 H (9.0-12.0) sec INR >10.0 H* (<1.2) APTT 48.7 H (22.0-30.0) sec Sodium 123 L (137-145) mmol/L Potassium 5.0 (3.5-5.1) mmol/L Chloride 87 L (98-107) mmol/L Carbon Dioxide 27 (22-30) mmol/L Anion Gap 9 mmol/L BUN 14 (9-20) mg/dL Creatinine 0.35 L (0.66-1.25) mg/dL Est GFR (CKD-EPI)AfAm >90 (>60 ml/min/1.73 sqM) Est GFR (CKD-EPI)NonAf >90 (>60 ml/min/1.73 sqM) Glucose 120 H (74-99) mg/dL Plasma Lactic Acid Aakash (0.7-2.0) mmol/L Calcium 9.0 (8.4-10.2) mg/dL Magnesium 1.7 (1.6-2.3) mg/dL Total Bilirubin 1.1 (0.2-1.3) mg/dL AST 26 (17-59) U/L ALT 15 (4-49) U/L Alkaline Phosphatase 92 (38-126) U/L Lactate Dehydrogenase 374 (313-618) U/L C-Reactive Protein 1.8 H (<1.0) mg/dL NT-Pro-B Natriuret Pep pg/mL Total Protein 6.2 L (6.3-8.2) g/dL Albumin 3.4 L (3.5-5.0) g/dL Disposition <Sadi Moreau - Last Filed: 02/04/21 14:51> Is patient prescribed a controlled substance at d/c from ED?: No Decision to Admit Reason: Admit from EC Decision Date: 02/04/21 Decision Time: 16:59 <Salomón Trujillo - Last Filed: 02/04/21 17:00> Clinical Impression: Acute exacerbation of CHF (congestive heart failure), Atrial fibrillation with RVR, COVID-19 Disposition: ADMITTED IP TO THIS HOSP Condition: Stable
[2021-02-04 15:11] LABS: Basophils % (A) 0 %; Eosinophils % (A) 0 %; HCT 44.9 % (39.0-53.0); HGB 14.5 gm/dL (13.0-17.5); Hypochromasia Slight; Lymphocytes # (A) 0.5 k/uL (1.0-4.8); Lymphocytes % (A) 5 %; MCH 30.5 pg (25.0-35.0); MCHC 32.3 g/dL (31.0-37.0); MCV 94.5 fL (80.0-100.0); Mean Platelet Volume 9.7; Monocytes # (A) 0.5 k/uL (0-1.0); Monocytes % (A) 6 %; Neutrophils # (A) 8.6 k/uL (1.3-7.7); Neutrophils % (A) 88 %; Platelet Count 142 k/uL (150-450); RBC 4.75 m/uL (4.30-5.90); RDW 14.6 % (11.5-15.5); WBC 9.8 k/uL (3.8-10.6)
--- NOTE | 2021-02-04 15:27 | XR ---
EXAMINATION TYPE: XR chest 1V portable DATE OF EXAM: 02/04/2021 COMPARISON: 11/17/2020 HISTORY: Short of breath. Pneumonia. TECHNIQUE: Single view FINDINGS: Heart is moderately enlarged. There is blunting of the costophrenic angles. There is mild p ulmonary congestion. There is some airspace infiltrate in both lower lobes. There are chest leads. IMPRESSION: There is probably some mild chronic congestive heart failure. There is increased pleural fluid and infiltrate at the lung bases compared to old exam.
[2021-02-04] MEDS: DILTIAZEM 125 MG in SODIUM CHLORIDE 0.9% 100 ML IV SCH (15:45)
[2021-02-04 16:14] LABS: Partial Thromboplastin Time 48.7 sec (22.0-30.0); Prothrombin Time 103.9 sec (9.0-12.0)
[2021-02-04 16:17] LABS: INR >10.0 (<1.2)
[2021-02-04] MEDS ORDERED: FUROSEMIDE 10 MG/ML 4 ML VIAL IV STA (16:26)
[2021-02-04] MEDS ORDERED: NALOXONE 0.4 MG/ML 1 ML VIAL IV PRN (16:27)
[2021-02-04] MEDS ORDERED: ACETAMINOPHEN TAB 325 MG TAB PO PRN (16:27)
[2021-02-04] MEDS ORDERED: LORazepam 1 MG TAB PO STA (16:40)
[2021-02-04 16:45] LABS: ALT 15 U/L (4-49); AST 26 U/L (17-59); African American GFR (CKD) >90 (>60 ml/min/1.73 sqM); Albumin 3.4 g/dL (3.5-5.0); Alkaline Phosphatase 92 U/L (38-126); Anion Gap 9 mmol/L; Blood Urea Nitrogen 14 mg/dL (9-20); C Reactive Protein 1.8 mg/dL (<1.0); Carbon Dioxide 27 mmol/L (22-30); Chloride 87 mmol/L (98-107); Glucose 120 mg/dL (74-99); LDH 374 U/L (313-618); Magnesium 1.7 mg/dL (1.6-2.3); Non-African American GFR(CKD) >90 (>60 ml/min/1.73 sqM); Sodium 123 mmol/L (137-145); Total Bilirubin 1.1 mg/dL (0.2-1.3); Total Protein 6.2 g/dL (6.3-8.2)
[2021-02-04] MEDS ORDERED: NITROGLYCERIN SL TABS 0.4 MG TAB SUBLINGUAL PRN (18:55)
[2021-02-04] MEDS ORDERED: PHYTONADIONE 5 MG in SODIUM CHLORIDE 0.9% 50 ML IVPB STA (19:01)
[2021-02-04] MEDS: SACUBITRIL/VALSARTAN 24 MG-26 MG TABLET PO SCH ×2 (19:42→20:23)
[2021-02-04] MEDS ORDERED: ALBUTEROL HFA INHALER INHALATION SCH (20:00)
[2021-02-04] MEDS: METOPROLOL TARTRATE 25 MG TAB PO SCH (20:22)
[2021-02-04] MEDS: PANTOPRAZOLE 40 MG TABLET PO SCH (20:22)
[2021-02-04] MEDS: ASCORBIC ACID 500 MG TAB PO SCH (20:23)
[2021-02-04] MEDS: ZINC SULFATE 220 MG CAP PO SCH (20:23)
[2021-02-04] MEDS: CHOLECALCIFEROL 25 MCG (1000 IU) TABLET PO SCH (20:23)
[2021-02-04] MEDS: ATORVASTATIN 40 MG TAB PO SCH (20:23)
[2021-02-04] MEDS: FUROSEMIDE 10 MG/ML 4 ML VIAL IV SCH (20:24)
--- NOTE | 2021-02-04 20:40 | HP ---
HISTORY AND PHYSICAL I am covering for Dr. Yost. DATE OF SERVICE: 02/04/2021. CHIEF COMPLAINT: Shortness of breath. HISTORY OF PRESENT ILLNESS: This 85-year-old gentleman with a past medical history of multiple medical problems including history of atrial fibrillation, CAD, history of myocardial infarction, DJD, history of bilateral macular degeneration, being followed by Dr. Yost in the outpatient setting was admitted in November with congestive heart failure, acute exacerbation of chronic obstructive pulmonary disease. The patient was treated symptomatically during that time. The patient also had apparently cardiomyopathy and patient refused AICD before. Currently the patient is not found to have COVID 19 positive in the outpatient setting, but currently because the patient is complaining of significant shortness of breath and cough and other symptoms, patient came to [facility] and admitted for further evaluation and treatment. The current Covid 19 is negative at this time but the patient was found to be slightly drowsy and confused and the patient was hypoxic and on 15% Venti mask, the patient is saturating around 96%. Most recent chest x-ray which I reviewed personally showed bilateral pneumonia, right more the left, possibly COVID-19 pneumonia. The patient is admitted for evaluation and treatment. Patient unable to give coherent history. Most of the history taken from my discussion with staff and discussion with the ER physician at this time. PAST MEDICAL HISTORY: History of atrial fibrillation, history of CAD, CHF, hypertension, myocardial infarction, DJD, history of CRE, history of hernia repair. MEDICATIONS: Prior to admission include home medications are: Medrol Dosepak, Coumadin, Flomax, Zocor, Entresto, K-Dur, Nitrostat, Macrobid, Lopressor, Lasix, Ecotrin, Xanax. ALLERGIES: None. Family history, social history and review of systems could not be taken because of the patient's change in mental status. PHYSICAL EXAMINATION: Patient is conscious, confused. Pulse is 100, blood pressure 129/107, respiration 18, temperature normal, pulse ox 96% on 15 L. HEENT: Conjunctivae normal. NECK: No JVD. CARDIOVASCULAR: S1, S2 muffled. RESPIRATION: Breath sounds diminished in the bases. A few scattered rhonchi and crackles. ABDOMEN: Soft, nontender. LEGS: No edema. No swelling. NERVOUS SYSTEM: Higher functions as mentioned. Moves all four limbs. No focal deficits. LYMPHATICS: No lymph nodes palpable in the neck, axillae or groin. SKIN: No ulcer, no rashes and no bleeding. JOINTS: No active deforming arthropathy. LABS: Platelets 142 and sodium 123, potassium 5. Other labs are noted. ASSESSMENT: 1. Acute COVID-19 infection with acute bilateral interstitial pneumonia with acute hypoxic respiratory failure. 2. Change in mental status acute metabolic encephalopathy. 3. Hyponatremia. 4. Elevated plasma lactic acid. 5. Increased CRP. 6. Coumadin coagulopathy. 7. Thrombocytopenia mild. 8. History of atrial fibrillation. 9. History of congestive heart failure. 10.History of hypertension. 11.History of myocardial infarction. 12.Cardiomyopathy, refused AICD before. 13.History of bilateral macular degeneration. 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 15.History of hernia repair. RECOMMENDATIONS AND DISCUSSION: In this 85-year-old gentleman who presented with multiple complex medical issues, we will monitor the patient closely, continue the current medications, management and symptomatic treatment. Otherwise, at this time, we will initiate broad-spectrum IV antibiotics. I would also recommend pulmonary consultation. Otherwise, I would also recommend to obtain the cultures. DVT prophylaxis. Usual treatment for Covid 19. Vitamin K for Coumadin coagulopathy. We will monitor PT/INR closely. Prognosis guarded. Further recommendations to follow. A copy of dictation being forwarded to Dr. Yost who is the primary physician. All charts reviewed at length and Dr. Yost will follow the patient tomorrow. MMODL / IJN: [id number] /
[2021-02-04 21:28] LABS: Prothrombin Time 50.8 sec (9.0-12.0)
[2021-02-04 21:29] LABS: INR 5.3 (<1.2)
[2021-02-04 21:44] LABS: ALT 14 U/L (4-49); AST 23 U/L (17-59); African American GFR (CKD) >90 (>60 ml/min/1.73 sqM); Albumin 3.2 g/dL (3.5-5.0); Alkaline Phosphatase 96 U/L (38-126); Anion Gap 8 mmol/L; Blood Urea Nitrogen 13 mg/dL (9-20); Calcium 8.4 mg/dL (8.4-10.2); Carbon Dioxide 32 mmol/L (22-30); Chloride 87 mmol/L (98-107); Glucose 105 mg/dL (74-99); Non-African American GFR(CKD) >90 (>60 ml/min/1.73 sqM); Potassium 4.1 mmol/L (3.5-5.1); Sodium 127 mmol/L (137-145); Total Bilirubin 1.3 mg/dL (0.2-1.3)
[2021-02-04 23:29] LABS: Ferritin 284.4 ng/mL (22.0-322.0)
[2021-02-05 05:14] LABS: Basophils % (A) 0 %; Eosinophils % (A) 0 %; HCT 39.4 % (39.0-53.0); HGB 13.1 gm/dL (13.0-17.5); Lymphocytes # (A) 0.3 k/uL (1.0-4.8); Lymphocytes % (A) 4 %; MCH 30.9 pg (25.0-35.0); MCHC 33.4 g/dL (31.0-37.0); MCV 92.4 fL (80.0-100.0); Mean Platelet Volume 8.1; Monocytes # (A) 0.5 k/uL (0-1.0); Monocytes % (A) 6 %; Neutrophils # (A) 6.7 k/uL (1.3-7.7); Neutrophils % (A) 89 %; Platelet Count 130 k/uL (150-450); RBC 4.26 m/uL (4.30-5.90); RDW 14.2 % (11.5-15.5); WBC 7.6 k/uL (3.8-10.6)
[2021-02-05 05:31] LABS: ALT 13 U/L (4-49); AST 21 U/L (17-59); African American GFR (CKD) >90 (>60 ml/min/1.73 sqM); Albumin 2.8 g/dL (3.5-5.0); Alkaline Phosphatase 84 U/L (38-126); Anion Gap 3 mmol/L; Blood Urea Nitrogen 14 mg/dL (9-20); Calcium 8.2 mg/dL (8.4-10.2); Carbon Dioxide 34 mmol/L (22-30); Chloride 87 mmol/L (98-107); Glucose 88 mg/dL (74-99); Non-African American GFR(CKD) >90 (>60 ml/min/1.73 sqM); Sodium 124 mmol/L (137-145); Total Bilirubin 1.6 mg/dL (0.2-1.3); Total Protein 5.5 g/dL (6.3-8.2)
[2021-02-05 05:40] LABS: INR 1.7 (<1.2); Prothrombin Time 17.2 sec (9.0-12.0)
[2021-02-05] MEDS: PANTOPRAZOLE 40 MG TABLET PO SCH (06:27)
[2021-02-05 07:17] LABS: Appearance,Urine Turbid (Clear); Bacteria,Urine Occasional /hpf; Bilirubin,Urine Negative (Negative); Blood,Urine Moderate (Negative); Color,Urine Yellow; Glucose,Urine (UA) Negative (Negative); Ketones,Urine Negative (Negative); Leukocyte Esterase,Urine Large (Negative); Mucus,Urine Few /hpf; Nitrite,Urine Positive (Negative); Protein,Urine Trace (Negative); RBC,Urine 49 /hpf (0-5); Specific Gravity,Urine 1.017 (1.001-1.035); Squamous Epithelial Cell,Urine 1 /hpf (0-4); Urobilinogen,Urine <2.0 mg/dL (<2.0); WBC,Urine >182 /hpf (0-5)
[2021-02-05] MEDS: ALBUTEROL HFA INHALER INHALATION SCH ×3 (07:34→19:39)
[2021-02-05] MEDS: TAMSULOSIN 0.4 MG CAP.ER.24H PO SCH (08:55)
[2021-02-05] MEDS: POTASSIUM CHLORIDE ER 20 MEQ TAB.ER PO SCH (08:55)
[2021-02-05] MEDS: FUROSEMIDE 10 MG/ML 4 ML VIAL IV SCH ×2 (08:56→20:24)
--- NOTE | 2021-02-05 11:07 | P.CNPUL ---
History of Present Illness Consult date: 02/05/21 Reason for consult: dyspnea, hypoxemia, pneumonia Chief complaint: Progressive shortness of breath along with cough History of present illness: This is a pleasant 85-year-old male who developed increasing symptoms started about 2 weeks ago have been progressive, patient came into the hospital with shortness of breath and hypoxia currently on 5 L oxygen, patient was diagnosed with the COVID-19 as outpatient, his prior history is significant for coronary artery disease, dyslipidemia, BPH, hypertension hypertensive cardiovascular disease, and atrial fibrillation, patient is on tapering steroids and anti coagulation with Coumadin as outpatient, he is a nonsmoker, normal renal functions, his labs are significant for high BNP over 79,000, he was also noted to be in A. fib with RVR, started on Cardizem drip, his lactic acid was mildly elevated at 2.3, patient was extremely coagulopathic with INR over 10, PTT was 103, LDH was 374, C-reactive protein 1.8, his liver functions are within normal limit, S x-ray significant for a small bilateral pleural effusion and atelectasis at the bases versus infiltrate, currently patient is being treated with continuation of his home medicine along with IV Rocephin Cardizem drip diuretics with Lasix 40 mg IV every 12, Review of Systems All systems: negative Past Medical History Past Medical History: Atrial Fibrillation, Coronary Artery Disease (CAD), Heart Failure, Eye Disorder, Hypertension, Myocardial Infarction (IA), Osteoarthritis (OA), Prostate Disorder Additional Past Medical History / Comment(s): Bilateral macular degeneration-eyesight is poor, pt was told by physician that he had IA in past, "reyna's lung", bilateral lower leg edema-takes lasix and wears bilateral compression stockings. Last Myocardial Infarction Date:: unkn History of Any Multi-Drug Resistant Organisms: CRE Date of last positivie culture/infection: 01/26/21 MDRO Source:: URINE Past Surgical History: Hernia Repair, Joint Replacement Additional Past Surgical History / Comment(s): Bilateral total hip replacements, varicose veins stripped L leg, bilateral laser surgery on eyes for macular degeneration, bilateral inguinal hernia repairs with L testicle removed, eye injections. Past Anesthesia/Blood Transfusion Reactions: No Reported Reaction Additional Past Anesthesia/Blood Transfusion Reaction / Comment(s): Pt states he has been told that he is slow to wake with anesthesia. Past Psychological History: No Psychological Hx Reported Additional Psychological History / Comment(s): Pt resides with his spouse. He has a wheeled walker that he uses. He no longer drives d/t poor vision-his can drive him to appts. Smoking Status: Never smoker Past Alcohol Use History: None Reported Additional Past Alcohol Use History / Comment(s): Pt states he would smoke a rare cigar. He quit smoking cigars around 1981. Past Drug Use History: None Reported - Past Family History Father Family Medical History: Cancer Additional Family Medical History / Comment(s): Father of leukemia at the age of 49 yrs. Mother Family Medical History: Coronary Artery Disease (CAD) Additional Family Medical History / Comment(s): Mother of a IA at the age of 67yrs. She also had varicose veins. Medications and Allergies Home Medications Medication Instructions Recorded Confirmed Type Aspirin EC [Ecotrin Low Dose] 81 mg PO HS 07/11/16 02/04/21 History Nitroglycerin Sl Tabs [Nitrostat] 0.4 mg SUBLINGUAL Q5M PRN 07/11/16 02/04/21 History Potassium Chloride ER [K-Dur 20] 20 meq PO DAILY 07/11/16 02/04/21 History Simvastatin [Zocor] 80 mg PO HS 07/11/16 02/04/21 History Tamsulosin HCl [Flomax] 0.4 mg PO DAILY 07/11/16 02/04/21 History Warfarin [Coumadin] 1.25 mg PO [place] 07/11/16 02/04/21 History Warfarin [Coumadin] 2.5 mg PO TUTHFR 07/11/16 02/04/21 History Vit C/E/Zn/Coppr/Lutein/Zeaxan 1 tab PO BID 07/08/20 02/04/21 History [Preservision Areds 2 Softgel] Furosemide [Lasix] 20 mg PO DAILY 11/17/20 02/04/21 History ALPRAZolam [Xanax] 0.5 mg PO TID PRN 02/04/21 02/04/21 History Metoprolol Tartrate [Lopressor] 25 mg PO BID 02/04/21 02/04/21 History Nitrofurantoin Monohyd/M-Cryst 100 mg PO Q12HR 02/04/21 02/04/21 History [Macrobid] Sacubitril/Valsartan [Entresto 24 1 tab PO BID 02/04/21 02/04/21 History mg-26 mg Tablet] methylPREDNISolone Dose Pack See Taper PO DAILY 02/04/21 02/04/21 History [Medrol Dose Pack] Allergies Allergy/AdvReac Type Severity Reaction Status Date / Time No Known Allergies Allergy Verified 02/04/21 14:45 Physical Exam Vitals: Vital Signs Temp Pulse Pulse Resp BP BP Pulse Ox 02/05/21 08:00 97.2 F L 88 113/77 92 L 02/05/21 05:28 16 93 L 02/05/21 04:14 98.4 F 74 16 90/52 97 02/05/21 02:45 18 02/05/21 00:55 97.5 F L 67 18 96/55 96 02/04/21 23:07 18 02/04/21 23:02 96.9 F L 61 18 97/55 95 02/04/21 21:45 94 20 91/78 95 02/04/21 21:15 105 H 20 118/89 96 02/04/21 20:45 106 H 20 128/84 95 02/04/21 20:35 95 02/04/21 20:15 106 H 20 137/99 96 02/04/21 19:45 123 H 20 133/80 02/04/21 19:31 105 H 20 141/107 02/04/21 18:00 100 18 129/107 96 02/04/21 17:00 97 18 110/90 96 02/04/21 16:55 104 H 22 96 02/04/21 16:00 118 H 22 120/104 96 02/04/21 15:48 121 H 22 106/72 96 02/04/21 14:23 96 F L 64 24 125/89 95 Intake and Output 02/04/21 02/05/21 02/05/21 22:59 06:59 14:59 Intake Total 0 300 Output Total 1000 Balance -1000 300 Intake: Intake, IV Titration 60 Amount Diltiazem 125 mg In 10 Sodium Chloride 0.9% 100 ml @ 5 MG/HR 5 mls/hr IV .Q24H RENNY Rx#:[id number] cefTRIAXone 1 gm In 50 Sodium Chloride 0.9% 50 ml @ 100 mls/hr IVPB Q24HR RENNY Rx#:[id number] Oral 0 240 Output: Urine 1000 Other: Voiding Method Indwelling Catheter Indwelling Catheter Weight 95.254 kg - Constitutional General appearance: average body habitus, cooperative, disheveled - EENT Eyes: EOMI, PERRLA ENT: hearing grossly normal Ears: bilateral: normal - Neck Carotids: bilateral: upstroke normal Thyroid: bilateral: normal size - Respiratory Respiratory: bilateral: diminished, dullness, rales - Cardiovascular Rhythm: irregularly irregular Heart sounds: normal: S1, S2 - Gastrointestinal General gastrointestinal: normal bowel sounds, soft - Integumentary Integumentary: normal turgor - Neurologic Neurologic: CNII-XII intact - Musculoskeletal Musculoskeletal: gait normal, generalized weakness, strength equal bilaterally - Psychiatric Psychiatric: A&O x's 3, appropriate affect, intact judgment & insight Results - Laboratory Findings CBC and BMP: 02/05/21 04:32 02/05/21 04:32 PT/INR, D-dimer PT 17.2 sec (9.0-12.0) H 02/05/21 04:32 INR 1.7 (<1.2) H 02/05/21 04:32 Abnormal lab findings: Abnormal Labs 02/04/21 02/04/21 02/04/21 14:50 14:50 15:58 RBC Plt Count 142 L Neutrophils # 8.6 H Lymphocytes # 0.5 L PT INR APTT Sodium 123 L Chloride 87 L Carbon Dioxide Creatinine 0.35 L Glucose 120 H Plasma Lactic Acid Aakash 2.3 H* Calcium Total Bilirubin C-Reactive Protein 1.8 H Total Protein 6.2 L Albumin 3.4 L Urine Protein Urine Blood Ur Leukocyte Esterase Urine RBC Urine WBC Urine WBC Clumps Urine Bacteria Urine Mucus 02/04/21 02/04/21 02/04/21 15:58 18:34 21:05 RBC Plt Count Neutrophils # Lymphocytes # PT 103.9 H 50.8 H INR >10.0 H* 5.3 H* APTT 48.7 H Sodium Chloride Carbon Dioxide Creatinine Glucose Plasma Lactic Acid Aakash 2.9 H* Calcium Total Bilirubin C-Reactive Protein Total Protein Albumin Urine Protein Urine Blood Ur Leukocyte Esterase Urine RBC Urine WBC Urine WBC Clumps Urine Bacteria Urine Mucus 02/04/21 02/04/21 02/05/21 21:05 21:05 04:32 RBC 4.26 L Plt Count 130 L Neutrophils # Lymphocytes # 0.3 L PT INR APTT Sodium 127 L Chloride 87 L Carbon Dioxide 32 H Creatinine 0.40 L Glucose 105 H Plasma Lactic Acid Aakash 2.2 H* Calcium Total Bilirubin C-Reactive Protein Total Protein 6.0 L Albumin 3.2 L Urine Protein Urine Blood Ur Leukocyte Esterase Urine RBC Urine WBC Urine WBC Clumps Urine Bacteria Urine Mucus 02/05/21 02/05/21 02/05/21 04:32 04:32 06:42 RBC Plt Count Neutrophils # Lymphocytes # PT 17.2 H INR 1.7 H APTT Sodium 124 L Chloride 87 L Carbon Dioxide 34 H Creatinine 0.43 L Glucose Plasma Lactic Acid Aakash Calcium 8.2 L Total Bilirubin 1.6 H C-Reactive Protein Total Protein 5.5 L Albumin 2.8 L Urine Protein Trace H Urine Blood Moderate H Ur Leukocyte Esterase Large H Urine RBC 49 H Urine WBC >182 H Urine WBC Clumps Many H Urine Bacteria Occasional H Urine Mucus Few H - Diagnostic Findings Chest x-ray: report reviewed, image reviewed (Finding as noted above) Assessment and Plan Assessment: Covid 19 infection however COVID-19 pneumonia cannot be excluded Acute exacerbation of heart failure likely acute on chronic diastolic heart failure, echocardiogram pending Uncontrolled Atrial fibrillation with rapid ventricular response Acute hypoxic respiratory failure multifactorial with combination of Covid 19 pneumonia as well as heart failure Severe hyponatremia Elevated PT/INR Coagulopathy due to Coumadin Small bilateral pleural effusion Basal bilateral atelectasis versus pneumonia Plan: Continue supplemental oxygen Deep breathing exercise incentive spirometry Decadron 6 mg daily Pro-calcitonin level Agree with diuresis and maximal medical therapy for heart failure We'll closely monitor observe pleural effusion as anticipated will improve with diuresis The plan of care as per clinical response of the patient Time with Patient: Greater than 30
[2021-02-05] MEDS ORDERED: HEPARIN SODIUM 1,000 UN/ML (10ML VL) IV PRN (12:32)
[2021-02-05] MEDS ORDERED: HEPARIN SODIUM 1,000 UN/ML (10ML VL) IV ONE (12:32)
[2021-02-05] MEDS ORDERED: DIGOXIN 250 MCG/ML 2 ML AMP IVP ONE ×2 (12:34→18:35)
--- NOTE | 2021-02-05 12:50 | P.CRDCN ---
History of Present Illness Consult date: 02/05/21 History of present illness: 85-year-old gentleman with history of atrial fibrillation, cardiomyopathy, coronary artery disease and chronic CHF was diagnosed to have COVID fraction as an outpatient. He also has a severe cardiomyopathy with an ejection fraction about 20-25%. Patient has refused defibrillator implantation in the past. He came to the hospital this time with complaints of increasing shortness of breath. No complaints of fever or chills. His proBNP is elevated. His EKG showed atrial fibrillation with rapid ventricular response. Chest x-ray showed bilateral pleural effusion. His renal function is normal, but sodium is low. Patient was found to be hypoxic. It felt that patient may have respiratory failure related to CHF and possibly concomitant Covid infection. Patient was on steroids and also Coumadin as an outpatient. His INR was high on admission. It came down to 1.7 now. He is on IV Cardizem with controlled rate. I'm going to start him IV Lanoxin with couple of IV doses today of 0.125 mg. Tomorrow we can discontinue Cardizem. Given her is age, his prognosis is guarded. We'll continue with diuretics, beta blockers, and rest of the medication as tolerated. We'll also initiate him on IV heparin. We'll get an echocardiogram. To reduce the risk of infection, this patient was not personally examined. Information is calculated from the chart and consultants notes and also nurse. Review of Systems As per the chart Past Medical History Past Medical History: Atrial Fibrillation, Coronary Artery Disease (CAD), Heart Failure, Eye Disorder, Hypertension, Myocardial Infarction (MS), Osteoarthritis (OA), Prostate Disorder Additional Past Medical History / Comment(s): Bilateral macular degeneration- eyesight is poor, pt was told by physician that he had MS in past, "reyna's lung", bilateral lower leg edema-takes lasix and wears bilateral compression stockings. Last Myocardial Infarction Date:: unkn History of Any Multi-Drug Resistant Organisms: CRE Date of last positivie culture/infection: 01/26/21 MDRO Source:: URINE Past Surgical History: Hernia Repair, Joint Replacement Additional Past Surgical History / Comment(s): Bilateral total hip replacements, varicose veins stripped L leg, bilateral laser surgery on eyes for macular degeneration, bilateral inguinal hernia repairs with L testicle removed, eye injections. Past Anesthesia/Blood Transfusion Reactions: No Reported Reaction Additional Past Anesthesia/Blood Transfusion Reaction / Comment(s): Pt states he has been told that he is slow to wake with anesthesia. Past Psychological History: No Psychological Hx Reported Additional Psychological History / Comment(s): Pt resides with his spouse. He has a wheeled walker that he uses. He no longer drives d/t poor vision-his can drive him to appts. Smoking Status: Never smoker Past Alcohol Use History: None Reported Additional Past Alcohol Use History / Comment(s): Pt states he would smoke a rare cigar. He quit smoking cigars around 1981. Past Drug Use History: None Reported - Past Family History Father Family Medical History: Cancer Additional Family Medical History / Comment(s): Father of leukemia at the age of 49 yrs. Mother Family Medical History: Coronary Artery Disease (CAD) Additional Family Medical History / Comment(s): Mother of a MS at the age of 67yrs. She also had varicose veins. Medications and Allergies Home Medications Medication Instructions Recorded Confirmed Type Aspirin EC [Ecotrin Low Dose] 81 mg PO HS 07/11/16 02/04/21 History Nitroglycerin Sl Tabs [Nitrostat] 0.4 mg SUBLINGUAL Q5M PRN 07/11/16 02/04/21 History Potassium Chloride ER [K-Dur 20] 20 meq PO DAILY 07/11/16 02/04/21 History Simvastatin [Zocor] 80 mg PO HS 07/11/16 02/04/21 History Tamsulosin HCl [Flomax] 0.4 mg PO DAILY 07/11/16 02/04/21 History Warfarin [Coumadin] 1.25 mg PO SUMOWESA 07/11/16 02/04/21 History Warfarin [Coumadin] 2.5 mg PO TUTHFR 07/11/16 02/04/21 History Vit C/E/Zn/Coppr/Lutein/Zeaxan 1 tab PO BID 07/08/20 02/04/21 History [Preservision Areds 2 Softgel] Furosemide [Lasix] 20 mg PO DAILY 11/17/20 02/04/21 History ALPRAZolam [Xanax] 0.5 mg PO TID PRN 02/04/21 02/04/21 History Metoprolol Tartrate [Lopressor] 25 mg PO BID 02/04/21 02/04/21 History Nitrofurantoin Monohyd/M-Cryst 100 mg PO Q12HR 02/04/21 02/04/21 History [Macrobid] Sacubitril/Valsartan [Entresto 24 1 tab PO BID 02/04/21 02/04/21 History mg-26 mg Tablet] methylPREDNISolone Dose Pack See Taper PO DAILY 02/04/21 02/04/21 History [Medrol Dose Pack] Allergies Allergy/AdvReac Type Severity Reaction Status Date / Time No Known Allergies Allergy Verified 02/04/21 14:45 Physical Exam Vitals: Vital Signs Temp Pulse Pulse Resp BP BP Pulse Ox 02/05/21 12:00 110 H 148/87 97 02/05/21 08:00 97.2 F L 88 113/77 92 L 02/05/21 05:28 16 93 L 02/05/21 04:14 98.4 F 74 16 90/52 97 02/05/21 02:45 18 02/05/21 00:55 97.5 F L 67 18 96/55 96 02/04/21 23:07 18 02/04/21 23:02 96.9 F L 61 18 97/55 95 02/04/21 21:45 94 20 91/78 95 02/04/21 21:15 105 H 20 118/89 96 02/04/21 20:45 106 H 20 128/84 95 02/04/21 20:35 95 02/04/21 20:15 106 H 20 137/99 96 02/04/21 19:45 123 H 20 133/80 02/04/21 19:31 105 H 20 141/107 02/04/21 18:00 100 18 129/107 96 02/04/21 17:00 97 18 110/90 96 02/04/21 16:55 104 H 22 96 02/04/21 16:00 118 H 22 120/104 96 02/04/21 15:48 121 H 22 106/72 96 02/04/21 14:23 96 F L 64 24 125/89 95 Intake and Output 02/04/21 02/05/21 02/05/21 22:59 06:59 14:59 Intake Total 0 300 Output Total 1000 1200 Balance -1000 -900 Intake: Intake, IV Titration 60 Amount Diltiazem 125 mg In 10 Sodium Chloride 0.9% 100 ml @ 5 MG/HR 5 mls/hr IV .Q24H [facility] Rx#:[id number] cefTRIAXone 1 gm In 50 Sodium Chloride 0.9% 50 ml @ 100 mls/hr IVPB Q24HR [facility] Rx#:[id number] Oral 0 240 Output: Urine 1000 1200 Other: Voiding Method Indwelling Catheter Indwelling Catheter Weight 95.254 kg Patient was not personally examined. Information is gathered from the consultants notes Results 02/05/21 04:32 02/05/21 04:32 Cardiac Enzymes 02/04/21 02/04/21 02/05/21 Range/Units 15:58 21:05 04:32 AST 26 23 21 (17-59) U/L Lactate Dehydrogenase 374 (313-618) U/L Coagulation 02/04/21 02/04/21 02/05/21 Range/Units 15:58 21:05 04:32 PT 103.9 H 50.8 H 17.2 H (9.0-12.0) sec APTT 48.7 H (22.0-30.0) sec CBC 02/04/21 02/05/21 Range/Units 14:50 04:32 WBC 9.8 7.6 (3.8-10.6) k/uL RBC 4.75 4.26 L (4.30-5.90) m/uL Hgb 14.5 13.1 (13.0-17.5) gm/dL Hct 44.9 39.4 (39.0-53.0) % Plt Count 142 L 130 L (150-450) k/uL Comprehensive Metabolic Panel 02/04/21 02/04/21 02/05/21 Range/Units 15:58 21:05 04:32 Sodium 123 L 127 L 124 L (137-145) mmol/L Potassium 5.0 4.1 4.0 (3.5-5.1) mmol/L Chloride 87 L 87 L 87 L (98-107) mmol/L Carbon Dioxide 27 32 H 34 H (22-30) mmol/L BUN 14 13 14 (9-20) mg/dL Creatinine 0.35 L 0.40 L 0.43 L (0.66-1.25) mg/dL Glucose 120 H 105 H 88 (74-99) mg/dL Calcium 9.0 8.4 8.2 L (8.4-10.2) mg/dL AST 26 23 21 (17-59) U/L ALT 15 14 13 (4-49) U/L Alkaline Phosphatase 92 96 84 (38-126) U/L Total Protein 6.2 L 6.0 L 5.5 L (6.3-8.2) g/dL Albumin 3.4 L 3.2 L 2.8 L (3.5-5.0) g/dL Current Medications Generic Name Dose Route Start Last Admin Trade Name Freq PRN Reason Stop Dose Admin Acetaminophen 1,000 mg 02/04/21 14:33 Acetaminophen Tab 500 Mg Tab PO Q6HR PRN Fever>101 Albuterol Sulfate 2 puff 02/04/21 14:33 02/04/21 20:32 Albuterol Hfa Inhaler INHALATION 2 puff RT-Q6H PRN Administration Shortness Of Breath Or Wheezing Albuterol Sulfate 2 puff 02/05/21 08:00 02/05/21 11:07 Albuterol Hfa Inhaler INHALATION 2 puff RT-TID [facility] Administration Ascorbic Acid 500 mg 02/04/21 19:15 02/04/21 20:23 Ascorbic Acid 500 Mg Tab PO 500 mg DAILY [facility] Administration Atorvastatin Calcium 40 mg 02/04/21 21:00 02/04/21 20:23 Atorvastatin 40 Mg Tab PO 40 mg HS [facility] Administration Cholecalciferol 25 mcg 02/04/21 19:15 02/04/21 20:23 Cholecalciferol 25 Mcg (1000 Iu) Tablet PO 25 mcg DAILY [facility] Administration Dexamethasone Sodium Phosphate 6 mg 02/05/21 11:15 Dexamethasone Sod Phosphate 10 Mg/Ml 1 Ml Vial IV DAILY [facility] Digoxin 125 mcg 02/05/21 12:34 Digoxin 250 Mcg/Ml 2 Ml Amp IVP 02/05/21 12:35 ONCE ONE Digoxin 125 mcg 02/05/21 18:35 Digoxin 250 Mcg/Ml 2 Ml Amp IVP 02/05/21 18:36 ONCE ONE Digoxin 125 mcg 02/06/21 09:00 Digoxin 125 Mcg Tab PO DAILY [facility] Furosemide 40 mg 02/04/21 21:00 02/05/21 08:56 Furosemide 10 Mg/Ml 4 Ml Vial IV 40 mg Q12HR [facility] Administration Heparin Sodium (Porcine) 4,000 unit 02/05/21 12:32 Heparin Sodium 1,000 Un/Ml (10ml Vl) IV 02/05/21 12:33 ONCE ONE Heparin Sodium (Porcine) 0 unit 02/05/21 12:32 Heparin Sodium 1,000 Un/Ml (10ml Vl) IV PER PROTOCOL PRN Low PTT Protocol Diltiazem HCl 125 mg/ Sodium 125 mls @ 5 mls/hr 02/04/21 15:30 02/04/21 15:45 Chloride IV 5 mg/hr .Q24H [facility] 5 mls/hr Administration 5 MG/HR Ceftriaxone Sodium 1 gm/ 50 mls @ 100 mls/hr 02/04/21 19:30 02/05/21 08:56 Sodium Chloride IVPB 100 mls/hr Q24HR [facility] Administration Heparin Sodium/Sodium Chloride 250 mls @ 11.43 mls/hr 02/05/21 12:45 25,000 unit/ Sodium Chloride IV .[id number] [facility] Protocol 12 UNITS/KG/HR Metoprolol Tartrate 25 mg 02/04/21 21:00 02/04/21 20:22 Metoprolol Tartrate 25 Mg Tab PO 25 mg BID [facility] Administration Naloxone HCl 0.2 mg 02/04/21 16:27 Naloxone 0.4 Mg/Ml 1 Ml Vial IV Q2M PRN Opioid Reversal Nitroglycerin 0.4 mg 02/04/21 18:55 Nitroglycerin Sl Tabs 0.4 Mg Tab SUBLINGUAL Q5M PRN Chest Pain Pantoprazole Sodium 40 mg 02/04/21 19:15 02/05/21 06:27 Pantoprazole 40 Mg Tablet PO Not Given AC-BRKFST [facility] Potassium Chloride 20 meq 02/05/21 09:00 02/05/21 08:55 Potassium Chloride Er 20 Meq Tab.Er PO 20 meq DAILY [facility] Administration Sacubitril/Valsartan 1 each 02/04/21 21:00 02/04/21 20:23 Sacubitril/Valsartan 24 Mg-26 Mg Tablet PO 1 each BID [facility] Administration Tamsulosin HCl 0.4 mg 02/05/21 09:00 02/05/21 08:55 Tamsulosin 0.4 Mg Cap.Er.24h PO 0.4 mg DAILY [facility] Administration Zinc Sulfate 220 mg 02/04/21 19:15 02/04/21 20:23 Zinc Sulfate 220 Mg Cap PO 220 mg DAILY [facility] Administration Intake and Output 02/04/21 02/05/21 02/05/21 22:59 06:59 14:59 Intake Total 0 300 Output Total 1000 1200 Balance -1000 -900 Intake: Intake, IV Titration 60 Amount Diltiazem 125 mg In 10 Sodium Chloride 0.9% 100 ml @ 5 MG/HR 5 mls/hr IV .Q24H [facility] Rx#:[id number] cefTRIAXone 1 gm In 50 Sodium Chloride 0.9% 50 ml @ 100 mls/hr IVPB Q24HR [facility] Rx#:[id number] Oral 0 240 Output: Urine 1000 1200 Other: Voiding Method Indwelling Catheter Indwelling Catheter Weight 95.254 kg 02/05/21 04:32 02/05/21 04:32 EKG Interpretations (text) EKG showed evidence of atrial fibrillation with rapid ventricle response with intraventricular conduction delay consistent with incomplete left bundle-branch block Assessment and Plan (1) Acute exacerbation of CHF (congestive heart failure) Current Visit: Yes Status: Acute Code(s): I50.9 - HEART FAILURE, UNSPECIFIED SNOMED Code(s): 477816481 (2) COVID-19 Current Visit: Yes Status: Acute Code(s): U07.1 - COVID-19 SNOMED Code(s): 816815198 (3) CAD (coronary artery disease) Current Visit: No Status: Acute Code(s): I25.10 - ATHSCL HEART DISEASE OF [place] CORONARY ARTERY W/O ANG PCTRS SNOMED Code(s): 07183126 (4) HTN (hypertension) Current Visit: No Status: Acute Code(s): I10 - ESSENTIAL (PRIMARY) HYPERTENSION SNOMED Code(s): 59452892 Plan: Continue with IV diuretics and IV Lanoxin. We will discontinue Cardizem as soon as possible. Continue current management for covid as outlined by erp consultant. Patient hasn't been on beta ankur because of history of syncope. We'll continue with IV anticoagulation. Echocardiogram will be repeated. Further recommendations depend upon clinical course. Prognosis adal price
[2021-02-05 12:59] LABS: Basophils % (A) 0 %; Eosinophils # (A) 0.1 k/uL (0-0.7); Eosinophils % (A) 1 %; HCT 43.2 % (39.0-53.0); Lymphocytes # (A) 0.3 k/uL (1.0-4.8); Lymphocytes % (A) 4 %; MCH 30.2 pg (25.0-35.0); MCHC 32.4 g/dL (31.0-37.0); MCV 93.2 fL (80.0-100.0); Mean Platelet Volume 8.2; Monocytes # (A) 0.3 k/uL (0-1.0); Monocytes % (A) 4 %; Neutrophils # (A) 7.3 k/uL (1.3-7.7); Neutrophils % (A) 90 %; Platelet Count 130 k/uL (150-450); RBC 4.63 m/uL (4.30-5.90); RDW 14.6 % (11.5-15.5); WBC 8.1 k/uL (3.8-10.6)
[2021-02-05] MEDS: ASCORBIC ACID 500 MG TAB PO SCH (13:23)
[2021-02-05] MEDS: SACUBITRIL/VALSARTAN 24 MG-26 MG TABLET PO SCH ×2 (13:25→20:35)
[2021-02-05] MEDS: HEPARIN SOD,PORK IN 0.45% NACL 25,000 UNIT in 0.45% NACL 1 250ML.BAG IV SCH (13:31)
[2021-02-05 13:36] LABS: INR 1.4 (<1.2); Partial Thromboplastin Time 29.9 sec (22.0-30.0); Prothrombin Time 14.6 sec (9.0-12.0)
[2021-02-05] MEDS: DEXAMETHASONE SOD PHOSPHATE 10 MG/ML 1 ML VIAL IV SCH (13:38)
[2021-02-05] MEDS: DILTIAZEM 125 MG in SODIUM CHLORIDE 0.9% 100 ML IV SCH (16:41)
[2021-02-05] MEDS: METOPROLOL TARTRATE 25 MG TAB PO SCH ×2 (16:55→20:23)
[2021-02-05] MEDS: CHOLECALCIFEROL 25 MCG (1000 IU) TABLET PO SCH (16:55)
[2021-02-05] MEDS: ZINC SULFATE 220 MG CAP PO SCH (16:56)
[2021-02-05] MEDS: ACETAMINOPHEN TAB 500 MG TAB PO PRN (20:23)
[2021-02-05] MEDS: ATORVASTATIN 40 MG TAB PO SCH (20:23)
--- NOTE | 2021-02-05 20:26 | P.HPIM ---
History of Present Illness H&P Date: 02/05/21 Chief Complaint: Weakness and Covid positivity This is a history of physical and 85-year-old white male with known history of atrial fibrillation and weakness who has been, for the last 3-4 days having worsening shortness of breath. The patient is now been admitted for weakness and Covid positivity. I had a short discussion with his spouse who states that the patient is becoming more weak and should consider possible rehab. Review of Systems Constitutional: Reports fatigue, Reports fever Eyes: denies blurred vision, denies pain Ears, nose, mouth and throat: Denies headache, Denies sore throat Cardiovascular: Denies chest pain, Denies shortness of breath Respiratory: Reports cough Gastrointestinal: Denies abdominal pain, Denies diarrhea, Denies nausea, Denies vomiting Musculoskeletal: Denies myalgias Integumentary: Denies pruritus, Denies rash Psychiatric: Denies anxiety, Denies depression Endocrine: Denies fatigue, Denies weight change Past Medical History Past Medical History: Atrial Fibrillation, Coronary Artery Disease (CAD), Heart Failure, Eye Disorder, Hypertension, Myocardial Infarction (NV), Osteoarthritis (OA), Prostate Disorder Additional Past Medical History / Comment(s): Bilateral macular degeneration- eyesight is poor, pt was told by physician that he had NV in past, "reyna's lung", bilateral lower leg edema-takes lasix and wears bilateral compression stockings. Last Myocardial Infarction Date:: unkn History of Any Multi-Drug Resistant Organisms: CRE Date of last positivie culture/infection: 01/26/21 MDRO Source:: URINE Past Surgical History: Hernia Repair, Joint Replacement Additional Past Surgical History / Comment(s): Bilateral total hip replacements, varicose veins stripped L leg, bilateral laser surgery on eyes for macular degeneration, bilateral inguinal hernia repairs with L testicle removed, eye injections. Past Anesthesia/Blood Transfusion Reactions: No Reported Reaction Additional Past Anesthesia/Blood Transfusion Reaction / Comment(s): Pt states he has been told that he is slow to wake with anesthesia. Past Psychological History: No Psychological Hx Reported Additional Psychological History / Comment(s): Pt resides with his spouse. He has a wheeled walker that he uses. He no longer drives d/t poor vision-his can drive him to appts. Smoking Status: Never smoker Past Alcohol Use History: None Reported Additional Past Alcohol Use History / Comment(s): Pt states he would smoke a rare cigar. He quit smoking cigars around 1981. Past Drug Use History: None Reported - Past Family History Father Family Medical History: Cancer Additional Family Medical History / Comment(s): Father of leukemia at the age of 49 yrs. Mother Family Medical History: Coronary Artery Disease (CAD) Additional Family Medical History / Comment(s): Mother of a NV at the age of 67yrs. She also had varicose veins. Medications and Allergies Home Medications Medication Instructions Recorded Confirmed Type Aspirin EC [Ecotrin Low Dose] 81 mg PO HS 07/11/16 02/04/21 History Nitroglycerin Sl Tabs [Nitrostat] 0.4 mg SUBLINGUAL Q5M PRN 07/11/16 02/04/21 History Potassium Chloride ER [K-Dur 20] 20 meq PO DAILY 07/11/16 02/04/21 History Simvastatin [Zocor] 80 mg PO HS 07/11/16 02/04/21 History Tamsulosin HCl [Flomax] 0.4 mg PO DAILY 07/11/16 02/04/21 History Warfarin [Coumadin] 1.25 mg PO [place]A 07/11/16 02/04/21 History Warfarin [Coumadin] 2.5 mg PO TUTHFR 07/11/16 02/04/21 History Vit C/E/Zn/Coppr/Lutein/Zeaxan 1 tab PO BID 07/08/20 02/04/21 History [Preservision Areds 2 Softgel] Furosemide [Lasix] 20 mg PO DAILY 11/17/20 02/04/21 History ALPRAZolam [Xanax] 0.5 mg PO TID PRN 02/04/21 02/04/21 History Metoprolol Tartrate [Lopressor] 25 mg PO BID 02/04/21 02/04/21 History Nitrofurantoin Monohyd/M-Cryst 100 mg PO Q12HR 02/04/21 02/04/21 History [Macrobid] Sacubitril/Valsartan [Entresto 24 1 tab PO BID 02/04/21 02/04/21 History mg-26 mg Tablet] methylPREDNISolone Dose Pack See Taper PO DAILY 02/04/21 02/04/21 History [Medrol Dose Pack] Allergies Allergy/AdvReac Type Severity Reaction Status Date / Time No Known Allergies Allergy Verified 02/04/21 14:45 Physical Exam Vitals: Vital Signs Temp Pulse Pulse Resp BP BP Pulse Ox 02/05/21 16:16 105 H 16 115/64 91 L 02/05/21 15:42 99.2 F 88 16 110/74 93 L 02/05/21 12:50 96 16 109/62 94 L 02/05/21 12:00 110 H 148/87 97 02/05/21 08:00 97.2 F L 88 113/77 92 L 02/05/21 05:28 16 93 L 02/05/21 04:14 98.4 F 74 16 90/52 97 02/05/21 02:45 18 02/05/21 00:55 97.5 F L 67 18 96/55 96 02/04/21 23:07 18 02/04/21 23:02 96.9 F L 61 18 97/55 95 02/04/21 21:45 94 20 91/78 95 02/04/21 21:15 105 H 20 118/89 96 02/04/21 20:45 106 H 20 128/84 95 02/04/21 20:35 95 Intake and Output 02/05/21 02/05/21 02/05/21 06:59 14:59 22:59 Intake Total 0 300 124.667 Output Total 1000 1200 Balance -1000 -900 124.667 Intake: Intake, IV Titration 60 124.667 Amount Diltiazem 125 mg In 10 124.667 Sodium Chloride 0.9% 100 ml @ 5 MG/HR 5 mls/hr IV .Q24H [facility] Rx#:[id number] cefTRIAXone 1 gm In 50 Sodium Chloride 0.9% 50 ml @ 100 mls/hr IVPB Q24HR [facility] Rx#:[id number] Oral 0 240 0 Output: Urine 1000 1200 Other: Voiding Method Indwelling Catheter Indwelling Catheter Weight 95.254 kg - Constitutional General appearance: mild distress - EENT Eyes: EOMI - Respiratory Respiratory: bilateral: diminished - Cardiovascular Rhythm: irregularly irregular Abnormal Heart Sounds: no S3 Gallop, no S4 Gallop, no click - Gastrointestinal General gastrointestinal: no organomegaly, soft, no tenderness - Neurologic Neurologic: CNII-XII intact - Musculoskeletal Musculoskeletal: generalized weakness - Psychiatric Psychiatric: A&O x's 3 Results CBC & Chem 7: 04/26/21 12:43 02/05/21 04:32 Labs: Abnormal Lab Results - Last 24 Hours (Table) 02/04/21 02/04/21 02/04/21 Range/Units 21:05 21:05 21:05 RBC (4.30-5.90) m/uL Plt Count (150-450) k/uL Lymphocytes # (1.0-4.8) k/uL PT 50.8 H (9.0-12.0) sec INR 5.3 H* (<1.2) APTT (22.0-30.0) sec Sodium 127 L (137-145) mmol/L Chloride 87 L (98-107) mmol/L Carbon Dioxide 32 H (22-30) mmol/L Creatinine 0.40 L (0.66-1.25) mg/dL Glucose 105 H (74-99) mg/dL Plasma Lactic Acid Aakash 2.2 H* (0.7-2.0) mmol/L Calcium (8.4-10.2) mg/dL Total Bilirubin (0.2-1.3) mg/dL Total Protein 6.0 L (6.3-8.2) g/dL Albumin 3.2 L (3.5-5.0) g/dL Urine Protein (Negative) Urine Blood (Negative) Ur Leukocyte Esterase (Negative) Urine RBC (0-5) /hpf Urine WBC (0-5) /hpf Urine WBC Clumps (None) /hpf Urine Bacteria (None) /hpf Urine Mucus (None) /hpf 02/05/21 02/05/21 02/05/21 Range/Units 04:32 04:32 04:32 RBC 4.26 L (4.30-5.90) m/uL Plt Count 130 L (150-450) k/uL Lymphocytes # 0.3 L (1.0-4.8) k/uL PT 17.2 H (9.0-12.0) sec INR 1.7 H (<1.2) APTT (22.0-30.0) sec Sodium 124 L (137-145) mmol/L Chloride 87 L (98-107) mmol/L Carbon Dioxide 34 H (22-30) mmol/L Creatinine 0.43 L (0.66-1.25) mg/dL Glucose (74-99) mg/dL Plasma Lactic Acid Aakash (0.7-2.0) mmol/L Calcium 8.2 L (8.4-10.2) mg/dL Total Bilirubin 1.6 H (0.2-1.3) mg/dL Total Protein 5.5 L (6.3-8.2) g/dL Albumin 2.8 L (3.5-5.0) g/dL Urine Protein (Negative) Urine Blood (Negative) Ur Leukocyte Esterase (Negative) Urine RBC (0-5) /hpf Urine WBC (0-5) /hpf Urine WBC Clumps (None) /hpf Urine Bacteria (None) /hpf Urine Mucus (None) /hpf 02/05/21 02/05/21 02/05/21 Range/Units 06:42 12:43 12:43 RBC (4.30-5.90) m/uL Plt Count 130 L (150-450) k/uL Lymphocytes # 0.3 L (1.0-4.8) k/uL PT 14.6 H (9.0-12.0) sec INR 1.4 H (<1.2) APTT (22.0-30.0) sec Sodium (137-145) mmol/L Chloride (98-107) mmol/L Carbon Dioxide (22-30) mmol/L Creatinine (0.66-1.25) mg/dL Glucose (74-99) mg/dL Plasma Lactic Acid Aakash (0.7-2.0) mmol/L Calcium (8.4-10.2) mg/dL Total Bilirubin (0.2-1.3) mg/dL Total Protein (6.3-8.2) g/dL Albumin (3.5-5.0) g/dL Urine Protein Trace H (Negative) Urine Blood Moderate H (Negative) Ur Leukocyte Esterase Large H (Negative) Urine RBC 49 H (0-5) /hpf Urine WBC >182 H (0-5) /hpf Urine WBC Clumps Many H (None) /hpf Urine Bacteria Occasional H (None) /hpf Urine Mucus Few H (None) /hpf 02/05/21 Range/Units 18:38 RBC (4.30-5.90) m/uL Plt Count (150-450) k/uL Lymphocytes # (1.0-4.8) k/uL PT (9.0-12.0) sec INR (<1.2) APTT 64.5 H (22.0-30.0) sec Sodium (137-145) mmol/L Chloride (98-107) mmol/L Carbon Dioxide (22-30) mmol/L Creatinine (0.66-1.25) mg/dL Glucose (74-99) mg/dL Plasma Lactic Acid Aakash (0.7-2.0) mmol/L Calcium (8.4-10.2) mg/dL Total Bilirubin (0.2-1.3) mg/dL Total Protein (6.3-8.2) g/dL Albumin (3.5-5.0) g/dL Urine Protein (Negative) Urine Blood (Negative) Ur Leukocyte Esterase (Negative) Urine RBC (0-5) /hpf Urine WBC (0-5) /hpf Urine WBC Clumps (None) /hpf Urine Bacteria (None) /hpf Urine Mucus (None) /hpf Microbiology - Last 24 Hours (Table) 02/04/21 14:50 Blood Culture - Preliminary Blood No Growth after 24 hours 02/04/21 14:35 Blood Culture - Preliminary Blood No Growth after 24 hours Thrombosis Risk Factor Assmnt - Choose All That Apply Each Factor Represents 1 point: Medical pt on bed rest, Obesity (BMI >25) Each Risk Factor Represents 3 Points: Age 75 years or older Thrombosis Risk Factor Assessment Total Risk Factor Score: 5 Thrombosis Risk Factor Assessment Level: High Risk Assessment and Plan (1) Atrial fibrillation with RVR Current Visit: Yes Status: Acute Code(s): I48.91 - UNSPECIFIED ATRIAL FIBRILLATION SNOMED Code(s): 725576821643034 (2) COVID-19 Current Visit: Yes Status: Acute Code(s): U07.1 - COVID-19 SNOMED Code(s): 572265066 (3) HTN (hypertension) Current Visit: No Status: Acute Code(s): I10 - ESSENTIAL (PRIMARY) HYPERTENSION SNOMED Code(s): 51508153 Plan: We will go ahead and reconcile home medications. Pulmonology and cardiology have been counseled that. Check CBC and CMP in the a.m. Prognosis guarded secondary to his advancing age and multiple comorbidities. We will go ahead and consult discharge planning for probable rehab. Time with Patient: Greater than 30
[2021-02-06] MEDS: PANTOPRAZOLE 40 MG TABLET PO SCH (06:56)
[2021-02-06] MEDS: ALBUTEROL HFA INHALER INHALATION SCH ×3 (07:36→19:47)
--- NOTE | 2021-02-06 08:40 | P.PN ---
Subjective Principal diagnosis: The patient is admitted for atrial fibrillation and covert positivity. This is an 85-year-old white male essentially admitted for atrial ablation, CHF and COVID-19. The patient is doing quite well but still is on moderately high flow oxygen at 5 L. The patient is clinically feeling much better and would like to start ambulating. No voiding difficulties otherwise stated. Objective - Vital Signs Vital signs: Vital Signs Temp 97.3 F L 02/06/21 02:55 Pulse 80 02/06/21 02:55 Resp 18 02/06/21 02:55 BP 125/78 02/06/21 02:55 Pulse Ox 93 L 02/06/21 02:55 Intake & Output 02/05/21 02/06/21 02/06/21 18:59 06:59 18:59 Intake Total 424.667 0 Output Total 1200 900 Balance -775.333 -900 Weight 95 kg Intake: Intake, IV Titration 184.667 Amount Diltiazem 125 mg In 134.667 Sodium Chloride 0.9% 100 ml @ 5 MG/HR 5 mls/hr IV .Q24H [facility] Rx#:[id number] cefTRIAXone 1 gm In 50 Sodium Chloride 0.9% 50 ml @ 100 mls/hr IVPB Q24HR [facility] Rx#:[id number] Oral 240 0 Output: Urine 1200 900 Other: Voiding Method Indwelling Catheter Indwelling Catheter - EENT Eyes: Absent: abnormal pupil - Neck Neck: Absent: lymphadenopathy - Respiratory Respiratory: bilateral: diminished - Cardiovascular Rhythm: regular Heart sounds: normal: S1, S2 Abnormal Heart Sounds: Absent: S3 Gallop - Gastrointestinal General gastrointestinal: Present: soft. Absent: tenderness - Integumentary Integumentary: Absent: cellulitis - Neurologic Neurologic: Present: CNII-XII intact - Labs CBC & Chem 7: 02/05/21 12:43 02/05/21 04:32 Labs: Abnormal Lab Results - Last 24 Hours (Table) 02/05/21 02/05/21 02/05/21 Range/Units 12:43 12:43 18:38 Plt Count 130 L (150-450) k/uL Lymphocytes # 0.3 L (1.0-4.8) k/uL PT 14.6 H (9.0-12.0) sec INR 1.4 H (<1.2) APTT 64.5 H (22.0-30.0) sec Microbiology - Last 24 Hours (Table) 02/04/21 14:50 Blood Culture - Preliminary Blood No Growth after 24 hours 02/04/21 14:35 Blood Culture - Preliminary Blood No Growth after 24 hours Assessment and Plan (1) Atrial fibrillation with RVR Current Visit: Yes Status: Acute Code(s): I48.91 - UNSPECIFIED ATRIAL FIBRILLATION SNOMED Code(s): 577759143243909 (2) COVID-19 Current Visit: Yes Status: Acute Code(s): U07.1 - COVID-19 SNOMED Code(s): 835483436 (3) HTN (hypertension) Current Visit: No Status: Acute Code(s): I10 - ESSENTIAL (PRIMARY) HYPERTENSION SNOMED Code(s): 98485728 Plan: We will go ahead and reconcile home medications. Pulmonology and cardiology have been counseled that. Check CBC and CMP in the a.m. Prognosis guarded secondary to his advancing age and multiple comorbidities. We will go ahead and consult discharge planning for probable rehab. The patient seems to be improving from a clinical perspective. Atrophic fibrillation is now normal ventricular response.
[2021-02-06] MEDS: METOPROLOL TARTRATE 25 MG TAB PO SCH ×3 (09:06→20:18)
[2021-02-06] MEDS: DEXAMETHASONE SOD PHOSPHATE 10 MG/ML 1 ML VIAL IV SCH (09:06)
[2021-02-06] MEDS: FUROSEMIDE 10 MG/ML 4 ML VIAL IV SCH ×2 (09:06→20:18)
[2021-02-06] MEDS: TAMSULOSIN 0.4 MG CAP.ER.24H PO SCH (09:06)
[2021-02-06] MEDS: DIGOXIN 125 MCG TAB PO SCH (09:06)
[2021-02-06] MEDS: ZINC SULFATE 220 MG CAP PO SCH (09:06)
[2021-02-06] MEDS: CHOLECALCIFEROL 25 MCG (1000 IU) TABLET PO SCH (09:07)
[2021-02-06] MEDS: POTASSIUM CHLORIDE ER 20 MEQ TAB.ER PO SCH (09:07)
[2021-02-06 09:28] LABS: INR 1.3 (<1.2)
[2021-02-06 10:02] LABS: Basophils % (A) 0 %; Eosinophils % (A) 0 %; HCT 41.7 % (39.0-53.0); HGB 13.8 gm/dL (13.0-17.5); Lymphocytes # (A) 0.3 k/uL (1.0-4.8); Lymphocytes % (A) 3 %; MCH 30.9 pg (25.0-35.0); MCHC 33.1 g/dL (31.0-37.0); MCV 93.2 fL (80.0-100.0); Mean Platelet Volume 8.3; Monocytes # (A) 0.6 k/uL (0-1.0); Monocytes % (A) 6 %; Neutrophils # (A) 8.9 k/uL (1.3-7.7); Neutrophils % (A) 90 %; Platelet Count 166 k/uL (150-450); RBC 4.47 m/uL (4.30-5.90); RDW 14.3 % (11.5-15.5); WBC 9.8 k/uL (3.8-10.6)
--- NOTE | 2021-02-06 10:46 | P.PN ---
Subjective Progress Note Date: 02/06/21 Principal diagnosis: Covid 19 infection however COVID-19 pneumonia cannot be excluded Acute exacerbation of heart failure likely acute on chronic diastolic heart failure, echocardiogram pending Uncontrolled Atrial fibrillation with rapid ventricular response Acute hypoxic respiratory failure multifactorial with combination of Covid 19 pneumonia as well as heart failure Severe hyponatremia Elevated PT/INR Coagulopathy due to Coumadin Small bilateral pleural effusion Basal bilateral atelectasis versus pneumonia 02/06/2021, patient seen eval examined during the rounds labs reviewed medications reviewed care plan discussed, remains short of breath, is on 5 L oxygen lower extremity edema +23 is present, patient is gently being diuresed, she remains on no bronchodilators along with IV antibiotic Decadron, along with heparin drip, and Lasix This is a pleasant 85-year-old male who developed increasing symptoms started about 2 weeks ago have been progressive, patient came into the hospital with shortness of breath and hypoxia currently on 5 L oxygen, patient was diagnosed with the COVID-19 as outpatient, his prior history is significant for coronary artery disease, dyslipidemia, BPH, hypertension hypertensive cardiovascular disease, and atrial fibrillation, patient is on tapering steroids and anticoagulation with Coumadin as outpatient, he is a nonsmoker, normal renal functions, his labs are significant for high BNP over 79,000, he was also noted to be in A. fib with RVR, started on Cardizem drip, his lactic acid was mildly elevated at 2.3, patient was extremely coagulopathic with INR over 10, PTT was 103, LDH was 374, C-reactive protein 1.8, his liver functions are within normal limit, S x-ray significant for a small bilateral pleural effusion and atelectasis at the bases versus infiltrate, currently patient is being treated with continuation of his home medicine along with IV Rocephin Cardizem drip diuretics with Lasix 40 mg IV every 12, Objective - Vital Signs Vital signs: Vital Signs Temp 97.3 F L 02/06/21 02:55 Pulse 80 02/06/21 02:55 Resp 18 02/06/21 02:55 BP 125/78 02/06/21 02:55 Pulse Ox 93 L 02/06/21 02:55 Intake & Output 02/05/21 02/06/21 02/06/21 18:59 06:59 18:59 Intake Total 424.667 0 240 Output Total 1200 900 600 Balance -775.004 -526 -921 Weight 95 kg Intake: Intake, IV Titration 184.667 Amount Diltiazem 125 mg In 134.667 Sodium Chloride 0.9% 100 ml @ 5 MG/HR 5 mls/hr IV .Q24H [facility] Rx#:[id number] cefTRIAXone 1 gm In 50 Sodium Chloride 0.9% 50 ml @ 100 mls/hr IVPB Q24HR [facility] Rx#:[id number] Oral 240 0 240 Output: Urine 1200 900 600 Other: Voiding Method Indwelling Catheter Indwelling Catheter - Exam - Constitutional General appearance: average body habitus, cooperative, disheveled - EENT Eyes: EOMI, PERRLA ENT: hearing grossly normal Ears: bilateral: normal - Neck Carotids: bilateral: upstroke normal Thyroid: bilateral: normal size - Respiratory Respiratory: bilateral: diminished, dullness, rales - Cardiovascular Rhythm: irregularly irregular Heart sounds: normal: S1, S2 - Gastrointestinal General gastrointestinal: normal bowel sounds, soft - Integumentary Integumentary: normal turgor - Neurologic Neurologic: CNII-XII intact - Musculoskeletal Musculoskeletal: gait normal, generalized weakness, strength equal bilaterally - Psychiatric Psychiatric: A&O x's 3, appropriate affect, intact judgment & insight - Labs CBC & Chem 7: 02/06/21 07:42 02/05/21 04:32 Labs: Abnormal Lab Results - Last 24 Hours (Table) 02/05/21 02/05/21 02/05/21 Range/Units 12:43 12:43 18:38 Plt Count 130 L (150-450) k/uL Neutrophils # (1.3-7.7) k/uL Lymphocytes # 0.3 L (1.0-4.8) k/uL PT 14.6 H (9.0-12.0) sec INR 1.4 H (<1.2) APTT 64.5 H (22.0-30.0) sec 02/06/21 02/06/21 Range/Units 07:42 07:42 Plt Count (150-450) k/uL Neutrophils # 8.9 H (1.3-7.7) k/uL Lymphocytes # 0.3 L (1.0-4.8) k/uL PT 13.0 H (9.0-12.0) sec INR 1.3 H (<1.2) APTT (22.0-30.0) sec Microbiology - Last 24 Hours (Table) 02/04/21 14:50 Blood Culture - Preliminary Blood No Growth after 24 hours 02/04/21 14:35 Blood Culture - Preliminary Blood No Growth after 24 hours Assessment and Plan Assessment: Covid 19 infection however COVID-19 pneumonia cannot be excluded Acute exacerbation of acute on chronic systolic heart failure, baseline ejection fraction of 20%, patient also refused defibrillator Uncontrolled Atrial fibrillation with rapid ventricular response Acute hypoxic respiratory failure multifactorial with combination of Covid 19 pneumonia as well as heart failure Severe hyponatremia Elevated PT/INR Coagulopathy due to Coumadin Small bilateral pleural effusion Basal bilateral atelectasis versus pneumonia Plan: Continue Rocephin for urinary tract infection Continue supplemental oxygen Deep breathing exercise incentive spirometry Decadron 6 mg daily Pro-calcitonin level reviewed within normal limit Agree with diuresis and maximal medical therapy for heart failure We'll closely monitor observe pleural effusion as anticipated will improve with diuresis The plan of care as per clinical response of the patient Time with Patient: Greater than 30
[2021-02-06] MEDS: ASCORBIC ACID 500 MG TAB PO SCH (11:53)
[2021-02-06] MEDS: SACUBITRIL/VALSARTAN 24 MG-26 MG TABLET PO SCH ×2 (11:53→20:18)
[2021-02-06] MEDS: HEPARIN SOD,PORK IN 0.45% NACL 25,000 UNIT in 0.45% NACL 1 250ML.BAG IV SCH (11:53)
--- NOTE | 2021-02-06 12:32 | P.CONS ---
History of Present Illness - Reason for Consult Consult date: 02/06/21 wound care - History of Present Illness this is an 85-year-old pleasant gentleman being seen by the wound care center [address] for a nonhealing ulceration to the sacrum. Patient states that the ulceration has been there for quite a few weeks that his has been taking care of it. The ulceration is a stage I stage II pressure ulcer breakdown. The periwound does show ecchymosis and excoriation. Patient is unsure what dressings are used at home. He does state that he spends a significant amount of time sitting in a chair without any questions. Patient's past medical history significant for atrial fibrillation, coronary artery disease, heart failure, hypertension, myocardial infarction, after arthritis, and BPH. Review Of Systems: Constitutional: No fever, no chills, no night sweats. No weight change. No weakness, fatigue or lethargy. No daytime sleepiness. Integumentary:reports wounds, no lesions. No rash or pruritus. No unusual bruising. No change in hair or nails. Physical exam: General Appearance: Alert, cooperative, no distress, appears stated age. Skin: See HPI all other Skin color, texture, tugor normal, no rashes or lesions. Neurologic: Alert oriented x3 Assessment/plan: 1. Stage II pressure ulcer Limited to skin breakdown. Apply zinc barrier cream, sacrum border foam. Utilize a waffle cushion when sitting in a chair. Turn patient every 2 hours. Discussed with patient the importance of investing and a Roho cushion when he is sitting. Patient verbalized understanding. Thank you for the consultation any questions please contact the wound care center DNP note has been reviewed and discussed with Dr. Gamble and the impression and plan of care has been directed as dictated. Past Medical History Past Medical History: Atrial Fibrillation, Coronary Artery Disease (CAD), Heart Failure, Eye Disorder, Hypertension, Myocardial Infarction (OH), Osteoarthritis (OA), Prostate Disorder Additional Past Medical History / Comment(s): Bilateral macular degeneration- eyesight is poor, pt was told by physician that he had OH in past, "reyna's lung", bilateral lower leg edema-takes lasix and wears bilateral compression stockings. Last Myocardial Infarction Date:: unkn History of Any Multi-Drug Resistant Organisms: CRE Year Discovered:: 01/26/21 MDRO Source:: URINE Past Surgical History: Hernia Repair, Joint Replacement Additional Past Surgical History / Comment(s): Bilateral total hip replacements, varicose veins stripped L leg, bilateral laser surgery on eyes for macular degeneration, bilateral inguinal hernia repairs with L testicle removed, eye injections. Past Anesthesia/Blood Transfusion Reactions: No Reported Reaction Additional Past Anesthesia/Blood Transfusion Reaction / Comm: Pt states he has been told that he is slow to wake with anesthesia. Past Psychological History: No Psychological Hx Reported Additional Psychological History / Comment(s): Pt resides with his spouse. He has a wheeled walker that he uses. He no longer drives d/t poor vision-his can drive him to [email or web address]. Smoking Status: Never smoker Past Alcohol Use History: None Reported Additional Past Alcohol Use History / Comment(s): Pt states he would smoke a rare cigar. He quit smoking cigars around 1981. Past Drug Use History: None Reported - Past Family History Father Family Medical History: Cancer Additional Family Medical History / Comment(s): Father of leukemia at the age of 49 yrs. Mother Family Medical History: Coronary Artery Disease (CAD) Additional Family Medical History / Comment(s): Mother of a OH at the age of 67yrs. She also had varicose veins. Medications and Allergies Home Medications Medication Instructions Recorded Confirmed Type Aspirin EC [Ecotrin Low Dose] 81 mg PO HS 07/11/16 02/04/21 History Nitroglycerin Sl Tabs [Nitrostat] 0.4 mg SUBLINGUAL Q5M PRN 07/11/16 02/04/21 History Potassium Chloride ER [K-Dur 20] 20 meq PO DAILY 07/11/16 02/04/21 History Simvastatin [Zocor] 80 mg PO HS 07/11/16 02/04/21 History Tamsulosin HCl [Flomax] 0.4 mg PO DAILY 07/11/16 02/04/21 History Warfarin [Coumadin] 1.25 mg PO [place] 07/11/16 02/04/21 History Warfarin [Coumadin] 2.5 mg PO TUTHFR 07/11/16 02/04/21 History Vit C/E/Zn/Coppr/Lutein/Zeaxan 1 tab PO BID 07/08/20 02/04/21 History [Preservision Areds 2 Softgel] Furosemide [Lasix] 20 mg PO DAILY 11/17/20 02/04/21 History ALPRAZolam [Xanax] 0.5 mg PO TID PRN 02/04/21 02/04/21 History Metoprolol Tartrate [Lopressor] 25 mg PO BID 02/04/21 02/04/21 History Nitrofurantoin Monohyd/M-Cryst 100 mg PO Q12HR 02/04/21 02/04/21 History [Macrobid] Sacubitril/Valsartan [Entresto 24 1 tab PO BID 02/04/21 02/04/21 History mg-26 mg Tablet] methylPREDNISolone Dose Pack See Taper PO DAILY 02/04/21 02/04/21 History [Medrol Dose Pack] Allergies Allergy/AdvReac Type Severity Reaction Status Date / Time No Known Allergies Allergy Verified 02/04/21 14:45 Physical Exam Vitals: Vital Signs Temp Pulse Pulse Resp BP BP Pulse Ox 02/06/21 02:55 97.3 F L 80 18 125/78 93 L 02/06/21 00:30 89 18 02/06/21 00:00 98.1 F 89 18 114/59 94 L 02/05/21 20:00 97.4 F L 90 16 123/77 94 L 02/05/21 16:16 105 H 16 115/64 91 L 02/05/21 15:42 99.2 F 88 16 110/74 93 L 02/05/21 12:50 96 16 109/62 94 L Intake and Output 02/05/21 02/06/21 02/06/21 22:59 06:59 14:59 Intake Total 124.667 463.667 Output Total 900 600 Balance 124.667 -900 -136.333 Intake: Intake, IV Titration 124.667 223.667 Amount Diltiazem 125 mg In 124.667 Sodium Chloride 0.9% 100 ml @ 5 MG/HR 5 mls/hr IV .Q24H [facility] Rx#:[id number] Heparin Sod,Pork in 0.45% 223.667 NaCl 25,000 unit In 0.45 % NaCl 1 250ml.bag @ 10. 498 UNITS/KG/HR 10 mls/hr IV .Q24H [facility] Rx#: [id number] Oral 0 240 Output: Urine 900 600 Other: Voiding Method Indwelling Catheter Indwelling Catheter Weight 95 kg Results CBC & Chem 7: 02/06/21 07:42 02/05/21 04:32 Labs: Abnormal Lab Results - Last 24 Hours (Table) 02/05/21 02/05/21 02/05/21 Range/Units 12:43 12:43 18:38 Plt Count 130 L (150-450) k/uL Neutrophils # (1.3-7.7) k/uL Lymphocytes # 0.3 L (1.0-4.8) k/uL PT 14.6 H (9.0-12.0) sec INR 1.4 H (<1.2) APTT 64.5 H (22.0-30.0) sec 02/06/21 02/06/21 Range/Units 07:42 07:42 Plt Count (150-450) k/uL Neutrophils # 8.9 H (1.3-7.7) k/uL Lymphocytes # 0.3 L (1.0-4.8) k/uL PT 13.0 H (9.0-12.0) sec INR 1.3 H (<1.2) APTT (22.0-30.0) sec Microbiology - Last 24 Hours (Table) 02/04/21 14:50 Blood Culture - Preliminary Blood No Growth after 24 hours 02/04/21 14:35 Blood Culture - Preliminary Blood No Growth after 24 hours Assessment and Plan (1) Sacral decubitus ulcer, stage II Current Visit: Yes Status: Acute Code(s): L89.152 - PRESSURE ULCER OF SACRAL REGION, STAGE 2 SNOMED Code(s): 663837829
--- NOTE | 2021-02-06 14:09 | P.PN ---
Subjective Patient is a 85-year-old gentleman with history of atrial fibrillation, cardiomyopathy, coronary artery disease and chronic CHF was diagnosed to have COVID-19 infection as an outpatient. He also has a severe cardiomyopathy with an ejection fraction about 20-25%. Patient has refused defibrillator implantation in the past. He came to the hospital this time with complaints of increasing shortness of breath. His proBNP is elevated. His EKG showed atrial fibrillation with rapid ventricular response. Chest x-ray showed bilateral pleural effusion. Patient was found to be hypoxic. It felt that patient may have respiratory failure related to CHF and possibly concomitant Covid infection. Patient was on steroids and also Coumadin as an outpatient. His INR was high on admission. 02/06/2021: Patient seen and examined at bedside, no acute distress. Patient continues to be in atrial fibrillation, ventricular rates are controlled. Blood pressure 125/78, heart rate 80 afebrile, maintaining oxygen saturations 93% on 5L nasal cannula. Laboratory data not available for today. Thorough Physical examination not completed due to covid-19 infection. Patient with 2.1L urine output yesterday. Weight maintained 95kg. ASSESSMENT COVID-19 Persistent atrial fibrillation with RVR, on coumadin at home Coronary artery disease Chronic systolic heart failure with reduced EF, refusal of AICD implantation Hypertension Dyslipidemia PLAN Echocardiogram was ordered and completed, will follow up on results. Discontinue cardizem drip Check Eliquis Coverage, consult case management. Continue heparin drip for now Increase metoprolol titrate 25 mg 3 times a day Continue IV diuresis Continue digoxin 125mcg daily, atorvastatin 40 mg nightly, Entrestor 24mg-26mg BID Daily INR Covid-19 treatment per pulmonary and primary Monitor electrolytes and renal function Nurse Practitioner note has been reviewed, I agree with a documented findings and plan of care. Patient was seen and examined. Objective - Vital Signs Vital signs: Vital Signs Temp 97.3 F L 02/06/21 02:55 Pulse 80 02/06/21 02:55 Resp 18 02/06/21 02:55 BP 125/78 02/06/21 02:55 Pulse Ox 93 L 02/06/21 02:55 Intake & Output 02/05/21 02/06/21 02/06/21 18:59 06:59 18:59 Intake Total 424.667 0 1003.667 Output Total 1830 000 1561 Balance -775.333 -900 -1196.333 Weight 95 kg Intake: Intake, IV Titration 184.667 223.667 Amount Diltiazem 125 mg In 134.667 Sodium Chloride 0.9% 100 ml @ 5 MG/HR 5 mls/hr IV .Q24H [facility] Rx#:[id number] Heparin Sod,Pork in 0.45% 223.667 NaCl 25,000 unit In 0.45 % NaCl 1 250ml.bag @ 10. 498 UNITS/KG/HR 10 mls/hr IV .Q24H [facility] Rx#: [id number] cefTRIAXone 1 gm In 50 Sodium Chloride 0.9% 50 ml @ 100 mls/hr IVPB Q24HR [facility] Rx#:[id number] Oral 240 0 780 Output: Urine 3982 673 4386 Other: Voiding Method Indwelling Catheter Indwelling Catheter - Labs CBC & Chem 7: 02/06/21 07:42 02/05/21 04:32 Labs: Abnormal Lab Results - Last 24 Hours (Table) 02/05/21 02/06/21 02/06/21 Range/Units 18:38 07:42 07:42 Neutrophils # 8.9 H (1.3-7.7) k/uL Lymphocytes # 0.3 L (1.0-4.8) k/uL PT 13.0 H (9.0-12.0) sec INR 1.3 H (<1.2) APTT 64.5 H (22.0-30.0) sec Microbiology - Last 24 Hours (Table) 02/04/21 14:50 Blood Culture - Preliminary Blood No Growth after 24 hours 02/04/21 14:35 Blood Culture - Preliminary Blood No Growth after 24 hours
[2021-02-06] MEDS: ACETAMINOPHEN TAB 500 MG TAB PO PRN (17:34)
[2021-02-06] MEDS: ATORVASTATIN 40 MG TAB PO SCH (20:18)
[2021-02-07] MEDS: PANTOPRAZOLE 40 MG TABLET PO SCH (06:27)
[2021-02-07] MEDS: DEXAMETHASONE SOD PHOSPHATE 10 MG/ML 1 ML VIAL IV SCH (08:15)
[2021-02-07] MEDS: METOPROLOL TARTRATE 25 MG TAB PO SCH ×3 (08:16→20:31)
[2021-02-07] MEDS: DIGOXIN 125 MCG TAB PO SCH (08:16)
[2021-02-07] MEDS: POTASSIUM CHLORIDE ER 20 MEQ TAB.ER PO SCH (08:16)
[2021-02-07] MEDS: CHOLECALCIFEROL 25 MCG (1000 IU) TABLET PO SCH (08:16)
[2021-02-07] MEDS: SACUBITRIL/VALSARTAN 24 MG-26 MG TABLET PO SCH ×2 (08:16→20:32)
[2021-02-07] MEDS: ASCORBIC ACID 500 MG TAB PO SCH (08:16)
[2021-02-07] MEDS: TAMSULOSIN 0.4 MG CAP.ER.24H PO SCH (08:16)
[2021-02-07] MEDS: ZINC SULFATE 220 MG CAP PO SCH (08:16)
[2021-02-07] MEDS: FUROSEMIDE 10 MG/ML 4 ML VIAL IV SCH ×2 (08:16→20:32)
[2021-02-07] MEDS: ALBUTEROL HFA INHALER INHALATION SCH ×3 (08:17→19:47)
[2021-02-07 08:32] LABS: HCT 42.4 % (39.0-53.0); HGB 13.5 gm/dL (13.0-17.5); MCH 30.1 pg (25.0-35.0); MCHC 31.8 g/dL (31.0-37.0); MCV 94.6 fL (80.0-100.0); Mean Platelet Volume 7.9; Platelet Count 175 k/uL (150-450); RBC 4.49 m/uL (4.30-5.90); RDW 14.7 % (11.5-15.5); WBC 10.5 k/uL (3.8-10.6)
[2021-02-07 08:54] LABS: ALT 15 U/L (4-49); African American GFR (CKD) >90 (>60 ml/min/1.73 sqM); Albumin 3.1 g/dL (3.5-5.0); Anion Gap 6 mmol/L; Blood Urea Nitrogen 23 mg/dL (9-20); Calcium 8.6 mg/dL (8.4-10.2); Carbon Dioxide 31 mmol/L (22-30); Chloride 92 mmol/L (98-107); Glucose 125 mg/dL (74-99); Non-African American GFR(CKD) >90 (>60 ml/min/1.73 sqM); Sodium 129 mmol/L (137-145); Total Bilirubin 1.5 mg/dL (0.2-1.3); Total Protein 6.1 g/dL (6.3-8.2)
[2021-02-07 08:58] LABS: AST 36 U/L (17-59); Alkaline Phosphatase 64 U/L (38-126); Potassium 4.6 mmol/L (3.5-5.1)
--- NOTE | 2021-02-07 10:44 | P.PN ---
Subjective Progress Note Date: 02/07/21 Principal diagnosis: Covid 19 infection however COVID-19 pneumonia cannot be excluded Acute exacerbation of heart failure likely acute on chronic diastolic heart failure, echocardiogram pending Uncontrolled Atrial fibrillation with rapid ventricular response Acute hypoxic respiratory failure multifactorial with combination of Covid 19 pneumonia as well as heart failure Severe hyponatremia Elevated PT/INR Coagulopathy due to Coumadin Small bilateral pleural effusion Basal bilateral atelectasis versus pneumonia 02/07/2021, patient seen eval examined during the rounds labs reviewed medications reviewed care plan discussed, respiratory status remains stable, denies any chest pain, remains on 5 L oxygen, sodium up to 129 patient remains normal 4.6, BUN/creatinine is 23 and 0.49, oxygen saturation 94% 5 L oxygen, patient remains on bronchodilators, supplemental COVID-19 pneumonia, dexamethasone for COVID-19, patient remains on Cardizem and heparin drip for rapid A. fib with RVR 02/06/2021, patient seen eval examined during the rounds labs reviewed medications reviewed care plan discussed, remains short of breath, is on 5 L oxygen lower extremity edema +23 is present, patient is gently being diuresed, she remains on no bronchodilators along with IV antibiotic Decadron, along with heparin drip, and Lasix This is a pleasant 85-year-old male who developed increasing symptoms started about 2 weeks ago have been progressive, patient came into the hospital with shortness of breath and hypoxia currently on 5 L oxygen, patient was diagnosed with the COVID-19 as outpatient, his prior history is significant for coronary artery disease, dyslipidemia, BPH, hypertension hypertensive cardiovascular disease, and atrial fibrillation, patient is on tapering steroids and anticoagulation with Coumadin as outpatient, he is a nonsmoker, normal renal functions, his labs are significant for high BNP over 79,000, he was also noted to be in A. fib with RVR, started on Cardizem drip, his lactic acid was mildly elevated at 2.3, patient was extremely coagulopathic with INR over 10, PTT was 103, LDH was 374, C-reactive protein 1.8, his liver functions are within normal limit, S x-ray significant for a small bilateral pleural effusion and atelectasis at the bases versus infiltrate, currently patient is being treated with continuation of his home medicine along with IV Rocephin Cardizem drip diuretics with Lasix 40 mg IV every 12, Objective - Vital Signs Vital signs: Vital Signs Temp 98.9 F 02/07/21 04:00 Pulse 72 02/07/21 04:00 Resp 16 02/07/21 04:00 BP 119/57 02/07/21 04:00 Pulse Ox 94 L 02/07/21 04:00 Intake & Output 02/06/21 02/07/21 02/07/21 18:59 06:59 18:59 Intake Total 1243.667 180 Output Total 2575 1600 800 Balance -1331.333 -1600 -620 Intake: Intake, IV Titration 223.667 Amount Heparin Sod,Pork in 0.45% 223.667 NaCl 25,000 unit In 0.45 % NaCl 1 250ml.bag @ 10. 498 UNITS/KG/HR 10 mls/hr IV .Q24H [facility] Rx#: [id number] Oral 1020 180 Output: Urine 2575 1600 800 Other: Voiding Method Indwelling Catheter Indwelling Catheter - Exam - Constitutional General appearance: average body habitus, cooperative, disheveled - EENT Eyes: EOMI, PERRLA ENT: hearing grossly normal Ears: bilateral: normal - Neck Carotids: bilateral: upstroke normal Thyroid: bilateral: normal size - Respiratory Respiratory: bilateral: diminished, dullness, rales - Cardiovascular Rhythm: irregularly irregular Heart sounds: normal: S1, S2 - Gastrointestinal General gastrointestinal: normal bowel sounds, soft - Integumentary Integumentary: normal turgor - Neurologic Neurologic: CNII-XII intact - Musculoskeletal Musculoskeletal: gait normal, generalized weakness, strength equal bilaterally - Psychiatric Psychiatric: A&O x's 3, appropriate affect, intact judgment & insight - Labs CBC & Chem 7: 02/07/21 07:59 02/07/21 07:59 Labs: Abnormal Lab Results - Last 24 Hours (Table) 02/06/21 02/07/21 Range/Units 19:58 07:59 APTT 59.4 H (22.0-30.0) sec Sodium 129 L (137-145) mmol/L Chloride 92 L (98-107) mmol/L Carbon Dioxide 31 H (22-30) mmol/L BUN 23 H (9-20) mg/dL Creatinine 0.49 L (0.66-1.25) mg/dL Glucose 125 H (74-99) mg/dL Total Bilirubin 1.5 H (0.2-1.3) mg/dL Total Protein 6.1 L (6.3-8.2) g/dL Albumin 3.1 L (3.5-5.0) g/dL Microbiology - Last 24 Hours (Table) 02/04/21 14:50 Blood Culture - Preliminary Blood No Growth after 48 hours 02/04/21 14:35 Blood Culture - Preliminary Blood No Growth after 48 hours Assessment and Plan Assessment: Covid 19 infection however COVID-19 pneumonia cannot be excluded Acute exacerbation of acute on chronic systolic heart failure, baseline ejection fraction of 20%, patient also refused defibrillator Uncontrolled Atrial fibrillation with rapid ventricular response Acute hypoxic respiratory failure multifactorial with combination of Covid 19 pneumonia as well as heart failure Severe hyponatremia Elevated PT/INR Coagulopathy due to Coumadin Small bilateral pleural effusion Basal bilateral atelectasis versus pneumonia Plan: Continue Rocephin for urinary tract infection, however can be discontinued in next few days Continue supplemental oxygen Deep breathing exercise incentive spirometry Decadron 6 mg daily Pro-calcitonin level reviewed within normal limit Agree with diuresis and maximal medical therapy for heart failure We'll closely monitor observe pleural effusion as anticipated will improve with diuresis The plan of care as per clinical response of the patient Time with Patient: Greater than 30
[2021-02-07] MEDS: HEPARIN SOD,PORK IN 0.45% NACL 25,000 UNIT in 0.45% NACL 1 250ML.BAG IV SCH (12:23)
--- NOTE | 2021-02-07 16:27 | P.PN ---
Subjective Patient is a 85-year-old gentleman with history of atrial fibrillation, cardiomyopathy, coronary artery disease and chronic CHF was diagnosed to have COVID-19 infection as an outpatient. He also has a severe cardiomyopathy with an ejection fraction about 20-25%. Patient has refused defibrillator implantation in the past. He came to the hospital this time with complaints of increasing shortness of breath. His proBNP is elevated. His EKG showed atrial fibrillation with rapid ventricular response. Chest x-ray showed bilateral pleural effusion. Patient was found to be hypoxic. It felt that patient may have respiratory failure related to CHF and possibly concomitant Covid infection. Patient was on steroids and also Coumadin as an outpatient. His INR was high on admission. 02/07/2021: Patient seen and examined at bedside, no acute distress. Patient continues to be in atrial fibrillation, ventricular rates are controlled. Blood pressure 105/69, heart rate 78 afebrile, maintaining oxygen saturations 93% on 5L nasal cannula. Laboratory data sodium 129, potassium 4.6, serum creatinine 0.49, BUN 23,. Thorough Physical examination not completed due to covid-19 infection. Patient with 4L urine output yesterday. Weight maintained 95kg. ASSESSMENT COVID-19 Persistent atrial fibrillation with RVR, on coumadin at home. Now switched to Eliquis Coronary artery disease Chronic systolic heart failure with reduced EF, refusal of AICD implantation Hypertension Dyslipidemia Hyponatremia PLAN Echocardiogram was ordered and completed, will follow up on results. Patient agreeable to take Eliquis 2.5mg BID will start that medication today and discontinue heparin drip Will continue metoprolol titrate 25 mg 3 times a day Patient is currently being Diuresed Continue digoxin 125mcg daily, atorvastatin 40 mg nightly, Entresto 24mg-26mg BID Covid-19 treatment per pulmonary and primary Monitor electrolytes and renal function If echocardiogram with no acute findings, patient can be discharged from cardiology standpoint and follow up outpatient. Nurse Practitioner note has been reviewed, I agree with a documented findings and plan of care. Patient was seen and examined. Objective - Vital Signs Vital signs: Vital Signs Temp 97.3 F L 02/07/21 16:00 Pulse 71 02/07/21 16:00 Resp 20 02/07/21 16:00 BP 109/66 02/07/21 16:00 Pulse Ox 94 L 02/07/21 16:00 Intake & Output 02/06/21 02/07/21 02/07/21 18:59 06:59 18:59 Intake Total 1243.667 665 Output Total 2575 1600 1000 Balance -1331.333 -1600 -335 Intake: Intake, IV Titration 223.667 245 Amount Heparin Sod,Pork in 0.45% 223.667 245 NaCl 25,000 unit In 0.45 % NaCl 1 250ml.bag @ 10. 498 UNITS/KG/HR 10 mls/hr IV .Q24H [facility] Rx#: [id number] Oral 1020 420 Output: Urine 2575 1600 1000 Other: Voiding Method Indwelling Catheter Indwelling Catheter Indwelling Catheter # Bowel Movements 1 - Labs CBC & Chem 7: 02/07/21 07:59 02/07/21 07:59 Labs: Abnormal Lab Results - Last 24 Hours (Table) 02/06/21 02/07/21 02/07/21 Range/Units 19:58 07:59 12:48 APTT 59.4 H 52.6 H (22.0-30.0) sec Sodium 129 L (137-145) mmol/L Chloride 92 L (98-107) mmol/L Carbon Dioxide 31 H (22-30) mmol/L BUN 23 H (9-20) mg/dL Creatinine 0.49 L (0.66-1.25) mg/dL Glucose 125 H (74-99) mg/dL Total Bilirubin 1.5 H (0.2-1.3) mg/dL Total Protein 6.1 L (6.3-8.2) g/dL Albumin 3.1 L (3.5-5.0) g/dL Microbiology - Last 24 Hours (Table) 02/04/21 14:50 Blood Culture - Preliminary Blood No Growth after 48 hours 02/04/21 14:35 Blood Culture - Preliminary Blood No Growth after 48 hours
[2021-02-07] MEDS: ATORVASTATIN 40 MG TAB PO SCH (20:32)
[2021-02-07] MEDS: APIXABAN 2.5 MG TABLET PO SCH (20:32)
--- NOTE | 2021-02-07 22:56 | P.PN ---
Subjective Principal diagnosis: The patient is admitted for atrial fibrillation and covert positivity. This is an 85-year-old white male essentially admitted for atrial ablation, CHF and COVID-19. The patient is doing quite well but still is on moderately high flow oxygen at 5 L. The patient is clinically feeling much better and would like to start ambulating. No voiding difficulties otherwise stated. Objective - Vital Signs Vital signs: Vital Signs Temp 97.6 F 02/07/21 20:00 Pulse 71 02/07/21 20:00 Resp 16 02/07/21 20:00 BP 124/66 02/07/21 20:00 Pulse Ox 96 02/07/21 20:00 Intake & Output 02/07/21 02/07/21 02/08/21 06:59 18:59 06:59 Intake Total 1145 Output Total 1600 1150 Balance -1600 -5 Intake: Intake, IV Titration 245 Amount Heparin Sod,Pork in 0.45% 245 NaCl 25,000 unit In 0.45 % NaCl 1 250ml.bag @ 10. 498 UNITS/KG/HR 10 mls/hr IV .Q24H [facility] Rx#: [id number] Oral 900 Output: Urine 1600 1150 Other: Voiding Method Indwelling Catheter Indwelling Catheter Indwelling Catheter # Bowel Movements 1 - Constitutional General appearance: Present: obese - EENT Eyes: Absent: abnormal pupil - Neck Neck: Absent: lymphadenopathy - Respiratory Respiratory: bilateral: diminished - Cardiovascular Rhythm: irregularly irregular Abnormal Heart Sounds: Absent: S3 Gallop - Gastrointestinal General gastrointestinal: Present: soft. Absent: tenderness - Integumentary Integumentary: Absent: cellulitis - Labs CBC & Chem 7: 02/07/21 07:59 02/07/21 07:59 Labs: Abnormal Lab Results - Last 24 Hours (Table) 02/07/21 02/07/21 Range/Units 07:59 12:48 APTT 52.6 H (22.0-30.0) sec Sodium 129 L (137-145) mmol/L Chloride 92 L (98-107) mmol/L Carbon Dioxide 31 H (22-30) mmol/L BUN 23 H (9-20) mg/dL Creatinine 0.49 L (0.66-1.25) mg/dL Glucose 125 H (74-99) mg/dL Total Bilirubin 1.5 H (0.2-1.3) mg/dL Total Protein 6.1 L (6.3-8.2) g/dL Albumin 3.1 L (3.5-5.0) g/dL Microbiology - Last 24 Hours (Table) 02/04/21 14:35 Blood Culture - Preliminary Blood No Growth after 72 hours 02/04/21 14:50 Blood Culture - Preliminary Blood No Growth after 72 hours Assessment and Plan (1) Atrial fibrillation with RVR Current Visit: Yes Status: Acute Code(s): I48.91 - UNSPECIFIED ATRIAL FIBRILLATION SNOMED Code(s): 909292410489741 (2) COVID-19 Current Visit: Yes Status: Acute Code(s): U07.1 - COVID-19 SNOMED Code(s): 243155591 (3) HTN (hypertension) Current Visit: No Status: Acute Code(s): I10 - ESSENTIAL (PRIMARY) HYPERTENSION SNOMED Code(s): 39735223 Plan: Pulmonology and cardiology have been counseled that. Check CBC and CMP in the a.m. Prognosis guarded secondary to his advancing age and multiple comorbidities. We will go ahead and consult discharge planning for probable rehab. The patient seems to be improving from a clinical perspective. Atrophic fibrillation is now normal ventricular response. Time with Patient: Greater than 30
[2021-02-08] MEDS: PANTOPRAZOLE 40 MG TABLET PO SCH (07:05)
[2021-02-08] MEDS: ALBUTEROL HFA INHALER INHALATION SCH ×2 (07:38→11:27)
[2021-02-08 08:04] VITALS: TEMP 97.7
[2021-02-08] MEDS: CHOLECALCIFEROL 25 MCG (1000 IU) TABLET PO SCH (08:04)
[2021-02-08] MEDS: DIGOXIN 125 MCG TAB PO SCH (08:05)
[2021-02-08] MEDS: ZINC SULFATE 220 MG CAP PO SCH (08:05)
[2021-02-08] MEDS: POTASSIUM CHLORIDE ER 20 MEQ TAB.ER PO SCH (08:05)
[2021-02-08] MEDS: TAMSULOSIN 0.4 MG CAP.ER.24H PO SCH (08:05)
[2021-02-08] MEDS: METOPROLOL TARTRATE 25 MG TAB PO SCH ×2 (08:05→15:44)
[2021-02-08] MEDS: ASCORBIC ACID 500 MG TAB PO SCH (08:05)
[2021-02-08] MEDS: APIXABAN 2.5 MG TABLET PO SCH (08:05)
[2021-02-08] MEDS: SACUBITRIL/VALSARTAN 24 MG-26 MG TABLET PO SCH (08:05)
[2021-02-08] MEDS: DEXAMETHASONE SOD PHOSPHATE 10 MG/ML 1 ML VIAL IV SCH (08:06)
[2021-02-08] MEDS: FUROSEMIDE 10 MG/ML 4 ML VIAL IV SCH (08:06)
[2021-02-08 09:02] LABS: African American GFR (CKD) >90 (>60 ml/min/1.73 sqM); Anion Gap 5 mmol/L; Blood Urea Nitrogen 23 mg/dL (9-20); Calcium 8.7 mg/dL (8.4-10.2); Carbon Dioxide 36 mmol/L (22-30); Chloride 92 mmol/L (98-107); Glucose 109 mg/dL (74-99); Non-African American GFR(CKD) >90 (>60 ml/min/1.73 sqM); Potassium 4.1 mmol/L (3.5-5.1); Sodium 133 mmol/L (137-145)
[2021-02-08] MEDS: FUROSEMIDE 40 MG TAB PO SCH ×2 (09:45→15:44)
--- NOTE | 2021-02-08 11:19 | P.PN ---
Subjective Progress Note Date: 02/08/21 Principal diagnosis: Covid 19 infection however COVID-19 pneumonia cannot be excluded Acute exacerbation of heart failure likely acute on chronic diastolic heart failure, echocardiogram pending Uncontrolled Atrial fibrillation with rapid ventricular response Acute hypoxic respiratory failure multifactorial with combination of Covid 19 pneumonia as well as heart failure Severe hyponatremia Elevated PT/INR Coagulopathy due to Coumadin Small bilateral pleural effusion Basal bilateral atelectasis versus pneumonia 02/08/2021, patient seen eval examined during the rounds labs reviewed medications reviewed, patient is now 2-1/2 L oxygen breathing relatively better denies any cough or sputum production, denies any chest pain, patient remains on bronchodilator deep breathing sense incentive spirometry, and maximum therapy for heart failure, patient is being planned for placement into ECF later on today or tomorrow 02/07/2021, patient seen eval examined during the rounds labs reviewed medications reviewed care plan discussed, respiratory status remains stable, denies any chest pain, remains on 5 L oxygen, sodium up to 129 patient remains normal 4.6, BUN/creatinine is 23 and 0.49, oxygen saturation 94% 5 L oxygen, patient remains on bronchodilators, supplemental COVID-19 pneumonia, dexamethasone for COVID-19, patient remains on Cardizem and heparin drip for rap id A. fib with RVR 02/06/2021, patient seen eval examined during the rounds labs reviewed medicatio ns reviewed care plan discussed, remains short of breath, is on 5 L oxygen lower extremity edema +23 is present, patient is gently being diuresed, she remains on no bronchodilators along with IV antibiotic Decadron, along with heparin drip, and Lasix This is a pleasant 85-year-old male who developed increasing symptoms started about 2 weeks ago have been progressive, patient came into the hospital with shortness of breath and hypoxia currently on 5 L oxygen, patient was diagnosed with the COVID-19 as outpatient, his prior history is significant for coronary artery disease, dyslipidemia, BPH, hypertension hypertensive cardiovascular disease, and atrial fibrillation, patient is on tapering steroids and anticoagulation with Coumadin as outpatient, he is a nonsmoker, normal renal functions, his labs are significant for high BNP over 79,000, he was also noted to be in A. fib with RVR, started on Cardizem drip, his lactic acid was mildly elevated at 2.3, patient was extremely coagulopathic with INR over 10, PTT was 103, LDH was 374, C-reactive protein 1.8, his liver functions are within normal limit, S x-ray significant for a small bilateral pleural effusion and atelectasis at the bases versus infiltrate, currently patient is being treated with continuation of his home medicine along with IV Rocephin Cardizem drip diuretics with Lasix 40 mg IV every 12, Objective - Vital Signs Vital signs: Vital Signs Temp 97.7 F 02/08/21 08:00 Pulse 80 02/08/21 08:00 Resp 18 02/08/21 08:00 BP 104/70 02/08/21 08:00 Pulse Ox 97 02/08/21 08:00 Intake & Output 02/07/21 02/08/21 02/08/21 18:59 06:59 18:59 Intake Total 1145 120 Output Total 1150 1000 Balance -5 -1000 120 Intake: Intake, IV Titration 245 Amount Heparin Sod,Pork in 0.45% 245 NaCl 25,000 unit In 0.45 % NaCl 1 250ml.bag @ 10. 498 UNITS/KG/HR 10 mls/hr IV .Q24H [facility] Rx#: [id number] Oral 900 120 Output: Urine 1150 1000 Other: Voiding Method Indwelling Catheter Indwelling Catheter Indwelling Catheter # Bowel Movements 1 - Exam - Constitutional General appearance: average body habitus, cooperative, disheveled - EENT Eyes: EOMI, PERRLA ENT: hearing grossly normal Ears: bilateral: normal - Neck Carotids: bilateral: upstroke normal Thyroid: bilateral: normal size - Respiratory Respiratory: bilateral: diminished, dullness, rales - Cardiovascular Rhythm: irregularly irregular Heart sounds: normal: S1, S2 - Gastrointestinal General gastrointestinal: normal bowel sounds, soft - Integumentary Integumentary: normal turgor - Neurologic Neurologic: CNII-XII intact - Musculoskeletal Musculoskeletal: gait normal, generalized weakness, strength equal bilaterally - Psychiatric Psychiatric: A&O x's 3, appropriate affect, intact judgment & insight - Labs CBC & Chem 7: 02/07/21 07:59 02/08/21 08:04 Labs: Abnormal Lab Results - Last 24 Hours (Table) 02/07/21 02/08/21 Range/Units 12:48 08:04 APTT 52.6 H (22.0-30.0) sec Sodium 133 L (137-145) mmol/L Chloride 92 L (98-107) mmol/L Carbon Dioxide 36 H (22-30) mmol/L BUN 23 H (9-20) mg/dL Creatinine 0.45 L (0.66-1.25) mg/dL Glucose 109 H (74-99) mg/dL Microbiology - Last 24 Hours (Table) 02/04/21 14:35 Blood Culture - Preliminary Blood No Growth after 72 hours 02/04/21 14:50 Blood Culture - Preliminary Blood No Growth after 72 hours Assessment and Plan Assessment: Covid 19 infection however COVID-19 pneumonia cannot be excluded Acute exacerbation of acute on chronic systolic heart failure, baseline ejection fraction of 20%, patient also refused defibrillator Uncontrolled Atrial fibrillation with rapid ventricular response Acute hypoxic respiratory failure multifactorial with combination of Covid 19 pneumonia as well as heart failure Severe hyponatremia Elevated PT/INR Coagulopathy due to Coumadin Small bilateral pleural effusion Basal bilateral atelectasis versus pneumonia Plan: Continue Rocephin for urinary tract infection, however can be discontinued in next few days Continue supplemental oxygen Deep breathing exercise incentive spirometry Decadron 6 mg daily for 10 days Pro-calcitonin level reviewed within normal limit Agree with diuresis and maximal medical therapy for heart failure We'll closely monitor observe pleural effusion as anticipated will improve with diuresis The plan of care as per clinical response of the patient Time with Patient: Greater than 30
--- NOTE | 2021-02-08 12:36 | P.PN ---
Subjective Patient is a 85-year-old gentleman with history of atrial fibrillation, cardiomyopathy, coronary artery disease and chronic CHF was diagnosed to have COVID-19 infection as an outpatient. He also has a severe cardiomyopathy with an ejection fraction about 20-25%. Patient has refused defibrillator implantation in the past. He came to the hospital this time with complaints of increasing shortness of breath. His proBNP is elevated. His EKG showed atrial fibrillation with rapid ventricular response. Chest x-ray showed bilateral pleural effusion. Patient was found to be hypoxic. It felt that patient may have respiratory failure related to CHF and possibly concomitant Covid infection. Patient was on steroids and also Coumadin as an outpatient. His INR was high on admission. 02/07/2021: Patient seen and examined at bedside, no acute distress. Patient continues to be in atrial fibrillation, ventricular rates are controlled. Blood pressure 105/69, heart rate 78 afebrile, maintaining oxygen saturations 93% on 5L nasal cannula. Laboratory data sodium 129, potassium 4.6, serum creatinine 0.49, BUN 23,. Thorough Physical examination not completed due to covid-19 infection. Patient with 4L urine output yesterday. Weight maintained 95kg. Telemetry reviewed patient with one 2.5 second pause noted overnight. 02/08/2021: Patient seen and examined at bedside, no acute distress. Endorses some hard of earing. Denies chest pain, palpitations, shortness of breath. Patient continues to be in atrial fibrillation, ventricular rates are controlled blood pressure 104/70, heart rate 80, afebrile, maintaining oxygen saturation is 97% on 4 L nasal cannula. Lower edema has improved. Laboratory data reviewed sodium 133, potassium 4.1, serum creatinine 0.45. GENERAL: Well-appearing, well-nourished and in no acute distress. NECK: Supple without JVD or thyromegaly. LUNGS: Breath sounds diminished to auscultation bilaterally. Respiration equal and unlabored. No wheezes, rales or rhonchi. HEART: Irregular rate and rhythm S1 and S2 heard. EXTREMITIES: Normal range of motion, 1+ pitting edema bilateral lower extremities. No clubbing or cyanosis. Peripheral pulses intact. ASSESSMENT COVID-19 Persistent atrial fibrillation with RVR, on coumadin at home. Now switched to Eliquis . patient is currently rate controlled. Coronary artery disease Chronic systolic heart failure with reduced EF, refusal of AICD implantation Hypertension Dyslipidemia Hyponatremia- improved. PLAN Echocardiogram was ordered and reviewed, Patient EF 20-25%. Patient agreeable to take Eliquis 2.5mg BID, this medication was started Transition to PO Lasix today Will continue metoprolol titrate 25 mg 3 times a day, digoxin 125mcg daily, atorvastatin 40 mg nightly, Entresto 24mg-26mg BID Covid-19 treatment per pulmonary and primary Monitor electrolytes and renal function No further changes from a cardiology perspective. Patient's plan is to be discharged to rehab. We will sign off at this time please reach out for any further questions or concerns. Thank you kindly for this consultation Nurse Practitioner note has been reviewed, I agree with a documented findings and plan of care. Patient was seen and examined. Objective - Vital Signs Vital signs: Vital Signs Temp 97.7 F 02/08/21 08:00 Pulse 80 02/08/21 08:00 Resp 18 02/08/21 08:00 BP 104/70 02/08/21 08:00 Pulse Ox 97 02/08/21 08:00 Intake & Output 02/07/21 02/08/21 02/08/21 18:59 06:59 18:59 Intake Total 1145 Output Total 1150 1000 Balance -5 -1000 Intake: Intake, IV Titration 245 Amount Heparin Sod,Pork in 0.45% 245 NaCl 25,000 unit In 0.45 % NaCl 1 250ml.bag @ 10. 498 UNITS/KG/HR 10 mls/hr IV .Q24H [facility] Rx#: [id number] Oral 900 Output: Urine 1150 1000 Other: Voiding Method Indwelling Catheter Indwelling Catheter # Bowel Movements 1 - Labs CBC & Chem 7: 02/07/21 07:59 02/08/21 08:04 Labs: Abnormal Lab Results - Last 24 Hours (Table) 02/07/21 02/07/21 Range/Units 07:59 12:48 APTT 52.6 H (22.0-30.0) sec Sodium 129 L (137-145) mmol/L Chloride 92 L (98-107) mmol/L Carbon Dioxide 31 H (22-30) mmol/L BUN 23 H (9-20) mg/dL Creatinine 0.49 L (0.66-1.25) mg/dL Glucose 125 H (74-99) mg/dL Total Bilirubin 1.5 H (0.2-1.3) mg/dL Total Protein 6.1 L (6.3-8.2) g/dL Albumin 3.1 L (3.5-5.0) g/dL Microbiology - Last 24 Hours (Table) 02/04/21 14:35 Blood Culture - Preliminary Blood No Growth after 72 hours 02/04/21 14:50 Blood Culture - Preliminary Blood No Growth after 72 hours
--- NOTE | 2021-02-08 14:09 | P.DS ---
Providers Date of admission: 02/04/21 16:28 Attending physician: Ramiro Yost Consults: 02/04/21 16:29 Consult Physician Routine Consulting Provider: Shelby Glaser Consult Reason/Comments: CHF, a-fib Do you want consulting provider notified?: Yes 02/04/21 18:54 Consult Physician Routine Consulting Provider: [place] Consult Reason/Comments: pneumonia Do you want consulting provider notified?: Yes Primary care physician: Ramiro Yost - Discharge Diagnosis(es) (1) Atrial fibrillation with RVR Current Visit: Yes Status: Acute (2) COVID-19 Current Visit: Yes Status: Acute (3) HTN (hypertension) Current Visit: No Status: Acute Hospital Course: This is an 85 yo white male admitted for generalized wekaness and COVID with CHF. Atrial fibrillation was stabilized, but due to his overall weakness, he was discharged with rehab to [facility]. He is stable from consultants with slight med adjustments. 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 He follow up with me in 1 week Patient Condition at Discharge: Stable Plan - Discharge Summary Discharge Rx Participant: No New Discharge Prescriptions: New Apixaban [Eliquis] 2.5 mg PO BID 30 Days #60 tab Furosemide [Lasix] 40 mg PO BID@0900,1600 tab Albuterol Inhaler [Ventolin Hfa Inhaler] 2 puff INHALATION RT-TID puff Metoprolol Tartrate [Lopressor] 25 mg PO TID tab dexAMETHasone [Dexamethasone] 4 mg PO DAILY #7 tablet Zinc Sulfate [Orazinc] 220 mg PO DAILY cap Ascorbic Acid [Vitamin C] 500 mg PO DAILY tab Continue Tamsulosin HCl [Flomax] 0.4 mg PO DAILY Potassium Chloride ER [K-Dur 20] 20 meq PO DAILY Nitroglycerin Sl Tabs [Nitrostat] 0.4 mg SUBLINGUAL Q5M PRN PRN Reason: Chest Pain Simvastatin [Zocor] 80 mg PO HS Vit C/E/Zn/Coppr/Lutein/Zeaxan [Preservision Areds 2 Softgel] 1 tab PO BID Nitrofurantoin Monohyd/M-Cryst [Macrobid] 100 mg PO Q12HR ALPRAZolam [Xanax] 0.5 mg PO TID PRN PRN Reason: Anxiety Sacubitril/Valsartan [Entresto 24 mg-26 mg Tablet] 1 tab PO BID Discontinued Warfarin [Coumadin] 2.5 mg PO TUTHFR Warfarin [Coumadin] 1.25 mg PO [place] Aspirin EC [Ecotrin Low Dose] 81 mg PO HS Furosemide [Lasix] 20 mg PO DAILY methylPREDNISolone Dose Pack [Medrol Dose Pack] See Taper PO DAILY Metoprolol Tartrate [Lopressor] 25 mg PO BID Discharge Medication List Nitroglycerin Sl Tabs [Nitrostat] 0.4 mg SUBLINGUAL Q5M PRN 07/11/16 [History] Potassium Chloride ER [K-Dur 20] 20 meq PO DAILY 07/11/16 [History] Simvastatin [Zocor] 80 mg PO HS 07/11/16 [History] Tamsulosin HCl [Flomax] 0.4 mg PO DAILY 07/11/16 [History] Vit C/E/Zn/Coppr/Lutein/Zeaxan [Preservision Areds 2 Softgel] 1 tab PO BID 07/08/20 [History] ALPRAZolam [Xanax] 0.5 mg PO TID PRN 02/04/21 [History] Nitrofurantoin Monohyd/M-Cryst [Macrobid] 100 mg PO Q12HR 02/04/21 [History] Sacubitril/Valsartan [Entresto 24 mg-26 mg Tablet] 1 tab PO BID 02/04/21 [History] Apixaban [Eliquis] 2.5 mg PO BID 30 Days #60 tab 02/06/21 [Rx] Metoprolol Tartrate [Lopressor] 25 mg PO TID tab 02/07/21 [Rx] Albuterol Inhaler [Ventolin Hfa Inhaler] 2 puff INHALATION RT-TID puff 02/08/21 [Rx] Ascorbic Acid [Vitamin C] 500 mg PO DAILY tab 02/08/21 [Rx] Furosemide [Lasix] 40 mg PO BID@0900,1600 tab 02/08/21 [Rx] Zinc Sulfate [Orazinc] 220 mg PO DAILY cap 02/08/21 [Rx] dexAMETHasone [Dexamethasone] 4 mg PO DAILY #7 tablet 02/08/21 [Rx] Follow up Appointment(s)/Referral(s): [place] MD [STAFF PHYSICIAN] - 1 Week Mark Anthony Gonzalez MD [STAFF PHYSICIAN] - 2 Weeks Ramiro Yost MD [Primary Care Provider] - 1 Week Discharge Disposition: TRANSFER TO SNF/ECF
[2021-02-08 15:26] VITALS: BP 128/82; PULSE 70; RESP 18
--- NOTE | 2021-02-14 09:53 | ECHOF ---
Referral Reason:chf MEASUREMENTS -------- HEIGHT: 0.0 cm WEIGHT: 0.0 kg BP: RVIDd: 4.8 cm (< 3.3) IVSd: 0.9 cm (0.6 - 1.1) LVIDd: 5.6 cm (3.9 - 5.3) LVPWd: 0.9 cm (0.6 - 1.1) IVSs: 1.2 cm LVIDs: 4.8 cm LVPWs: 1.3 cm LA Diam: 4.7 cm (2.7 - 3.8) Ao Diam: 3.6 cm (2.0 - 3.7) MV EXCURSION: 21.113 mm (> 18.000) MV EF SLOPE: 133 mm/s (70 - 150) EPSS: 0.7 cm RAP: 5.00 mmHg RVSP: 49.08 mmHg FINDINGS -------- Pacerwire seen in RV and RA. This was a technically difficult study with suboptimal views. Pt is Covid positive. The left ventricular size is normal. Overall left ventricular systolic function is severely impaire d with, an EF between 20 - 25 %. Basal inferior LV wall motion is akinetic. Basal inferoseptal L V wall motion is akinetic. Mid inferior LV wall motion is akinetic. Mid inferoseptal LV wall mo tion is akinetic. Apical inferior LV wall motion is akinetic. The right ventricle is severely enlarged. The left atrium is moderately dilated. The right atrium is mildly enlarged. There is mild aortic valve sclerosis. There is mild aortic regurgitation. Mild mitral annular calcification present. Moderate mitral regurgitation is present. Mild tricuspid regurgitation present. There is mild to moderate pulmonary hypertension. The right ventricular systolic pressure, as measured by Doppler, is 49.08mmHg. The pulmonic valve was not well visualized. Trace/mild (physiologic) pulmonic regurgitation. The aortic root size is normal. There is no pericardial effusion. CONCLUSIONS -------- 1. Pacerwire seen in RV and RA. 2. This was a technically difficult study with suboptimal views. 3. Pt is Covid positive. 4. Overall left ventricular systolic function is severely impaired with, an EF between 20 - 25 %. 5. Basal inferior LV wall motion is akinetic. 6. Basal inferoseptal LV wall motion is akinetic. 7. Mid inferior LV wall motion is akinetic. 8. Mid inferoseptal LV wall motion is akinetic. 9. Apical inferior LV wall motion is akinetic. 10. The right ventricle is severely enlarged. 11. The left atrium is moderately dilated. 12. The right atrium is mildly enlarged. 13. There is mild aortic valve sclerosis. 14. There is mild aortic regurgitation. 15. Mild mitral annular calcification present. 16. Moderate mitral regurgitation is present. 17. Mild tricuspid regurgitation present. 18. There is mild to moderate pulmonary hypertension. 19. There is no pericardial effusion. ASSISTANT MANAGER OF OPERATIONS: Bia Acevedo RDCS
== END 2021-02-08 17:59 | DRG 177 ==
LOC: EC 14:21 → 3SCARD 16:28
PROVIDERS: ADMIT Family Medicine; ATTEND Family Medicine
PROC: 3E0333Z Introduction of Anti-inflammatory into Peripheral Vein, Percutaneous Approach (ICD-10-PCS; principal; 2021-02-05)
DX: U07.1 COVID-19 (principal); J12.82 Pneumonia due to coronavirus disease 2019; G93.41 Metabolic encephalopathy; J96.01 Acute respiratory failure with hypoxia; I50.23 Acute on chronic systolic (congestive) heart failure; J44.1 Chronic obstructive pulmonary disease with (acute) exacerbation; J44.0 Chronic obstructive pulmonary disease with (acute) lower respiratory infection; E87.1 Hypo-osmolality and hyponatremia; I42.9 Cardiomyopathy, unspecified; I48.19 Other persistent atrial fibrillation; K50.90 Crohn's disease, unspecified, without complications; I11.0 Hypertensive heart disease with heart failure; H35.30 Unspecified macular degeneration; I25.10 Atherosclerotic heart disease of native coronary artery without angina pectoris; I25.2 Old myocardial infarction; I48.91 Unspecified atrial fibrillation; M19.90 Unspecified osteoarthritis, unspecified site; R79.1 Abnormal coagulation profile; T45.515A Adverse effect of anticoagulants, initial encounter; D69.6 Thrombocytopenia, unspecified; E78.5 Hyperlipidemia, unspecified; N40.0 Benign prostatic hyperplasia without lower urinary tract symptoms; N42.9 Disorder of prostate, unspecified; J67.0 Farmer's lung; R60.0 Localized edema; Z90.79 Acquired absence of other genital organ(s); Z96.643 Presence of artificial hip joint, bilateral; I83.90 Asymptomatic varicose veins of unspecified lower extremity; K40.20 Bilateral inguinal hernia, without obstruction or gangrene, not specified as recurrent; Z79.899 Other long term (current) drug therapy; Z79.01 Long term (current) use of anticoagulants; I44.7 Left bundle-branch block, unspecified; Z82.49 Family history of ischemic heart disease and other diseases of the circulatory system; Z87.891 Personal history of nicotine dependence; Z80.6 Family history of leukemia; L89.152 Pressure ulcer of sacral region, stage 2; H91.10 Presbycusis, unspecified ear
CPT/HCPCS: 36415; 71045; 80048; 80053; 81001; 82728; 83605; 83615; 83735; 83880; 84145; 85025; 85027; 85610; 85730; 86140; 87040; 93005; 93306; 94640; 96374; 96375; 99285

== ENCOUNTER 2021-02-20 15:25 | Inpatient (IN) | payer MEDICARE, BC ==
[2021-02-20] MEDS ORDERED: SODIUM CHLORIDE 0.9% 1,000 ML IV STA (15:44)
[2021-02-20 16:51] LABS: Basophils % (A) 0 %; Eosinophils # (A) 0.2 k/uL (0-0.7); Eosinophils % (A) 1 %; HCT 37.7 % (39.0-53.0); HGB 12.1 gm/dL (13.0-17.5); Lymphocytes # (A) 0.4 k/uL (1.0-4.8); Lymphocytes % (A) 2 %; MCH 29.7 pg (25.0-35.0); MCV 92.8 fL (80.0-100.0); Mean Platelet Volume 9.2; Monocytes # (A) 0.5 k/uL (0-1.0); Monocytes % (A) 3 %; Neutrophils # (A) 15.8 k/uL (1.3-7.7); Neutrophils % (A) 93 %; RBC 4.06 m/uL (4.30-5.90); RDW 15.7 % (11.5-15.5); WBC 16.9 k/uL (3.8-10.6)
[2021-02-20 16:57] LABS: Appearance,Urine Turbid (Clear); Bacteria,Urine Many /hpf; Bilirubin,Urine Negative (Negative); Blood,Urine Moderate (Negative); Budding Yeast,Urine Rare /hpf; Color,Urine Yellow; Glucose,Urine (UA) Negative (Negative); Ketones,Urine Negative (Negative); Leukocyte Esterase,Urine Large (Negative); Mucus,Urine Rare /hpf; Nitrite,Urine Negative (Negative); Protein,Urine 1+ (Negative); RBC,Urine 35 /hpf (0-5); Specific Gravity,Urine 1.014 (1.001-1.035); Urobilinogen,Urine <2.0 mg/dL (<2.0); WBC,Urine >182 /hpf (0-5)
[2021-02-20 17:02] LABS: INR 1.3 (<1.2); Partial Thromboplastin Time 27.9 sec (22.0-30.0); Prothrombin Time 13.2 sec (9.0-12.0)
[2021-02-20 17:03] LABS: Albumin 2.6 g/dL (3.5-5.0); Calcium 8.3 mg/dL (8.4-10.2); Magnesium 2.1 mg/dL (1.6-2.3); Potassium 5.3 mmol/L (3.5-5.1); Total Bilirubin 1.6 mg/dL (0.2-1.3); Total Protein 5.1 g/dL (6.3-8.2)
[2021-02-20 17:19] LABS: Platelet Count 56 k/uL (150-450); Polychromasia Present
--- NOTE | 2021-02-20 17:57 | CT ---
EXAMINATION TYPE: CT brain wo con DATE OF EXAM: 02/20/2021 COMPARISON: 07/09/2020 HISTORY: ams, syncope CT DLP: 1217.4 mGycm Automated exposure control for dose reduction was used. Images obtained of the brain without contrast. There is cerebral cortical atrophy. There is no mass effect nor midline shift. There is no evidence o f intracranial hemorrhage. The calvarium is intact. Skull base is intact. IMPRESSION: Cerebral atrophy. No acute intracranial abnormality. No change.
[2021-02-20] MEDS ORDERED: SODIUM CHLORIDE 0.9% 1,000 ML IV ONE (18:07)
--- NOTE | 2021-02-20 18:17 | XR ---
EXAMINATION TYPE: XR chest 2V DATE OF EXAM: 02/20/2021 COMPARISON: 02/04/2021 HISTORY: Syncope TECHNIQUE: FINDINGS: Heart is enlarged. There is no heart failure. Costophrenic angles are fairly clear. There a re no hilar masses. Thoracic aorta is atheromatous. IMPRESSION: Cardiomegaly. No acute lung disease. There is clearing of the pulmonary congestion and pu lmonary infiltrates compared to old exam.
--- NOTE | 2021-02-20 18:21 | ED ---
Weakness HPI - General Chief complaint: Syncope Stated complaint: Syncope Time Seen by Provider: 02/20/21 15:39 Source: patient, EMS Mode of arrival: EMS Limitations: no limitations - History of Present Illness Initial comments: Patient presents with generalized weakness. He was sent in for low blood pressure. He also has a reported UTI. Patient has no chest or belly pain. He has no nausea or vomiting. He has not taken any medication for the symptoms. He wasn't doing anything when he began to feel this way. - Related Data Home Medications Medication Instructions Recorded Confirmed Nitroglycerin Sl Tabs [Nitrostat] 0.4 mg SUBLINGUAL Q5M PRN 07/11/16 02/04/21 Potassium Chloride ER [K-Dur 20] 20 meq PO DAILY 07/11/16 02/04/21 Simvastatin [Zocor] 80 mg PO HS 07/11/16 02/04/21 Tamsulosin HCl [Flomax] 0.4 mg PO DAILY 07/11/16 02/04/21 Vit C/E/Zn/Coppr/Lutein/Zeaxan 1 tab PO BID 07/08/20 02/04/21 [Preservision Areds 2 Softgel] Nitrofurantoin Monohyd/M-Cryst 100 mg PO Q12HR 02/04/21 02/04/21 [Macrobid] Sacubitril/Valsartan [Entresto 24 1 tab PO BID 02/04/21 02/04/21 mg-26 mg Tablet] Previous Rx's Medication Instructions Recorded Apixaban [Eliquis] 2.5 mg PO BID 30 Days #60 tab 02/06/21 Metoprolol Tartrate [Lopressor] 25 mg PO TID tab 02/07/21 ALPRAZolam [Xanax] 0.5 mg PO TID PRN #9 tab 02/08/21 Albuterol Inhaler [Ventolin Hfa 2 puff INHALATION RT-TID puff 02/08/21 Inhaler] Ascorbic Acid [Vitamin C] 500 mg PO DAILY tab 02/08/21 Furosemide [Lasix] 40 mg PO BID@0900,1600 tab 02/08/21 Zinc Sulfate [Orazinc] 220 mg PO DAILY cap 02/08/21 dexAMETHasone [Dexamethasone] 4 mg PO DAILY #7 tablet 02/08/21 Allergies Allergy/AdvReac Type Severity Reaction Status Date / Time No Known Allergies Allergy Verified 02/20/21 18:01 Review of Systems ROS Statement: Those systems with pertinent positive or pertinent negative responses have been documented in the HPI. ROS Other: All systems not noted in ROS Statement are negative. Past Medical History Past Medical History: Atrial Fibrillation, Coronary Artery Disease (CAD), Heart Failure, Eye Disorder, Hypertension, Myocardial Infarction ([place]), Osteoarthritis (OA), Prostate Disorder Additional Past Medical History / Comment(s): Bilateral macular degeneration- eyesight is poor, pt was told by physician that he had [place] in past, "reyna's lung", bilateral lower leg edema-takes lasix and wears bilateral compression stockings. Last Myocardial Infarction Date:: unkn History of Any Multi-Drug Resistant Organisms: CRE Date of last positivie culture/infection: 01/26/21 MDRO Source:: URINE Past Surgical History: Hernia Repair, Joint Replacement Additional Past Surgical History / Comment(s): Bilateral total hip replacements, varicose veins stripped L leg, bilateral laser surgery on eyes for macular degeneration, bilateral inguinal hernia repairs with L testicle removed, eye injections. Past Anesthesia/Blood Transfusion Reactions: No Reported Reaction Additional Past Anesthesia/Blood Transfusion Reaction / Comment(s): Pt states he has been told that he is slow to wake with anesthesia. Past Psychological History: No Psychological Hx Reported Smoking Status: Never smoker Past Alcohol Use History: None Reported Past Drug Use History: None Reported - Past Family History Father Family Medical History: Cancer Additional Family Medical History / Comment(s): Father of leukemia at the age of 49 yrs. Mother Family Medical History: Coronary Artery Disease (CAD) Additional Family Medical History / Comment(s): Mother of a [place] at the age of 67yrs. She also had varicose veins. General Exam Limitations: no limitations General appearance: alert Head exam: Present: atraumatic Eye exam: Present: normal appearance ENT exam: Present: normal exam Neck exam: Present: normal inspection Respiratory exam: Present: normal lung sounds bilaterally. Absent: respiratory distress Cardiovascular Exam: Present: regular rate GI/Abdominal exam: Present: soft. Absent: tenderness Extremities exam: Absent: full ROM, tenderness Back exam: Absent: normal inspection, full ROM, CVA tenderness (R) Neurological exam: Present: alert Psychiatric exam: Present: normal affect Skin exam: Present: warm. Absent: intact, rash Course Vital Signs 02/20/21 02/20/21 02/20/21 15:37 15:59 17:57 Temperature 97.7 F Pulse Rate 82 107 H Respiratory 20 18 Rate Blood Pressure 75/46 72/48 83/48 O2 Sat by Pulse 96 93 L Oximetry EKG Findings - EKG Comments: EKG Findings:: twelve-lead EKG shows ventricular rate 95 bpm, no P waves are present, QRS complexes are normal, no ST elevation or depression, interpreted by me as atrial fibrillation. Medical Decision Making - Medical Decision Making Patient presents with weakness, lethargy. Workup shows UTI. His blood pressure is soft. He is given IV fluid resuscitation. He will be admitted to the hospital. - Lab Data Result diagrams: 02/20/21 15:58 02/20/21 15:58 Lab Results 02/20/21 02/20/21 02/20/21 Range/Units 15:58 15:58 15:58 WBC 16.9 H (3.8-10.6) k/uL RBC 4.06 L (4.30-5.90) m/uL Hgb 12.1 L (13.0-17.5) gm/dL Hct 37.7 L (39.0-53.0) % MCV 92.8 (80.0-100.0) fL MCH 29.7 (25.0-35.0) pg MCHC 32.0 (31.0-37.0) g/dL RDW 15.7 H (11.5-15.5) % Plt Count 56 L D (150-450) k/uL MPV 9.2 Neutrophils % 93 % Lymphocytes % 2 % Monocytes % 3 % Eosinophils % 1 % Basophils % 0 % Neutrophils # 15.8 H (1.3-7.7) k/uL Lymphocytes # 0.4 L (1.0-4.8) k/uL Monocytes # 0.5 (0-1.0) k/uL Eosinophils # 0.2 (0-0.7) k/uL Basophils # 0.0 (0-0.2) k/uL Polychromasia Present PT 13.2 H (9.0-12.0) sec INR 1.3 H (<1.2) APTT 27.9 (22.0-30.0) sec Sodium (137-145) mmol/L Potassium (3.5-5.1) mmol/L Chloride (98-107) mmol/L Carbon Dioxide (22-30) mmol/L Anion Gap mmol/L BUN (9-20) mg/dL Creatinine (0.66-1.25) mg/dL Est GFR (CKD-EPI)AfAm (>60 ml/min/1.73 sqM) Est GFR (CKD-EPI)NonAf (>60 ml/min/1.73 sqM) Glucose (74-99) mg/dL Plasma Lactic Acid Aakash (0.7-2.0) mmol/L Calcium (8.4-10.2) mg/dL Magnesium (1.6-2.3) mg/dL Total Bilirubin (0.2-1.3) mg/dL AST (17-59) U/L ALT (4-49) U/L Alkaline Phosphatase (38-126) U/L Ammonia (<30) umol/L Troponin I (0.000-0.034) ng/mL Total Protein (6.3-8.2) g/dL Albumin (3.5-5.0) g/dL Urine Color Yellow Urine Appearance Turbid (Clear) Urine pH 6.0 (5.0-8.0) Ur Specific [place] 1.014 (1.001-1.035) Urine Protein 1+ H (Negative) Urine Glucose (UA) Negative (Negative) Urine Ketones Negative (Negative) Urine Blood Moderate H (Negative) Urine Nitrite Negative (Negative) Urine Bilirubin Negative (Negative) Urine Urobilinogen <2.0 (<2.0) mg/dL Ur Leukocyte Esterase Large H (Negative) Urine RBC 35 H (0-5) /hpf Urine WBC >182 H (0-5) /hpf Urine WBC Clumps Many H (None) /hpf Urine Bacteria Many H (None) /hpf Urine Mucus Rare H (None) /hpf Urine Yeast (Budding) Rare H (None) /hpf 02/20/21 02/20/21 02/20/21 Range/Units 15:58 15:58 15:58 WBC (3.8-10.6) k/uL RBC (4.30-5.90) m/uL Hgb (13.0-17.5) gm/dL Hct (39.0-53.0) % MCV (80.0-100.0) fL MCH (25.0-35.0) pg MCHC (31.0-37.0) g/dL RDW (11.5-15.5) % Plt Count (150-450) k/uL MPV Neutrophils % % Lymphocytes % % Monocytes % % Eosinophils % % Basophils % % Neutrophils # (1.3-7.7) k/uL Lymphocytes # (1.0-4.8) k/uL Monocytes # (0-1.0) k/uL Eosinophils # (0-0.7) k/uL Basophils # (0-0.2) k/uL Polychromasia PT (9.0-12.0) sec INR (<1.2) APTT (22.0-30.0) sec Sodium 128 L (137-145) mmol/L Potassium 5.3 H (3.5-5.1) mmol/L Chloride 96 L (98-107) mmol/L Carbon Dioxide 26 (22-30) mmol/L Anion Gap 6 mmol/L BUN 72 H (9-20) mg/dL Creatinine 1.12 (0.66-1.25) mg/dL Est GFR (CKD-EPI)AfAm 68 (>60 ml/min/1.73 sqM) Est GFR (CKD-EPI)NonAf 59 (>60 ml/min/1.73 sqM) Glucose 95 (74-99) mg/dL Plasma Lactic Acid Aakash 3.0 H* (0.7-2.0) mmol/L Calcium 8.3 L (8.4-10.2) mg/dL Magnesium 2.1 (1.6-2.3) mg/dL Total Bilirubin 1.6 H (0.2-1.3) mg/dL AST 28 (17-59) U/L ALT 24 (4-49) U/L Alkaline Phosphatase 93 (38-126) U/L Ammonia <9 (<30) umol/L Troponin I 0.052 H* (0.000-0.034) ng/mL Total Protein 5.1 L (6.3-8.2) g/dL Albumin 2.6 L (3.5-5.0) g/dL Urine Color Urine Appearance (Clear) Urine pH (5.0-8.0) Ur Specific [place] (1.001-1.035) Urine Protein (Negative) Urine Glucose (UA) (Negative) Urine Ketones (Negative) Urine Blood (Negative) Urine Nitrite (Negative) Urine Bilirubin (Negative) Urine Urobilinogen (<2.0) mg/dL Ur Leukocyte Esterase (Negative) Urine RBC (0-5) /hpf Urine WBC (0-5) /hpf Urine WBC Clumps (None) /hpf Urine Bacteria (None) /hpf Urine Mucus (None) /hpf Urine Yeast (Budding) (None) /hpf Disposition Clinical Impression: UTI (urinary tract infection), Weakness Disposition: ADMITTED IP TO THIS HOSP Condition: Poor Is patient prescribed a controlled substance at d/c from ED?: No Referrals: Davian Thakur MD [Primary Care Provider] - 1-2 days
[2021-02-20] MEDS ORDERED: ONDANSETRON 4 MG/2 ML VIAL IVP PRN (18:23)
[2021-02-20] MEDS ORDERED: HYDROcodone/APAP 5-325MG 1 EACH TAB PO PRN (18:23)
[2021-02-20] MEDS ORDERED: NALOXONE 0.4 MG/ML 1 ML VIAL IV PRN (18:23)
[2021-02-20] MEDS ORDERED: LEVOFLOXACIN 750MG-D5W PMX 750 MG in DEXTROSE/WATER 1 150ML.BAG IVPB STA (18:27)
[2021-02-20] MEDS ORDERED: bisacodyL 10 MG SUPP RECTAL PRN (18:56)
[2021-02-20] MEDS ORDERED: NITROGLYCERIN SL TABS 0.4 MG TAB SUBLINGUAL PRN (18:56)
[2021-02-20] MEDS ORDERED: LIDOCAINE 4% CREAM 5 GM TUBE TOPICAL PRN (18:56)
[2021-02-20] MEDS ORDERED: IPRATROPIUM-ALBUTEROL 3 ML NEB INHALATION PRN (18:56)
[2021-02-20] MEDS ORDERED: MAGNESIUM HYDROXIDE 2,400 MG/10 ML CUP PO PRN (18:56)
[2021-02-20] MEDS: SODIUM CHLORIDE 0.9% 1,000 ML IV SCH (19:51)
[2021-02-20] MEDS: IPRATROPIUM-ALBUTEROL 3 ML NEB INHALATION SCH (21:58)
[2021-02-20] MEDS: ALBUTEROL HFA INHALER INHALATION SCH (22:00)
[2021-02-20] MEDS: ATORVASTATIN 40 MG TAB PO SCH (22:01)
[2021-02-21] MEDS: SODIUM CHLORIDE 0.9% 1,000 ML IV SCH ×6 (02:39→20:24)
[2021-02-21] MEDS: IPRATROPIUM-ALBUTEROL 3 ML NEB INHALATION SCH ×4 (03:47→20:57)
[2021-02-21] MEDS ORDERED: MAGNESIUM HYDROXIDE 2,400 MG/10 ML CUP PO PRN (05:12)
[2021-02-21] MEDS: ALBUTEROL HFA INHALER INHALATION SCH ×3 (07:59→20:35)
[2021-02-21] MEDS ORDERED: SACUBITRIL/VALSARTAN 24 MG-26 MG TABLET PO SCH (08:00)
[2021-02-21] MEDS ORDERED: NON FORMULARY DRUG (Lactose-Reduced Food [Ensure Plus] 237 ML Liquid) PO SCH (08:00)
[2021-02-21] MEDS ORDERED: APIXABAN 2.5 MG TABLET PO SCH ×2 (08:00)
[2021-02-21] MEDS: ASCORBIC ACID 500 MG TAB PO SCH (09:10)
[2021-02-21] MEDS: TAMSULOSIN 0.4 MG CAP.ER.24H PO SCH (09:10)
[2021-02-21] MEDS ORDERED: ONDANSETRON 4 MG/2 ML VIAL IVP PRN (11:15)
[2021-02-21] MEDS ORDERED: IPRATROPIUM-ALBUTEROL 3 ML NEB INHALATION PRN (11:15)
[2021-02-21 11:40] LABS: Glucose,Whole Blood 103 mg/dL (75-99)
[2021-02-21 12:00] LABS: Basophils % (A) 0 %; Eosinophils # (A) 0.1 k/uL (0-0.7); Eosinophils % (A) 1 %; HCT 37.8 % (39.0-53.0); HGB 12.2 gm/dL (13.0-17.5); Lymphocytes # (A) 0.4 k/uL (1.0-4.8); Lymphocytes % (A) 3 %; MCH 30.8 pg (25.0-35.0); MCHC 32.3 g/dL (31.0-37.0); MCV 95.3 fL (80.0-100.0); Mean Platelet Volume 8.3; Monocytes # (A) 0.5 k/uL (0-1.0); Monocytes % (A) 5 %; Neutrophils # (A) 10.7 k/uL (1.3-7.7); Neutrophils % (A) 90 %; RBC 3.97 m/uL (4.30-5.90); RDW 15.4 % (11.5-15.5); WBC 11.9 k/uL (3.8-10.6)
[2021-02-21] MEDS ORDERED: CEFEPIME 1 GM in SODIUM CHLORIDE 0.9% 50 ML IVPB ONE (12:00)
[2021-02-21 12:03] LABS: Platelet Count 46 k/uL (150-450)
[2021-02-21 12:04] LABS: ALT 34 U/L (4-49); AST 40 U/L (17-59); African American GFR (CKD) >90 (>60 ml/min/1.73 sqM); Albumin 2.5 g/dL (3.5-5.0); Alkaline Phosphatase 95 U/L (38-126); Anion Gap 7 mmol/L; Blood Urea Nitrogen 50 mg/dL (9-20); Calcium 8.3 mg/dL (8.4-10.2); Carbon Dioxide 27 mmol/L (22-30); Chloride 101 mmol/L (98-107); Globulin 2.6 g/dL; Glucose 86 mg/dL (74-99); LDH 355 U/L (313-618); Non-African American GFR(CKD) 82 (>60 ml/min/1.73 sqM); Potassium 4.8 mmol/L (3.5-5.1); Sodium 135 mmol/L (137-145); Total Bilirubin 1.1 mg/dL (0.2-1.3); Total Protein 5.1 g/dL (6.3-8.2)
[2021-02-21 12:33] LABS: C Reactive Protein 24.3 mg/dL (<1.0)
--- NOTE | 2021-02-21 13:04 | US ---
EXAMINATION TYPE: US kidneys/renal and bladder DATE OF EXAM: 02/21/2021 COMPARISON: NONE CLINICAL HISTORY: pyelonephritis. covid pt EXAM MEASUREMENTS: Right Kidney: 10.2 x 4.1 x 6.2 cm Left Kidney: 11.9 x 5.6 x 5.8 cm limited views, elderly patient unable to roll to optimize imaging Right Kidney: No hydronephrosis, nephrolithiasis or masses seen Left Kidney: Mild prominence of the left collecting system Bladder: delgado cath IMPRESSION: There may be very mild left hydronephrosis. Correlate clinically..
[2021-02-21] MEDS: METOPROLOL TARTRATE 25 MG TAB PO SCH ×2 (13:07→20:14)
--- NOTE | 2021-02-21 13:48 | US ---
EXAMINATION TYPE: US venous doppler duplex LE BI DATE OF EXAM: 02/21/2021 12:53 PM COMPARISON: NONE CLINICAL HISTORY: COVID , r/o DVT . Covid, swollen legs SIDE PERFORMED: Bilateral TECHNIQUE: The lower extremity deep venous system is examined utilizing real time linear array sonog kole with graded compression, doppler sonography and color-flow sonography. VESSELS IMAGED: Common Femoral Vein Deep Femoral Vein Greater Saphenous Vein * Femoral Vein Popliteal Vein Small Saphenous Vein * Proximal Calf Veins (* superficial vessels) Right Leg: Negative for DVT, limited imaging at [place] due to edematous legs and inability for pa tient o move, but good blood flow was detected Left Leg: Negative for DVT, limited imaging at [place] due to edematous legs and inability for pat ient o move, but good blood flow was detected IMPRESSION: 1. Limited exam with no diagnostic evidence of DVT as visualized.
--- NOTE | 2021-02-21 14:25 | P.CRDCN ---
History of Present Illness Consult date: 02/21/21 History of present illness: CHIEF COMPLAINT: Elevated troponin HISTORY OF PRESENT ILLNESS: This is a 85-year-old male with a past medical history significant for atrial fibrillation, cardiomyopathy, coronary artery disease and congestive heart failure. According to recent cardiology consult note patient has refused AICD implantation in the past. Patient follows in the office with Dr. Gonzalez. We have been asked to see the patient in consultation for elevated troponins. Patient is currently admitted to the hospital secondary to weakness, hypotension, and Covid 19. According to the patients nurse, the patient has not had any chest pain or pressure. Patient is on 2 L nasal cannula with oxygen saturations greater than 92%. Blood pressure 101/60. Heart rate 70-90s. He is afebrile. DIAGNOSTICS: EKG reveals atrial fibrillation with controlled ventricular rate. Left axis deviation. Left bundle-branch block. Chest xray cardiomegaly. No acute lung disease. There is clearing of pulmonary congestion and pulmonary infiltrates compared with exam. CT of the brain: Cerebral atrophy. No acute process. Laboratory data: WBC 11.9. Hemoglobin 12.2. Platelet count 46. D-dimer 0.86. Sodium 135. Potassium 4.8. BUN 50. Creatinine 0.77. Lactic acid 1.7. BNP 2760. Troponin 0.052. 0.044. 0.03. Current home cardiac medications include metoprolol tartrate 25 mg 3 times a day, Entresto 2426 milligrams twice a day, Lasix 40 mg twice a day, Eliquis 2.5 mg twice a day, Zocor 80 mg daily Echocardiogram completed on 02/05/2021 revealed ejection fraction 20-25%, LV wall hypokinesis, mild aortic regurgitation, moderate mitral regurgitation, and mild tricuspid regurgitation REVIEW OF SYSTEMS: Thorough review of systems not completed secondary to limited evaluation/exa mination due to Covid19 PHYSICAL EXAM: Thorough physical exam not completed secondary to limited evaluation/examination due to Covid19 ASSESSMENT: Covid 19 Weakness Hypotension Femorals IPM Abnormal troponins, not suggestive of acute coronary syndrome Coronary artery disease with previous PCI, last in 2006 with stent to obtuse marginal branch 1 Ischemic cardiomyopathy, ejection fraction 5%, refusing AICD in the past Chronic persistent atrial fibrillation History of hypertension Osteoarthritis PLAN: No need to repeat echo as this was performed last month An acute coronary event has been ruled out Treatment of hypotension per internal medicine Patient with new thrombocytopenia. Platelet count earlier this month was 169. Recommend holding Eliquis due to low platelet count. May benefit from hematology consult for recommendations regarding anticoagulation Will resume cardiac medications with parameters to hold for SBP less than 100 No further inpatient recommendations from a cardiac standpoint. We will sign off. Please reconsult if needed. Nurse practitioner note has been reviewed by physician. Signing provider agrees with the documented findings, assessment, and plan of care. Past Medical History Past Medical History: Atrial Fibrillation, Coronary Artery Disease (CAD), Heart Failure, Eye Disorder, Hypertension, Myocardial Infarction ([place]), Osteoarthritis (OA), Prostate Disorder Additional Past Medical History / Comment(s): Bilateral macular degeneration- eyesight is poor, pt was told by physician that he had [place] in past, "reyna's lung", bilateral lower leg edema-takes lasix and wears bilateral compression stockings. Last Myocardial Infarction Date:: unkn History of Any Multi-Drug Resistant Organisms: CRE Date of last positivie culture/infection: 01/26/21 MDRO Source:: URINE Past Surgical History: Hernia Repair, Joint Replacement Additional Past Surgical History / Comment(s): Bilateral total hip replacements, varicose veins stripped L leg, bilateral laser surgery on eyes for macular degeneration, bilateral inguinal hernia repairs with L testicle removed, eye injections. Past Anesthesia/Blood Transfusion Reactions: No Reported Reaction Additional Past Anesthesia/Blood Transfusion Reaction / Comment(s): Pt states he has been told that he is slow to wake with anesthesia. Past Psychological History: No Psychological Hx Reported Smoking Status: Never smoker Past Alcohol Use History: None Reported Past Drug Use History: None Reported - Past Family History Father Family Medical History: Cancer Additional Family Medical History / Comment(s): Father of leukemia at the age of 49 yrs. Mother Family Medical History: Coronary Artery Disease (CAD) Additional Family Medical History / Comment(s): Mother of a [place] at the age of 67yrs. She also had varicose veins. Medications and Allergies Home Medications Medication Instructions Recorded Confirmed Type Nitroglycerin Sl Tabs [Nitrostat] 0.4 mg SUBLINGUAL Q5M PRN 07/11/16 02/20/21 History Potassium Chloride ER [K-Dur 20] 20 meq PO DAILY@1700 07/11/16 02/20/21 History Simvastatin [Zocor] 80 mg PO HS@2100 07/11/16 02/20/21 History Tamsulosin HCl [Flomax] 0.4 mg PO DAILY@0800 07/11/16 02/20/21 History Vit C/E/Zn/Coppr/Lutein/Zeaxan 1 tab PO BID@0800,1700 07/08/20 02/20/21 History [Preservision Areds 2 Softgel] Sacubitril/Valsartan [Entresto 24 1 tab PO BID@0800,1700 02/04/21 02/20/21 History mg-26 mg Tablet] ALPRAZolam [Xanax] 0.5 mg PO TID PRN #9 tab 02/08/21 02/20/21 Rx Albuterol Inhaler [Ventolin Hfa 2 puff INHALATION RT-TID puff 02/08/21 02/20/21 Rx Inhaler] Acetaminophen [Tylenol] 650 mg PO Q4H PRN 02/20/21 02/20/21 History Apixaban [Eliquis] 2.5 mg PO BID@0800,0 02/20/21 02/20/21 History Apixaban [Eliquis] 2.5 mg PO BID@0800,1700 02/20/21 02/20/21 History Ascorbic Acid [Vitamin C] 500 mg PO DAILY@169902/20/21 02/20/21 History Doxycycline Hyclate 100 mg PO BID@0800,2100 02/20/21 02/20/21 History Furosemide [Lasix] 40 mg PO BID@0600,1400 02/20/21 02/20/21 History Ipratropium-Albuterol Nebulize 3 ml INHALATION RT-Q6H 02/20/21 02/20/21 History [Duoneb 0.5 mg-3 mg/3 ml Soln] Ipratropium-Albuterol Nebulize 3 ml INHALATION RT-Q6H PRN 02/20/21 02/20/21 History [Duoneb 0.5 mg-3 mg/3 ml Soln] Lactose-Reduced Food [Ensure Plus] 1 can PO TID@0800,1200,1700 02/20/21 02/20/21 History Lidocaine 4% Cream [Lmx 4] 1 applic TOPICAL DAILY PRN 02/20/21 02/20/21 History Magnesium Hydroxide [Milk of 7,200 mg PO DAILY PRN 02/20/21 02/20/21 History Magnesia Concentrate] Melatonin 1 mg PO HS@2100 02/20/21 02/20/21 History Metoprolol Tartrate [Lopressor] 25 mg PO TID@0600,1400,2100 02/20/21 02/20/21 History Na Phos,M-B/Na Phos,Di-Ba [Fleet 133 ml RECTAL DAILY PRN 02/20/21 02/20/21 History Adult] Zinc Sulfate [Orazinc] 220 mg PO DAILY@1700 02/20/21 02/20/21 History bisacodyL [Dulcolax] 10 mg RECTAL DAILY PRN 02/20/21 02/20/21 History Allergies Allergy/AdvReac Type Severity Reaction Status Date / Time No Known Allergies Allergy Verified 02/20/21 18:01 Physical Exam Vitals: Vital Signs Temp Pulse Pulse Resp BP BP Pulse Ox 02/21/21 11:47 97.8 F 77 15 101/60 92 L 02/21/21 11:41 97 02/21/21 10:00 98.2 F 92 18 110/64 97 02/21/21 04:51 94 19 91/57 100 02/21/21 02:00 100 18 104/60 98 02/20/21 19:52 98.1 F 118 H 20 107/89 99 02/20/21 19:11 93 18 103/82 97 02/20/21 17:57 107 H 18 83/48 93 L 02/20/21 15:59 72/48 02/20/21 15:37 97.7 F 82 20 75/46 96 Intake and Output 02/20/21 02/21/21 02/21/21 22:59 06:59 14:59 Output Total 900 Balance -900 Output: Urine 900 Other: Weight 92.986 kg Results 02/21/21 11:26 02/21/21 11:26 Cardiac Enzymes 02/20/21 02/20/21 02/20/21 Range/Units 15:58 15:58 20:50 AST 28 (17-59) U/L Lactate Dehydrogenase (313-618) U/L Troponin I 0.052 H* 0.044 H* (0.000-0.034) ng/mL 02/21/21 02/21/21 Range/Units 00:00 11:26 AST 40 (17-59) U/L Lactate Dehydrogenase 355 (313-618) U/L Troponin I 0.038 H* (0.000-0.034) ng/mL Coagulation 02/20/21 Range/Units 15:58 PT 13.2 H (9.0-12.0) sec APTT 27.9 (22.0-30.0) sec CBC 02/20/21 02/21/21 Range/Units 15:58 11:26 WBC 16.9 H 11.9 H (3.8-10.6) k/uL RBC 4.06 L 3.97 L (4.30-5.90) m/uL Hgb 12.1 L 12.2 L (13.0-17.5) gm/dL Hct 37.7 L 37.8 L (39.0-53.0) % Plt Count 56 L D 46 L (150-450) k/uL Comprehensive Metabolic Panel 02/20/21 02/21/21 Range/Units 15:58 11:26 Sodium 128 L 135 L (137-145) mmol/L Potassium 5.3 H 4.8 (3.5-5.1) mmol/L Chloride 96 L 101 (98-107) mmol/L Carbon Dioxide 26 27 (22-30) mmol/L BUN 72 H 50 H (9-20) mg/dL Creatinine 1.12 0.77 (0.66-1.25) mg/dL Glucose 95 86 (74-99) mg/dL Calcium 8.3 L 8.3 L (8.4-10.2) mg/dL AST 28 40 (17-59) U/L ALT 24 34 (4-49) U/L Alkaline Phosphatase 93 95 (38-126) U/L Total Protein 5.1 L 5.1 L (6.3-8.2) g/dL Albumin 2.6 L 2.5 L (3.5-5.0) g/dL Current Medications Generic Name Dose Route Start Last Admin Trade Name Freq PRN Reason Stop Dose Admin Hydrocodone Bitart/Acetaminophen 1 each 02/20/21 18:23 Hydrocodone/Apap 5-325mg 1 Each Tab PO Q4HR PRN Moderate Pain Albuterol Sulfate 2 puff 02/20/21 20:00 02/21/21 11:41 Albuterol Hfa Inhaler INHALATION 2 puff RT-TID RENNY Administration Albuterol/Ipratropium 3 ml 02/20/21 20:00 02/21/21 11:41 Ipratropium-Albuterol 3 Ml Neb INHALATION Not Given RT-Q6H RENNY Albuterol/Ipratropium 3 ml 02/20/21 18:56 Ipratropium-Albuterol 3 Ml Neb INHALATION RT-Q6H PRN Shortness Of Breath Albuterol/Ipratropium 3 ml 02/21/21 11:15 Ipratropium-Albuterol 3 Ml Neb INHALATION RT-QID PRN Shortness Of Breath Apixaban 2.5 mg 02/21/21 08:00 02/21/21 09:10 Apixaban 2.5 Mg Tablet PO 2.5 mg BID@0800,1700 RENNY Administration Ascorbic Acid 500 mg 02/21/21 09:00 02/21/21 09:10 Ascorbic Acid 500 Mg Tab PO 500 mg DAILY@0900 RENNY Administration Atorvastatin Calcium 40 mg 02/20/21 21:00 02/20/21 22:01 Atorvastatin 40 Mg Tab PO Not Given HS@2100 [facility] Bisacodyl 10 mg 02/20/21 18:56 Bisacodyl 10 Mg Supp RECTAL DAILY PRN Constipation Guaifenesin 600 mg 02/21/21 21:00 Guaifenesin 600 Mg Tablet.Er PO Q12HR [facility] Sodium Chloride 1,000 mls @ 150 mls/hr 02/20/21 18:30 02/21/21 13:04 Saline 0.9% IV Not Given .Q6H40M RENNY Sodium Chloride 1,000 mls @ 100 mls/hr 02/21/21 11:15 02/21/21 12:30 Saline 0.9% IV 100 mls/hr .Q10H RENNY Administration Cefepime HCl 1 gm/ Sodium 50 mls @ 12.5 mls/hr 02/21/21 21:00 Chloride IVPB Q12HR [facility] Lidocaine HCl 1 applic 02/20/21 18:56 Lidocaine 4% Cream 5 Gm Tube TOPICAL DAILY PRN WOUND PAIN Magnesium Hydroxide 2,400 mg 02/21/21 05:12 Magnesium Hydroxide 2,400 Mg/10 Ml Cup PO DAILY PRN Constipation Metoprolol Tartrate 25 mg 02/21/21 14:00 02/21/21 13:07 Metoprolol Tartrate 25 Mg Tab PO 25 mg TID@0600,1400,2100 RENNY Administration Naloxone HCl 0.2 mg 02/20/21 18:23 Naloxone 0.4 Mg/Ml 1 Ml Vial IV Q2M PRN Opioid Reversal Nitroglycerin 0.4 mg 02/20/21 18:56 Nitroglycerin Sl Tabs 0.4 Mg Tab SUBLINGUAL Q5M PRN Chest Pain Ondansetron HCl 4 mg 02/20/21 18:23 Ondansetron 4 Mg/2 Ml Vial IVP Q8HR PRN Nausea And Vomiting Ondansetron HCl 4 mg 02/21/21 11:15 Ondansetron 4 Mg/2 Ml Vial IVP Q6HR PRN Nausea And Vomiting Tamsulosin HCl 0.4 mg 02/21/21 09:00 02/21/21 09:10 Tamsulosin 0.4 Mg Cap.Er.24h PO 0.4 mg DAILY@0900 RENNY Administration Intake and Output 02/20/21 02/21/21 02/21/21 22:59 06:59 14:59 Output Total 900 Balance -900 Output: Urine 900 Other: Weight 92.986 kg 02/21/21 11:26 02/21/21 11:26
[2021-02-21] MEDS ORDERED: SODIUM CHLORIDE 0.9% 500 ML 500 ML IV ONE (15:24)
[2021-02-21 17:14] LABS: Glucose,Whole Blood 82 mg/dL (75-99)
[2021-02-21] MEDS: guaiFENesin 600 MG TABLET.ER PO SCH (20:13)
[2021-02-21] MEDS: ATORVASTATIN 40 MG TAB PO SCH (20:13)
[2021-02-21] MEDS: SACUBITRIL/VALSARTAN 24 MG-26 MG TABLET PO SCH (20:17)
[2021-02-21 20:33] LABS: Glucose,Whole Blood 115 mg/dL (75-99)
--- NOTE | 2021-02-21 20:48 | XR ---
EXAMINATION TYPE: XR chest 1V portable DATE OF EXAM: 02/21/2021 COMPARISON: 02/20/2021 HISTORY: Short of breath TECHNIQUE: Single view FINDINGS: Heart is enlarged. There is no gross heart failure. There is slight blunting of the costoph renic angles. There are no hilar masses. Thoracic aorta is atheromatous. IMPRESSION: Cardiomegaly. Minimal pleural reaction at the lung bases. No obvious heart failure. No ch ifeoma compared to yesterday.
[2021-02-21] MEDS ORDERED: ALBUTEROL HFA INHALER INHALATION PRN (20:52)
[2021-02-21] MEDS ORDERED: CEFEPIME 1 GM in SODIUM CHLORIDE 0.9% 50 ML IVPB SCH (21:00)
--- NOTE | 2021-02-21 23:29 | CONS ---
CONSULTATION DATE OF SERVICE: 02/21/2021 REASON FOR CONSULTATION: Urinary tract infection, bacteremia and sacral pressure ulcer. HISTORY OF PRESENT ILLNESS: The patient is an 85-year-old male who was recently admitted to this facility and was diagnosed and treated for COVID-19 pneumonia and subsequently discharged to [facility] on the [address] for rehabilitation on 02/08/2021. The patient has been brought back to the [facility] ER for evaluation of generalized weakness and low blood pressure. Apparently the patient was also getting treated for a UTI at the facility. The patient denies having any headache or URI symptoms. Denies having any chest pain, shortness of breath or cough. No vomiting, no abdominal pain or diarrhea. On presentation to the hospital the patient was afebrile. The patient did have a white count of 16.9. Creatinine was normal. Liver enzymes were normal. Troponin was mildly elevated. The patient did have significantly positive UA. Parry PCR came back positive. The patient had blood culture reported positive with Gram-negative bacilli. The patient had a chest x-ray: cardiomegaly, no acute lung disease. The patient did have a chronic indwelling Mariee catheter which apparently was changed in the ER and was noted to have grossly purulent urine. Most of the information has been obtained from review of the chart as the patient himself is not a very good historian. REVIEW OF SYSTEMS: Positive points have been mentioned in the HPI. Rest of the systems are negative. PAST MEDICAL HISTORY: Atrial fibrillation, coronary artery disease, heart failure, AR, osteoarthritis, history of prostate disorder. PAST SURGICAL HISTORY: Hernia repair and joint replacement, bilateral total hip. SOCIAL HISTORY: No history of smoking, drinking or drug use. FAMILY HISTORY: Father with history of leukemia. Mother with history of coronary artery disease. ALLERGIES: NO KNOWN DRUG ALLERGIES. MEDICATIONS: The patient is currently on [place], Ventolin, vitamin C, Lipitor, Dulcolax, cefepime 1 gram q.12, Mucinex, milk of magnesia, Lopressor, Narcan, Nitrostat, Zofran, Flomax. PHYSICAL EXAMINATION: Blood pressure is 100/58 with a pulse of 98, temperature 97.5. He is 97% on 2.5 L nasal cannula. General description is an elderly male lying in bed in no distress. No tachypnea or accessory muscle of respiration use. HEENT: Examination shows no pallor or scleral icterus. Oral mucous membrane is dry. No pharyngeal erythema or thrush. NECK: Trachea is central. No thyromegaly. LUNGS: Unlabored breathing. Clear to auscultation anteriorly. No wheeze or crackle. HEART: S1, S2. Regular rate and rhythm. No added sound. ABDOMEN: Soft. No tenderness. No guarding or rigidity. EXTREMITIES: No edema of the feet. SKIN EXAMINATION: No rash or mass palpable. Neurologically the patient is awake, alert, oriented x3. Mood and affect normal. LABS: Hemoglobin is 12.1, white count 16.9, BUN of 50, creatinine 0.77. Electrolytes have been normal. Liver enzymes are normal. Urine positive with large leukocyte esterase, more than 182 WBCs. Parry PCR was positive. Blood cultures with Gram-negative bacilli. The patient had an abdominal bladder ultrasound showing mild left-sided hydronephrosis. DIAGNOSTIC IMPRESSION AND PLAN: 1. Patient admitted to hospital generalized weakness, hypertension, significantly positive UA, likely catheter-associated urinary tract infection, now with evidence of mild hydronephrosis, likely complicated urinary tract infection and will need to cover for the resistant Gram-negative. 2. Patient did have positive COVID test. The patient has been recently tested and treated for COVID-19 at the end of January. Clinically doubt re-infection. Patient with no evidence of any active pneumonia. Chest x-ray was negative. PLAN: 1. Cefepime 1 gram q.12, dose adjusted to the kidney function. 2. IV fluid. 3. Will follow his clinical condition and culture to further adjust medication if needed. Thank you for this consultation. Will follow this patient along with you. MMODL / IJN: [id number] / [facility]ERSalome
[2021-02-22] MEDS: PIPERACILLIN-TAZOBACTAM 3.375 GM in SODIUM CHLORIDE 0.9% 100 ML IVPB SCH ×3 (03:14→19:00)
[2021-02-22] MEDS: SODIUM CHLORIDE 0.9% 1,000 ML IV SCH (03:50)
[2021-02-22] MEDS: METOPROLOL TARTRATE 25 MG TAB PO SCH ×3 (05:33→20:20)
[2021-02-22 07:12] LABS: Glucose,Whole Blood 84 mg/dL (75-99)
[2021-02-22] MEDS: SACUBITRIL/VALSARTAN 24 MG-26 MG TABLET PO SCH ×2 (07:56→20:20)
[2021-02-22] MEDS: ASCORBIC ACID 500 MG TAB PO SCH (07:57)
[2021-02-22] MEDS: guaiFENesin 600 MG TABLET.ER PO SCH ×2 (07:57→20:19)
[2021-02-22] MEDS: TAMSULOSIN 0.4 MG CAP.ER.24H PO SCH (07:57)
--- NOTE | 2021-02-22 08:10 | P.HPIM ---
History of Present Illness H&P Date: 02/22/21 Chief Complaint: Weakness This is a history and physical in 5-year-old white male with atrial fibrillation and cardiomyopathy who was recently transferred to the group home and found have significant weakness. He was tolerating rehab but ended up having significant UTI. The patient is now admitted for appropriate treatment. Cardiology has been consulted. The patient states she feels much better. However vision is difficult due to presbyopia Review of Systems All systems: negative Past Medical History Past Medical History: Atrial Fibrillation, Coronary Artery Disease (CAD), Heart Failure, Eye Disorder, Hypertension, Myocardial Infarction (FL), Osteoarthritis (OA), Prostate Disorder Additional Past Medical History / Comment(s): Bilateral macular degeneration- eyesight is poor, pt was told by physician that he had FL in past, "reyna's lung", bilateral lower leg edema-takes lasix and wears bilateral compression stockings. Last Myocardial Infarction Date:: unkn History of Any Multi-Drug Resistant Organisms: CRE Date of last positivie culture/infection: 01/26/21 MDRO Source:: URINE Past Surgical History: Hernia Repair, Joint Replacement Additional Past Surgical History / Comment(s): Bilateral total hip replacements, varicose veins stripped L leg, bilateral laser surgery on eyes for macular degeneration, bilateral inguinal hernia repairs with L testicle removed, eye injections. Past Anesthesia/Blood Transfusion Reactions: No Reported Reaction Additional Past Anesthesia/Blood Transfusion Reaction / Comment(s): Pt states he has been told that he is slow to wake with anesthesia. Smoking Status: Former smoker, Light tobacco smoker - Past Family History Father Family Medical History: Cancer Additional Family Medical History / Comment(s): Father of leukemia at the age of 49 yrs. Mother Family Medical History: Coronary Artery Disease (CAD) Additional Family Medical History / Comment(s): Mother of a FL at the age of 67yrs. She also had varicose veins. Medications and Allergies Home Medications Medication Instructions Recorded Confirmed Type Nitroglycerin Sl Tabs [Nitrostat] 0.4 mg SUBLINGUAL Q5M PRN 07/11/16 02/20/21 History Potassium Chloride ER [K-Dur 20] 20 meq PO DAILY@1700 07/11/16 02/20/21 History Simvastatin [Zocor] 80 mg PO HS@2100 07/11/16 02/20/21 History Tamsulosin HCl [Flomax] 0.4 mg PO DAILY@0800 07/11/16 02/20/21 History Vit C/E/Zn/Coppr/Lutein/Zeaxan 1 tab PO BID@0800,1700 07/08/20 02/20/21 History [Preservision Areds 2 Softgel] Sacubitril/Valsartan [Entresto 24 1 tab PO BID@0800,1700 02/04/21 02/20/21 History mg-26 mg Tablet] ALPRAZolam [Xanax] 0.5 mg PO TID PRN #9 tab 02/08/21 02/20/21 Rx Albuterol Inhaler [Ventolin Hfa 2 puff INHALATION RT-TID puff 02/08/21 02/20/21 Rx Inhaler] Acetaminophen [Tylenol] 650 mg PO Q4H PRN 02/20/21 02/20/21 History Apixaban [Eliquis] 2.5 mg PO BID@0800,1700 02/20/21 02/20/21 History Apixaban [Eliquis] 2.5 mg PO BID@0800,1700 02/20/21 02/20/21 History Ascorbic Acid [Vitamin C] 500 mg PO DAILY@1700 02/20/21 02/20/21 History Doxycycline Hyclate 100 mg PO BID@0800,2100 02/20/21 02/20/21 History Furosemide [Lasix] 40 mg PO BID@0600,1400 02/20/21 02/20/21 History Ipratropium-Albuterol Nebulize 3 ml INHALATION RT-Q6H 02/20/21 02/20/21 History [Duoneb 0.5 mg-3 mg/3 ml Soln] Ipratropium-Albuterol Nebulize 3 ml INHALATION RT-Q6H PRN 02/20/21 02/20/21 History [Duoneb 0.5 mg-3 mg/3 ml Soln] Lactose-Reduced Food [Ensure Plus] 1 can PO TID@0800,1200,1700 02/20/21 02/20/21 History Lidocaine 4% Cream [Lmx 4] 1 applic TOPICAL DAILY PRN 02/20/21 02/20/21 History Magnesium Hydroxide [Milk of 7,200 mg PO DAILY PRN 02/20/21 02/20/21 History Magnesia Concentrate] Melatonin 1 mg PO HS@2100 02/20/21 02/20/21 History Metoprolol Tartrate [Lopressor] 25 mg PO TID@0600,1400,2100 02/20/21 02/20/21 History Na Phos,M-B/Na Phos,Di-Ba [Fleet 133 ml RECTAL DAILY PRN 02/20/21 02/20/21 History Adult] Zinc Sulfate [Orazinc] 220 mg PO DAILY@1700 02/20/21 02/20/21 History bisacodyL [Dulcolax] 10 mg RECTAL DAILY PRN 02/20/21 02/20/21 History Allergies Allergy/AdvReac Type Severity Reaction Status Date / Time No Known Allergies Allergy Verified 02/20/21 18:01 Physical Exam Vitals: Vital Signs Temp Pulse Pulse Resp BP BP Pulse Ox 02/22/21 07:25 75 18 02/22/21 05:43 98.5 F 75 18 101/64 96 02/22/21 02:29 97.8 F 82 18 104/68 97 02/21/21 21:43 97.5 F L 98 16 100/58 97 02/21/21 20:00 98 16 02/21/21 18:06 98 F 67 18 101/48 90 L 02/21/21 17:00 84 95/61 02/21/21 15:58 97.8 F 83 21 86/52 100 02/21/21 15:08 95 20 86/52 99 02/21/21 11:47 97.8 F 77 15 101/60 92 L 02/21/21 11:41 97 02/21/21 10:00 98.2 F 92 18 110/64 97 Intake and Output 02/21/21 02/22/21 02/22/21 22:59 06:59 14:59 Output Total 600 800 Balance -600 -800 Output: Urine 600 800 Other: Voiding Method Indwelling Catheter Indwelling Catheter - Constitutional General appearance: no acute distress, obese - EENT Eyes: EOMI - Neck Neck: no lymphadenopathy - Respiratory Respiratory: bilateral: CTA - Cardiovascular Rhythm: regular Heart sounds: normal: S1, S2 Abnormal Heart Sounds: no S3 Gallop - Gastrointestinal General gastrointestinal: soft, no tenderness - Neurologic Neurologic: CNII-XII intact - Psychiatric Psychiatric: A&O x's 3, appropriate affect Results CBC & Chem 7: 02/21/21 11:26 02/21/21 11:26 Labs: Abnormal Lab Results - Last 24 Hours (Table) 02/21/21 02/21/21 02/21/21 Range/Units 11: 11: 11:26 WBC 11.9 H (3.8-10.6) k/uL RBC 3.97 L (4.30-5.90) m/uL Hgb 12.2 L (13.0-17.5) gm/dL Hct 37.8 L (39.0-53.0) % Plt Count 46 L (150-450) k/uL Neutrophils # 10.7 H (1.3-7.7) k/uL Lymphocytes # 0.4 L (1.0-4.8) k/uL Fibrinogen (200-500) mg/dL D-Dimer 0.86 H (<0.60) mg/L FEU Sodium 135 L (137-145) mmol/L BUN 50 H (9-20) mg/dL POC Glucose (mg/dL) (75-99) mg/dL Calcium 8.3 L (8.4-10.2) mg/dL Ferritin 1364.0 H (22.0-322.0) ng/mL C-Reactive Protein 24.3 H (<1.0) mg/dL Total Protein 5.1 L (6.3-8.2) g/dL Albumin 2.5 L (3.5-5.0) g/dL Procalcitonin (0.02-0.09) ng/mL 02/21/21 02/21/21 02/21/21 Range/Units 11: 11: 11:38 WBC (3.8-10.6) k/uL RBC (4.30-5.90) m/uL Hgb (13.0-17.5) gm/dL Hct (39.0-53.0) % Plt Count (150-450) k/uL Neutrophils # (1.3-7.7) k/uL Lymphocytes # (1.0-4.8) k/uL Fibrinogen 618 H (200-500) mg/dL D-Dimer (<0.60) mg/L FEU Sodium (137-145) mmol/L BUN (9-20) mg/dL POC Glucose (mg/dL) 103 H (75-99) mg/dL Calcium (8.4-10.2) mg/dL Ferritin (22.0-322.0) ng/mL C-Reactive Protein (<1.0) mg/dL Total Protein (6.3-8.2) g/dL Albumin (3.5-5.0) g/dL Procalcitonin 0.61 H (0.02-0.09) ng/mL 02/21/21 Range/Units 20:31 WBC (3.8-10.6) k/uL RBC (4.30-5.90) m/uL Hgb (13.0-17.5) gm/dL Hct (39.0-53.0) % Plt Count (150-450) k/uL Neutrophils # (1.3-7.7) k/uL Lymphocytes # (1.0-4.8) k/uL Fibrinogen (200-500) mg/dL D-Dimer (<0.60) mg/L FEU Sodium (137-145) mmol/L BUN (9-20) mg/dL POC Glucose (mg/dL) 115 H (75-99) mg/dL Calcium (8.4-10.2) mg/dL Ferritin (22.0-322.0) ng/mL C-Reactive Protein (<1.0) mg/dL Total Protein (6.3-8.2) g/dL Albumin (3.5-5.0) g/dL Procalcitonin (0.02-0.09) ng/mL Microbiology - Last 24 Hours (Table) 02/20/21 16:22 Blood Culture Gram Stain - Preliminary Blood Blood Culture - Preliminary Pseudomonas aeruginosa 02/20/21 15:58 Urine Culture - Preliminary Urine,Clean Catch Gram Neg Bacilli 02/20/21 16:23 Blood Culture - Preliminary Blood No Growth after 24 hours 02/20/21 16:22 Blood Culture - Final Blood Thrombosis Risk Factor Assmnt - Choose All That Apply Any of the Below Risk Factors Present?: Yes Each Factor Represents 1 point: Abnormal pulmonary function (COPD), Obesity (BMI >25), Serious lung disease incl. pneumonia (< 1month) Other Risk Factors: Yes Each Risk Factor Represents 3 Points: Age 75 years or older Other congenital or acquired thrombophilia - If yes, enter type in comment: No Thrombosis Risk Factor Assessment Total Risk Factor Score: 6 Thrombosis Risk Factor Assessment Level: High Risk Assessment and Plan (1) Atrial fibrillation Current Visit: Yes Status: Acute Code(s): I48.91 - UNSPECIFIED ATRIAL FIB RILLATION SNOMED Code(s): 14575261 (2) UTI (urinary tract infection) Current Visit: Yes Status: Acute Code(s): N39.0 - URINARY TRACT INFECTION, SITE NOT SPECIFIED SNOMED Code(s): 12571364 (3) Weakness Current Visit: Yes Status: Acute Code(s): R53.1 - WEAKNESS SNOMED Code(s): 84377394 (4) CAD (coronary artery disease) Current Visit: No Status: Acute Code(s): I25.10 - ATHSCL HEART DISEASE OF [place] CORONARY ARTERY W/O ANG PCTRS SNOMED Code(s): 07198873 (5) HTN (hypertension) Current Visit: No Status: Acute Code(s): I10 - ESSENTIAL (PRIMARY) HYPERTENSION SNOMED Code(s): 73391725 (6) Multiple falls Current Visit: No Status: Acute Code(s): R29.6 - REPEATED FALLS SNOMED Code(s): 894342974 Plan: Continue antibiotic treatment. He has been switched to Zosyn at pharmacies request. New. Check CBC and CMP in a.m. Increase ambulation. Appreciate cardiology input. We will go ahead and reconcile medications home medication. Anticipate discharge in the next 48
[2021-02-22] MEDS: ALBUTEROL HFA INHALER INHALATION SCH ×3 (08:16→20:36)
--- NOTE | 2021-02-22 09:44 | ECHOF ---
Referral Reason:CHF MEASUREMENTS -------- HEIGHT: 177.8 cm WEIGHT: 93.0 kg BP: 110/64 RVIDd: 4.0 cm (< 3.3) IVSd: 1.3 cm (0.6 - 1.1) LVIDd: 5.8 cm (3.9 - 5.3) LVPWd: 1.4 cm (0.6 - 1.1) IVSs: 1.5 cm LVIDs: 5.3 cm LVPWs: 1.5 cm LAESV Index (A-L): 84.42 ml/m Ao Diam: 3.9 cm (2.0 - 3.7) AV Cusp: 2.1 cm (1.5 - 2.6) MV EXCURSION: 24.729 mm (> 18.000) MV EF SLOPE: 143 mm/s (70 - 150) EPSS: 1.0 cm AR PHT: 451 ms RAP: 5.00 mmHg RVSP: 41.96 mmHg FINDINGS -------- Atrial fibrillation. This was a technically adequate study. The left ventricular size is normal. There is mild concentric left ventricular hypertrophy. There is severe global hypokinesis of LV . Overall left ventricular systolic function is severely impair ed with, an EF between 20 - 25 %. Mitral Doppler inflow pattern suggests diastolic filling abnormal ity {E/E'}. The right ventricle is moderate to severely enlarged. LA is severely dilated >40 ml/m2 The right atrium is markedly enlarged. Interatrial and interventricular septum intact. There is mild aortic valve sclerosis. There is mild aortic regurgitation. There is no evidence of aortic stenosis. Mild mitral annular calcification present. Tgbkmxkr-fw-gunpii mitral regurgitation is present. Moderate to severe tricuspid regurgitation present. There is moderate pulmonary hypertension. The right ventricular systolic pressure, as measured by Doppler, is 41.96mmHg. There is no pulmonic regurgitation present. The aortic root size is normal. IVC Not well visulized. There is no pericardial effusion. CONCLUSIONS -------- 1. The left ventricular size is normal. 2. There is mild concentric left ventricular hypertrophy. 3. There is severe global hypokinesis of LV . 4. Overall left ventricular systolic function is severely impaired with, an EF between 20 - 25 %. 5. Mitral Doppler inflow pattern suggest diastolic filling abnormality {E/E'}. 6. The right ventricle is moderate to severely enlarged. 7. LA is severely dilated >40 ml/m2 8. The right atrium is markedly enlarged. 9. There is mild aortic valve sclerosis. 10. There is mild aortic regurgitation. 11. Mild mitral annular calcification present. 12. Ktisvfwx-tu-bhycut mitral regurgitation is present. 13. Moderate to severe tricuspid regurgitation present. 14. There is moderate pulmonary hypertension. 15. The right ventricular systolic pressure, as measured by Doppler, is 41.96mmHg. [employer]: Mana Leija RDCS
[2021-02-22 11:32] LABS: Glucose,Whole Blood 103 mg/dL (75-99)
--- NOTE | 2021-02-22 15:04 | CDI ---
Documentation Clarification Form Date: 02/22/2021 02:47:20 PM From: Rea Velasquez RN CCDS Admit Date: 02/21/2021 01:43:00 PM Patient Name: Dereck Chatterjee Visit Number: [id number] Discharge Date: ATTENTION: The Clinical Documentation Specialists (CDI) and [facility] Coding Staff appreciate your assistance in clarifying documentation. Please respond to the clarification below the line at the bottom and electronically sign. The CDI & [facility] Coding staff will review the response and follow-up if needed. Please note: Queries are made part of the Legal Health Record. If you have any questions, please contact the author of this message via ITS. Dr. Ramiro Yost, Your patient has the documented diagnosis of unspecified Heart Failure 02/22 H&P. Additional information regarding the type and acuity of Heart Failure is requested. History/Risk Factors: 85-year-old male presents to the ED as a transfer from [facility] for significant weakness, admitted with UTI. Medical History: Atrial Fibrillation; Heart Failure; MT and HTN. H&P 02/22 Clinical Indicators: Home medications 02/22: Entresto 24 mg 25mg tablet PO BID and Lasix 40mg PO BID. VS/Pulse OX02/21: B/P 101/60; HR 77; Temp 97.8 F Axillary; RR 15; SpO2 92% 2L nasal cannula. BNP 02/21: 2760 Echocardiogram Results 02/21: Left ventricular systolic function is severely impaired with, an EF between 25-25%. Mitral doppler inflow pattern suggests diastolic filling abnormality {E/E}. Right ventricle moderate to severely enlarged. LA is severely dilated >40 ml/m2. Right atrium is markedly enlarged. Mild aortic valve sclerosis. Mild aortic regurgitation. Mild mitral annular calcification present. Moderate to severe mitral regurgitation. Moderate to severe tricuspid regurgitation. Moderate pulmonary HTN. Chest X Ray 02/21: Cardiomegaly. Minimal pleural reaction at the lung bases. Treatment: 02/20 Lopressor 25mg PO TID; 02/21 Entresto 24 mg 25mg tablet PO BID. In your professional opinion, can you please clarify the acuity and type of CHF if known? [ ] Chronic Systolic Heart Failure (reduced EF)-this is the correct diagnosis [ ] Acute on Chronic Systolic Heart Failure (reduced EF) [ ] Other, please specify [ ] Unable to determine (Template Last Revised: November 2020) MTDD
[2021-02-22 16:58] LABS: Glucose,Whole Blood 108 mg/dL (75-99)
[2021-02-22] MEDS: ATORVASTATIN 40 MG TAB PO SCH (20:19)
[2021-02-22 20:42] LABS: Glucose,Whole Blood 141 mg/dL (75-99)
--- NOTE | 2021-02-22 23:24 | PN ---
PROGRESS NOTE DATE OF SERVICE: 02/22/2021 REASON FOR FOLLOWUP: Pseudomonas aeruginosa UTI and bacteremia. INTERVAL HISTORY: The patient is currently afebrile. The patient is breathing comfortably, feeling slightly better. The patient denies having any chest pain, shortness of breath or cough. No nausea, no vomiting, no abdominal pain or diarrhea. PHYSICAL EXAMINATION: Blood pressure 102/68 with a pulse of 89, temperature 97.7. He is 96% on 2 L nasal cannula. General description is an elderly male lying in bed in no distress. HEENT: Examination shows no pallor or scleral icterus. Oral mucous membrane is dry. NECK: Trachea is central. No thyromegaly. LUNGS: Unlabored breathing. Clear to auscultation anteriorly. HEART: S1, S2. Regular rate and rhythm. ABDOMEN: Soft. No tenderness. EXTREMITIES: No edema of the feet. LABS: Blood culture now showing Pseudomonas aeruginosa which is resistant to Zosyn and ceftazidime. DIAGNOSTIC IMPRESSION AND PLAN: Patient with Pseudomonas aeruginosa bacteremia; source possible urinary with multi-drug- resistant pattern. Antibiotic will be adjusted to Zerbaxa and discontinue Zosyn while monitoring his clinical course closely. Continue with supportive care. MMODL / IJN: [id number] /
[2021-02-23] MEDS ORDERED: CEFTOLOZANE/TAZOBACTAM 1.5 GM in SODIUM CHLORIDE 0.9% 100 ML IV SCH ×2
[2021-02-23] MEDS: MEROPENEM 1 GM in SODIUM CHLORIDE 0.9% 100 ML IVPB SCH ×3 (01:47→17:31)
[2021-02-23] MEDS: SODIUM CHLORIDE 0.9% 1,000 ML IV SCH ×9 (01:49→23:33)
[2021-02-23] MEDS: METOPROLOL TARTRATE 25 MG TAB PO SCH ×3 (06:00→20:47)
[2021-02-23 07:13] LABS: Glucose,Whole Blood 100 mg/dL (75-99)
[2021-02-23] MEDS: ALBUTEROL HFA INHALER INHALATION SCH ×3 (08:24→20:59)
--- NOTE | 2021-02-23 08:36 | P.PN ---
Subjective Progress Note Date: 02/23/21 Principal diagnosis: The patient is here essentially for UTI with sepsis element and weakness. He is doing much better and tolerating diet. No new complaints are stated. No sniffing nausea, vomiting or diarrhea. Generalized weakness and element of presbyopia Objective - Vital Signs Vital signs: Vital Signs Temp 98.4 F 02/23/21 05:49 Pulse 97 02/23/21 05:49 Resp 18 02/23/21 05:49 BP 100/64 02/23/21 05:49 Pulse Ox 97 02/23/21 05:49 Intake & Output 02/22/21 02/23/21 02/23/21 18:59 06:59 18:59 Output Total 800 1000 Balance -800 -1000 Weight 92.986 kg 50.2 kg Output: Urine 800 1000 Other: Voiding Method Indwelling Catheter Indwelling Catheter - Constitutional General appearance: Present: no acute distress - EENT Eyes: Absent: abnormal pupil - Neck Neck: Absent: lymphadenopathy - Respiratory Respiratory: bilateral: CTA - Cardiovascular Rhythm: irregularly irregular Heart sounds: normal: S1, S2 Abnormal Heart Sounds: Absent: S3 Gallop - Gastrointestinal General gastrointestinal: Present: soft. Absent: tenderness - Integumentary Integumentary: Present: normal - Neurologic Neurologic: Present: CNII-XII intact - Psychiatric Psychiatric: Present: A&O x's 3 - Labs CBC & Chem 7: 02/21/21 11:26 02/21/21 11:26 Labs: Abnormal Lab Results - Last 24 Hours (Table) 02/22/21 02/22/21 02/22/21 Range/Units 11:31 16:38 20:42 POC Glucose (mg/dL) 103 H 108 H 141 H (75-99) mg/dL 02/23/21 Range/Units 07:12 POC Glucose (mg/dL) 100 H (75-99) mg/dL Microbiology - Last 24 Hours (Table) 02/20/21 15:58 Urine Culture - Final Urine,Clean Catch Pseudomonas aeruginosa 02/20/21 16:22 Blood Culture Gram Stain - Final Blood Blood Culture - Final Pseudomonas aeruginosa 02/20/21 16:23 Blood Culture - Preliminary Blood No Growth after 48 hours Assessment and Plan (1) Atrial fibrillation Current Visit: Yes Status: Acute Code(s): I48.91 - UNSPECIFIED ATRIAL FIBRILLATION SNOMED Code(s): 18198924 (2) UTI (urinary tract infection) Current Visit: Yes Status: Acute Code(s): N39.0 - URINARY TRACT INFECTION, SITE NOT SPECIFIED SNOMED Code(s): 28907625 (3) Weakness Current Visit: Yes Status: Acute Code(s): R53.1 - WEAKNESS SNOMED Code(s): 63984109 (4) CAD (coronary artery disease) Current Visit: No Status: Acute Code(s): I25.10 - ATHSCL HEART DISEASE OF [place] CORONARY ARTERY W/O ANG PCTRS SNOMED Code(s): 46413270 (5) HTN (hypertension) Current Visit: No Status: Acute Code(s): I10 - ESSENTIAL (PRIMARY) HYPERTENSION SNOMED Code(s): 17588664 (6) Multiple falls Current Visit: No Status: Acute Code(s): R29.6 - REPEATED FALLS SNOMED Code(s): 550924653 Plan: Continue antibiotic treatment. The patient is tolerating Zosyn New. Check CBC and CMP in a.m. Increase ambulation. Appreciate cardiology input. We will go ahead and reconcile medications home medication. Anticipate discharge in a.m. Dr. Underwood's group covering for the weekend
[2021-02-23] MEDS: SACUBITRIL/VALSARTAN 24 MG-26 MG TABLET PO SCH ×2 (08:49→20:47)
[2021-02-23] MEDS: TAMSULOSIN 0.4 MG CAP.ER.24H PO SCH (08:55)
[2021-02-23] MEDS: ASCORBIC ACID 500 MG TAB PO SCH (08:55)
[2021-02-23] MEDS: guaiFENesin 600 MG TABLET.ER PO SCH ×2 (08:55→20:47)
--- NOTE | 2021-02-23 09:28 | CDI ---
Documentation Clarification Form Date: 02/22/2021 02:47:20 PM From: Rea Velasquez RN CCDS Admit Date: 02/21/2021 01:43:00 PM Patient Name: Dereck Chatterjee Visit Number: [id number] Discharge Date: ATTENTION: The Clinical Documentation Specialists (CDI) and [facility] Coding Staff appreciate your assistance in clarifying documentation. Please respond to the clarification below the line at the bottom and electronically sign. The CDI & [facility] Coding staff will review the response and follow-up if needed. Please note: Queries are made part of the Legal Health Record. If you have any questions, please contact the author of this message via ITS. Dr. Ramiro Yost, Your patient has the documented diagnosis of unspecified Heart Failure 02/22 H&P. Additional information regarding the type and acuity of Heart Failure is requested. History/Risk Factors: 85-year-old male presents to the ED as a transfer from [facility] for significant weakness, admitted with UTI. Medical History: Atrial Fibrillation; Heart Failure; AK and HTN. H&P 02/22 Clinical Indicators: Home medications 02/22: Entresto 24 mg 25mg tablet PO BID and Lasix 40mg PO BID. VS/Pulse OX02/21: B/P 101/60; HR 77; Temp 97.8 F Axillary; RR 15; SpO2 92% 2L nasal cannula. BNP 02/21: 2760 Echocardiogram Results 02/21: Left ventricular systolic function is severely impaired with, an EF between 25-25%. Mitral doppler inflow pattern suggests diastolic filling abnormality {E/E}. Right ventricle moderate to severely enlarged. LA is severely dilated >40 ml/m2. Right atrium is markedly enlarged. Mild aortic valve sclerosis. Mild aortic regurgitation. Mild mitral annular calcification present. Moderate to severe mitral regurgitation. Moderate to severe tricuspid regurgitation. Moderate pulmonary HTN. Chest X Ray 02/21: Cardiomegaly. Minimal pleural reaction at the lung bases. Treatment: 02/20 Lopressor 25mg PO TID; 02/21 Entresto 24 mg 25mg tablet PO BID. In your professional opinion, can you please clarify the acuity and type of CHF if known? [ x ] Chronic Systolic Heart Failure (reduced EF) [ ] Acute on Chronic Systolic Heart Failure (reduced EF) [ ] Other, please specify [ ] Unable to determine (Template Last Revised: November 2020) [id number]
[2021-02-23 11:33] LABS: Glucose,Whole Blood 127 mg/dL (75-99)
[2021-02-23 16:21] LABS: Glucose,Whole Blood 129 mg/dL (75-99)
--- NOTE | 2021-02-23 18:28 | PN ---
PROGRESS NOTE DATE OF SERVICE: 02/23/2021 REASON FOR FOLLOWUP: Hcire-xala-ycljsxgck Pseudomonas UTI and bacteremia. INTERVAL HISTORY: The patient is currently afebrile. The patient is breathing comfortably. More awake and alert. The patient denies having any chest pain or shortness of breath or cough. No nausea, no vomiting, no abdominal pain or diarrhea. PHYSICAL EXAMINATION: Blood pressure 111/63 with a pulse of 108, temperature 98.3. He is 97% on 2 L nasal cannula. General description is an elderly male lying in bed in no distress. RESPIRATORY SYSTEM: Unlabored breathing. Clear to auscultation anteriorly. HEART: S1, S2. Regular rate and rhythm. ABDOMEN: Soft. No tenderness. EXTREMITIES: No edema of the feet. LABS: Blood culture repeat so far pending. DIAGNOSTIC IMPRESSION AND PLAN: Patient with a syilb-ukko-hqpmnkugl Pseudomonas urinary tract infection and bacteremia which is resistant to Zosyn as well as cefepime. Patient at this time to continue with meropenem. Once the blood cultures repeat are negative, will get a midline and continue meropenem for a total of 2 weeks to finish his course of therapy. Continue supportive care. MMODL / IJN: [id number] /
[2021-02-23 20:31] LABS: Glucose,Whole Blood 151 mg/dL (75-99)
[2021-02-23] MEDS: ATORVASTATIN 40 MG TAB PO SCH (20:47)
[2021-02-24] MEDS: MEROPENEM 1 GM in SODIUM CHLORIDE 0.9% 100 ML IVPB SCH ×3 (01:33→17:47)
[2021-02-24] MEDS: METOPROLOL TARTRATE 25 MG TAB PO SCH ×3 (06:06→21:32)
[2021-02-24 07:01] LABS: Glucose,Whole Blood 98 mg/dL (75-99)
[2021-02-24] MEDS: ALBUTEROL HFA INHALER INHALATION SCH ×3 (07:44→20:45)
[2021-02-24] MEDS: TAMSULOSIN 0.4 MG CAP.ER.24H PO SCH (08:28)
[2021-02-24] MEDS: ASCORBIC ACID 500 MG TAB PO SCH (08:28)
[2021-02-24] MEDS: SACUBITRIL/VALSARTAN 24 MG-26 MG TABLET PO SCH ×2 (08:28→21:32)
[2021-02-24] MEDS: guaiFENesin 600 MG TABLET.ER PO SCH ×2 (08:28→21:32)
[2021-02-24] MEDS: SODIUM CHLORIDE 0.9% 1,000 ML IV SCH ×2 (10:23→21:33)
[2021-02-24 11:38] LABS: Glucose,Whole Blood 91 mg/dL (75-99)
[2021-02-24 11:44] LABS: African American GFR (CKD) 123.8 (60.0-200.0); Albumin 2.6 g/dL (3.80-4.90); Albumin/Globulin Ratio 1.37 (1.60-3.17); Anion Gap 6.1 mmol/L (4.00-12.00); Calcium 7.6 mg/dL (8.7-10.3); Carbon Dioxide 26.9 mmol/L (21.6-31.8); Globulin 1.9 g/dL (1.6-3.3); Non-African American GFR(CKD) 106.8 (60.0-200.0); Potassium 3.7 mmol/L (3.5-5.5); Total Bilirubin 1.6 mg/dL (0.3-1.2); Total Protein 4.5 g/dL (6.2-8.2)
[2021-02-24 12:19] LABS: HCT 34.7 % (39.6-50.0); HGB 11.1 g/dL (13.0-17.0); MCV 93.8 fL (80.0-97.0); Platelet Count 49 X 10*3/uL (140-440); RDW 16.6 % (11.5-14.5); WBC 9.73 X 10*3/uL (4.50-10.00)
--- NOTE | 2021-02-24 18:34 | PN ---
PROGRESS NOTE DATE OF SERVICE: 02/24/2021 REASON FOR FOLLOWUP: Pseudomonas UTI and bacteremia. INTERVAL HISTORY: The patient is currently afebrile. The patient is breathing comfortably. The patient denies having any chest pain or shortness of breath or cough. No abdominal pain or diarrhea. PHYSICAL EXAMINATION: Blood pressure 107/74 with a pulse of 76, temperature is 97.8. He is 96% on 2 L nasal cannula. General description is an elderly male lying in bed in no distress. Respiratory system: Unlabored breathing, clear to auscultation anteriorly. Heart S1, S2. Regular rate and rhythm. Abdomen soft, no tenderness. LAB: Hemoglobin 11.1, white count 9.7, BUN of 14, creatinine 0.4. Blood culture negative so far. DIAGNOSTIC IMPRESSION AND PLAN: Patient with multidrug resistant Pseudomonas urinary tract infection and bacteremia. Repeat blood cultures have been negative. Ultrasound examination did not show any abnormality. Plan is to get a midline and continue meropenem. Total antibiotic will be two weeks from negative blood cultures and continue supportive care. MMODL / IJN: [id number] /
--- NOTE | 2021-02-24 20:20 | PN ---
PROGRESS NOTE I am covering for Dr. Yost. DATE OF SERVICE: 02/24/2021 This 85-year-old gentleman with a past medical history of multiple medical problems was admitted with multidrug resistant Pseudomonas, UTI and bacteremia. Repeat blood culture is being closely monitored at this time. The patient also has multiple lab abnormalities. Covid 19 was initially positive, but subsequently again test to be positive at this time. PAST MEDICAL HISTORY: Reviewed. REVIEW OF SYSTEMS: Review of systems could not be taken, the patient is confused. CURRENT MEDICATIONS: Reviewed and include: [place], Ventolin, vitamin C with Dulcolax, Mucinex, meropenem. Doses reviewed. PHYSICAL EXAM: The pulse is 81. Blood pressure 160/75, respiration 18, temperature 98.2, pulse ox 98% on 2 L. HEENT: Conjunctivae normal. NECK: No JVD. CARDIOVASCULAR: S1, S2 muffled. RESPIRATIONS: Breath sounds diminished in the bases. A few scattered rhonchi. ABDOMEN: Soft, nontender. LEGS: No edema. No swelling. NERVOUS SYSTEM: Diffusely weak. LAB STUDIES: WBC 9.73, hemoglobin 11.1. Otherwise, bilirubin is 1.6, AST, ALT noted. Albumin is 2.6. ASSESSMENT: 1. Acute urinary tract infection with multidrug resistant Pseudomonas urinary tract infection with possible sepsis present on admission, on broad-spectrum IV antibiotics. 2. Change in mental status, acute metabolic encephalopathy. 3. Covid 19 positive, recurrent. 4. Anemia, normocytic. 5. Thrombocytopenia. 6. Elevated AST, ALT. 7. Hypoalbuminemia with moderate protein calorie malnutrition. 8. History of atrial fibrillation. 9. History of congestive heart failure. 10.History of myocardial infarction. 11.History of degenerative joint disease. 12.History of bilateral macular degeneration. 13.History of lung. 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 15.History of MDRO. 16.History of degenerative joint disease. 17.Gait dysfunction. 18.NO CODE, NO CPR AND NO VENT. RECOMMENDATIONS AND DISCUSSION: This 85-year-old gentleman who presented with multiple complex medical issues, we will monitor the patient closely, continue the current medications, management and symptomatic treatment. Continue broad-spectrum antibiotics. Other than that, continue the beta blockers. Continue with Entresto. Repeat labs. Guarded prognosis because of multiple complex medical issues. Further recommendations to follow. MMODL / IJN: [id number] / SHAHZAD
[2021-02-24] MEDS: ATORVASTATIN 40 MG TAB PO SCH (21:32)
[2021-02-25] MEDS: SODIUM CHLORIDE 0.9% 1,000 ML IV SCH ×2 (01:48→16:18)
[2021-02-25] MEDS: MEROPENEM 1 GM in SODIUM CHLORIDE 0.9% 100 ML IVPB SCH ×3 (01:48→17:19)
[2021-02-25] MEDS: METOPROLOL TARTRATE 25 MG TAB PO SCH ×2 (05:10→14:49)
[2021-02-25] MEDS: ASCORBIC ACID 500 MG TAB PO SCH (08:11)
[2021-02-25] MEDS: TAMSULOSIN 0.4 MG CAP.ER.24H PO SCH (08:11)
[2021-02-25] MEDS: SACUBITRIL/VALSARTAN 24 MG-26 MG TABLET PO SCH ×2 (08:11→21:33)
[2021-02-25] MEDS: guaiFENesin 600 MG TABLET.ER PO SCH ×2 (08:11→21:32)
[2021-02-25] MEDS: ALBUTEROL HFA INHALER INHALATION SCH ×3 (08:23→21:05)
[2021-02-25 10:36] LABS: African American GFR (CKD) 112.9 (60.0-200.0); Albumin 2.5 g/dL (3.80-4.90); Albumin/Globulin Ratio 1.32 (1.60-3.17); Anion Gap 5.9 mmol/L (4.00-12.00); Calcium 7.7 mg/dL (8.7-10.3); Carbon Dioxide 27.1 mmol/L (21.6-31.8); Globulin 1.9 g/dL (1.6-3.3); Non-African American GFR(CKD) 97.4 (60.0-200.0); Total Bilirubin 1.1 mg/dL (0.2-1.2); Total Protein 4.4 g/dL (6.2-8.2)
[2021-02-25 11:54] LABS: Basophils # (A) 0.02 X 10*3/uL (0.00-0.10); Basophils % (A) 0.2 %; Eosinophils # (A) 0.36 X 10*3/uL (0.04-0.35); Eosinophils % (A) 3.6 %; HCT 35.1 % (39.6-50.0); HGB 11.1 g/dL (13.0-17.0); Lymphocytes # (A) 0.93 X 10*3/uL (0.90-5.00); Lymphocytes % (A) 9.2 %; MCH 29.9 pg (27.0-32.0); MCHC 31.6 g/dL (32.0-37.0); MCV 94.6 fL (80.0-97.0); Mean Platelet Volume 11.5 fL (9.5-12.2); Monocytes # (A) 0.65 X 10*3/uL (0.20-1.00); Monocytes % (A) 6.4 %; Neutrophils # (A) 7.99 X 10*3/uL (1.80-7.70); Neutrophils % (A) 79.1 %; Platelet Count 76 X 10*3/uL (140-440); RBC 3.71 X 10*6/uL (4.40-5.60); RDW 16.5 % (11.5-14.5)
--- NOTE | 2021-02-25 18:33 | PN ---
PROGRESS NOTE DATE OF SERVICE: 02/25/2021 INTERVAL HISTORY: I am covering for Dr. Yost. This 85-year-old gentleman who was admitted with acute UTI, multidrug resistant Pseudomonas, also had recent COVID-19 infection. Repeat COVID-19 is also positive at this time. The patient is maintaining oxygenation. The most recent chest x-ray which I reviewed personally showed some cardiomegaly and blunting of the left cardiophrenic angle. Otherwise, no evidence of pneumonia was noted. Infectious Disease is following the patient closely. PAST MEDICAL HISTORY: Reviewed. REVIEW OF SYSTEMS: CARDIOVASCULAR: No angina or palpitations. RESPIRATORY: As mentioned earlier. GI: As mentioned earlier. : No dysuria. NERVOUS SYSTEM: Diffusely weak. CURRENT MEDICATIONS: Reviewed and include [place], Ventolin, vitamin C, Lipitor, Dulcolax, Mucinex, meropenem, Narcan. PHYSICAL EXAMINATION: GENERAL: Patient is alert and oriented times VITAL SIGNS: Pulse 80, blood pressure 111/68, respirations 16, temperature 98.7, pulse ox 97% on 2 liters. HEENT: Conjunctivae normal. NECK: No jugular venous distention. No carotid bruits. RESPIRATORY: Breath sounds diminished at the bases. A few scattered rhonchi. HEART: S1 and S2, muffled. ABDOMEN: Soft, no tenderness. EXTREMITIES: No edema, no swelling. NERVOUS: Diffusely weak. LAB STUDIES: WBC 10.2, hemoglobin 11.0, platelets 76. Albumin is 2.5. Cultures are noted. ASSESSMENT: 1. Acute urinary tract infection with multidrug resistant Pseudomonas UTI with possible sepsis present on admission, on broad-spectrum IV antibiotics. 2. Change in mental status secondary to acute metabolic encephalopathy. 3. COVID-19 positive, recurrent. 4. Anemia, normocytic. 5. Thrombocytopenia. 6. Elevated AST and ALT. 7. Hypoalbuminemia with moderate protein calorie malnutrition. 8. History of atrial fibrillation. 9. History of congestive heart failure. 10.History of myocardial infarction. 11.History of DJD. 12.History of bilateral macular degeneration. 13.History of CRE. 14.History of MDRO. 15.History of DJD. 16.Gait dysfunction. 17.NO CODE, NO CPR, NO VENT. RECOMMENDATIONS AND DISCUSSION: I recommend to continue current management and continue symptomatic treatment. Continue with antibiotics. Otherwise, repeat labs closely. The patient is currently on meropenem for the last 3 days. We will continue to monitor. PT/OT evaluation. Continue the rest of medication. COVID-19 is positive but the patient is not severely hypoxic at this time. We will continue to monitor. Further recommendations to follow. Dr. Yost will follow tomorrow. MONICA / CHICHIN: [id number] / MTDD
--- NOTE | 2021-02-25 20:06 | PN ---
PROGRESS NOTE DATE OF SERVICE: 02/25/2021 REASON FOR FOLLOWUP: Pseudomonas aeruginosa, UTI and bacteremia. INTERVAL HISTORY: Patient is currently afebrile. The patient is feeling better. Breathing comfortably. Patient denies having any chest pain. No shortness of breath or cough. No abdominal pain or diarrhea. PHYSICAL EXAMINATION: Blood pressure is 113/77, pulse of 130, temperature 98.1. He is 97% 2 L nasal cannula. General description is an elderly male lying in bed in no distress. Respiratory system: Unlabored breathing, clear to auscultation anteriorly. Heart S1, S2. Regular rate and rhythm. Abdomen soft, no tenderness. LABS: White count is 10,000. Blood culture repeat has been negative. DIAGNOSTIC IMPRESSION AND PLAN: Patient with multidrug resistant Pseudomonas pneumonia with secondary bacteremia. Repeat blood cultures have been negative. He will get a midline and plan is to continue meropenem for another 10 days to finish course of therapy. Continue supportive care. MMODL / IJN: [id number] /
--- NOTE | 2021-02-25 20:07 | P.PN ---
Subjective HISTORY OF PRESENT ILLNESS: This is a 85-year-old male with a past medical history significant for atrial fibrillation, cardiomyopathy, coronary artery disease and congestive heart failure. According to recent cardiology consult note patient has refused AICD implantation in the past. Patient follows in the office with Dr. Gonzalez. We have been asked to see the patient in consultation for elevated troponins. Patient is currently admitted to the hospital secondary to weakness, hypotension, and Covid 19. According to the patients nurse, the patient has not had any chest pain or pressure. Patient is on 2 L nasal cannula with oxygen saturations greater than 92%. Blood pressure 101/60. Heart rate 70-90s. He is afebrile. 02/25 Patient seen and examined. Patient had another episode of atrial fibrillation with RVR and cardiology was reconsult it. He denies any chest pain or pressure, shortness breath. He denies any palpitations. Overall he states he is feeling somewhat better and is anxious to possibly be discharged tomorrow. Heart rates have been from the 50s up until the low 100s. He denies any changes of his breathing however. He has been on metoprolol 25 mg 3 times a day. Blood pressures borderline systolics 90s up to the low 110s. REVIEW OF SYSTEMS: Thorough review of systems not completed secondary to limited evaluation/examination due to Covid19 PHYSICAL EXAM: Thorough physical exam not completed secondary to limited evaluation/examination due to Covid19 ASSESSMENT: Covid 19 Weakness Hypotension Abnormal troponins, not suggestive of acute coronary syndrome Coronary artery disease with previous PCI, last in 2006 with stent to obtuse marginal branch 1 Ischemic cardiomyopathy, ejection fraction 2025%, refusing AICD in the past Chronic persistent atrial fibrillation History of hypertension Osteoarthritis Thrombocytopenia PLAN: We will increase metoprolol to 37.5 mg 3 times a day. Predominantly however heart rates have been controlled. Patient also has some mild bradycardic episodes, the 50s. Continue to monitor, no current ischemic syptoms. Objective - Vital Signs Vital signs: Vital Signs Temp 98.1 F 02/25/21 18:00 Pulse 113 H 02/25/21 18:00 Resp 16 02/25/21 18:00 BP 113/77 02/25/21 18:00 Pulse Ox 97 02/25/21 18:00 Intake & Output 02/25/21 02/25/21 02/26/21 06:59 18:59 06:59 Output Total 700 600 Balance -700 -600 Output: Urine 700 600 Uretheral (Mariee) 100 Other: Voiding Method Indwelling Catheter Indwelling Catheter # Bowel Movements 1 1 - Labs CBC & Chem 7: 02/25/21 06:53 02/24/21 20:14 Labs: Abnormal Lab Results - Last 24 Hours (Table) 02/24/21 02/25/21 Range/Units 20:14 06:53 WBC 10.10 H (4.50-10.00) X 10*3/uL RBC 3.71 L (4.40-5.60) X 10*6/uL Hgb 11.1 L (13.0-17.0) g/dL Hct 35.1 L (39.6-50.0) % MCHC 31.6 L (32.0-37.0) g/dL RDW 16.5 H (11.5-14.5) % Plt Count 76 L (140-440) X 10*3/uL Plt Count Comment DECREASED A Immature Gran # 0.15 H (0.00-0.04) X 10*3/uL Neutrophils # 7.99 H (1.80-7.70) X 10*3/uL Eosinophils # 0.36 H (0.04-0.35) X 10*3/uL Immature Plt Fraction 7.4 H (1.1-6.1) % Creatinine 0.5 L (0.6-1.5) mg/dL BUN/Creatinine Ratio 32.00 H (12.00-20.00) Ratio Calcium 7.7 L (8.7-10.3) mg/dL ALT 67 H (10-49) U/L Total Protein 4.4 L (6.2-8.2) g/dL Albumin 2.50 L (3.80-4.90) g/dL Albumin/Globulin Ratio 1.32 L (1.60-3.17) g/dL Microbiology - Last 24 Hours (Table) 02/20/21 16:23 Blood Culture - Preliminary Blood No Growth after 120 hours 02/23/21 07:14 Blood Culture - Preliminary Blood No Growth after 48 hours
[2021-02-25] MEDS: ATORVASTATIN 40 MG TAB PO SCH (21:32)
[2021-02-25] MEDS: METOPROLOL TARTRATE 12.5 MG TAB PO SCH (21:33)
[2021-02-26] MEDS: MEROPENEM 1 GM in SODIUM CHLORIDE 0.9% 100 ML IVPB SCH ×3 (01:41→17:20)
[2021-02-26] MEDS: SODIUM CHLORIDE 0.9% 1,000 ML IV SCH ×3 (01:42→20:40)
[2021-02-26] MEDS: METOPROLOL TARTRATE 12.5 MG TAB PO SCH ×3 (05:09→20:40)
[2021-02-26] MEDS: guaiFENesin 600 MG TABLET.ER PO SCH ×2 (08:21→20:39)
[2021-02-26] MEDS: TAMSULOSIN 0.4 MG CAP.ER.24H PO SCH (08:21)
[2021-02-26] MEDS: SACUBITRIL/VALSARTAN 24 MG-26 MG TABLET PO SCH ×2 (08:21→20:40)
[2021-02-26] MEDS: ASCORBIC ACID 500 MG TAB PO SCH (08:21)
[2021-02-26] MEDS: ALBUTEROL HFA INHALER INHALATION SCH ×3 (08:34→19:08)
[2021-02-26 09:37] LABS: Basophils # (A) 0.02 X 10*3/uL (0.00-0.10); Basophils % (A) 0.2 %; Eosinophils # (A) 0.41 X 10*3/uL (0.04-0.35); Eosinophils % (A) 4.7 %; HCT 34.8 % (39.6-50.0); HGB 11.1 g/dL (13.0-17.0); Lymphocytes # (A) 0.95 X 10*3/uL (0.90-5.00); Lymphocytes % (A) 10.9 %; MCH 30.1 pg (27.0-32.0); MCHC 31.9 g/dL (32.0-37.0); MCV 94.3 fL (80.0-97.0); Mean Platelet Volume 10.4 fL (9.5-12.2); Monocytes % (A) 8.1 %; Neutrophils # (A) 6.44 X 10*3/uL (1.80-7.70); Neutrophils % (A) 74.3 %; Platelet Count 105 X 10*3/uL (140-440); RBC 3.69 X 10*6/uL (4.40-5.60); RDW 16.9 % (11.5-14.5); WBC 8.68 X 10*3/uL (4.50-10.00)
[2021-02-26 10:00] LABS: African American GFR (CKD) 123.8 (60.0-200.0); Anion Gap 5.1 mmol/L (4.00-12.00); BUN/Creat Ratio 27.5 Ratio (12.00-20.00); Calcium 7.8 mg/dL (8.7-10.3); Carbon Dioxide 28.9 mmol/L (21.6-31.8); Non-African American GFR(CKD) 106.8 (60.0-200.0); Potassium 4.1 mmol/L (3.5-5.5)
--- NOTE | 2021-02-26 11:36 | CDI ---
Documentation Clarification Form Date: 02/26/2021 11:07:18 AM From: Rea Velasquez RN CCDS Admit Date: 02/21/2021 01:43:00 PM Patient Name: Dereck Chatterjee Visit Number: [id number] Discharge Date: ATTENTION: The Clinical Documentation Specialists (CDI) and [facility] Coding Staff appreciate your assistance in clarifying documentation. Please respond to the clarification below the line at the bottom and electronically sign. The CDI & [facility] Coding staff will review the response and follow-up if needed. Please note: Queries are made part of the Legal Health Record. If you have any questions, please contact the author of this message via ITS. Dr. Blake Carlos A Sacral pressure ulcer is documented 02/21 Infectious Disease consult. Additional clarification regarding the stage of the pressure ulcer is requested. History/Risk Factors: 85-year-old male presents to the ED as a transfer from [facility] for significant weakness and a UTI. Medical History: CHF, HTN; Chronic delgado catheter; Bilateral lower leg edema and wears bilateral compression stockings. H&P 02/22. Clinical Indicators: ADLS Nursing 02/21: fall prevention, check hourly and two person assist. Location: Sacral / Coccyx Wound description Nursing wound assessment 02/21: Granulation Quality: [place]. Structure Exposed: None limited to skin breakdown. Wound margins: Macerated. Martina Wound: Warm, no abnormality. Drainage: Sanguineous. Drainage amount: Scant. Treatment: Turn Q2 02/21 Opitfoam gentle liquitrap bordered sacrum. Oral Nutrition supplement. Please clarify the stage of pressure ulcer Sacral, if known: [ ] Deep Tissue Injury Sacral [ ] Stage 2 Pressure Ulcer Sacral [ ] Stage 3 Pressure Ulcer Sacral [ ] Stage 4 Pressure Ulcer Sacral [ ] Unstageable Sacral Pressure ulcer [ ] Other condition, please specify [ ] Unable to determine Clinical Definitions: Stage 1 Pressure Ulcer: intact skin, non-blanching redness of local area Stage 2 Pressure Ulcer: Partial thickness, loss of dermis, pink wound bed Stage 3 Pressure Ulcer: Full thickness tissue loss Stage 4 Pressure Ulcer: Full thickness tissue loss with exposed bone, tendon, or muscle. Unstageable pressure ulcer: Full thickness tissue loss in which the base of the ulcer is covered by slough (yellow, werner, lara, green or brown) and/or eschar (werner, brown or black) in the wound bed. (Template Last Revised: December 2020) i didnot document pressure ulcer in my consult MTDD
--- NOTE | 2021-02-26 11:51 | CDI ---
Documentation Clarification Form Date: 02/26/2021 11:37:01 AM From: Rea Velasquez RN CCDS Admit Date: 02/21/2021 01:43:00 PM Patient Name: Dereck Chatterjee Visit Number: [id number] Discharge Date: ATTENTION: The Clinical Documentation Specialists (CDI) and [facility] Coding Staff appreciate your assistance in clarifying documentation. Please respond to the clarification below the line at the bottom and electronically sign. The CDI & [facility] Coding staff will review the response and follow-up if needed. Please note: Queries are made part of the Legal Health Record. If you have any questions, please contact the author of this message via ITS. Dr. Blake Carlos In Nursing Pressure Injury assessment 02/22 a Left Heel Pressure ulcer Stage 3 pressure ulcer is documented. Based on this information and the findings below, is there an additional diagnosis that is clinically appropriate for this patient? History/Risk Factors: 85-year-old male presents to the ED as a transfer from [facility] for significant weakness and a UTI. Medical History: CHF, HTN; Chronic delgado catheter; Bilateral lower leg edema and wears bilateral compression stockings. H&P 02/22. Clinical Indicators: ADLS Nursing 02/21: fall prevention, check hourly and two-person assist. Location: Left Heel Wound description Nursing Wound assessment 02/22: Present on admission. Pressure Injury staging: Stage III; Structure exposed None limited to skin breakdown. Martina-wound moisture: Maceration, moist. Drainage Description: Serosanguineous. Drainage amount: small. Dressing status: Dry Intact changed. Treatment: 02/22 Medi Boots bilateral feet and elevate heels. Oral nutrition supplement Is there an additional diagnosis that is clinically appropriate for this patient? [ ] Left Heel Pressure Ulcer Stage 1 [ ] Left Heel Pressure Ulcer Stage 2 [ ] Left Heel Pressure Ulcer Stage 3 [ ] Left Heel Pressure Ulcer Stage 4 [ ] Left Heel Pressure Ulcer unstageable [ ] Left Heel Deep tissue injury [ ] Other condition, please specify [ ] Unable to determine Clinical Definitions: Stage 1 Pressure Ulcer: intact skin, non-blanching redness of local area Stage 2 Pressure Ulcer: Partial thickness, loss of dermis, pink wound bed Stage 3 Pressure Ulcer: Full thickness tissue loss Stage 4 Pressure Ulcer: Full thickness tissue loss with exposed bone, tendon, or muscle. Unstageable pressure ulcer: Full thickness tissue loss in which the base of the ulcer is covered by slough (yellow, werner, lara, green or brown) and/or eschar (werner, brown or black) in the wound bed. (Template Last Revised: December 2020) ____i didnot document pressure ulcer in my note , forward qurey to whoever has documented it MTDD
--- NOTE | 2021-02-26 14:18 | P.PN ---
Subjective This is a 85-year-old male with a past medical history significant for atrial fibrillation (on eliquis at home), ischemic cardiomyopathy EF 20-25%, coronary artery disease s/p previous PCI in 2006) and congestive heart failure. According to recent cardiology consult note patient has refused AICD implantation in the past. Patient follows in the office with Dr. Gonzalez. We have been asked to see the patient in consultation for elevated troponins. Cardiology signed off. Cardiology was reconsulted for atrial fibrillation with RVR. Patient is currently admitted to the hospital secondary to weakness, hypotension, and Covid 19. troponin trend 0.05-->0.04--0.03. EKG reveals atrial fibrillation with controlled ventricular rate. Left axis deviation. Left bundle branch block. Chest x-ray cardiomegaly. No acute lung disease. There is clearing of pulmonary congestion pulmonary infiltrates compared with exam. Echocardiogram revealed EF between 20-25%, LA severely dilated, mild aortic regurgitation, moderate to severe mitral regurgitation, rahhpmjj-[id number] tricuspid regurgitation, moderate pulmonary hypertension. 02/26 Patient seen and examined. Patient had another episode of atrial fibrillation with RVR and cardiology was reconsult it. He denies any chest pain or pressure, shortness breath. He denies any palpitations. He is currently not on telemetry. HR appear to be controlled from documentation in the EMR. BP 95/64, heart rate 69, afebrile, maintaining oxygen saturation is 95% on 2 L nasal cannula. He's currently being maintained on atorvastatin 40 mg nightly, metoprolol tartrate 37.5 mg 3 times a day, and chest to 24 mg26 mg twice a day. Eliquis is being held due to thrombocytopenia. Laboratory data review WBC 8.6, hemoglobin 11.1, platelets 49-->76-->105. Sodium 140, potassium 4.1, serum creatinine 0.4 PHYSICAL EXAM: Thorough physical exam not completed secondary to limited evaluation/examination due to Covid19 ASSESSMENT: Covid 19 infection Weakness Hypotension Abnormal troponins, not suggestive of acute coronary syndrome, troponin trend 0.05-->0.04--0.03, no evidence of ischemia on EKG. Coronary artery disease with previous PCI, last in 2006 with stent to obtuse marginal branch Ischemic cardiomyopathy, ejection fraction 20-25%, refusing AICD in the past Chronic persistent atrial fibrillation - on eliquis, being held due to thrombocytopenia History of hypertension Osteoarthritis Thrombocytopenia UTI PLAN: An acute coronary event has been ruled out Predominantly however heart rates have been controlled. Treatment of hypotension per internal medicine Patient with new thrombocytopenia. Platelet count earlier this month was 169. Eliquis is currently being held. May benefit from hematology consult for recommendations regarding anticoagulation Will continue cardiac medications with parameters to hold for SBP less than 100 No further inpatient recommendations from a cardiac standpoint. We will sign off. Please reconsult if needed. Objective - Vital Signs Vital signs: Vital Signs Temp 97.5 F L 02/26/21 10:00 Pulse 69 02/26/21 10:00 Resp 17 02/26/21 10:00 BP 95/64 02/26/21 10:00 Pulse Ox 95 02/26/21 10:00 Intake & Output 02/25/21 02/26/21 02/26/21 18:59 06:59 18:59 Output Total 600 600 Balance -600 -600 Weight 118 kg Output: Urine 600 600 Other: Voiding Method Indwelling Catheter Indwelling Catheter Indwelling Catheter # Bowel Movements 1 - Labs CBC & Chem 7: 02/26/21 06:01 02/26/21 06:01 Labs: Abnormal Lab Results - Last 24 Hours (Table) 02/26/21 02/26/21 Range/Units 06:01 06:01 RBC 3.69 L (4.40-5.60) X 10*6/uL Hgb 11.1 L (13.0-17.0) g/dL Hct 34.8 L (39.6-50.0) % MCHC 31.9 L (32.0-37.0) g/dL RDW 16.9 H (11.5-14.5) % Plt Count 105 L (140-440) X 10*3/uL Plt Count Comment DECREASED A Immature Gran # 0.16 H (0.00-0.04) X 10*3/uL Eosinophils # 0.41 H (0.04-0.35) X 10*3/uL Creatinine 0.4 L (0.6-1.5) mg/dL BUN/Creatinine Ratio 27.50 H (12.00-20.00) Ratio Calcium 7.8 L (8.7-10.3) mg/dL Microbiology - Last 24 Hours (Table) 02/23/21 07:14 Blood Culture - Preliminary Blood No Growth after 72 hours 02/20/21 16:23 Blood Culture - Preliminary Blood No Growth after 120 hours
[2021-02-26 15:09] VITALS: BMI 37.3
[2021-02-26] MEDS: ATORVASTATIN 40 MG TAB PO SCH (20:40)
[2021-02-26 21:06] LABS: Glucose,Whole Blood 120 mg/dL (75-99)
--- NOTE | 2021-02-26 23:10 | PN ---
PROGRESS NOTE DATE OF SERVICE: 02/26/2021 REASON FOR FOLLOWUP VISIT: Multidrug resistant Pseudomonas UTI and bacteremia. INTERVAL HISTORY: Patient is seen on rounds this morning. The patient has been afebrile. The patient is breathing comfortably. Complaining of mild cough. No weakness. No chest pain. No cough. No abdominal pain. No diarrhea. PHYSICAL EXAMINATION: Blood pressure 120/77 with a pulse of 75, temperature is 97.7. He is 98% on 2 L nasal cannula. General description is an elderly male lying in bed in no distress. Respiratory system: Unlabored breathing, clear to auscultation anteriorly. Heart S1, S2. Regular rate and rhythm. ABDOMEN: Soft, no tenderness. EXTREMITIES: No edema of the feet. LABS: Hemoglobin is 11.1, white count 8.6, BUN of 11, creatinine 0.4. DIAGNOSTIC IMPRESSION AND PLAN: Patient with multidrug resistant Pseudomonas aeruginosa urinary tract infection and bacteremia. Repeat blood culture has been negative. Patient will get a midline and plan is for a total of 2 weeks of and Meropenem from his negative blood cultures and close outpatient followup. MMODL / IJN: [id number] / MTDD
[2021-02-27] MEDS: MEROPENEM 1 GM in SODIUM CHLORIDE 0.9% 100 ML IVPB SCH ×3 (01:00→16:59)
[2021-02-27] MEDS: METOPROLOL TARTRATE 12.5 MG TAB PO SCH ×3 (05:39→20:47)
--- NOTE | 2021-02-27 07:58 | P.PN ---
Subjective Principal diagnosis: The patient is here essentially for UTI with sepsis element and weakness. He is doing much better and tolerating diet. No new complaints are stated. No sniffing nausea, vomiting or diarrhea. Generalized weakness and element of presbyopia Objective - Vital Signs Vital signs: Vital Signs Temp 97.9 F 02/27/21 05:26 Pulse 66 02/27/21 05:26 Resp 16 02/27/21 05:26 BP 123/80 02/27/21 05:26 Pulse Ox 97 02/27/21 05:26 Intake & Output 02/26/21 02/27/21 02/27/21 18:59 06:59 18:59 Output Total 1000 1150 Balance -1000 -1150 Weight 118 kg 119 kg Output: Urine 1000 1150 Other: Voiding Method Indwelling Catheter Indwelling Catheter # Bowel Movements 1 - Constitutional General appearance: Present: obese. Absent: no acute distress - EENT Eyes: Present: abnormal pupil - Neck Neck: Absent: lymphadenopathy - Respiratory Respiratory: bilateral: diminished - Cardiovascular Rhythm: irregularly irregular Heart sounds: normal: S1, S2 Abnormal Heart Sounds: Absent: S3 Gallop - Gastrointestinal General gastrointestinal: Present: soft. Absent: tenderness - Integumentary Integumentary: Present: normal. Absent: rash - Labs CBC & Chem 7: 02/26/21 06:01 02/26/21 06:01 Labs: Abnormal Lab Results - Last 24 Hours (Table) 02/26/21 02/26/21 02/26/21 Range/Units 06:01 06:01 21:05 RBC 3.69 L (4.40-5.60) X 10*6/uL Hgb 11.1 L (13.0-17.0) g/dL Hct 34.8 L (39.6-50.0) % MCHC 31.9 L (32.0-37.0) g/dL RDW 16.9 H (11.5-14.5) % Plt Count 105 L (140-440) X 10*3/uL Plt Count Comment DECREASED A Immature Gran # 0.16 H (0.00-0.04) X 10*3/uL Eosinophils # 0.41 H (0.04-0.35) X 10*3/uL Creatinine 0.4 L (0.6-1.5) mg/dL BUN/Creatinine Ratio 27.50 H (12.00-20.00) Ratio POC Glucose (mg/dL) 120 H (75-99) mg/dL Calcium 7.8 L (8.7-10.3) mg/dL Microbiology - Last 24 Hours (Table) 02/20/21 16:23 Blood Culture - Final Blood No Growth after 144 hours 02/23/21 07:14 Blood Culture - Preliminary Blood No Growth after 72 hours Assessment and Plan (1) Atrial fibrillation Current Visit: Yes Status: Acute Code(s): I48.91 - UNSPECIFIED ATRIAL FIBRILLATION SNOMED Code(s): 97094568 (2) UTI (urinary tract infection) Current Visit: Yes Status: Acute Code(s): N39.0 - URINARY TRACT INFECTION, SITE NOT SPECIFIED SNOMED Code(s): 69025100 (3) Weakness Current Visit: Yes Status: Acute Code(s): R53.1 - WEAKNESS SNOMED Code(s): 47436259 (4) CAD (coronary artery disease) Current Visit: No Status: Acute Code(s): I25.10 - ATHSCL HEART DISEASE OF [place] CORONARY ARTERY W/O ANG PCTRS SNOMED Code(s): 11961551 (5) HTN (hypertension) Current Visit: No Status: Acute Code(s): I10 - ESSENTIAL (PRIMARY) HYPERTENSION SNOMED Code(s): 12244427 (6) Multiple falls Current Visit: No Status: Acute Code(s): R29.6 - REPEATED FALLS SNOMED Cod e(s): 083820605 Plan: Continue antibiotic treatment. The patient is tolerating Zosyn New. Check CBC and CMP in a.m. Increase ambulation. Appreciate cardiology input.
--- NOTE | 2021-02-27 08:00 | P.PN ---
Subjective Principal diagnosis: The patient is here essentially for UTI with sepsis element and weakness. He is doing much better and tolerating diet. No new complaints are stated. No sniffing nausea, vomiting or diarrhea. Generalized weakness and element of presbyopia. Appreciate ID input. The patient has an element of multidrug resistant Pseudomonas. The plan is for the patient to get midline. Objective - Vital Signs Vital signs: Vital Signs Temp 97.9 F 02/27/21 05:26 Pulse 66 02/27/21 05:26 Resp 16 02/27/21 05:26 BP 123/80 02/27/21 05:26 Pulse Ox 97 02/27/21 05:26 Intake & Output 02/26/21 02/27/21 02/27/21 18:59 06:59 18:59 Output Total 1000 1150 Balance -1000 -1150 Weight 118 kg 119 kg Output: Urine 1000 1150 Other: Voiding Method Indwelling Catheter Indwelling Catheter # Bowel Movements 1 - Constitutional General appearance: Present: no acute distress - EENT Eyes: Absent: abnormal pupil - Neck Neck: Absent: lymphadenopathy - Respiratory Respiratory: bilateral: CTA - Cardiovascular Rhythm: irregularly irregular Heart sounds: normal: S1, S2 Abnormal Heart Sounds: Absent: S3 Gallop - Gastrointestinal General gastrointestinal: Present: soft. Absent: tenderness - Neurologic Neurologic: Absent: CNII-XII intact - Labs CBC & Chem 7: 02/26/21 06:01 02/26/21 06:01 Labs: Abnormal Lab Results - Last 24 Hours (Table) 02/26/21 02/26/21 02/26/21 Range/Units 06:01 06:01 21:05 RBC 3.69 L (4.40-5.60) X 10*6/uL Hgb 11.1 L (13.0-17.0) g/dL Hct 34.8 L (39.6-50.0) % MCHC 31.9 L (32.0-37.0) g/dL RDW 16.9 H (11.5-14.5) % Plt Count 105 L (140-440) X 10*3/uL Plt Count Comment DECREASED A Immature Gran # 0.16 H (0.00-0.04) X 10*3/uL Eosinophils # 0.41 H (0.04-0.35) X 10*3/uL Creatinine 0.4 L (0.6-1.5) mg/dL BUN/Creatinine Ratio 27.50 H (12.00-20.00) Ratio POC Glucose (mg/dL) 120 H (75-99) mg/dL Calcium 7.8 L (8.7-10.3) mg/dL Microbiology - Last 24 Hours (Table) 02/20/21 16:23 Blood Culture - Final Blood No Growth after 144 hours 02/23/21 07:14 Blood Culture - Preliminary Blood No Growth after 72 hours Assessment and Plan (1) Atrial fibrillation Current Visit: Yes Status: Acute Code(s): I48.91 - UNSPECIFIED ATRIAL FIBRILLATION SNOMED Code(s): 21989893 (2) UTI (urinary tract infection) Current Visit: Yes Status: Acute Code(s): N39.0 - URINARY TRACT INFECTION, SITE NOT SPECIFIED SNOMED Code(s): 47808205 (3) Weakness Current Visit: Yes Status: Acute Code(s): R53.1 - WEAKNESS SNOMED Code(s): 02692122 (4) CAD (coronary artery disease) Current Visit: No Status: Acute Code(s): I25.10 - ATHSCL HEART DISEASE OF [place] CORONARY ARTERY W/O ANG PCTRS SNOMED Code(s): 54231874 (5) HTN (hypertension) Current Visit: No Status: Acute Code(s): I10 - ESSENTIAL (PRIMARY) HYPERTENSION SNOMED Code(s): 07482482 (6) Multiple falls Current Visit: No Status: Acute Code(s): R29.6 - REPEATED FALLS SNOMED Code(s): 751376203 Plan: Continue antibiotic treatment. The patient is tolerating Zosyn New. Check CBC and CMP in a.m. Increase ambulation. Appreciate cardiology input. We will anticipate IDs plan of getting midline and then discharging once antibiotic treatment has been started.
[2021-02-27] MEDS: ALBUTEROL HFA INHALER INHALATION SCH ×3 (08:36→21:16)
--- NOTE | 2021-02-27 08:36 | CDI ---
Documentation Clarification Form Date: 02/26/2021 11:07:18 AM From: Rea Velasquez RN CCDS Admit Date: 02/21/2021 01:43:00 PM Patient Name: Dereck Chatterjee Visit Number: [id number] Discharge Date: ATTENTION: The Clinical Documentation Specialists (CDI) and [facility] Coding Staff appreciate your assistance in clarifying documentation. Please respond to the clarification below the line at the bottom and electronically sign. The CDI & [facility] Coding staff will review the response and follow-up if needed. Please note: Queries are made part of the Legal Health Record. If you have any questions, please contact the author of this message via ITS. Dr. Ramiro Yost, A Sacral pressure ulcer is documented 02/21 Infectious Disease consult. Additional clarification regarding the stage of the pressure ulcer is requested. History/Risk Factors: 85-year-old male presents to the ED as a transfer from [facility] for significant weakness and a UTI. Medical History: CHF, HTN; Chronic delgado catheter; Bilateral lower leg edema and wears bilateral compression stockings. H&P 02/22. Clinical Indicators: ADLS Nursing 02/21: fall prevention, check hourly and two-person assist. Location: Sacral / Coccyx Wound description Nursing wound assessment 02/21: Granulation Quality: [place]. Structure Exposed: None limited to skin breakdown. Wound margins: Macerated. Martina Wound: Warm, no abnormality. Drainage: Sanguineous. Drainage amount: Scant. Treatment: Turn Q2 02/21 Opitfoam gentle liquitrap bordered sacrum. Oral Nutrition supplement. Please clarify the stage of pressure ulcer Sacral, if known: [ ] Deep tissue injury Sacral [ x ] Stage 2 Pressure Ulcer Sacral [ ] Stage 3 Pressure Ulcer Sacral [ ] Stage 4 Pressure Ulcer Sacral [ ] Unstageable Sacral Pressure ulcer [ ] Other condition, please specify [ ] Unable to determine Clinical Definitions: Stage 1 Pressure Ulcer: intact skin, non-blanching redness of local area Stage 2 Pressure Ulcer: Partial thickness, loss of dermis, pink wound bed Stage 3 Pressure Ulcer: Full thickness tissue loss Stage 4 Pressure Ulcer: Full thickness tissue loss with exposed bone, tendon, or muscle. Unstageable pressure ulcer: Full thickness tissue loss in which the base of the ulcer is covered by slough (yellow, werner, lara, green or brown) and/or eschar (werner, brown or black) in the wound bed. (Template Last Revised: December 2020) MTDD
--- NOTE | 2021-02-27 08:38 | CDI ---
Documentation Clarification Form Date: 02/26/2021 11:37:01 AM From: Rea Velasquez RN CCDS Admit Date: 02/21/2021 01:43:00 PM Patient Name: Dereck Chatterjee Visit Number: [id number] Discharge Date: ATTENTION: The Clinical Documentation Specialists (CDI) and [facility] Coding Staff appreciate your assistance in clarifying documentation. Please respond to the clarification below the line at the bottom and electronically sign. The CDI & [facility] Coding staff will review the response and follow-up if needed. Please note: Queries are made part of the Legal Health Record. If you have any questions, please contact the author of this message via ITS. Dr. Ramiro Yost, In Nursing Pressure Injury assessment 02/22 a Left Heel Pressure ulcer Stage 3 pressure ulcer is documented. Based on this information and the findings below, is there an additional diagnosis that is clinically appropriate for this patient? History/Risk Factors: 85-year-old male presents to the ED as a transfer from [facility] for significant weakness and a UTI. Medical History: CHF, HTN; Chronic delgado catheter; Bilateral lower leg edema and wears bilateral compression stockings. H&P 02/22. Clinical Indicators: ADLS Nursing 02/21: fall prevention, check hourly and two-person assist. Location: Left Heel Wound description Nursing Wound assessment 02/22: Present on admission. Pressure Injury staging: Stage III; Structure exposed None limited to skin breakdown. Martina-wound moisture: Maceration, moist. Drainage Description: Serosanguineous. Drainage amount: small. Dressing status: Dry Intact changed. Treatment: 02/22 Medi Boots bilateral feet and elevate heels. Oral nutrition supplement Is there an additional diagnosis that is clinically appropriate for this patient? [ ] Left Heel Pressure Ulcer Stage 1 [ ] Left Heel Pressure Ulcer Stage 2 [ x ] Left Heel Pressure Ulcer Stage 3 [ ] Left Heel Pressure Ulcer Stage 4 [ ] Left Heel Pressure Ulcer unstageable [ ] Left Heel Deep tissue injury [ ] Other condition, please specify [ ] Unable to determine Clinical Definitions: Stage 1 Pressure Ulcer: intact skin, non-blanching redness of local area Stage 2 Pressure Ulcer: Partial thickness, loss of dermis, pink wound bed Stage 3 Pressure Ulcer: Full thickness tissue loss Stage 4 Pressure Ulcer: Full thickness tissue loss with exposed bone, tendon, or muscle. Unstageable pressure ulcer: Full thickness tissue loss in which the base of the ulcer is covered by slough (yellow, werner, lara, green or brown) and/or eschar (werner, brown or black) in the wound bed. (Template Last Revised: December 2020) MTDD
[2021-02-27] MEDS: ASCORBIC ACID 500 MG TAB PO SCH (09:17)
[2021-02-27] MEDS: TAMSULOSIN 0.4 MG CAP.ER.24H PO SCH (09:17)
[2021-02-27] MEDS: SODIUM CHLORIDE 0.9% 1,000 ML IV SCH ×2 (09:17→16:59)
[2021-02-27] MEDS: guaiFENesin 600 MG TABLET.ER PO SCH ×2 (09:18→20:48)
[2021-02-27] MEDS: SACUBITRIL/VALSARTAN 24 MG-26 MG TABLET PO SCH ×2 (09:18→20:48)
--- NOTE | 2021-02-27 10:44 | CDI ---
Documentation Clarification Form Date: 02/27/2021 09:37:11 AM From: Rea Velasquez RN CCDS Admit Date: 02/21/2021 01:43:00 PM Patient Name: Dereck Chatterjee Visit Number: [id number] Discharge Date: ATTENTION: The Clinical Documentation Specialists (CDI) and [facility] Coding Staff appreciate your assistance in clarifying documentation. Please respond to the clarification below the line at the bottom and electronically sign. The CDI & [facility] Coding staff will review the response and follow-up if needed. Please note: Queries are made part of the Legal Health Record. If you have any questions, please contact the author of this message via ITS. Dr. Ramiro Yost The COVID-19 test obtained on 02/20 was reported as Positive. History/risk factors: 85-year-old male presents to the ED as a transfer from [facility] on the [facility] for significant weakness, admitted with UTI. Medical History: Discharged to [facility] 02/08 after a diagnosis and treatment of COVID 19. ID Consult 02/21. Clinical Indicators: Patient did have positive COVID test. The patient has been recently tested and treated for COVID 19 at the end of January. Clinically doubt re-infection. ID Consult 02/21. Chest Xray 02/21: Heart is enlarged. Minimal pleural reaction. COVID 19 Test 02/20: Detected A VSS 02/21: B/P 110/64, HR 92, Temp 98.2 F Oral, RR 18, SpO2 97% 2L nasal cannula Treatment: 02/20 Ventolin Hfa Inhaler 2 puff Inhalation TID; 02/21 Ventolin Hfa Inhaler 2 puff Inhalation Q6HR PRN; 02/21 Vitamin C 500mg PO daily; 02/21 Mucinex 600mg PO Q12HR. Please clarify the COVID-19 status: [ x ] Positive test from a previous infection [ ] Positive test with active infection. [ ] Other, please specify (Template Last Revised: December 2020) MTDD
--- NOTE | 2021-02-27 11:18 | CDI ---
Documentation Clarification Form Date: 02/27/2021 10:45:20 AM From: Rea Velasquez RN CCDS Admit Date: 02/21/2021 01:43:00 PM Patient Name: Dereck Chatterjee Visit Number: [id number] Discharge Date: ATTENTION: The Clinical Documentation Specialists (CDI) and [facility] Coding Staff appreciate your assistance in clarifying documentation. Please respond to the clarification below the line at the bottom and electronically sign. The CDI & [facility] Coding staff will review the response and follow-up if needed. Please note: Queries are made part of the Legal Health Record. If you have any questions, please contact the author of this message via ITS. Dr. Ramiro Yost, Patient admitted to hospital generalized weakness, hypertension, significantly positive UA, likely catheter associated urinary tract infection. ID consult 02/21. But is not noted in subsequent documentation. History/Risk Factors: 85-year-old male presents to the ED as a transfer from [facility] on the [facility] for significant weakness, admitted with UTI. Medical History: Atrial Fibrillation; Heart Failure; Recent admission for COVID 19; DE and HTN. H&P 02/22. Clinical Indicators: Urinalysis 02/20: Moderate blood, Large Leukocyte esterase, >182 Wbc, Bacteria Many Urine culture 02/20: Pseudomonas aeruginosa Lab results 02/20: Wbc 16.9, Lactic acid 3.0 Treatment: 02/21 Cefepime HCL 1gm IVPB X1; 02/21 Cefepime HCL 1gm IVPB Q12HR d/cd 02/21, 02/20 Ceftriaxone 2gm IVPB X1, 02/20 Levaquin 750mg IVPB x1, 02/23 Meropenem 1gm IVPB Q8HR to current, Piperacillin Sod/Tazobactam 3.375gm IVPB Q8HR d/c 02/20. Please clarify the etiology of the UTI, if known: [ x] UTI related to Mariee catheter [ ] UTI not related to Mariee catheter [ ] Other condition, please specify [ ] Unable to determine (Template Last Revised: December 2020) MTDD
--- NOTE | 2021-02-27 14:38 | PN ---
PROGRESS NOTE DATE OF SERVICE: 02/27/2021 REASON FOR FOLLOWUP: Multidrug resistant Pseudomonas UTI and bacteremia. INTERVAL HISTORY: The patient is currently afebrile. Patient is breathing comfortably. The patient denies having any chest pain, shortness of breath or cough. No abdominal pain or diarrhea. PHYSICAL EXAMINATION: Blood pressure 119/93 with a pulse of 103, temperature is 97.8. He is 94% on 2 L nasal cannula. General description is an elderly male lying in bed in no distress. RESPIRATORY SYSTEM: Unlabored breathing, clear to auscultation anteriorly. HEART: S1, S2. Regular rate and rhythm. ABDOMEN: Soft, no tenderness. LABS: No new labs been obtained today. Blood culture repeat has been negative so far. DIAGNOSTIC IMPRESSION AND PLAN: Patient with multidrug resistant Pseudomonas urinary tract infection clinically responding to the meropenem. Repeat blood culture has been negative. IV meropenem for which the patient had Midline. Continue supportive care. MMODL / IJN: [id number] / MTDD
[2021-02-27] MEDS: ATORVASTATIN 40 MG TAB PO SCH (20:48)
[2021-02-28] MEDS: MEROPENEM 1 GM in SODIUM CHLORIDE 0.9% 100 ML IVPB SCH ×2 (02:05→11:58)
[2021-02-28 02:23] VITALS: RESP 18
[2021-02-28] MEDS: METOPROLOL TARTRATE 12.5 MG TAB PO SCH (05:33)
[2021-02-28] MEDS: SODIUM CHLORIDE 0.9% 1,000 ML IV SCH (05:40)
[2021-02-28] MEDS: guaiFENesin 600 MG TABLET.ER PO SCH (08:13)
[2021-02-28] MEDS: SACUBITRIL/VALSARTAN 24 MG-26 MG TABLET PO SCH (08:13)
[2021-02-28] MEDS: TAMSULOSIN 0.4 MG CAP.ER.24H PO SCH (08:13)
[2021-02-28] MEDS: ASCORBIC ACID 500 MG TAB PO SCH (08:13)
[2021-02-28] MEDS: ALBUTEROL HFA INHALER INHALATION SCH ×2 (08:16→11:37)
--- NOTE | 2021-02-28 08:20 | P.DS ---
Providers Date of admission: 02/21/21 13:43 Attending physician: Ramiro Yost Consults: 02/21/21 11:18 Consult Physician Routine Consulting Provider: Blake Carlos Consult Reason/Comments: sepsis, COVID, UTI Do you want consulting provider notified?: Yes 02/24/21 15:43 Consult Physician Urgent Consulting Provider: Jose Esteves Consult Reason/Comments: afib rvr Do you want consulting provider notified?: Yes Primary care physician: Davian Thakur - Discharge Diagnosis(es) (1) Atrial fibrillation Current Visit: Yes Status: Acute (2) UTI (urinary tract infection) Current Visit: Yes Status: Acute (3) Weakness Current Visit: Yes Status: Acute (4) CAD (coronary artery disease) Current Visit: No Status: Acute (5) HTN (hypertension) Current Visit: No Status: Acute (6) Multiple falls Current Visit: No Status: Acute Hospital Course: The patient is here essentially for element of UTI secondary to Mariee catheter and weakness. The patient was treated appropriate with meropenem and will be kept on this as per infectious disease. The patient is very weak and and fragile. But he sent home to [facility] for now. The patient will follow-up with me in about 5-7 days. Patient Condition at Discharge: Fair Plan - Discharge Summary Discharge Rx Participant: No New Discharge Prescriptions: New Meropenem [Merrem] 1 gm IVPB Q8H #21 vial No Action Tamsulosin HCl [Flomax] 0.4 mg PO DAILY@0800 Potassium Chloride ER [K-Dur 20] 20 meq PO DAILY@1700 Nitroglycerin Sl Tabs [Nitrostat] 0.4 mg SUBLINGUAL Q5M PRN PRN Reason: Chest Pain Simvastatin [Zocor] 80 mg PO HS@2100 Vit C/E/Zn/Coppr/Lutein/Zeaxan [Preservision Areds 2 Softgel] 1 tab PO BID@ 0800,1700 Sacubitril/Valsartan [Entresto 24 mg-26 mg Tablet] 1 tab PO BID@0800,1700 Albuterol Inhaler [Ventolin Hfa Inhaler] 2 puff INHALATION RT-TID puff ALPRAZolam [Xanax] 0.5 mg PO TID PRN #9 tab PRN Reason: Anxiety Na Phos,M-B/Na Phos,Di-Ba [Fleet Adult] 133 ml RECTAL DAILY PRN PRN Reason: Constipation Metoprolol Tartrate [Lopressor] 25 mg PO TID@0600,1400,2100 Furosemide [Lasix] 40 mg PO BID@0600,1400 Apixaban [Eliquis] 2.5 mg PO BID@0800,1700 Doxycycline Hyclate 100 mg PO BID@0800,2100 Magnesium Hydroxide [Milk of Magnesia Concentrate] 7,200 mg PO DAILY PRN PRN Reason: Constipation Ipratropium-Albuterol Nebulize [Duoneb 0.5 mg-3 mg/3 ml Soln] 3 ml INHALATION RT-Q6H Apixaban [Eliquis] 2.5 mg PO BID@0800,1700 Zinc Sulfate [Orazinc] 220 mg PO DAILY@1700 bisacodyL [Dulcolax] 10 mg RECTAL DAILY PRN PRN Reason: Constipation Lactose-Reduced Food [Ensure Plus] 1 can PO TID@0800,1200,1700 Melatonin 1 mg PO HS@2099 Ascorbic Acid [Vitamin C] 500 mg PO DAILY@170 Lidocaine 4% Cream [Lmx 4] 1 applic TOPICAL DAILY PRN PRN Reason: WOUND PAIN Acetaminophen [Tylenol] 650 mg PO Q4H PRN PRN Reason: GENERAL DISCOMFORT Ipratropium-Albuterol Nebulize [Duoneb 0.5 mg-3 mg/3 ml Soln] 3 ml INHALATION RT-Q6H PRN PRN Reason: Shortness Of Breath Discharge Medication List Nitroglycerin Sl Tabs [Nitrostat] 0.4 mg SUBLINGUAL Q5M PRN 07/11/16 [History] Potassium Chloride ER [K-Dur 20] 20 meq PO DAILY@169907/11/16 [History] Simvastatin [Zocor] 80 mg PO HS@209907/11/16 [History] Tamsulosin HCl [Flomax] 0.4 mg PO DAILY@79907/11/16 [History] Vit C/E/Zn/Coppr/Lutein/Zeaxan [Preservision Areds 2 Softgel] 1 tab PO BID@0800,1700 07/08/20 [History] Sacubitril/Valsartan [Entresto 24 mg-26 mg Tablet] 1 tab PO BID@0800,1700 02/04/21 [History] ALPRAZolam [Xanax] 0.5 mg PO TID PRN #9 tab 02/08/21 [Rx] Albuterol Inhaler [Ventolin Hfa Inhaler] 2 puff INHALATION RT-TID puff 02/08/21 [Rx] Acetaminophen [Tylenol] 650 mg PO Q4H PRN 02/20/21 [History] Apixaban [Eliquis] 2.5 mg PO BID@0800,169902/20/21 [History] Apixaban [Eliquis] 2.5 mg PO BID@0800,169902/20/21 [History] Ascorbic Acid [Vitamin C] 500 mg PO DAILY@169902/20/21 [History] Doxycycline Hyclate 100 mg PO BID@0800,209902/20/21 [History] Furosemide [Lasix] 40 mg PO BID@0600,1400 02/20/21 [History] Ipratropium-Albuterol Nebulize [Duoneb 0.5 mg-3 mg/3 ml Soln] 3 ml INHALATION RT-Q6H 02/20/21 [History] Ipratropium-Albuterol Nebulize [Duoneb 0.5 mg-3 mg/3 ml Soln] 3 ml INHALATION RT-Q6H PRN 02/20/21 [History] Lactose-Reduced Food [Ensure Plus] 1 can PO TID@0800,1200,169902/20/21 [History] Lidocaine 4% Cream [Lmx 4] 1 applic TOPICAL DAILY PRN 02/20/21 [History] Magnesium Hydroxide [Milk of Magnesia Concentrate] 7,200 mg PO DAILY PRN 02/20/21 [History] Melatonin 1 mg PO HS@209902/20/21 [History] Metoprolol Tartrate [Lopressor] 25 mg PO TID@0600,1400,209902/20/21 [History] Na Phos,M-B/Na Phos,Di-Ba [Fleet Adult] 133 ml RECTAL DAILY PRN 02/20/21 [History] Zinc Sulfate [Orazinc] 220 mg PO DAILY@169902/20/21 [History] bisacodyL [Dulcolax] 10 mg RECTAL DAILY PRN 02/20/21 [History] Meropenem [Merrem] 1 gm IVPB Q8H #21 vial 02/27/21 [Rx] Follow up Appointment(s)/Referral(s): Davian Thakur MD [Primary Care Provider] - 1-2 days Leslie Sanchez, [NON-STAFF] - As Needed
[2021-02-28 09:58] VITALS: BP 112/61; PULSE 54; TEMP 97.6
--- NOTE | 2021-02-28 14:57 | PN ---
PROGRESS NOTE DATE OF SERVICE: 02/28/2021. REASON FOR FOLLOWUP: Multidrug resistant Pseudomonas UTI and bacteremia. INTERVAL HISTORY: The patient is currently afebrile. The patient is breathing comfortably. The patient denies having any chest pain or shortness of breath or cough. No nausea, no vomiting. No abdominal pain or diarrhea. PHYSICAL EXAMINATION: Blood pressure 112/61, pulse of 54, temperature is 97.6. He is 96% on 2 L nasal cannula. General description is an elderly male lying in bed in no distress. RESPIRATORY SYSTEM: Unlabored breathing, clear to auscultation anteriorly. HEART: S1, S2. Regular rate and rhythm. ABDOMEN: Soft, no tenderness. LABS: No new labs have been obtained today. Blood culture repeat has been negative. DIAGNOSTIC IMPRESSION AND PLAN: Patient with multidrug resistant Pseudomonas urinary tract infection and bacteremia. Blood culture repeat has been negative so far. Plan is to finish therapy with meropenem for another week and close outpatient followup. Continue with supportive care. MMODL / IJN: [id number] /
== END 2021-02-28 13:33 | DRG 698 ==
LOC: EC 15:25 → 4SSUR 18:23 → OBSVTOIN 02-21 13:43 → 4SSUR 02-27 15:53
PROVIDERS: ADMIT Family Medicine; ATTEND Family Medicine
PROC: 05HC33Z Insertion of Infusion Device into Left Basilic Vein, Percutaneous Approach (ICD-10-PCS; principal; 2021-02-27 08:20)
DX: T83.511A Infection and inflammatory reaction due to indwelling urethral catheter, initial encounter (principal); A41.52 Sepsis due to Pseudomonas; L89.623 Pressure ulcer of left heel, stage 3; G93.41 Metabolic encephalopathy; J15.1 Pneumonia due to Pseudomonas; U07.1 COVID-19; E44.0 Moderate protein-calorie malnutrition; I48.19 Other persistent atrial fibrillation; N13.6 Pyonephrosis; I50.22 Chronic systolic (congestive) heart failure; Z16.24 Resistance to multiple antibiotics; I27.20 Pulmonary hypertension, unspecified; D69.6 Thrombocytopenia, unspecified; L89.152 Pressure ulcer of sacral region, stage 2; J67.0 Farmer's lung; I95.9 Hypotension, unspecified; I11.0 Hypertensive heart disease with heart failure; I08.3 Combined rheumatic disorders of mitral, aortic and tricuspid valves; I25.10 Atherosclerotic heart disease of native coronary artery without angina pectoris; I25.5 Ischemic cardiomyopathy; D64.9 Anemia, unspecified; I25.2 Old myocardial infarction; M19.90 Unspecified osteoarthritis, unspecified site; I83.90 Asymptomatic varicose veins of unspecified lower extremity; N42.9 Disorder of prostate, unspecified; H35.30 Unspecified macular degeneration; H52.4 Presbyopia; R26.9 Unspecified abnormalities of gait and mobility; R29.6 Repeated falls; E66.9 Obesity, unspecified; Z68.36 Body mass index [BMI] 36.0-36.9, adult; Z79.01 Long term (current) use of anticoagulants; Z79.899 Other long term (current) drug therapy; Z87.891 Personal history of nicotine dependence; Z87.19 Personal history of other diseases of the digestive system; Z90.79 Acquired absence of other genital organ(s); Z87.438 Personal history of other diseases of male genital organs; Z96.643 Presence of artificial hip joint, bilateral; Z86.19 Personal history of other infectious and parasitic diseases; Z87.01 Personal history of pneumonia (recurrent); Z95.5 Presence of coronary angioplasty implant and graft; Z98.890 Other specified postprocedural states; Z71.3 Dietary counseling and surveillance; Y84.6 Urinary catheterization as the cause of abnormal reaction of the patient, or of later complication, without mention of misadventure at the time of the procedure; Z80.6 Family history of leukemia; Z82.49 Family history of ischemic heart disease and other diseases of the circulatory system
CPT/HCPCS: 36410; 36415; 70450; 71045; 71046; 76770; 76937; 80048; 80053; 81001; 82140; 82728; 83605; 83615; 83735; 83880; 84145; 84484; 85025; 85027; 85379; 85384; 85610; 85652; 85730; 86140; 87040; 87077; 87086; 87186; 87635; 93005; 93306; 93970; 94640; 94760; 96365; 96366; 99285

== ENCOUNTER 2021-03-17 12:51 | Inpatient (IN) | payer MEDICARE, BC ==
[2021-03-17] MEDS ORDERED: SODIUM CHLORIDE 0.9% 1,000 ML IV STA (12:58)
[2021-03-17] MEDS ORDERED: IPRATROPIUM-ALBUTEROL 3 ML NEB INHALATION STA (12:58)
--- NOTE | 2021-03-17 13:01 | ED ---
General Adult HPI - General Stated complaint: LEVI Time Seen by Provider: 03/17/21 12:58 - History of Present Illness Initial comments: Dereck is an 85yo M since the emergency department today via ambulance for evaluation of hypoxia. Patient denies any complaints aside from not wanting all these tests. Patient currently resides at [facility], per staff the were rolling him to perform wound care on his sacral decubitus ulcer when the patient became hypoxic and cyanotic. Upon EMS arrival the patient was still cyanotic he was on 2 L nasal cannula which is his baseline. - Related Data Home Medications Medication Instructions Recorded Confirmed Nitroglycerin Sl Tabs [Nitrostat] 0.4 mg SUBLINGUAL Q5M PRN 07/11/16 03/17/21 Potassium Chloride ER [K-Dur 20] 20 meq PO DAILY@169907/11/16 03/17/21 Simvastatin [Zocor] 80 mg PO HS@209907/11/16 03/17/21 Tamsulosin HCl [Flomax] 0.4 mg PO HS@209907/11/16 03/17/21 Vit C/E/Zn/Coppr/Lutein/Zeaxan 1 tab PO BID@0800,1700 07/08/20 03/17/21 [Preservision Areds 2 Softgel] Sacubitril/Valsartan [Entresto 24 1 tab PO BID@0800,0 02/04/21 03/17/21 mg-26 mg Tablet] Acetaminophen [Tylenol] 650 mg PO Q4H PRN 02/20/21 03/17/21 Apixaban [Eliquis] 2.5 mg PO BID@0800,0 02/20/21 03/17/21 Ascorbic Acid [Vitamin C] 500 mg PO DAILY@169902/20/21 03/17/21 Furosemide [Lasix] 40 mg PO BID@0600,1800 02/20/21 03/17/21 Ipratropium-Albuterol Nebulize 3 ml INHALATION RT-Q6H PRN 02/20/21 03/17/21 [Duoneb 0.5 mg-3 mg/3 ml Soln] Lactose-Reduced Food [Ensure Plus] 1 can PO TID@0800,1200,0 02/20/21 03/17/21 Lidocaine 4% Cream [Lmx 4] 1 applic TOPICAL DAILY PRN 02/20/21 03/17/21 Magnesium Hydroxide [Milk of 7,200 mg PO DAILY PRN 02/20/21 03/17/21 Magnesia Concentrate] Metoprolol Tartrate [Lopressor] 12.5 mg PO BID@0800,1700 02/20/21 03/17/21 Na Phos,M-B/Na Phos,Di-Ba [Fleet 133 ml RECTAL DAILY PRN 02/20/21 03/17/21 Adult] Zinc Sulfate [Orazinc] 220 mg PO DAILY@1700 02/20/21 03/17/21 bisacodyL [Dulcolax] 10 mg RECTAL DAILY PRN 02/20/21 03/17/21 Albuterol Inhaler [Ventolin Hfa 2 puff INHALATION RT-TID 03/17/21 03/17/21 Inhaler] Fludrocortisone Acetate 0.05 mg PO BID@0800,1700 03/17/21 03/17/21 Levofloxacin [Levaquin] 500 mg PO DIRECTED 03/17/21 03/17/21 Loperamide HCl [Imodium A-D] 4 mg PO BID PRN 03/17/21 03/17/21 Midodrine HCl [ProAmatine] 10 mg PO TID@0600,1400,2100 03/17/21 03/17/21 Previous Rx's Medication Instructions Recorded ALPRAZolam [Xanax] 0.5 mg PO TID PRN #9 tab 02/28/21 Allergies Allergy/AdvReac Type Severity Reaction Status Date / Time No Known Allergies Allergy Verified 03/17/21 14:19 Review of Systems ROS Statement: Those systems with pertinent positive or pertinent negative responses have been documented in the HPI. ROS Other: All systems not noted in ROS Statement are negative. Past Medical History Past Medical History: Atrial Fibrillation, Coronary Artery Disease (CAD), Heart Failure, Eye Disorder, Hypertension, Myocardial Infarction ([place]), Osteoarthritis (OA), Prostate Disorder Additional Past Medical History / Comment(s): Bilateral macular degeneration-eyesight is poor, pt was told by physician that he had [place] in past, "reyna's lung", bilateral lower leg edema-takes lasix and wears bilateral compression stockings. Last Myocardial Infarction Date:: unkn History of Any Multi-Drug Resistant Organisms: CRE, Other MDRO Date of last positivie culture/infection: 01/26/21 MDRO Source:: URINE Past Surgical History: Hernia Repair, Joint Replacement Additional Past Surgical History / Comment(s): Bilateral total hip replacements, varicose veins stripped L leg, bilateral laser surgery on eyes for macular degeneration, bilateral inguinal hernia repairs with L testicle removed, eye injections. Past Anesthesia/Blood Transfusion Reactions: No Reported Reaction Additional Past Anesthesia/Blood Transfusion Reaction / Comment(s): Pt states he has been told that he is slow to wake with anesthesia. Smoking Status: Former smoker, Light tobacco smoker - Past Family History Father Family Medical History: Cancer Additional Family Medical History / Comment(s): Father of leukemia at the age of 49 yrs. Mother Family Medical History: Coronary Artery Disease (CAD) Additional Family Medical History / Comment(s): Mother of a ND at the age of 67yrs. She also had varicose veins. Course Vital Signs 03/17/21 03/17/21 03/17/21 13:22 13:51 14:00 Temperature 98.7 F Pulse Rate 94 102 H 108 H Respiratory 22 Rate Blood Pressure 82/48 O2 Sat by Pulse 98 Oximetry 03/17/21 16:03 Temperature Pulse Rate 93 Respiratory 20 Rate Blood Pressure 101/58 O2 Sat by Pulse 97 Oximetry EKG Findings - EKG Comments: EKG Findings:: EKG obtained at 1259, rate is 93 rhythm is irregularly irregula consistent with atrial fibrillation with a left bundle-branch block. No chest elevations or depressions no evidence of ischemia or infarction. Medical Decision Making - Medical Decision Making Pt seen and evaluated immediately to arrival in the emergency department an 85-year-old gentleman who was found to be cyanotic but with no complaints Labs and imaging were obtained and were relatively unremarkable however was noted the patient had rapid desaturation from oxygens in the 100s to the 80s if he was removed from supplemental oxygen Patient care was discussed with his primary care physician Dr. Thakur who [facility] the [facility], he recommended a PE study and accepted the admission for hypoxic respiratory failure CT study shows some evidence of congestive heart failure no pulmonary embolism no pneumonia - Lab Data Result diagrams: 03/17/21 13:17 03/17/21 13:17 Lab Results 03/17/21 03/17/21 03/17/21 Range/Units 13:17 13:17 13:17 WBC 10.2 (3.8-10.6) k/uL RBC 3.73 L (4.30-5.90) m/uL Hgb 11.6 L (13.0-17.5) gm/dL Hct 34.5 L (39.0-53.0) % MCV 92.4 (80.0-100.0) fL MCH 31.0 (25.0-35.0) pg MCHC 33.6 (31.0-37.0) g/dL RDW 15.9 H (11.5-15.5) % Plt Count 222 (150-450) k/uL MPV 7.2 Neutrophils % 84 % Lymphocytes % 6 % Monocytes % 7 % Eosinophils % 1 % Basophils % 1 % Neutrophils # 8.6 H (1.3-7.7) k/uL Lymphocytes # 0.7 L (1.0-4.8) k/uL Monocytes # 0.8 (0-1.0) k/uL Eosinophils # 0.1 (0-0.7) k/uL Basophils # 0.1 (0-0.2) k/uL PT 12.5 H (9.0-12.0) sec INR 1.2 H (<1.2) APTT 28.6 (22.0-30.0) sec VBG pH (7.31-7.41) VBG pCO2 (37-51) mmHg VBG HCO3 (24-28) mmol/L Sodium 128 L (137-145) mmol/L Potassium 4.9 (3.5-5.1) mmol/L Chloride 95 L (98-107) mmol/L Carbon Dioxide 25 (22-30) mmol/L Anion Gap 8 mmol/L BUN 30 H (9-20) mg/dL Creatinine 0.81 (0.66-1.25) mg/dL Est GFR (CKD-EPI)AfAm >90 (>60 ml/min/1.73 sqM) Est GFR (CKD-EPI)NonAf 80 (>60 ml/min/1.73 sqM) Glucose 80 (74-99) mg/dL Lactic Ac Sepsis Rflx Plasma Lactic Acid Aakash (0.7-2.0) mmol/L Calcium 8.5 (8.4-10.2) mg/dL Magnesium 1.8 (1.6-2.3) mg/dL Total Bilirubin 0.7 (0.2-1.3) mg/dL AST 27 (17-59) U/L ALT 16 (4-49) U/L Alkaline Phosphatase 126 (38-126) U/L Troponin I (0.000-0.034) ng/mL Total Protein 5.7 L (6.3-8.2) g/dL Albumin 2.8 L (3.5-5.0) g/dL 03/17/21 03/17/21 03/17/21 Range/Units 13:17 13:17 13:34 WBC (3.8-10.6) k/uL RBC (4.30-5.90) m/uL Hgb (13.0-17.5) gm/dL Hct (39.0-53.0) % MCV (80.0-100.0) fL MCH (25.0-35.0) pg MCHC (31.0-37.0) g/dL RDW (11.5-15.5) % Plt Count (150-450) k/uL MPV Neutrophils % % Lymphocytes % % Monocytes % % Eosinophils % % Basophils % % Neutrophils # (1.3-7.7) k/uL Lymphocytes # (1.0-4.8) k/uL Monocytes # (0-1.0) k/uL Eosinophils # (0-0.7) k/uL Basophils # (0-0.2) k/uL PT (9.0-12.0) sec INR (<1.2) APTT (22.0-30.0) sec VBG pH 7.39 (7.31-7.41) VBG pCO2 43 (37-51) mmHg VBG HCO3 25 (24-28) mmol/L Sodium (137-145) mmol/L Potassium (3.5-5.1) mmol/L Chloride (98-107) mmol/L Carbon Dioxide (22-30) mmol/L Anion Gap mmol/L BUN (9-20) mg/dL Creatinine (0.66-1.25) mg/dL Est GFR (CKD-EPI)AfAm (>60 ml/min/1.73 sqM) Est GFR (CKD-EPI)NonAf (>60 ml/min/1.73 sqM) Glucose (74-99) mg/dL Lactic Ac Sepsis Rflx Plasma Lactic Acid Aakash 2.5 H* (0.7-2.0) mmol/L Calcium (8.4-10.2) mg/dL Magnesium (1.6-2.3) mg/dL Total Bilirubin (0.2-1.3) mg/dL AST (17-59) U/L ALT (4-49) U/L Alkaline Phosphatase (38-126) U/L Troponin I 0.015 (0.000-0.034) ng/mL Total Protein (6.3-8.2) g/dL Albumin (3.5-5.0) g/dL 03/17/21 Range/Units 13:54 WBC (3.8-10.6) k/uL RBC (4.30-5.90) m/uL Hgb (13.0-17.5) gm/dL Hct (39.0-53.0) % MCV (80.0-100.0) fL MCH (25.0-35.0) pg MCHC (31.0-37.0) g/dL RDW (11.5-15.5) % Plt Count (150-450) k/uL MPV Neutrophils % % Lymphocytes % % Monocytes % % Eosinophils % % Basophils % % Neutrophils # (1.3-7.7) k/uL Lymphocytes # (1.0-4.8) k/uL Monocytes # (0-1.0) k/uL Eosinophils # (0-0.7) k/uL Basophils # (0-0.2) k/uL PT (9.0-12.0) sec INR (<1.2) APTT (22.0-30.0) sec VBG pH (7.31-7.41) VBG pCO2 (37-51) mmHg VBG HCO3 (24-28) mmol/L Sodium (137-145) mmol/L Potassium (3.5-5.1) mmol/L Chloride (98-107) mmol/L Carbon Dioxide (22-30) mmol/L Anion Gap mmol/L BUN (9-20) mg/dL Creatinine (0.66-1.25) mg/dL Est GFR (CKD-EPI)AfAm (>60 ml/min/1.73 sqM) Est GFR (CKD-EPI)NonAf (>60 ml/min/1.73 sqM) Glucose (74-99) mg/dL Lactic Ac Sepsis Rflx Y Plasma Lactic Acid Aakash (0.7-2.0) mmol/L Calcium (8.4-10.2) mg/dL Magnesium (1.6-2.3) mg/dL Total Bilirubin (0.2-1.3) mg/dL AST (17-59) U/L ALT (4-49) U/L Alkaline Phosphatase (38-126) U/L Troponin I (0.000-0.034) ng/mL Total Protein (6.3-8.2) g/dL Albumin (3.5-5.0) g/dL Disposition Clinical Impression: Hypoxia, CHF (congestive heart failure), COPD (chronic obstructive pulmonary disease), Sacral decubitus ulcer, stage II, UTI (urinary tract infection), Atrial fibrillation with RVR Disposition: ADMITTED IP TO THIS HOSP Condition: Serious Referrals: Davian Thakur MD [Primary Care Provider] - 1-2 days
[2021-03-17 13:41] LABS: Basophils # (A) 0.1 k/uL (0-0.2); Basophils % (A) 1 %; Eosinophils # (A) 0.1 k/uL (0-0.7); Eosinophils % (A) 1 %; HCT 34.5 % (39.0-53.0); HGB 11.6 gm/dL (13.0-17.5); Lymphocytes # (A) 0.7 k/uL (1.0-4.8); Lymphocytes % (A) 6 %; MCHC 33.6 g/dL (31.0-37.0); MCV 92.4 fL (80.0-100.0); Mean Platelet Volume 7.2; Monocytes # (A) 0.8 k/uL (0-1.0); Monocytes % (A) 7 %; Neutrophils # (A) 8.6 k/uL (1.3-7.7); Neutrophils % (A) 84 %; Platelet Count 222 k/uL (150-450); RBC 3.73 m/uL (4.30-5.90); RDW 15.9 % (11.5-15.5); WBC 10.2 k/uL (3.8-10.6)
--- NOTE | 2021-03-17 13:43 | XR ---
EXAMINATION TYPE: XR chest 1V portable DATE OF EXAM: 03/17/2021 COMPARISON: 02/21/2021 HISTORY: Shortness of breath TECHNIQUE: Single frontal view of the chest is obtained. FINDINGS: The heart is markedly enlarged but there is no definite pulmonary vascular congestion or in terstitial edema. The lungs are clear of interstitial, consolidative or masslike opacity. There is no pneumothorax or large pleural effusion. There is a remote rib fracture the posterior fifth rib additional rib fractures are seen in the mid r ibs laterally of indeterminate age based on this technique a were seen previously. IMPRESSION: Marked cardiomegaly without evidence of acute cardiopulmonary disease. There are left-si ded rib fractures of indeterminate age but were present on the prior study.
[2021-03-17 13:50] LABS: VBG PH 7.39 (7.31-7.41)
[2021-03-17 13:53] LABS: ALT 16 U/L (4-49); AST 27 U/L (17-59); African American GFR (CKD) >90 (>60 ml/min/1.73 sqM); Albumin 2.8 g/dL (3.5-5.0); Alkaline Phosphatase 126 U/L (38-126); Anion Gap 8 mmol/L; Blood Urea Nitrogen 30 mg/dL (9-20); Calcium 8.5 mg/dL (8.4-10.2); Carbon Dioxide 25 mmol/L (22-30); Chloride 95 mmol/L (98-107); Glucose 80 mg/dL (74-99); Magnesium 1.8 mg/dL (1.6-2.3); Non-African American GFR(CKD) 80 (>60 ml/min/1.73 sqM); Potassium 4.9 mmol/L (3.5-5.1); Sodium 128 mmol/L (137-145); Total Bilirubin 0.7 mg/dL (0.2-1.3); Total Protein 5.7 g/dL (6.3-8.2)
[2021-03-17 13:56] LABS: INR 1.2 (<1.2); Partial Thromboplastin Time 28.6 sec (22.0-30.0); Prothrombin Time 12.5 sec (9.0-12.0)
[2021-03-17] MEDS: IPRATROPIUM-ALBUTEROL 3 ML NEB INHALATION SCH ×2 (15:18→20:06)
--- NOTE | 2021-03-17 15:36 | CT ---
EXAMINATION TYPE: CT chest angio for PE DATE OF EXAM: 03/17/2021 COMPARISON: None HISTORY: Shortness of breath. CT DLP: 641.8 mGycm Automated exposure control for dose reduction was used. CONTRAST: Performed with IV Contrast, patient injected with 100 mL of Isovue 370. There are 3-D post processed images. Heart is moderately enlarged. There are small bilateral pleural effusions. There is basilar pulmonary infiltrate and atelectasis in the lower lobes bilaterally. There are no hilar masses. Thoracic aorta is intact. There is no evidence of dissection. 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 There are large pulmonary arteries. I see no evidence of filling defect in the pulmonary arteries. Th ere is no mediastinal adenopathy. There are no hilar masses. The bony thorax is intact. There is some degenerative spurring in the thoracic spine. IMPRESSION: Cardiomegaly. Small pleural effusions with basilar pulmonary mild infiltrate and atelectasis that cou ld relate to some congestive heart failure. No evidence of pulmonary embolism. Mild aneurysm of the ascending aorta.
[2021-03-17 16:41] LABS: Appearance,Urine Cloudy (Clear); Bacteria,Urine Rare /hpf; Bilirubin,Urine Negative (Negative); Blood,Urine Trace (Negative); Color,Urine Yellow; Glucose,Urine (UA) Negative (Negative); Hyaline Casts,Urine 4 /lpf (0-2); Ketones,Urine Negative (Negative); Leukocyte Esterase,Urine Large (Negative); Mucus,Urine Rare /hpf; Nitrite,Urine Positive (Negative); Protein,Urine Trace (Negative); RBC,Urine 4 /hpf (0-5); Specific Gravity,Urine 1.025 (1.001-1.035); Squamous Epithelial Cell,Urine <1 /hpf (0-4); Urobilinogen,Urine <2.0 mg/dL (<2.0); WBC,Urine 137 /hpf (0-5)
[2021-03-17] MEDS ORDERED: ALPRAZolam 0.5 MG TAB PO PRN (16:59)
[2021-03-17] MEDS ORDERED: LOPERAMIDE 2 MG CAP PO PRN (16:59)
[2021-03-17] MEDS ORDERED: MAGNESIUM HYDROXIDE 2,400 MG/10 ML CUP PO PRN (16:59)
[2021-03-17] MEDS ORDERED: bisacodyL 10 MG SUPP RECTAL PRN (16:59)
[2021-03-17] MEDS ORDERED: NITROGLYCERIN SL TABS 0.4 MG TAB SUBLINGUAL PRN (16:59)
[2021-03-17] MEDS ORDERED: IPRATROPIUM-ALBUTEROL 3 ML NEB INHALATION PRN (16:59)
[2021-03-17] MEDS ORDERED: LIDOCAINE 4% CREAM 5 GM TUBE TOPICAL PRN (16:59)
[2021-03-17] MEDS ORDERED: ACETAMINOPHEN TAB 325 MG TAB PO PRN (16:59)
[2021-03-17] MEDS ORDERED: NA PHOS,M-B/NA PHOS,DI-BA 133 ML ENEMA RECTAL PRN (16:59)
[2021-03-17] MEDS ORDERED: LEVOFLOXACIN 500 MG TAB PO SCH (17:00)
[2021-03-17] MEDS ORDERED: NON FORMULARY DRUG (Lactose-Reduced Food [Ensure Plus] 237 ML Liquid) PO SCH (17:00)
[2021-03-17] MEDS: APIXABAN 2.5 MG TABLET PO SCH (18:23)
[2021-03-17] MEDS: ZINC SULFATE 220 MG CAP PO SCH (18:23)
[2021-03-17] MEDS: ASCORBIC ACID 500 MG TAB PO SCH (18:24)
[2021-03-17] MEDS: FUROSEMIDE 40 MG TAB PO SCH (18:24)
[2021-03-17] MEDS: LEVOFLOXACIN 500 MG TAB PO SCH (18:24)
[2021-03-17] MEDS: POTASSIUM CHLORIDE ER 20 MEQ TAB.ER PO SCH (18:24)
[2021-03-17] MEDS: MIDODRINE 5 MG TAB PO SCH (18:24)
[2021-03-17] MEDS: METOPROLOL TARTRATE 12.5 MG TAB PO SCH (18:25)
[2021-03-17] MEDS ORDERED: ALBUTEROL HFA INHALER INHALATION SCH (20:00)
[2021-03-17] MEDS: SACUBITRIL/VALSARTAN 24 MG-26 MG TABLET PO SCH (23:45)
[2021-03-17] MEDS: TAMSULOSIN 0.4 MG CAP.ER.24H PO SCH (23:45)
[2021-03-17] MEDS: VIT A,C & E-LUTEIN-MINERALS 1 EACH TAB PO SCH (23:45)
[2021-03-17] MEDS: ATORVASTATIN 40 MG TAB PO SCH (23:45)
[2021-03-17] MEDS: FLUDROCORTISONE 0.1 MG TAB PO SCH (23:48)
--- NOTE | 2021-03-18 00:24 | P.HPIM ---
History of Present Illness H&P Date: 03/17/21 Chief Complaint: Severe hypoxia, change mental status, severe hypertension, sepsis with UTI, HISTORY OF PRESENT ILLNESS 85-year-old gentleman who I start seen in [facility] for the last few weeks who was hospitalized after an episode of A. fib with RVR with UTI and encephalopathy with significant change in mental status and multiple falls. Brisa ireland has been doing rehab in [facility] had declined last 48 hours become slightly bit more confused and running low-grade temperature testing in [facility] shows UA was positive chest x-ray showed right lower lobe pneumonia consistent with aspiration. Patient developed to have severe hypoxia with pulse ox running in the mid 80 despite 2 L of O2 has been hypotensive and still running temperature of 101. With above problem specially with his confusion ended up coming to the emergency department at [facility] where was seen and evaluated. Continue to be hypoxic require between 2 and 5 L 4 to. With his current symptoms especially having to have increased lactic acid with hypoxia and sign ificant dyspnea ended up going for CTA which failed to show any PE but small pleural effusion with basilar pulmonary mild infiltrate and cardiomegaly with sign of congestive heart failure. EKG showed atrophy fibrillation with PVCs pulse rate running in the mid 90s patient remain on Eliquis and metoprolol. Also patient found to have significant hypotension with a blood pressure fluctuate but still slightly bit low. Last week patient was started on midodrine up to 10 mg 3 times a day also fludrocortisone 0.05 mg twice a day to keep his pulse ox above 100 systolic. With hyponatremia and his current symptoms patient was hospitalized will continue diuretics continue O2 will consult cardiology continue antibiotics. REVIEW OF SYSTEMS Constitutional: No fever, no chills, no night sweats. No weight change. No weakness, fatigue or lethargy. No daytime sleepiness. Significant confusion HEENT: No headache. No blurred vision or double vision, no loss of vision. No loss of Hearing, no ringing in the ears, no dizziness. No nasal drainage or congestion. No epistaxis. No sore throat. Lungs: Positive dyspnea and shortness of breath with severe hypoxia and tachy pnea with mild wheezes. Cardiovascular: No chest pain, no lower extremity edema. Positive PND ortho pnea, positive hypoxia, positive palpitation, hypotension and presyncopal episodes. Abdominal: No abdominal pain. No nausea, vomiting. No diarrhea. No constipation. No bloody or tarry stools.. No loss of appetite. Genitourinary: Positive urinary retention with polyuria and no dysuria frequency urgency burning discomfort. Musculoskeletal: Positive generalized muscle pain and weakness not been able to evaluate gait patient mobility still significantly decrease. Positive lower back pain and neck pain. Integumentary: No wounds, no lesions. No rash or pruritus. No unusual bruising. No change in hair or nails. Neurologic: Generalized weakness fatigue no droopy face positive change mental status no head injury or trauma positive normal balance and gait and overall generalized weakness. Psychiatric: Worsening mental status with worsening depression positive mild anxiety and insomnia. Endocrine: No abnormal blood sugars. No weight change. No excessive sweating or thirst. No cold intolerance. SOCIAL HISTORY Former smoker for over 20 years he quit 15 years ago, no alcohol abuse, still use nebulizer and O2 has been in [facility] for the last few weeks. FAMILY HISTORY His father age 49 from leukemia, mother age 67 from [place], siblings with history of CAD, children with history of hypertension. PHYSICAL EXAMINATION Gen: This is an elderly laying in bed significantly confused and hypoxic require O2. HEENT: Head is atraumatic, normocephalic. Pupils equal, round. Sclerae is anicteric. NECK: Supple. No JVD. No lymphadenopathy. No thyromegaly. LUNGS: Decreased breath some bilaterally with fine rhonchi plus crackles in the bases positive mild expiratory wheezes. HEART: Irregular rhythm and rates positive S3 positive tachycardia positive PVCs with systolic murmur. ABDOMEN: Soft. Bowel sounds are present. No masses. No tenderness. EXTREMITIES: Trace edema with multiple bruises especially in the lower extremity. NEUROLOGICAL: Arousable confuse sleeping most of the time has generalized weakness not been able to do gait exam and not able to assess for stroke or mini strokes specially with his current responded this point. ASSESSMENT AND PLAN 1 severe hypoxia and shortness of breath: Combination of congestive heart failure, bibasilar mostly right-sided pneumonia with aspiration type, COPD, encephalopathy and worsening UTI with hypercapnia. We'll continue O2 continue supportive care cardiology and pulmonary consult. 2 change mental status: Affected by hypoxia and the UTI and cause encephalopathy treat underlying disease patient had declined significantly in the last few weeks. 3 sepsis and UTI with aspiration pneumonia: Patient was started on Levaquin will continue management and treatment waiting for culture. 4 severe hypotension: With possible adrenal insufficiency, patient has been treated with midodrine and fludrocortisone continue to watch blood sugar to keep systolic above 100. 5 A. fib with RVR: Has been on metoprolol 12.5 mg twice a day along with Eliquis 2.5 mg twice a day. 6 severe cardiomyopathy with worsening systolic congestive heart failure: Has been on Crestor Twice a day along with Lasix 40 mg twice a day and metoprolol 12.5 g twice a day. 7 mild respiratory failure: Titrate O2 keep pulse ox above 90 percentile even if require BiPAP through the night. 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 9 severe BPH with urinary retention: Remain on Flomax 0.4 mg a day. 10 GI prophylaxis: Patient will be on Pepcid or Protonix. 11 DVT prophylaxis: Remain on Eliquis continue medication. 12 COVID-19 testing were negative. Patient is admitted to the hospital during pandemic time. 13 CODE STATUS: Full code. Admit patient to the inpatient service for more than 2 night stay. Past Medical History Past Medical History: Atrial Fibrillation, Coronary Artery Disease (CAD), Heart Failure, Eye Disorder, Hypertension, Myocardial Infarction ([place]), Osteoarthritis (OA), Prostate Disorder Additional Past Medical History / Comment(s): Bilateral macular degeneration- eyesight is poor, pt was told by physician that he had [place] in past, "reyna's lung", bilateral lower leg edema-takes lasix and wears bilateral compression stockings. Last Myocardial Infarction Date:: unkn History of Any Multi-Drug Resistant Organisms: CRE, Other MDRO Date of last positivie culture/infection: 01/26/21 MDRO Source:: URINE Past Surgical History: Hernia Repair, Joint Replacement Additional Past Surgical History / Comment(s): Bilateral total hip replacements, varicose veins stripped L leg, bilateral laser surgery on eyes for macular degeneration, bilateral inguinal hernia repairs with L testicle removed, eye injections. Past Anesthesia/Blood Transfusion Reactions: No Reported Reaction Additional Past Anesthesia/Blood Transfusion Reaction / Comment(s): Pt states he has been told that he is slow to wake with anesthesia. Smoking Status: Former smoker, Light tobacco smoker - Past Family History Father Family Medical History: Cancer Additional Family Medical History / Comment(s): Father of leukemia at the age of 49 yrs. Mother Family Medical History: Coronary Artery Disease (CAD) Additional Family Medical History / Comment(s): Mother of a [place] at the age of 67yrs. She also had varicose veins. Medications and Allergies Home Medications Medication Instructions Recorded Confirmed Type Nitroglycerin Sl Tabs [Nitrostat] 0.4 mg SUBLINGUAL Q5M PRN 07/11/16 03/17/21 History Potassium Chloride ER [K-Dur 20] 20 meq PO DAILY@169907/11/16 03/17/21 History Simvastatin [Zocor] 80 mg PO HS@209907/11/16 03/17/21 History Tamsulosin HCl [Flomax] 0.4 mg PO HS@209907/11/16 03/17/21 History Vit C/E/Zn/Coppr/Lutein/Zeaxan 1 tab PO BID@0800,0 07/08/20 03/17/21 History [Preservision Areds 2 Softgel] Sacubitril/Valsartan [Entresto 24 1 tab PO BID@0800,0 02/04/21 03/17/21 H istory mg-26 mg Tablet] Acetaminophen [Tylenol] 650 mg PO Q4H PRN 02/20/21 03/17/21 History Apixaban [Eliquis] 2.5 mg PO BID@0800,0 02/20/21 03/17/21 History Ascorbic Acid [Vitamin C] 500 mg PO DAILY@169902/20/21 03/17/21 History Furosemide [Lasix] 40 mg PO BID@0600,1800 02/20/21 03/17/21 History Ipratropium-Albuterol Nebulize 3 ml INHALATION RT-Q6H PRN 02/20/21 03/17/21 History [Duoneb 0.5 mg-3 mg/3 ml Soln] Lactose-Reduced Food [Ensure Plus] 1 can PO TID@0800,1200,0 02/20/21 03/17/21 History Lidocaine 4% Cream [Lmx 4] 1 applic TOPICAL DAILY PRN 02/20/21 03/17/21 History Magnesium Hydroxide [Milk of 7,200 mg PO DAILY PRN 02/20/21 03/17/21 History Magnesia Concentrate] Metoprolol Tartrate [Lopressor] 12.5 mg PO BID@0800,1700 02/20/21 03/17/21 History Na Phos,M-B/Na Phos,Di-Ba [Fleet 133 ml RECTAL DAILY PRN 02/20/21 03/17/21 History Adult] Zinc Sulfate [Orazinc] 220 mg PO DAILY@1700 02/20/21 03/17/21 History bisacodyL [Dulcolax] 10 mg RECTAL DAILY PRN 02/20/21 03/17/21 History ALPRAZolam [Xanax] 0.5 mg PO TID PRN #9 tab 02/28/21 03/17/21 Rx Albuterol Inhaler [Ventolin Hfa 2 puff INHALATION RT-TID 03/17/21 03/17/21 History Inhaler] Fludrocortisone Acetate 0.05 mg PO BID@0800,1700 03/17/21 03/17/21 History Levofloxacin [Levaquin] 500 mg PO DIRECTED 03/17/21 03/17/21 History Loperamide HCl [Imodium A-D] 4 mg PO BID PRN 03/17/21 03/17/21 History Midodrine HCl [ProAmatine] 10 mg PO TID@0600,1400,2100 03/17/21 03/17/21 History Allergies Allergy/AdvReac Type Severity Reaction Status Date / Time No Known Allergies Allergy Verified 03/17/21 14:19 Physical Exam Vitals: Vital Signs Temp Pulse Resp BP Pulse Ox 03/17/21 16:03 93 20 101/58 97 03/17/21 14:00 108 H 03/17/21 13:51 102 H 03/17/21 13:22 98.7 F 94 22 82/48 98 Intake and Output 03/17/21 03/17/21 03/17/21 06:59 14:59 22:59 Other: Weight 95.254 kg Results CBC & Chem 7: 03/17/21 13:17 03/17/21 13:17 Labs: Abnormal Lab Results - Last 24 Hours (Table) 03/17/21 03/17/21 03/17/21 Range/Units 13:17 13:17 13:17 RBC 3.73 L (4.30-5.90) m/uL Hgb 11.6 L (13.0-17.5) gm/dL Hct 34.5 L (39.0-53.0) % RDW 15.9 H (11.5-15.5) % Neutrophils # 8.6 H (1.3-7.7) k/uL Lymphocytes # 0.7 L (1.0-4.8) k/uL PT 12.5 H (9.0-12.0) sec INR 1.2 H (<1.2) Sodium 128 L (137-145) mmol/L Chloride 95 L (98-107) mmol/L BUN 30 H (9-20) mg/dL Plasma Lactic Acid Aakash (0.7-2.0) mmol/L Total Protein 5.7 L (6.3-8.2) g/dL Albumin 2.8 L (3.5-5.0) g/dL Urine Protein (Negative) Urine Blood (Negative) Ur Leukocyte Esterase (Negative) Urine WBC (0-5) /hpf Urine WBC Clumps (None) /hpf Urine Bacteria (None) /hpf Hyaline Casts (0-2) /lpf Urine Mucus (None) /hpf 03/17/21 03/17/21 Range/Units 13:17 16:01 RBC (4.30-5.90) m/uL Hgb (13.0-17.5) gm/dL Hct (39.0-53.0) % RDW (11.5-15.5) % Neutrophils # (1.3-7.7) k/uL Lymphocytes # (1.0-4.8) k/uL PT (9.0-12.0) sec INR (<1.2) Sodium (137-145) mmol/L Chloride (98-107) mmol/L BUN (9-20) mg/dL Plasma Lactic Acid Aakash 2.5 H* (0.7-2.0) mmol/L Total Protein (6.3-8.2) g/dL Albumin (3.5-5.0) g/dL Urine Protein Trace H (Negative) Urine Blood Trace H (Negative) Ur Leukocyte Esterase Large H (Negative) Urine WBC 137 H (0-5) /hpf Urine WBC Clumps Moderate H (None) /hpf Urine Bacteria Rare H (None) /hpf Hyaline Casts 4 H (0-2) /lpf Urine Mucus Rare H (None) /hpf
[2021-03-18] MEDS: FUROSEMIDE 40 MG TAB PO SCH ×2 (05:58→21:07)
[2021-03-18] MEDS: MIDODRINE 5 MG TAB PO SCH ×3 (05:58→21:11)
[2021-03-18] MEDS ORDERED: DILTIAZEM DRIP BOLUS FROM BAG 1 MG SOLN IV ONE (06:25)
[2021-03-18] MEDS ORDERED: DILTIAZEM 125 MG in SODIUM CHLORIDE 0.9% 100 ML IV SCH (06:30)
[2021-03-18 07:29] LABS: HCT 32.6 % (39.0-53.0); HGB 10.9 gm/dL (13.0-17.5); MCH 31.5 pg (25.0-35.0); MCHC 33.6 g/dL (31.0-37.0); MCV 93.6 fL (80.0-100.0); Mean Platelet Volume 7.3; Platelet Count 202 k/uL (150-450); RBC 3.48 m/uL (4.30-5.90); RDW 15.9 % (11.5-15.5); WBC 10.1 k/uL (3.8-10.6)
[2021-03-18 07:44] LABS: Potassium 4.4 mmol/L (3.5-5.1)
[2021-03-18 07:45] LABS: ALT 14 U/L (4-49); AST 26 U/L (17-59); African American GFR (CKD) >90 (>60 ml/min/1.73 sqM); Albumin 2.7 g/dL (3.5-5.0); Alkaline Phosphatase 113 U/L (38-126); Anion Gap 7 mmol/L; Blood Urea Nitrogen 22 mg/dL (9-20); Calcium 8.4 mg/dL (8.4-10.2); Carbon Dioxide 24 mmol/L (22-30); Chloride 100 mmol/L (98-107); Glucose 75 mg/dL (74-99); Magnesium 1.8 mg/dL (1.6-2.3); Non-African American GFR(CKD) >90 (>60 ml/min/1.73 sqM); Sodium 131 mmol/L (137-145); Total Bilirubin 0.7 mg/dL (0.2-1.3); Total Protein 5.3 g/dL (6.3-8.2)
[2021-03-18] MEDS: IPRATROPIUM-ALBUTEROL 3 ML NEB INHALATION SCH ×4 (07:45→20:54)
[2021-03-18] MEDS: SACUBITRIL/VALSARTAN 24 MG-26 MG TABLET PO SCH (08:20)
[2021-03-18] MEDS: METOPROLOL TARTRATE 12.5 MG TAB PO SCH (08:39)
[2021-03-18] MEDS: PANTOPRAZOLE 40 MG TABLET PO SCH (08:40)
[2021-03-18] MEDS ORDERED: SODIUM CHLORIDE 0.9% 250 ML IV ONE (08:40)
[2021-03-18] MEDS: APIXABAN 2.5 MG TABLET PO SCH ×2 (08:40→21:06)
[2021-03-18] MEDS: FLUDROCORTISONE 0.1 MG TAB PO SCH ×2 (08:55→21:07)
[2021-03-18] MEDS: VIT A,C & E-LUTEIN-MINERALS 1 EACH TAB PO SCH ×2 (08:55→21:07)
--- NOTE | 2021-03-18 11:57 | P.PN ---
Subjective Progress Note Date: 03/18/21 HISTORY OF PRESENT ILLNESS 85-year-old gentleman who I start seen in [facility] for the last few weeks who was hospitalized after an episode of A. fib with RVR with UTI and ence phalopathy with significant change in mental status and multiple falls. Patient has been doing rehab in [facility] had declined last 48 hours become slightly bit more confused and running low-grade temperature testing in [facility] shows UA was positive chest x-ray showed right lower lobe pneumonia consistent with aspiration. Patient developed to have severe hypoxia with pulse ox running in the mid 80 despite 2 L of O2 has been hypotensive and still running temperature of 101. With above problem specially with his confusion ended up coming to the emergency department at [facility] where was seen and evaluated. Continue to be hypoxic require between 2 and 5 L 4 to. With his current sy mptoms especially having to have increased lactic acid with hypoxia and significant dyspnea ended up going for CTA which failed to show any PE but small pleural effusion with basilar pulmonary mild infiltrate and cardiomegaly with sign of congestive heart failure. EKG showed atrophy fibrillation with PVCs pulse rate running in the mid 90s patient remain on Eliquis and metoprolol. Also patient found to have significant hypotension with a blood pressure fluctuate but still slightly bit low. Last week patient was started on midodrine up to 10 mg 3 times a day also fludrocortisone 0.05 mg twice a day to keep his pulse ox above 100 systolic. With hyponatremia and his current symptoms patient was hospitalized will continue diuretics continue O2 will consult cardiology continue antibiotics. 03/18: is seen today in the emergency center waiting for a cardiac stepdown bed. Patient states that he is feeling a little bit better today. Discussed concern for suicidal ideation but this is denied. There was some misinterpretation of his comments. Reviewed documents for [facility] and patient is to be a no CODE STATUS which has been established here. He is currently in atrial fibrillation with hypotension with systolic pressure running between 70- 90. He is status post Cardizem bolus followed by Cardizem drip initially at 10 mg now decreased to 5 mg but continues to have low pressure despite bolus of 250 ML's. Patient has been seen by Dr. Prashanth Gonzalez in the past. He is afebrile, heart rate 106, blood pressure 80/54, pulse ox 99% on 4 L nasal cannula. Repeat blood work reveals WBC 10.1, hemoglobin 10.9, platelet count 202. Sodium 131, potassium 4.4, chloride 100, CO2 24, BUN 22 and creatinine 0.57. Liver function tests are normal. Pro-BMP came [place] 2380. CT angiogram of the chest revealed cardiomegaly. Small pleural effusions with basilar pulmonary mild infiltrates and atelectasis but could relate to heart failure. No pulmonary embolism. Mild aneurysm of the ascending aorta. Patient would like his contacted and updated. This will be done later today. REVIEW OF SYSTEMS Constitutional: No fever, no chills, no night sweats. No weight change. No weakness, fatigue or lethargy. No daytime sleepiness. Significant confusion HEENT: No headache. No blurred vision or double vision, no loss of vision. No loss of Hearing, no ringing in the ears, no dizziness. No nasal drainage or congestion. No epistaxis. No sore throat. Lungs: Positive dyspnea and shortness of breath with severe hypoxia and tachypnea with mild wheezes. Cardiovascular: No chest pain, no lower extremity edema. Positive PND orthopnea, positive hypoxia, positive palpitation, hypotension and presyncopal episodes. Abdominal: No abdominal pain. No nausea, vomiting. No diarrhea. No constipation. No bloody or tarry stools.. No loss of appetite. Genitourinary: Positive urinary retention with polyuria and no dysuria frequency urgency burning discomfort. Musculoskeletal: Positive generalized muscle pain and weakness not been able to evaluate gait patient mobility still significantly decrease. Positive lower back pain and neck pain. Integumentary: Coccyx and left heel wounds, no lesions. No rash or pruritus. No unusual bruising. No change in hair or nails. Neurologic: Generalized weakness fatigue no droopy face positive change mental status no head injury or trauma positive normal balance and gait and overall generalized weakness. Psychiatric: Worsening mental status with worsening depression positive mild anxiety and insomnia. Endocrine: No abnormal blood sugars. No weight change. No excessive sweating or thirst. No cold intolerance. PHYSICAL EXAMINATION Gen: This is an elderly laying in bed mildly confused, improved from yesterday. HEENT: Head is atraumatic, normocephalic. Pupils equal, round. Sclerae is anicteric. NECK: Supple. No JVD. No lymphadenopathy. No thyromegaly. LUNGS: Decreased breath some bilaterally with fine rhonchi plus crackles in the bases positive mild expiratory wheezes. HEART: Irregular rhythm and rates positive S3 positive tachycardia positive PVCs with systolic murmur. ABDOMEN: Soft. Bowel sounds are present. No masses. No tenderness. EXTREMITIES: Trace edema with multiple bruises especially in the lower extremity. NEUROLOGICAL: Arousable confuse sleeping most of the time has generalized weakness not been able to do gait exam and not able to assess for stroke or mini strokes specially with his current responded this point. ASSESSMENT AND PLAN 1. Acute hypoxic respiratory failure secondary to acute on chronic systolic heart failure, possible aspiration pneumonia. Continue Lasix 40 mg oral twice daily, Levaquin 500 mg daily, DuoNeb treatments 4 times daily and as needed. 2. Metabolic encephalopathy secondary to hypoxia and the UTI. Continue treatment of underlying cause. 3. Sepsis and UTI with aspiration pneumonia. Continue Levaquin 500 mg daily, urine culture and blood cultures. 4. Severe hypotension: With possible adrenal insufficiency, patient has been treated with midodrine and fludrocortisone continue to watch blood sugar to keep systolic above 100. Entresto discontinued. 5. A. fib with RVR, chronic atrial fibrillation, continue eliquis 2.5 mg twice daily, Lopressor 12.5 mg twice daily. Patient is currently on Cardizem drip. Consult with cardiology. 6. Severe cardiomyopathy and chronic systolic heart failure with ejection fraction of s 20-25%. Entresto discontinued due to hypotension. Continue metoprolol and Lasix. 7. Hyponatremia, improving. Possible SIADH. 8. Benign prostatic hypertrophy with urinary retention. Continue Flomax or 0.4 mg daily, Mariee catheter. 9. Decubitus ulcers to the coccyx and left heel, POA. Please see nursing documentation for details. 10 GI prophylaxis: Patient will be on Pepcid or Protonix. 11 DVT prophylaxis: Remain on Eliquis continue medication. 12 COVID-19 testing were negative. Patient is admitted to the hospital during pandemic time. 13 CODE STATUS: Full code. DISCHARGE PLAN [facility] under the care of Dr. Thakur Impression and plan of care have been directed as dictated by the signing physician. Danica Ta nurse practitioner acting as scribe for signing physician. Objective - Vital Signs Vital signs: Vital Signs Temp 98.3 F 03/18/21 05:54 Pulse 112 H 03/18/21 09:06 Resp 18 03/18/21 09:06 BP 80/54 03/18/21 09:06 Pulse Ox 99 03/18/21 09:06 Intake & Output 03/17/21 03/18/21 03/18/21 18:59 06:59 18:59 Intake Total 13.5 Output Total 1450 700 Balance -1450 -686.5 Weight 95.254 kg Intake: Intake, IV Titration 13.5 Amount Diltiazem 125 mg In 13.5 Sodium Chloride 0.9% 100 ml @ 10 MG/HR 10 mls/hr IV .[id number] [facility] Rx#: [id number] Output: Urine 1450 700 - Labs CBC & Chem 7: 03/18/21 06:57 03/18/21 06:57 Labs: Abnormal Lab Results - Last 24 Hours (Table) 03/17/21 03/17/21 03/17/21 Range/Units 13:17 13:17 13:17 RBC 3.73 L (4.30-5.90) m/uL Hgb 11.6 L (13.0-17.5) gm/dL Hct 34.5 L (39.0-53.0) % RDW 15.9 H (11.5-15.5) % Neutrophils # 8.6 H (1.3-7.7) k/uL Lymphocytes # 0.7 L (1.0-4.8) k/uL PT 12.5 H (9.0-12.0) sec INR 1.2 H (<1.2) Sodium 128 L (137-145) mmol/L Chloride 95 L (98-107) mmol/L BUN 30 H (9-20) mg/dL Creatinine (0.66-1.25) mg/dL Plasma Lactic Acid Aakash (0.7-2.0) mmol/L Total Protein 5.7 L (6.3-8.2) g/dL Albumin 2.8 L (3.5-5.0) g/dL Urine Protein (Negative) Urine Blood (Negative) Ur Leukocyte Esterase (Negative) Urine WBC (0-5) /hpf Urine WBC Clumps (None) /hpf Urine Bacteria (None) /hpf Hyaline Casts (0-2) /lpf Urine Mucus (None) /hpf 0603/17/21 03/18/21 Range/Units 13:17 16:01 06:57 RBC 3.48 L (4.30-5.90) m/uL Hgb 10.9 L (13.0-17.5) gm/dL Hct 32.6 L (39.0-53.0) % RDW 15.9 H (11.5-15.5) % Neutrophils # (1.3-7.7) k/uL Lymphocytes # (1.0-4.8) k/uL PT (9.0-12.0) sec INR (<1.2) Sodium (137-145) mmol/L Chloride (98-107) mmol/L BUN (9-20) mg/dL Creatinine (0.66-1.25) mg/dL Plasma Lactic Acid Aakash 2.5 H* (0.7-2.0) mmol/L Total Protein (6.3-8.2) g/dL Albumin (3.5-5.0) g/dL Urine Protein Trace H (Negative) Urine Blood Trace H (Negative) Ur Leukocyte Esterase Large H (Negative) Urine WBC 137 H (0-5) /hpf Urine WBC Clumps Moderate H (None) /hpf Urine Bacteria Rare H (None) /hpf Hyaline Casts 4 H (0-2) /lpf Urine Mucus Rare H (None) /hpf 03/18/21 Range/Units 06:57 RBC (4.30-5.90) m/uL Hgb (13.0-17.5) gm/dL Hct (39.0-53.0) % RDW (11.5-15.5) % Neutrophils # (1.3-7.7) k/uL Lymphocytes # (1.0-4.8) k/uL PT (9.0-12.0) sec INR (<1.2) Sodium 131 L (137-145) mmol/L Chloride (98-107) mmol/L BUN 22 H (9-20) mg/dL Creatinine 0.57 L (0.66-1.25) mg/dL Plasma Lactic Acid Aakash (0.7-2.0) mmol/L Total Protein 5.3 L (6.3-8.2) g/dL Albumin 2.7 L (3.5-5.0) g/dL Urine Protein (Negative) Urine Blood (Negative) Ur Leukocyte Esterase (Negative) Urine WBC (0-5) /hpf Urine WBC Clumps (None) /hpf Urine Bacteria (None) /hpf Hyaline Casts (0-2) /lpf Urine Mucus (None) /hpf
--- NOTE | 2021-03-18 13:22 | P.CNPUL ---
History of Present Illness Consult date: 03/18/21 Requesting physician: Davian Thakur Reason for consult: dyspnea, abnormal CXR/CT Chief complaint: Shortness of breath History of present illness: This is a very pleasant 85-year-old gentleman who resides at [facility]. He has a history of hypertension hyperlipidemia, BPH, atrial fibrillation anticoagulated with Eliquis, osteoarthritis, coronary disease, macular degeneration, and reyna's lung. He follows with Dr. Carter in our office. He was here last month for hypoxemia and diagnosed with COVID-19 pneumonia. He was seen for some reason by Dr. [place] at that time. He was discharged to the [facility] on 02/28/2021. Yesterday he was getting turned in bed for decubitus ulcer treatment when he became quite hypoxic and cyanotic. EMS was called he was brought here for the same. He was found to be in atrial fibrillation with rapid ventricular response. Initiated on Cardizem drip at 5 mg per hour. Continued on Eliquis. Presently he is resting comfortably on the stretcher. Awake and alert in no acute distress. He is however stating he did not want to have anything further done. He states he told his to "just let him go". Chest x-ray reveals marketed cardiomegaly without any acute cardiopulmonary process. Left-sided rib fractures of undetermined age present. Echocardiogram reveals severely impaired left ventricular systolic function with ejection fraction 20-25%. Moderate to severe mitral regurgitation. Moderate pulmonary hypertension. White count 10.1. Hemoglobin 10.9. Sodium 131. Potassium 44. Creatinine 0.57. ProBNP 2380. Parry virus not detected. Review of Systems REVIEW OF SYSTEMS: CONSTITUTIONAL: Denies any recent significant weight loss or weight gain. EYES: Denies change in vision. EARS, NOSE, MOUTH, THROAT: Denies headaches, denies sore throat. CARDIOVASCULAR: Denies chest pain, palpitations or syncopal episodes. RESPIRATORY: Positive for shortness of breath, cough, congestion no hemoptysis. GASTROINTESTINAL: Denies change in appetite, denies abdominal pain GENITOURINARY: Denies hematuria, denies infections. MUSKULOSKELETAL: Denies pain, denies swelling. INTEGUMENTARY: Denies rash, denies eczema. NEUROLOGICAL: Denies recent memory loss, no recent seizure activity. PSYCHIATRIC: Denies anxiety, denies depression. HEMATOLOGIC/LYMPHATIC: Denies anemia, denies enlarged lymph nodes. Past Medical History Past Medical History: Atrial Fibrillation, Coronary Artery Disease (CAD), Heart Failure, Eye Disorder, Hypertension, Myocardial Infarction (SC), Osteoarthritis (OA), Prostate Disorder Additional Past Medical History / Comment(s): Bilateral macular degeneration- eyesight is poor, pt was told by physician that he had SC in past, "reyna's lung", bilateral lower leg edema-takes lasix and wears bilateral compression stockings. Last Myocardial Infarction Date:: unkn History of Any Multi-Drug Resistant Organisms: CRE, Other MDRO Date of last positivie culture/infection: 01/26/21 MDRO Source:: URINE Past Surgical History: Hernia Repair, Joint Replacement Additional Past Surgical History / Comment(s): Bilateral total hip replacements, varicose veins stripped L leg, bilateral laser surgery on eyes for macular degeneration, bilateral inguinal hernia repairs with L testicle removed, eye injections. Past Anesthesia/Blood Transfusion Reactions: No Reported Reaction Additional Past Anesthesia/Blood Transfusion Reaction / Comment(s): Pt states he has been told that he is slow to wake with anesthesia. Smoking Status: Former smoker, Light tobacco smoker - Past Family History Father Family Medical History: Cancer Additional Family Medical History / Comment(s): Father of leukemia at the age of 49 yrs. Mother Family Medical History: Coronary Artery Disease (CAD) Additional Family Medical History / Comment(s): Mother of a SC at the age of 67yrs. She also had varicose veins. Medications and Allergies Home Medications Medication Instructions Recorded Confirmed Type Nitroglycerin Sl Tabs [Nitrostat] 0.4 mg SUBLINGUAL Q5M PRN 07/11/16 03/17/21 History Potassium Chloride ER [K-Dur 20] 20 meq PO DAILY@169907/11/16 03/17/21 History Simvastatin [Zocor] 80 mg PO HS@209907/11/16 03/17/21 History Tamsulosin HCl [Flomax] 0.4 mg PO HS@209907/11/16 03/17/21 History Vit C/E/Zn/Coppr/Lutein/Zeaxan 1 tab PO BID@0800,169907/08/20 03/17/21 History [Preservision Areds 2 Softgel] Sacubitril/Valsartan [Entresto 24 1 tab PO BID@0800,1700 02/04/21 03/17/21 History mg-26 mg Tablet] Acetaminophen [Tylenol] 650 mg PO Q4H PRN 02/20/21 03/17/21 History Apixaban [Eliquis] 2.5 mg PO BID@0800,1700 02/20/21 03/17/21 History Ascorbic Acid [Vitamin C] 500 mg PO DAILY@1700 02/20/21 03/17/21 History Furosemide [Lasix] 40 mg PO BID@0600,1800 02/20/21 03/17/21 History Ipratropium-Albuterol Nebulize 3 ml INHALATION RT-Q6H PRN 02/20/21 03/17/21 History [Duoneb 0.5 mg-3 mg/3 ml Soln] Lactose-Reduced Food [Ensure Plus] 1 can PO TID@0800,1200,1700 02/20/21 03/17/21 History Lidocaine 4% Cream [Lmx 4] 1 applic TOPICAL DAILY PRN 02/20/21 03/17/21 History Magnesium Hydroxide [Milk of 7,200 mg PO DAILY PRN 02/20/21 03/17/21 History Magnesia Concentrate] Metoprolol Tartrate [Lopressor] 12.5 mg PO BID@0800,1700 02/20/21 03/17/21 History Na Phos,M-B/Na Phos,Di-Ba [Fleet 133 ml RECTAL DAILY PRN 02/20/21 03/17/21 History Adult] Zinc Sulfate [Orazinc] 220 mg PO DAILY@1700 02/20/21 03/17/21 History bisacodyL [Dulcolax] 10 mg RECTAL DAILY PRN 02/20/21 03/17/21 History ALPRAZolam [Xanax] 0.5 mg PO TID PRN #9 tab 02/28/21 03/17/21 Rx Albuterol Inhaler [Ventolin Hfa 2 puff INHALATION RT-TID 03/17/21 03/17/21 History Inhaler] Fludrocortisone Acetate 0.05 mg PO BID@0800,1700 03/17/21 03/17/21 History Levofloxacin [Levaquin] 500 mg PO DIRECTED 03/17/21 03/17/21 History Loperamide HCl [Imodium A-D] 4 mg PO BID PRN 03/17/21 03/17/21 History Midodrine HCl [ProAmatine] 10 mg PO TID@0600,1400,2100 03/17/21 03/17/21 History Allergies Allergy/AdvReac Type Severity Reaction Status Date / Time No Known Allergies Allergy Verified 03/17/21 14:19 Physical Exam Vitals: Vital Signs Temp Pulse Resp BP Pulse Ox 03/18/21 11:27 111 H 03/18/21 11:18 101 H 03/18/21 10:15 106 H 18 96/66 98 03/18/21 09:33 108 H 18 96/49 98 03/18/21 09:06 112 H 18 80/54 99 03/18/21 08:18 108 H 18 79/45 99 03/18/21 07:58 106 H 03/18/21 07:46 102 H 18 92/56 100 03/18/21 07:45 103 H 98 03/18/21 07:23 101 H 18 88/55 99 03/18/21 05:54 98.3 F 111 H 20 93/70 95 03/18/21 01:00 98.6 F 113 H 18 93/57 96 03/17/21 23:00 110 H 18 87/62 96 03/17/21 20:14 105 H 03/17/21 20:08 94 03/17/21 18:28 106 H 20 102/43 96 03/17/21 17:45 107 H 22 95/84 95 03/17/21 16:03 93 20 101/58 97 03/17/21 14:00 108 H 03/17/21 13:51 102 H 03/17/21 13:22 98.7 F 94 22 82/48 98 Intake and Output 03/17/21 03/18/21 03/18/21 22:59 06:59 14:59 Intake Total 13.5 Output Total 800 650 700 Balance -800 -650 -686.5 Intake: Intake, IV Titration 13.5 Amount Diltiazem 125 mg In 13.5 Sodium Chloride 0.9% 100 ml @ 10 MG/HR 10 mls/hr IV .[id number] [facility] Rx#: [id number] Output: Urine 800 650 700 GENERAL EXAM: Alert, frail, 85-year-old gentleman, on 4 L nasal cannula, comfortable in no apparent distress. HEAD: Normocephalic. EYES: Normal reaction of pupils, equal size. NOSE: Clear with pink turbinates. THROAT: No erythema or exudates. NECK: No masses, no JVD. CHEST: No chest wall deformity. LUNGS: Equal air entry with crackles in the bilateral posterior bases. CVS: S1 and S2 normal with an audible murmur, irregular rhythm. ABDOMEN: No hepatosplenomegaly, normal bowel sounds, no guarding or rigidity. SPINE: No scoliosis or deformity SKIN: No rashes CENTRAL NERVOUS SYSTEM: No focal deficits, tone is normal in all 4 extremities. EXTREMITIES: There is no peripheral edema. No clubbing, no cyanosis. Peripheral pulses are intact. Results - Laboratory Findings CBC and BMP: 03/18/21 06:57 03/18/21 06:57 PT/INR, D-dimer PT 12.5 sec (9.0-12.0) H 03/17/21 13:17 INR 1.2 (<1.2) H 03/17/21 13:17 Abnormal lab findings: Abnormal Labs 03/17/21 03/17/21 03/17/21 13:17 13:17 13:17 RBC 3.73 L Hgb 11.6 L Hct 34.5 L RDW 15.9 H Neutrophils # 8.6 H Lymphocytes # 0.7 L PT 12.5 H INR 1.2 H Sodium 128 L Chloride 95 L BUN 30 H Creatinine Plasma Lactic Acid Aakash Total Protein 5.7 L Albumin 2.8 L Urine Protein Urine Blood Ur Leukocyte Esterase Urine WBC Urine WBC Clumps Urine Bacteria Hyaline Casts Urine Mucus 03/17/21 03/17/21 03/18/21 13:17 16:01 06:57 RBC 3.48 L Hgb 10.9 L Hct 32.6 L RDW 15.9 H Neutrophils # Lymphocytes # PT INR Sodium Chloride BUN Creatinine Plasma Lactic Acid Aakash 2.5 H* Total Protein Albumin Urine Protein Trace H Urine Blood Trace H Ur Leukocyte Esterase Large H Urine WBC 137 H Urine WBC Clumps Moderate H Urine Bacteria Rare H Hyaline Casts 4 H Urine Mucus Rare H 03/18/21 06:57 RBC Hgb Hct RDW Neutrophils # Lymphocytes # PT INR Sodium 131 L Chloride BUN 22 H Creatinine 0.57 L Plasma Lactic Acid Aakash Total Protein 5.3 L Albumin 2.7 L Urine Protein Urine Blood Ur Leukocyte Esterase Urine WBC Urine WBC Clumps Urine Bacteria Hyaline Casts Urine Mucus - Diagnostic Findings Chest x-ray: image reviewed Assessment and Plan Assessment: 1 Acute on chronic hypoxemic respiratory failure secondary to atrial fibrillation with rapid ventricular response, small pleural effusions 2 Acute exacerbation of chronic systolic congestive failure with ejection fraction 20-25% 3 Urinary tract infection, cultures pending 4 Altered mental status secondary to above 5 History of atrial fibrillation, anticoagulated with Eliquis 6 Hypertension 7 Hyperlipidemia 8 Decubitus ulcer of the coccyx 9 Macular degeneration 10 History of reyna's lung 11 Valvular heart disease 12 Poor overall functional performance based on the above-mentioned comorbidities, currently an ECF Plan: The patient is seen and evaluated by Dr. Carter Chest x-ray, CAT scan and labs reviewed Small pleural effusions, no plans for thoracentesis at this time Continue diuretics, bronchodilators, empiric antibiotics Titrate the FiO2 as tolerated DO NOT RESUSCITATE/DO NOT INTUBATE CODE STATUS We will continue to follow and make further recommendations based on his clinical status I, the cosigning physician, performed a history & physical examination of the patient. Lungs sounds faint crackles in the bilateral posterior bases. Maintaining good O2 saturations in the 90s on 4 L/m per nasal cannula. I discussed the assessment and plan of care with my nurse practitioner, Bisi Lee. I attest to the above consultation as dictated by her. Time with Patient: Greater than 30
--- NOTE | 2021-03-18 13:55 | P.CRDCN ---
History of Present Illness Consult date: 03/18/21 Requesting physician: Davian Thakur Reason for Consult (text): AF w/RVR Chief complaint: none History of present illness: A pleasant 85-year-old gentleman who follows with Dr. Cross in the office. He is currently at [facility] for rehab. Has a known history of cardiomyopathy with an ejection fraction of 20-25% his previously refused ICD in the past, hypertension, hyperlipidemia, BPH, atrial fibrillation anticoagulated with Eliquis, CAD, macular degeneration and chronic lung disease. He was previously here last month with hypoxemia and diagnosed with COVID-19 pneumonia. Yesterday he was apparently getting turned in bed when he became quite hypoxic and cyanotic. EMS was called and he was brought to the emergency department. He was found to be in atrial fibrillation with rapid ventricular response and initiated on Cardizem drip. Continued on current oral anticoagulation. Chest x-ray admission showed cardiomegaly without any acute cardiopulmonary process, left sided rib fractures of undetermined age present. Echocardiogram during previous admission showed an ejection fraction of 20-25% with mild AI, moderate to severe MR, moderate to severe TR and moderate pulmonary hypertension. Pulmonology has been consulted. Labs on admission showed a white blood cell count of 10.1, hemoglobin 10.9, sodium 131, potassium 4.4, BUN 22, creatinine 0.57 and NT proBNP of 2380. Upon examination patient is resting comfortably in bed. Heart rate is somewhat better controlled ranging from 100-110. Blood pressure is low in the 80s. Overall the patient denies any complaints and is u nsure why he was transferred to the hospital. He denies any shortness of breath, chest discomfort, palpitations, dizziness or lightheadedness. He denies any complaints of orthopnea or PND and denies any lower extremity edema. Past Medical History Past Medical History: Atrial Fibrillation, Coronary Artery Disease (CAD), Heart Failure, Eye Disorder, Hypertension, Myocardial Infarction (NC), Osteoarthritis (OA), Prostate Disorder Additional Past Medical History / Comment(s): Bilateral macular degeneration- eyesight is poor, pt was told by physician that he had NC in past, "reyna's lung", bilateral lower leg edema-takes lasix and wears bilateral compression stockings. Last Myocardial Infarction Date:: unkn History of Any Multi-Drug Resistant Organisms: CRE, Other MDRO Date of last positivie culture/infection: 01/26/21 MDRO Source:: URINE Past Surgical History: Hernia Repair, Joint Replacement Additional Past Surgical History / Comment(s): Bilateral total hip replacements, varicose veins stripped L leg, bilateral laser surgery on eyes for macular degeneration, bilateral inguinal hernia repairs with L testicle removed, eye injections. Past Anesthesia/Blood Transfusion Reactions: No Reported Reaction Additional Past Anesthesia/Blood Transfusion Reaction / Comment(s): Pt states he has been told that he is slow to wake with anesthesia. Smoking Status: Former smoker, Light tobacco smoker - Past Family History Father Family Medical History: Cancer Additional Family Medical History / Comment(s): Father of leukemia at the age of 49 yrs. Mother Family Medical History: Coronary Artery Disease (CAD) Additional Family Medical History / Comment(s): Mother of a NC at the age of 67yrs. She also had varicose veins. Medications and Allergies Home Medications Medication Instructions Recorded Confirmed Type Nitroglycerin Sl Tabs [Nitrostat] 0.4 mg SUBLINGUAL Q5M PRN 07/11/16 03/17/21 History Potassium Chloride ER [K-Dur 20] 20 meq PO DAILY@169907/11/16 03/17/21 History Simvastatin [Zocor] 80 mg PO HS@209907/11/16 03/17/21 History Tamsulosin HCl [Flomax] 0.4 mg PO HS@209907/11/16 03/17/21 History Vit C/E/Zn/Coppr/Lutein/Zeaxan 1 tab PO BID@0800,0 07/08/20 03/17/21 History [Preservision Areds 2 Softgel] Sacubitril/Valsartan [Entresto 24 1 tab PO BID@0800,1700 02/04/21 03/17/21 History mg-26 mg Tablet] Acetaminophen [Tylenol] 650 mg PO Q4H PRN 02/20/21 03/17/21 History Apixaban [Eliquis] 2.5 mg PO BID@0800,1700 02/20/21 03/17/21 History Ascorbic Acid [Vitamin C] 500 mg PO DAILY@1700 02/20/21 03/17/21 History Furosemide [Lasix] 40 mg PO BID@0600,1800 02/20/21 03/17/21 History Ipratropium-Albuterol Nebulize 3 ml INHALATION RT-Q6H PRN 02/20/21 03/17/21 Hi story [Duoneb 0.5 mg-3 mg/3 ml Soln] Lactose-Reduced Food [Ensure Plus] 1 can PO TID@0800,1200,1700 02/20/21 03/17/21 History Lidocaine 4% Cream [Lmx 4] 1 applic TOPICAL DAILY PRN 02/20/21 03/17/21 History Magnesium Hydroxide [Milk of 7,200 mg PO DAILY PRN 02/20/21 03/17/21 History Magnesia Concentrate] Metoprolol Tartrate [Lopressor] 12.5 mg PO BID@0800,1700 02/20/21 03/17/21 Hi story Na Phos,M-B/Na Phos,Di-Ba [Fleet 133 ml RECTAL DAILY PRN 02/20/21 03/17/21 History Adult] Zinc Sulfate [Orazinc] 220 mg PO DAILY@1700 02/20/21 03/17/21 History bisacodyL [Dulcolax] 10 mg RECTAL DAILY PRN 02/20/21 03/17/21 History ALPRAZolam [Xanax] 0.5 mg PO TID PRN #9 tab 02/28/21 03/17/21 Rx Albuterol Inhaler [Ventolin Hfa 2 puff INHALATION RT-TID 03/17/21 03/17/21 History Inhaler] Fludrocortisone Acetate 0.05 mg PO BID@0800,1700 03/17/21 03/17/21 History Levofloxacin [Levaquin] 500 mg PO DIRECTED 03/17/21 03/17/21 History Loperamide HCl [Imodium A-D] 4 mg PO BID PRN 03/17/21 03/17/21 History Midodrine HCl [ProAmatine] 10 mg PO TID@0600,1400,2100 03/17/21 03/17/21 History Allergies Allergy/AdvReac Type Severity Reaction Status Date / Time No Known Allergies Allergy Verified 03/17/21 14:19 Physical Exam Vitals: Vital Signs Temp Pulse Resp BP Pulse Ox 03/18/21 11:27 111 H 03/18/21 11:18 101 H 03/18/21 10:15 106 H 18 96/66 98 03/18/21 09:33 108 H 18 96/49 98 03/18/21 09:06 112 H 18 80/54 99 03/18/21 08:18 108 H 18 79/45 99 03/18/21 07:58 106 H 03/18/21 07:46 102 H 18 92/56 100 03/18/21 07:45 103 H 98 03/18/21 07:23 101 H 18 88/55 99 03/18/21 05:54 98.3 F 111 H 20 93/70 95 03/18/21 01:00 98.6 F 113 H 18 93/57 96 03/17/21 23:00 110 H 18 87/62 96 03/17/21 20:14 105 H 03/17/21 20:08 94 03/17/21 18:28 106 H 20 102/43 96 03/17/21 17:45 107 H 22 95/84 95 03/17/21 16:03 93 20 101/58 97 03/17/21 14:00 108 H 03/17/21 13:51 102 H Intake and Output 03/17/21 03/18/21 03/18/21 22:59 06:59 14:59 Intake Total 13.5 Output Total 800 650 700 Balance -800 -650 -686.5 Intake: Intake, IV Titration 13.5 Amount Diltiazem 125 mg In 13.5 Sodium Chloride 0.9% 100 ml @ 10 MG/HR 10 mls/hr IV .[id number] [facility] Rx#: [id number] Output: Urine 800 650 700 PHYSICAL EXAMINATION: This is a 85-year-old male in no apparent distress at the time of my examination. VITAL SIGNS: Blood pressure 96/66, heart rate 106, respirations 18, temp 98.3F. Patient is 98 % on liters via nasal cannula. HEENT: Head is atraumatic, normocephalic. Pupils are equal, round. Sclerae anicteric. Conjunctivae are clear. Mucous membranes of the mouth are moist. Neck is supple. There is no elevated jugular venous pressure. No carotid bruit is heard. CHEST EXAMINATION: Lungs revealed bibasilar crackles. No wheezes or rhonchi. Respirations even and nonlabored. HEART EXAMINATION: Heart irregular irregular, positive S1 and S2. No S3. No S4. With a holosystolic murmur at the apex. ABDOMEN: Soft, nontender. Bowel sounds are heard. No organomegaly noted. EXTREMITIES: 2+ peripheral pulses with no evidence of peripheral edema and no calf tenderness noted. NEUROLOGIC EXAMINATION: Patient is awake, alert and oriented x3. Results 03/18/21 06:57 03/18/21 06:57 Cardiac Enzymes 03/17/21 03/17/21 03/18/21 Range/Units 13:17 13:17 06:57 AST 27 26 (17-59) U/L Troponin I 0.015 (0.000-0.034) ng/mL Coagulation 03/17/21 Range/Units 13:17 PT 12.5 H (9.0-12.0) sec APTT 28.6 (22.0-30.0) sec CBC 03/18/21 Range/Units 06:57 WBC 10.1 (3.8-10.6) k/uL RBC 3.48 L (4.30-5.90) m/uL Hgb 10.9 L (13.0-17.5) gm/dL Hct 32.6 L (39.0-53.0) % Plt Count 202 (150-450) k/uL Comprehensive Metabolic Panel 03/17/21 03/18/21 Range/Units 13:17 06:57 Sodium 128 L 131 L (137-145) mmol/L Potassium 4.9 4.4 (3.5-5.1) mmol/L Chloride 95 L 100 (98-107) mmol/L Carbon Dioxide 25 24 (22-30) mmol/L BUN 30 H 22 H (9-20) mg/dL Creatinine 0.81 0.57 L (0.66-1.25) mg/dL Glucose 80 75 (74-99) mg/dL Calcium 8.5 8.4 (8.4-10.2) mg/dL AST 27 26 (17-59) U/L ALT 16 14 (4-49) U/L Alkaline Phosphatase 126 113 (38-126) U/L Total Protein 5.7 L 5.3 L (6.3-8.2) g/dL Albumin 2.8 L 2.7 L (3.5-5.0) g/dL Current Medications Generic Name Dose Route Start Last Admin Trade Name Freq PRN Reason Stop Dose Admin Acetaminophen 650 mg 03/17/21 16:59 Acetaminophen Tab 325 Mg Tab PO Q4H PRN GENERAL DISCOMFORT Albuterol/Ipratropium 3 ml 03/17/21 16:00 03/18/21 11:17 Ipratropium-Albuterol 3 Ml Neb INHALATION 3 ml RT-QID RENNY Administration Albuterol/Ipratropium 3 ml 03/17/21 16:59 Ipratropium-Albuterol 3 Ml Neb INHALATION RT-Q6H PRN Shortness Of Breath Alprazolam 0.5 mg 03/17/21 16:59 03/18/21 05:58 Alprazolam 0.5 Mg Tab PO 0.5 mg TID PRN Administration Anxiety Apixaban 2.5 mg 03/17/21 17:00 03/18/21 08:40 Apixaban 2.5 Mg Tablet PO 2.5 mg BID@0800,1700 RENNY Administration Ascorbic Acid 500 mg 03/17/21 17:00 03/17/21 18:24 Ascorbic Acid 500 Mg Tab PO 500 mg DAILY@1700 RENNY Administration Atorvastatin Calcium 40 mg 03/17/21 21:00 03/17/21 23:45 Atorvastatin 40 Mg Tab PO 40 mg HS@2100 RENNY Administration Bisacodyl 10 mg 03/17/21 16:59 Bisacodyl 10 Mg Supp RECTAL DAILY PRN Constipation Fludrocortisone Acetate 0.05 mg 03/17/21 17:00 03/18/21 08:55 Fludrocortisone 0.1 Mg Tab PO 0.05 mg BID@0800,1700 RENNY Administration Furosemide 40 mg 03/17/21 18:00 03/18/21 05:58 Furosemide 40 Mg Tab PO 40 mg BID@0600,1800 RENNY Administration Diltiazem HCl 125 mg/ Sodium 125 mls @ 10 mls/hr 03/18/21 06:30 03/18/21 08:22 Chloride IV 5 mg/hr .[id number] RENNY 5 mls/hr Infusion 10 MG/HR Levofloxacin 500 mg 03/17/21 17:00 03/17/21 18:24 Levofloxacin 500 Mg Tab PO 03/23/21 23:00 500 mg DAILY@1200 RENNY Administration Lidocaine HCl 1 applic 03/17/21 16:59 Lidocaine 4% Cream 5 Gm Tube TOPICAL DAILY PRN WOUND PAIN Loperamide HCl 4 mg 03/17/21 16:59 Loperamide 2 Mg Cap PO BID PRN Diarrhea Magnesium Hydroxide 2,400 mg 03/17/21 16:59 03/17/21 18:23 Magnesium Hydroxide 2,400 Mg/10 Ml Cup PO 2,400 mg DAILY PRN Administration Constipation Metoprolol Tartrate 12.5 mg 03/17/21 17:00 03/18/21 08:39 Metoprolol Tartrate 12.5 Mg Tab PO 12.5 mg BID@0800,1700 [facility] Administration Midodrine 10 mg 03/17/21 21:00 03/18/21 05:58 Midodrine 5 Mg Tab PO 10 mg TID@0600,1400,2100 [facility] Administration Multivitamins/Minerals 1 each 03/17/21 17:00 03/18/21 08:55 Vit A,C & W-Smqwbr-Lntadnqt 1 Each Tab PO 1 each BID@0800,1700 [facility] Administration Nitroglycerin 0.4 mg 03/17/21 16:59 Nitroglycerin Sl Tabs 0.4 Mg Tab SUBLINGUAL Q5M PRN Chest Pain Pantoprazole Sodium 40 mg 03/18/21 07:30 03/18/21 08:40 Pantoprazole 40 Mg Tablet PO 40 mg [id number] [facility] Administration Potassium Chloride 20 meq 03/17/21 17:00 03/17/21 18:24 Potassium Chloride Er 20 Meq Tab.Er PO 20 meq DAILY@1700 [facility] Administration Sodium Biphosphate/Sodium Phosphate 133 ml 03/17/21 16:59 Na Phos,M-B/Na Phos,Di-Ba 133 Ml Enema RECTAL DAILY PRN Constipation Tamsulosin HCl 0.4 mg 03/17/21 21:00 03/17/21 23:45 Tamsulosin 0.4 Mg Cap.Er.24h PO 0.4 mg HS@2100 [facility] Administration Zinc Sulfate 220 mg 03/17/21 17:00 03/17/21 18:23 Zinc Sulfate 220 Mg Cap PO 220 mg DAILY@170 [facility] Administration Intake and Output 03/17/21 03/18/21 03/18/21 22:59 06:59 14:59 Intake Total 13.5 Output Total 800 650 700 Balance -800 -650 -686.5 Intake: Intake, IV Titration 13.5 Amount Diltiazem 125 mg In 13.5 Sodium Chloride 0.9% 100 ml @ 10 MG/HR 10 mls/hr IV .[id number] [facility] Rx#: [id number] Output: Urine 800 650 700 03/18/21 06:57 03/18/21 06:57 EKG Interpretations (text) Atrial fibrillation with rapid ventricular response Assessment and Plan Assessment: #1 atrial fibrillation with rapid ventricular response, chronic, anticoagulated on Eliquis #2 known cardiomyopathy, previously refused ICD, #3 UTI #4 history of CAD #5 hypertension, currently hypotensive likely secondary to underlying UTI and possibly worsened by IV Cardizem #6 hyperlipidemia #7 chronic systolic congestive heart failure with an NT proBNP of 2380 which is better than previous Plan: From cardiology's perspective we will discontinue IV Cardizem and increase oral beta ankur. We will continue to follow the patient and provide further recommendations accordingly. No need to repeat echocardiogram as patient just had one done last month. [facility] REP note has been reviewed, I agree with a documented findings and plan of care. Patient was seen and examined.
[2021-03-18] MEDS: LEVOFLOXACIN 500 MG TAB PO SCH (21:06)
[2021-03-18] MEDS: METOPROLOL TARTRATE 25 MG TAB PO SCH (21:07)
[2021-03-18] MEDS: ASCORBIC ACID 500 MG TAB PO SCH (21:07)
[2021-03-18] MEDS: ZINC SULFATE 220 MG CAP PO SCH (21:07)
[2021-03-18] MEDS: POTASSIUM CHLORIDE ER 20 MEQ TAB.ER PO SCH (21:07)
[2021-03-18] MEDS: TAMSULOSIN 0.4 MG CAP.ER.24H PO SCH (21:11)
[2021-03-18] MEDS: ATORVASTATIN 40 MG TAB PO SCH (21:11)
[2021-03-19] MEDS: FUROSEMIDE 40 MG TAB PO SCH ×2 (05:59→18:04)
[2021-03-19] MEDS: MIDODRINE 5 MG TAB PO SCH ×3 (05:59→20:02)
[2021-03-19] MEDS: PANTOPRAZOLE 40 MG TABLET PO SCH (09:27)
[2021-03-19] MEDS: FLUDROCORTISONE 0.1 MG TAB PO SCH ×2 (09:27→18:04)
[2021-03-19] MEDS: APIXABAN 2.5 MG TABLET PO SCH ×2 (09:27→18:04)
[2021-03-19] MEDS: METOPROLOL TARTRATE 25 MG TAB PO SCH ×2 (09:28→18:04)
[2021-03-19] MEDS: VIT A,C & E-LUTEIN-MINERALS 1 EACH TAB PO SCH ×2 (09:28→18:04)
[2021-03-19] MEDS: IPRATROPIUM-ALBUTEROL 3 ML NEB INHALATION SCH ×4 (09:31→19:52)
--- NOTE | 2021-03-19 13:11 | P.PN ---
Subjective Progress Note Date: 03/19/21 Principal diagnosis: Acute on chronic hypoxic rest or a failure secondary to A. fib with RVR and small pleural effusions This is a very pleasant 85-year-old gentleman who resides at [facility]. He has a history of hypertension hyperlipidemia, BPH, atrial fibrillation anticoagulated with Eliquis, osteoarthritis, coronary disease, macular degeneration, and franklin's lung. He follows with Dr. Carter in our office. He was here last month for hypoxemia and diagnosed with COVID-19 pneumonia. He was seen for some reason by Dr. [place] at that time. He was discharged to the [facility] on 02/28/2021. Yesterday he was getting turned in bed for decubitus ulcer treatment when he became quite hypoxic and cyanotic. EMS was called he was brought here for the same. He was found to be in atrial fibrillation with rapid ventricular response. Initiated on Cardizem drip at 5 mg per hour. Continued on Eliquis. Presently he is resting comfortably on the stretcher. Awake and alert in no acute distress. He is however stating he did not want to have anything further done. He states he told his to "just let him go". Chest x-ray reveals marketed cardiomegaly without any acute cardiopulmonary process. Left-sided rib fractures of undetermined age present. Echocardiogram reveals severely impaired left ventricular systolic function with ejection fraction 20-25%. Moderate to severe mitral regurgitation. Moderate pulmonary hypertension. White count 10.1. Hemoglobin 10.9. Sodium 131. Potassium 44. Creatinine 0.57. ProBNP 2380. Parry virus not detected. On 03/19/2021 patient seen in follow-up on selective care unit, he is awake and alert, in no acute distress, he is on 3 L of oxygen pulse ox of 95-97%, afebrile, hemodynamically patient is having some low blood pressures this afternoon with a blood pressure 75/47. Remains on oral diuretics in the form of Lasix 40 mg twice daily, patient is on midodrine 10 mg by mouth 3 times a day, he is also on Lopressor 25 mg twice daily. Patient is maintaining negative fluid balance, -1.7 that fluid balance over the last 24 hours. No new chest x- ray. Seems to be breathing comfortably, denies any chest pain, today's labs have been reviewed with blood cell count is 10.1, hemoglobin is 10.9, sodium is 131, rest the electrolytes were within normal limits, B1 is 22 creatinine 0.57. Urinalysis showed evidence of urinary tract infection, and patient is currently on Levaquin for antibiotic coverage. Objective - Vital Signs Vital signs: Vital Signs Temp 97.7 F 03/19/21 11:25 Pulse 86 03/19/21 11:25 Resp 18 03/19/21 11:25 BP 75/47 03/19/21 11:25 Pulse Ox 97 03/19/21 11:25 Intake & Output 03/18/21 03/19/21 03/19/21 18:59 06:59 18:59 Intake Total 113.5 64.5 100 Output Total 700 1200 Balance -586.5 -1135.5 100 Weight 95.254 kg Intake: Intake, IV Titration 13.5 64.5 Amount Diltiazem 125 mg In 13.5 64.5 Sodium Chloride 0.9% 100 ml @ 10 MG/HR 10 mls/hr IV .[id number] [facility] Rx#: [id number] Oral 100 100 Output: Urine 700 1200 - Exam GENERAL EXAM: Alert, very pleasant, 85-year-old frail looking gentleman on 3 L of oxygen with a pulse ox of 97% comfortable in no apparent distress. HEAD: Normocephalic/atraumatic. EYES: Normal reaction of pupils, equal size. Conjunctiva pink, sclera white. NOSE: Clear with pink turbinates. THROAT: No erythema or exudates. NECK: No masses, no JVD, no thyroid enlargement, no adenopathy. CHEST: No chest wall deformity. Symmetrical expansion. LUNGS: Equal air entry with bibasilar crackles CVS: Irregular rate and rhythm, normal S1 and S2, no gallops, no murmurs, no rubs ABDOMEN: Soft, nontender. No hepatosplenomegaly, normal bowel sounds, no guarding or rigidity. EXTREMITIES: No clubbing, no edema, no cyanosis, 2+ pulses and upper and lower extremities. MUSCULOSKELETAL: Muscle strength and tone normal. SPINE: No scoliosis or deformity SKIN: No rashes CENTRAL NERVOUS SYSTEM: Alert and oriented -3. No focal deficits, tone is nor mal in all 4 extremities. PSYCHIATRIC: Alert and oriented -3. Appropriate affect. Intact judgment and insight. - Labs CBC & Chem 7: 06/06/21 06:57 03/18/21 06:57 Labs: Microbiology - Last 24 Hours (Table) 03/17/21 16:01 Blood Culture - Preliminary Blood No Growth after 24 hours Assessment and Plan Plan: Assessment: #1. Acute on chronic hypoxic respiratory failure and dyspnea related to acute exacerbation of chronic CHF with systolic dysfunction #2. A. fib with RVR #3. Small bilateral pleural effusions #4. Urinary tract infection, cultures are pending, patient is currently on Levaquin #5. History of atrial fibrillation, on Eliquis for chronic anticoagulation #6. Hypertension #7. Hyperlipidemia #8. Decubitus ulcer of the coccyx #9. Macular degeneration #10. Recent COVID-19 pneumonia in January 2021 #11. Hyponatremia related to acute exacerbation of CHF #12. Severely impaired left ventricular systolic function and chronic CHF, with EF of 20-25% #13. Coronary artery disease #14. Macular degeneration #15. Franklin's lung Plan: Continue diuretics per cardiology recommendations Patient is noted to be a bit hypotensive Currently on the Florinef and midodrine Continue nebulized bronchodilators Continue oral anticoagulants Obtain follow-up chest x-ray and labs tomorrow We'll continue to follow I performed a history & physical examination of the patient and discussed their management with my nurse practitioner, Jennifer Wasserman. I reviewed the nurse practitioner's note and agree with the documented findings and plan of care. Jolynn ng sounds are positive for diminished breath sounds. The findings and the impression was discussed with the patient. I attest to the documentation by the nurse practitioner. Time with Patient: Less than 30
--- NOTE | 2021-03-19 13:44 | P.PN ---
Subjective Progress Note Date: 03/19/21 HISTORY OF PRESENT ILLNESS: A pleasant 85-year-old gentleman who follows with Dr. Cross in the office. He is currently at [facility] for rehab. Has a known history of cardiomyopathy with an ejection fraction of 20-25% his previously refused ICD in the past, hypertension, hyperlipidemia, BPH, atrial fibrillation anticoagulated with Eliquis, CAD, macular degeneration and chronic lung disease. He was previously here last month with hypoxemia and diagnosed with COVID-19 pneumonia. Yesterday he was apparently getting turned in bed when he became quite hypoxic and cyanotic. EMS was called and he was brought to the emergency department. He was found to be in atrial fibrillation with rapid ventricular response and initiated on Cardizem drip. Continued on current oral anticoagulation. Chest x-ray admission showed cardiomegaly without any acute cardiopulmonary process, left sided rib fractures of undetermined age present. Echocardiogram during previous admission showed an ejection fraction of 20-25% with mild AI, moderate to severe MR, moderate to severe TR and moderate pulmonary hypertension. Pulmonology has been consulted. Labs on admission showed a white blood cell count of 10.1, hemoglobin 10.9, sodium 131, potassium 4.4, BUN 22, creatinine 0.57 and NT proBNP of 2380. Upon examination patient is resting comfortably in bed. Heart rate is somewhat better controlled ranging from 100-110. Blood pressure is low in the 80s. Overall the patient denies any complaints and is unsure why he was transferred to the hospital. He denies any shortness of kia th, chest discomfort, palpitations, dizziness or lightheadedness. He denies any complaints of orthopnea or PND and denies any lower extremity edema. 03/19/2021 Patient examined this morning at the bedside. Patient denies chest pain or pressure. Denies shortness of breath.. Patient remains in atrial fibrillation with controlled ventricular rates. Patient remains hypotensive this morning. He received his metoprolol and Midodrine. He denies dizziness or lightheadedness. PHYSICAL EXAM: VITAL SIGNS: Reviewed. GENERAL: Well-developed in no acute distress. NECK: Supple. No JVD or thyromegaly LUNGS: Respirations even and unlabored. Lungs diminished bilaterally. HEART: Irregular rate and rhythm. S1 and S2 heard. Systolic murmur noted. EXTREMITIES: Normal range of motion. No clubbing or cyanosis. Peripheral pulses intact. No lower extremity edema ASSESSMENT: Urinary tract infection Chronic persistent atrial fibrillation with RVR Known history of cardiomyopathy, previously refused AICD Coronary artery disease Hypertension Hyperlipidemia Chronic systolic congestive heart failure PLAN: Continue telemetry monitoring Continue to monitor blood pressure Continue current cardiac medications Patient to be discharged tomorrow to [facility] Nurse practitioner note has been reviewed by physician. Signing provider agrees with the documented findings, assessment, and plan of care. Objective - Vital Signs Vital signs: Vital Signs Temp 97.7 F 03/19/21 11:25 Pulse 86 03/19/21 11:25 Resp 18 03/19/21 11:25 BP 75/47 03/19/21 11:25 Pulse Ox 97 03/19/21 11:25 Intake & Output 03/18/21 03/19/21 03/19/21 18:59 06:59 18:59 Intake Total 113.5 64.5 100 Output Total 700 1200 Balance -586.5 -1135.5 100 Weight 95.254 kg Intake: Intake, IV Titration 13.5 64.5 Amount Diltiazem 125 mg In 13.5 64.5 Sodium Chloride 0.9% 100 ml @ 10 MG/HR 10 mls/hr IV .[id number] [facility] Rx#: [id number] Oral 100 100 Output: Urine 700 1200 - Labs CBC & Chem 7: 03/18/21 06:57 03/18/21 06:57 Labs: Microbiology - Last 24 Hours (Table) 03/17/21 16:01 Blood Culture - Preliminary Blood No Growth after 24 hours
[2021-03-19 14:43] VITALS: BMI 31.0
[2021-03-19] MEDS: LEVOFLOXACIN 500 MG TAB PO SCH (14:44)
[2021-03-19] MEDS: POTASSIUM CHLORIDE ER 20 MEQ TAB.ER PO SCH (18:03)
[2021-03-19] MEDS: ZINC SULFATE 220 MG CAP PO SCH (18:05)
[2021-03-19] MEDS: ASCORBIC ACID 500 MG TAB PO SCH (18:05)
[2021-03-19] MEDS: TAMSULOSIN 0.4 MG CAP.ER.24H PO SCH (20:02)
[2021-03-19] MEDS: ATORVASTATIN 40 MG TAB PO SCH (20:02)
[2021-03-20] MEDS: MIDODRINE 5 MG TAB PO SCH (06:22)
[2021-03-20] MEDS: PANTOPRAZOLE 40 MG TABLET PO SCH (06:22)
[2021-03-20] MEDS: FUROSEMIDE 40 MG TAB PO SCH (06:22)
--- NOTE | 2021-03-20 06:54 | P.PN ---
Subjective Progress Note Date: 03/19/21 HISTORY OF PRESENT ILLNESS 85-year-old gentleman who I start seen in [facility] for the last few weeks who was hospitalized after an episode of A. fib with RVR with UTI and ence phalopathy with significant change in mental status and multiple falls. Patient has been doing rehab in [facility] had declined last 48 hours become slightly bit more confused and running low-grade temperature testing in [facility] shows UA was positive chest x-ray showed right lower lobe pneumonia consistent with aspiration. Patient developed to have severe hypoxia with pulse ox running in the mid 80 despite 2 L of O2 has been hypotensive and still running temperature of 101. With above problem specially with his confusion ended up coming to the emergency department at [facility] where was seen and evaluated. Continue to be hypoxic require between 2 and 5 L 4 to. With his current sy mptoms especially having to have increased lactic acid with hypoxia and significant dyspnea ended up going for CTA which failed to show any PE but small pleural effusion with basilar pulmonary mild infiltrate and cardiomegaly with sign of congestive heart failure. EKG showed atrophy fibrillation with PVCs pulse rate running in the mid 90s patient remain on Eliquis and metoprolol. Also patient found to have significant hypotension with a blood pressure fluctuate but still slightly bit low. Last week patient was started on midodrine up to 10 mg 3 times a day also fludrocortisone 0.05 mg twice a day to keep his pulse ox above 100 systolic. With hyponatremia and his current symptoms patient was hospitalized will continue diuretics continue O2 will consult cardiology continue antibiotics. 03/18: is seen today in the emergency center waiting for a cardiac stepdown bed. Patient states that he is feeling a little bit better today. Discussed concern for suicidal ideation but this is denied. There was some misinterpretation of his comments. Reviewed documents for [facility] and patient is to be a no CODE STATUS which has been established here. He is currently in atrial fibrillation with hypotension with systolic pressure running between 70- 90. He is status post Cardizem bolus followed by Cardizem drip initially at 10 mg now decreased to 5 mg but continues to have low pressure despite bolus of 250 ML's. Patient has been seen by Dr. Prashanth Gonzalez in the past. He is afebrile, heart rate 106, blood pressure 80/54, pulse ox 99% on 4 L nasal cannula. Repeat blood work reveals WBC 10.1, hemoglobin 10.9, platelet count 202. Sodium 131, potassium 4.4, chloride 100, CO2 24, BUN 22 and creatinine 0.57. Liver function tests are normal. Pro-BMP came [place] 2380. CT angiogram of the chest revealed cardiomegaly. Small pleural effusions with basilar pulmonary mild infiltrates and atelectasis but could relate to heart failure. No pulmonary embolism. Mild aneurysm of the ascending aorta. Patient would like his contacted and updated. This will be done later today. 03/19: Patient is seen today on the cardiac stepdown floor. He has been seen by container filler and off Cardizem drip, beta ankur was increased. Discussed case with patient's and she is unable to take him home. She is not able to manage his care. We will ask corrections caseworker to arrange for return to [facility] as well as palliative care. Patient has been afebrile, heart rate 79, blood pressure 90/53. Pulse ox 95% on 3 L nasal cannula. Repeat blood work for tomorrow, plan for discharge tomorrow. REVIEW OF SYSTEMS Constitutional: No fever, no chills, no night sweats. No weight change. No weakness, fatigue or lethargy. No daytime sleepiness. Significant confusion HEENT: No headache. No blurred vision or double vision, no loss of vision. No loss of Hearing, no ringing in the ears, no dizziness. No nasal drainage or congestion. No epistaxis. No sore throat. Lungs: Positive dyspnea and shortness of breath with severe hypoxia and tachypnea with mild wheezes. Cardiovascular: No chest pain, no lower extremity edema. Positive PND orthopnea, positive hypoxia, positive palpitation, hypotension and presyncopal episodes. Abdominal: No abdominal pain. No nausea, vomiting. No diarrhea. No constipation. No bloody or tarry stools.. No loss of appetite. Genitourinary: Positive urinary retention with polyuria and no dysuria frequency urgency burning discomfort. Musculoskeletal: Positive generalized muscle pain and weakness not been able to evaluate gait patient mobility still significantly decrease. Positive lower back pain and neck pain. Integumentary: Coccyx and left heel wounds, no lesions. No rash or pruritus. No unusual bruising. No change in hair or nails. Neurologic: Generalized weakness fatigue no droopy face positive change mental status no head injury or trauma positive normal balance and gait and overall generalized weakness. Psychiatric: Worsening mental status with worsening depression positive mild anxiety and insomnia. Endocrine: No abnormal blood sugars. No weight change. No excessive sweating or thirst. No cold intolerance. PHYSICAL EXAMINATION Gen: This is an 85-year-old male. He is resting in bed appears to be comfortable. No acute distress noted.. HEENT: Head is atraumatic, normocephalic. Pupils equal, round. Sclerae is anicteric. NECK: Supple. No JVD. No lymphadenopathy. No thyromegaly. LUNGS: Decreased breath some bilaterally with fine rhonchi plus crackles in the bases positive mild expiratory wheezes. HEART: Irregular rhythm and rates positive S3 positive tachycardia positive PVCs with systolic murmur. ABDOMEN: Soft. Bowel sounds are present. No masses. No tenderness. EXTREMITIES: Trace edema with multiple bruises especially in the lower extremity. NEUROLOGICAL: Patient is awake and alert, oriented to person and place, generalized weakness noted. ASSESSMENT AND PLAN 1. Acute hypoxic respiratory failure secondary to acute on chronic systolic heart failure, possible aspiration pneumonia. Continue Lasix 40 mg oral twice d aily, Levaquin 500 mg daily, DuoNeb treatments 4 times daily and as needed. 2. Metabolic encephalopathy secondary to hypoxia and the UTI. Continue treatment of underlying cause. 3. Sepsis and UTI with aspiration pneumonia. Continue Levaquin 500 mg daily, urine culture and blood cultures. 4. Severe hypotension: With possible adrenal insufficiency, patient has been treated with midodrine and fludrocortisone continue to watch blood sugar to keep systolic above 100. Entresto discontinued. 5. A. fib with RVR, chronic atrial fibrillation, continue eliquis 2.5 mg twice daily, Lopressor 25 mg twice daily. Patient is currently off Cardizem drip. Consult with cardiology. 6. Severe cardiomyopathy and chronic systolic heart failure with ejection fraction of s 20-25%. Entresto discontinued due to hypotension. Continue metoprolol and Lasix. 7. Hyponatremia, improving. Possible SIADH. 8. Benign prostatic hypertrophy with urinary retention. Continue Flomax or 0.4 mg daily, Mariee catheter. 9. Decubitus ulcers to the coccyx stage IV and left stage II, POA. Please see nursing documentation for details. 10 GI prophylaxis: Patient will be on Protonix. 11 DVT prophylaxis: Remain on Eliquis continue medication. 12 COVID-19 testing were negative. Patient is admitted to the hospital during pandemic time. 13 CODE STATUS: Full code. DISCHARGE PLAN Return to [facility] under the care of Dr. Thakur on Friday Impression and plan of care have been directed as dictated by the signing physician. Danica Ta nurse practitioner acting as scribe for signing physician. Objective - Vital Signs Vital signs: Vital Signs Temp 97.8 F 03/19/21 04:23 Pulse 108 H 03/19/21 04:23 Resp 16 03/19/21 04:23 BP 90/52 03/19/21 04:23 Pulse Ox 93 L 03/19/21 04:23 Intake & Output 03/18/21 03/19/21 03/19/21 18:59 06:59 18:59 Intake Total 113.5 64.5 100 Output Total 700 1200 Balance -586.5 -1135.5 100 Weight 95.254 kg Intake: Intake, IV Titration 13.5 64.5 Amount Diltiazem 125 mg In 13.5 64.5 Sodium Chloride 0.9% 100 ml @ 10 MG/HR 10 mls/hr IV .[id number] [facility] Rx#: [id number] Oral 100 100 Output: Urine 700 1200 - Labs CBC & Chem 7: 03/18/21 06:57 03/18/21 06:57 Labs: Microbiology - Last 24 Hours (Table) 03/17/21 16:01 Blood Culture - Preliminary Blood No Growth after 24 hours
--- NOTE | 2021-03-20 06:55 | P.DS ---
Providers Date of admission: 03/18/21 09:11 Expected date of discharge: 03/20/21 Attending physician: Davian Thakur Consults: 03/18/21 00:25 Consult Physician Routine Consulting Provider: Perfecto Carter Consult Reason/Comments: Hypoxia Do you want consulting provider notified?: Yes 03/18/21 00:28 Consult Physician Routine Consulting Provider: Shelby Glaser Consult Reason/Comments: CMP Do you want consulting provider notified?: Yes Primary care physician: Davian Thakur [facility] Course: HISTORY OF PRESENT ILLNESS 85-year-old gentleman who I start seen in [facility] for the last few weeks who was hospitalized after an episode of A. fib with RVR with UTI and encephalopathy with significant change in mental status and multiple falls. Patient has been doing rehab in [facility] had declined last 48 hours become slightly bit more confused and running low-grade temperature testing in [facility] shows UA was positive chest x-ray showed right lower lobe pneumonia consistent with aspiration. Patient developed to have severe hypoxia with pulse ox running in the mid 80 despite 2 L of O2 has been hypotensive and still running temperature of 101. With above problem specially with his confusion ended up coming to the emergency department at [facility] where was seen and evaluated. Continue to be hypoxic require between 2 and 5 L 4 to. With his current symptoms especially having to have increased lactic acid with hypoxia and significant dyspnea ended up going for CTA which failed to show any PE but small pleural effusion with basilar pulmonary mild infiltrate and cardiomegaly with sign of congestive heart failure. EKG showed atrophy fibrillation with PVCs pulse rate running in the mid 90s patient remain on Eliquis and metoprolol. Also patient found to have significant hypotension with a blood pressure fluctuate but still slightly bit low. Last week patient was started on midodrine up to 10 mg 3 times a day also fludrocortisone 0.05 mg twice a day to keep his pulse ox above 100 systolic. With hyponatremia and his current symptoms patient was hospitalized will continue diuretics continue O2 will consult cardiology continue antibiotics. 03/18: is seen today in the emergency center waiting for a cardiac stepdown bed. Patient states that he is feeling a little bit better today. Discussed concern for suicidal ideation but this is denied. There was some misinterpretation of his comments. Reviewed documents for [facility] and patient is to be a no CODE STATUS which has been established here. He is currently in atrial fibrillation with hypotension with systolic pressure running between 70- 90. He is status post Cardizem bolus followed by Cardizem drip initially at 10 mg now decreased to 5 mg but continues to have low pressure despite bolus of 250 ML's. Patient has been seen by Dr. Prashanth Gonzalez in the past. He is afebrile, heart rate 106, blood pressure 80/54, pulse ox 99% on 4 L nasal cannula. Repeat blood work reveals WBC 10.1, hemoglobin 10.9, platelet count 202. Sodium 131, potassium 4.4, chloride 100, CO2 24, BUN 22 and creatinine 0.57. Liver function tests are normal. Pro-BMP came [place] 2380. CT angiogram of the chest revealed cardiomegaly. Small pleural effusions with basilar pulmonary mild infiltrates and atelectasis but could relate to heart failure. No pulmonary embolism. Mild aneurysm of the ascending aorta. Patient would like his contacted and updated. This will be done later today. 03/19: Patient is seen today on the cardiac stepdown floor. He has been seen by household appliance repairer and off Cardizem drip, beta ankur was increased. Discussed case with patient's and she is unable to take him home. She is not able to manage his care. We will ask watch case polisher to arrange for return to [facility] as well as palliative care. Patient has been afebrile, heart rate 79, blood pressure 90/53. Pulse ox 95% on 3 L nasal cannula. Repeat blood work for tomorrow, plan for discharge tomorrow. 03/20: Patient denies any new complaints. His blood pressure remains soft and Entresto will remain on hold. He has been afebrile, heart rate 89, blood pressure 108/61, pulse ox 99% on 3 L nasal cannula. Repeat blood work reveals WBC 9.0, hemoglobin 10.6, platelet count 222. Sodium 133, potassium 4.6, chloride 99, CO2 29, BUN 17 and creatinine 0.5. Blood cultures no growth at 48 hours. Repeat chest x-ray done this morning reveals severe cardiomegaly with basilar atelectasis versus infiltrate. No overt failure. Patient has been cleared by urology and pulmonary medicine for discharge. Patient will be discharged back to [facility] today in stable condition. ASSESSMENT AND PLAN 1. Acute hypoxic respiratory failure secondary to acute on chronic systolic heart failure, possible aspiration pneumonia. 2. Metabolic encephalopathy secondary to hypoxia and the UTI. 3. Sepsis and UTI with aspiration pneumonia. 4. Severe hypotension: With possible adrenal insufficiency, patient has been treated with midodrine and fludrocortisone. 5. A. fib with RVR, chronic atrial fibrillation. 6. Severe cardiomyopathy and chronic systolic heart failure with ejection fraction of s 20-25%. 7. Hyponatremia, improving. Possible SIADH. 8. Benign prostatic hypertrophy with urinary retention. 9. Decubitus ulcers to the coccyx stage IV and left stage II, POA. DISCHARGE PLAN Return to [facility] under the care of Dr. Thakur on Friday Impression and plan of care have been directed as dictated by the signing physician. Danica Ta nurse practitioner acting as scribe for signing physician. Patient Condition at Discharge: Stable Plan - Discharge Summary New Discharge Prescriptions: Continue Tamsulosin HCl [Flomax] 0.4 mg PO HS@2100 Potassium Chloride ER [K-Dur 20] 20 meq PO DAILY@1700 Nitroglycerin Sl Tabs [Nitrostat] 0.4 mg SUBLINGUAL Q5M PRN PRN Reason: Chest Pain Simvastatin [Zocor] 80 mg PO HS@2100 Vit C/E/Zn/Coppr/Lutein/Zeaxan [Preservision Areds 2 Softgel] 1 tab PO BID@0800,1700 Na Phos,M-B/Na Phos,Di-Ba [Fleet Adult] 133 ml RECTAL DAILY PRN PRN Reason: Constipation Metoprolol Tartrate [Lopressor] 12.5 mg PO BID@0800,1700 Furosemide [Lasix] 40 mg PO BID@0600,1800 Apixaban [Eliquis] 2.5 mg PO BID@0800,1700 Magnesium Hydroxide [Milk of Magnesia Concentrate] 7,200 mg PO DAILY PRN PRN Reason: Constipation Zinc Sulfate [Orazinc] 220 mg PO DAILY@1700 Loperamide HCl [Imodium A-D] 4 mg PO BID PRN PRN Reason: Diarrhea Albuterol Inhaler [Ventolin Hfa Inhaler] 2 puff INHALATION RT-TID Midodrine HCl [ProAmatine] 10 mg PO TID@0600,1400,2100 Levofloxacin [Levaquin] 500 mg PO DIRECTED bisacodyL [Dulcolax] 10 mg RECTAL DAILY PRN PRN Reason: Constipation Lactose-Reduced Food [Ensure Plus] 1 can PO TID@0800,1200,1700 Ascorbic Acid [Vitamin C] 500 mg PO DAILY@1700 Lidocaine 4% Cream [Lmx 4] 1 applic TOPICAL DAILY PRN PRN Reason: WOUND PAIN Acetaminophen [Tylenol] 650 mg PO Q4H PRN PRN Reason: GENERAL DISCOMFORT Ipratropium-Albuterol Nebulize [Duoneb 0.5 mg-3 mg/3 ml Soln] 3 ml INHALATION RT-Q6H PRN PRN Reason: Shortness Of Breath Fludrocortisone Acetate 0.05 mg PO BID@0800,1700 ALPRAZolam [Xanax] 0.5 mg PO TID PRN #9 tab PRN Reason: Anxiety Discontinued Sacubitril/Valsartan [Entresto 24 mg-26 mg Tablet] 1 tab PO BID@0800,1700 Discharge Medication List Nitroglycerin Sl Tabs [Nitrostat] 0.4 mg SUBLINGUAL Q5M PRN 07/11/16 [History] Potassium Chloride ER [K-Dur 20] 20 meq PO DAILY@169907/11/16 [History] Simvastatin [Zocor] 80 mg PO HS@209907/11/16 [History] Tamsulosin HCl [Flomax] 0.4 mg PO HS@209907/11/16 [History] Vit C/E/Zn/Coppr/Lutein/Zeaxan [Preservision Areds 2 Softgel] 1 tab PO BID@0800,1700 07/08/20 [History] Acetaminophen [Tylenol] 650 mg PO Q4H PRN 02/20/21 [History] Apixaban [Eliquis] 2.5 mg PO BID@0800,1700 02/20/21 [History] Ascorbic Acid [Vitamin C] 500 mg PO DAILY@169902/20/21 [History] Furosemide [Lasix] 40 mg PO BID@0600,1800 02/20/21 [History] Ipratropium-Albuterol Nebulize [Duoneb 0.5 mg-3 mg/3 ml Soln] 3 ml INHALATION RT-Q6H PRN 02/20/21 [History] Lactose-Reduced Food [Ensure Plus] 1 can PO TID@0800,1200,1700 02/20/21 [Histo ry] Lidocaine 4% Cream [Lmx 4] 1 applic TOPICAL DAILY PRN 02/20/21 [History] Magnesium Hydroxide [Milk of Magnesia Concentrate] 7,200 mg PO DAILY PRN 02/20/21 [History] Metoprolol Tartrate [Lopressor] 12.5 mg PO BID@0800,1700 02/20/21 [History] Na Phos,M-B/Na Phos,Di-Ba [Fleet Adult] 133 ml RECTAL DAILY PRN 02/20/21 [History] Zinc Sulfate [Orazinc] 220 mg PO DAILY@1700 02/20/21 [History] bisacodyL [Dulcolax] 10 mg RECTAL DAILY PRN 02/20/21 [History] Albuterol Inhaler [Ventolin Hfa Inhaler] 2 puff INHALATION RT-TID 03/17/21 [History] Fludrocortisone Acetate 0.05 mg PO BID@0800,1700 03/17/21 [History] Levofloxacin [Levaquin] 500 mg PO DIRECTED 03/17/21 [History] Loperamide HCl [Imodium A-D] 4 mg PO BID PRN 03/17/21 [History] Midodrine HCl [ProAmatine] 10 mg PO TID@0600,1400,2100 03/17/21 [History] ALPRAZolam [Xanax] 0.5 mg PO TID PRN #9 tab 03/20/21 [Rx] Follow up Appointment(s)/Referral(s): Davian Thakur MD [Primary Care Provider] - 1-2 days [facility] [NON-STAFF] - Mark Anthony Gonzalez MD [STAFF PHYSICIAN] - 1 Week
--- NOTE | 2021-03-20 08:14 | XR ---
EXAMINATION TYPE: XR chest 1V portable DATE OF EXAM: 03/20/2021 COMPARISON: 03/17/2021 HISTORY: Shortness of breath TECHNIQUE: Single frontal view of the chest is obtained. FINDINGS: Multiple left-sided rib deformities of pleural-based thickening noted. Severe cardiomegaly with hyperinflation. Bibasilar subsegmental consolidation. No overt failure. Arthropathy of the shou lders. IMPRESSION: 1. Severe cardiomegaly with basilar atelectasis versus early infiltrate. No overt failure.
[2021-03-20 08:27] LABS: Basophils % (A) 0 %; Eosinophils # (A) 0.1 k/uL (0-0.7); Eosinophils % (A) 1 %; HCT 32.3 % (39.0-53.0); HGB 10.6 gm/dL (13.0-17.5); Lymphocytes # (A) 0.8 k/uL (1.0-4.8); Lymphocytes % (A) 9 %; MCH 30.6 pg (25.0-35.0); MCHC 32.7 g/dL (31.0-37.0); MCV 93.4 fL (80.0-100.0); Monocytes # (A) 0.5 k/uL (0-1.0); Monocytes % (A) 6 %; Neutrophils # (A) 7.4 k/uL (1.3-7.7); Neutrophils % (A) 83 %; Platelet Count 222 k/uL (150-450); RBC 3.46 m/uL (4.30-5.90); RDW 15.6 % (11.5-15.5)
[2021-03-20] MEDS: APIXABAN 2.5 MG TABLET PO SCH (08:42)
[2021-03-20] MEDS: FLUDROCORTISONE 0.1 MG TAB PO SCH (08:42)
[2021-03-20] MEDS: METOPROLOL TARTRATE 25 MG TAB PO SCH (08:43)
[2021-03-20] MEDS: VIT A,C & E-LUTEIN-MINERALS 1 EACH TAB PO SCH (08:43)
[2021-03-20] MEDS: IPRATROPIUM-ALBUTEROL 3 ML NEB INHALATION SCH ×2 (08:47→12:12)
[2021-03-20 09:22] LABS: ALT 20 U/L (4-49); AST 35 U/L (17-59); African American GFR (CKD) >90 (>60 ml/min/1.73 sqM); Albumin 2.6 g/dL (3.5-5.0); Alkaline Phosphatase 107 U/L (38-126); Anion Gap 5 mmol/L; Blood Urea Nitrogen 17 mg/dL (9-20); Calcium 8.9 mg/dL (8.4-10.2); Carbon Dioxide 29 mmol/L (22-30); Chloride 99 mmol/L (98-107); Glucose 92 mg/dL (74-99); Non-African American GFR(CKD) >90 (>60 ml/min/1.73 sqM); Potassium 4.6 mmol/L (3.5-5.1); Sodium 133 mmol/L (137-145); Total Bilirubin 0.4 mg/dL (0.2-1.3); Total Protein 5.3 g/dL (6.3-8.2)
--- NOTE | 2021-03-20 10:18 | P.PN ---
Subjective Progress Note Date: 03/20/21 Principal diagnosis: Acute on chronic hypoxic rest or a failure secondary to A. fib with RVR and small pleural effusions This is a very pleasant 85-year-old gentleman who resides at [facility]. He has a history of hypertension hyperlipidemia, BPH, atrial fibrillation anticoagulated with Eliquis, osteoarthritis, coronary disease, macular degeneration, and franklin's lung. He follows with Dr. Carter in our office. He was here last month for hypoxemia and diagnosed with COVID-19 pneumonia. He was seen for some reason by Dr. [place] at that time. He was discharged to the [facility] on 02/28/2021. Yesterday he was getting turned in bed for decubitus ulcer treatment when he became quite hypoxic and cyanotic. EMS was called he was brought here for the same. He was found to be in atrial fibrillation with rapid ventricular response. Initiated on Cardizem drip at 5 mg per hour. Continued on Eliquis. Presently he is resting comfortably on the stretcher. Awake and alert in no acute distress. He is however stating he did not want to have anything further done. He states he told his to "just let him go". Chest x-ray reveals marketed cardiomegaly without any acute cardiopulmonary process. Left-sided rib fractures of undetermined age present. Echocardiogram reveals severely impaired left ventricular systolic function with ejection fraction 20-25%. Moderate to severe mitral regurgitation. Moderate pulmonary hypertension. White count 10.1. Hemoglobin 10.9. Sodium 131. Potassium 44. Creatinine 0.57. ProBNP 2380. Parry virus not detected. On 03/19/2021 patient seen in follow-up on selective care unit, he is awake and alert, in no acute distress, he is on 3 L of oxygen pulse ox of 95-97%, afebrile, hemodynamically patient is having some low blood pressures this afternoon with a blood pressure 75/47. Remains on oral diuretics in the form of Lasix 40 mg twice daily, patient is on midodrine 10 mg by mouth 3 times a day, he is also on Lopressor 25 mg twice daily. Patient is maintaining negative fluid balance, -1.7 that fluid balance over the last 24 hours. No new chest x- ray. Seems to be breathing comfortably, denies any chest pain, today's labs have been reviewed with blood cell count is 10.1, hemoglobin is 10.9, sodium is 131, rest the electrolytes were within normal limits, B1 is 22 creatinine 0.57. Urinalysis showed evidence of urinary tract infection, and patient is currently on Levaquin for antibiotic coverage. On 03/20/2021 patient seen in follow-up on selective care unit. He is currently resting in bed, appears to be in no acute distress, he is on 3 L of oxygen pulse ox is 96-98%, afebrile, patient still has some low blood pressure readings with systolic between 80-100, and diastolic in the 50s. He remains on Lasix 40 mg by mouth twice daily, and he is maintaining negative fluid balance, -1.7 Fluid balance over the last 24 hours, insulin 0.9 normal saline at a rate of 10 per hour, seems to be breathing comfortably, no complaints of chest discomfort, no phlegm production. He remains on a combination of midodrine and Florinef for low blood pressures, cardiology is following. Today's chest x-ray report has been reviewed, showing severe cardiomegaly with basilar atelectasis. Today's labs have been reviewed. He is on oral anticoagulation form of Eliquis for chronic A. fib, rate is currently controlled Objective - Vital Signs Vital signs: Vital Signs Temp 97.9 F 03/20/21 08:00 Pulse 81 03/20/21 08:00 Resp 18 03/20/21 08:00 BP 88/50 03/20/21 08:00 Pulse Ox 98 03/20/21 08:00 Intake & Output 03/19/21 03/20/21 03/20/21 18:59 06:59 18:59 Intake Total 580 240 Output Total 500 680 Balance 80 -680 240 Weight 95.254 kg Intake: Oral 580 240 Output: Urine 500 680 Other: Voiding Method Indwelling Catheter # Voids 1 - Exam GENERAL EXAM: Alert, very pleasant, 85-year-old frail looking gentleman on 3 L of oxygen with a pulse ox of 97% comfortable in no apparent distress. HEAD: Normocephalic/atraumatic. EYES: Normal reaction of pupils, equal size. Conjunctiva pink, sclera white. NOSE: Clear with pink turbinates. THROAT: No erythema or exudates. NECK: No masses, no JVD, no thyroid enlargement, no adenopathy. CHEST: No chest wall deformity. Symmetrical expansion. LUNGS: Equal air entry with bibasilar crackles CVS: Irregular rate and rhythm, normal S1 and S2, no gallops, no murmurs, no rub s ABDOMEN: Soft, nontender. No hepatosplenomegaly, normal bowel sounds, no guarding or rigidity. EXTREMITIES: No clubbing, no edema, no cyanosis, 2+ pulses and upper and lower extremities. MUSCULOSKELETAL: Muscle strength and tone normal. SPINE: No scoliosis or deformity SKIN: No rashes CENTRAL NERVOUS SYSTEM: Alert and oriented -3. No focal deficits, tone is normal in all 4 extremities. PSYCHIATRIC: Alert and oriented -3. Appropriate affect. Intact judgment and insight. - Labs CBC & Chem 7: 03/20/21 07:55 03/20/21 07:55 Labs: Abnormal Lab Results - Last 24 Hours (Table) 03/20/21 03/20/21 Range/Units 07:55 07:55 RBC 3.46 L (4.30-5.90) m/uL Hgb 10.6 L (13.0-17.5) gm/dL Hct 32.3 L (39.0-53.0) % RDW 15.6 H (11.5-15.5) % Lymphocytes # 0.8 L (1.0-4.8) k/uL Sodium 133 L (137-145) mmol/L Creatinine 0.50 L (0.66-1.25) mg/dL Total Protein 5.3 L (6.3-8.2) g/dL Albumin 2.6 L (3.5-5.0) g/dL Microbiology - Last 24 Hours (Table) 03/17/21 16:01 Blood Culture - Preliminary Blood No Growth after 48 hours Assessment and Plan Plan: Assessment: #1. Acute on chronic hypoxic respiratory failure and dyspnea related to acute exacerbation of chronic CHF with systolic dysfunction #2. A. fib with RVR #3. Small bilateral pleural effusions #4. Urinary tract infection, cultures are pending, patient is currently on Levaquin #5. History of atrial fibrillation, on Eliquis for chronic anticoagulation #6. Hypertension #7. Hyperlipidemia #8. Decubitus ulcer of the coccyx #9. Macular degeneration #10. Recent COVID-19 pneumonia in January 2021 #11. Hyponatremia related to acute exacerbation of CHF #12. Severely impaired left ventricular systolic function and chronic CHF, with EF of 20-25% #13. Coronary artery disease #14. Macular degeneration #15. Franklin's lung Plan: Today's chest x-ray has been reviewed Patient is breathing comfortably Weaning FiO2 to maintain O2 saturations above 92% Maintaining negative fluid balance Remains on Florinef and midodrine for low blood pressures, but clinically asymptomatic From pulmonary perspective patient is stable for transfer to ECF today if cleared by cardiology and medicine I performed a history & physical examination of the patient and discussed their management with my nurse practitioner, Jennifer Wasserman. I reviewed the nurse practitioner's note and agree with the documented findings and plan of care. Lung sounds are positive for diminished breath sounds. The findings and the impression was discussed with the patient. I attest to the documentation by the nurse practitioner. Time with Patient: Less than 30
[2021-03-20] MEDS: LEVOFLOXACIN 500 MG TAB PO SCH (11:36)
--- NOTE | 2021-03-20 11:39 | P.PN ---
Subjective Progress Note Date: 03/20/21 HISTORY OF PRESENT ILLNESS: A pleasant 85-year-old gentleman who follows with Dr. Cross in the office. He is currently at [facility] for rehab. Has a known history of cardiomyopathy with an ejection fraction of 20-25% his previously refused ICD in the past, hypertension, hyperlipidemia, BPH, atrial fibrillation anticoagulated with Eliquis, CAD, macular degeneration and chronic lung disease. He was previously here last month with hypoxemia and diagnosed with COVID-19 pneumonia. Yesterday he was apparently getting turned in bed when he became quite hypoxic and cyanotic. EMS was called and he was brought to the emergency department. He was found to be in atrial fibrillation with rapid ventricular response and initiated on Cardizem drip. Continued on current oral anticoagulation. Chest x-ray admission showed cardiomegaly without any acute cardiopulmonary process, left sided rib fractures of undetermined age present. Echocardiogram during previous admission showed an ejection fraction of 20-25% with mild AI, moderate to severe MR, moderate to severe TR and moderate pulmonary hypertension. Pulmonology has been consulted. Labs on admission showed a white blood cell count of 10.1, hemoglobin 10.9, sodium 131, potassium 4.4, BUN 22, creatinine 0.57 and NT proBNP of 2380. Upon examination patient is resting comfortably in bed. Heart rate is somewhat better controlled ranging from 100-110. Blood pressure is low in the 80s. Overall the patient denies any complaints and is unsure why he was transferred to the hospital. He denies any shortness of kia th, chest discomfort, palpitations, dizziness or lightheadedness. He denies any complaints of orthopnea or PND and denies any lower extremity edema. 03/19/2021 Patient examined this morning at the bedside. Patient denies chest pain or pressure. Denies shortness of breath.. Patient remains in atrial fibrillation with controlled ventricular rates. Patient remains hypotensive this morning. He received his metoprolol and Midodrine. He denies dizziness or lightheadedness. 03/20/2021 Patient examined this morning at the bedside. He denies chest pain. Denies shortness of breath. Blood pressure 91/53. Entresto remains on hold secondary to mild hypotension. PHYSICAL EXAM: VITAL SIGNS: Reviewed. GENERAL: Well-developed in no acute distress. NECK: Supple. No JVD or thyromegaly LUNGS: Respirations even and unlabored. Lungs diminished bilaterally. HEART: Irregular rate and rhythm. S1 and S2 heard. Systolic murmur noted. EXTREMITIES: Normal range of motion. No clubbing or cyanosis. Peripheral pulses intact. No lower extremity edema ASSESSMENT: Urinary tract infection Chronic persistent atrial fibrillation with RVR Known history of cardiomyopathy, previously refused AICD Coronary artery disease Hypertension Hyperlipidemia Chronic systolic congestive heart failure PLAN: Continue current medications Patient is stable for discharge to [facility] today from a cardiac standpoint He is to follow up outpatient with Dr. Gonzalez Nurse practitioner note has been reviewed by physician. Signing provider agrees with the documented findings, assessment, and plan of care. Objective - Vital Signs Vital signs: Vital Signs Temp 97.9 F 03/20/21 08:00 Pulse 81 03/20/21 08:00 Resp 18 03/20/21 08:00 BP 88/50 03/20/21 08:00 Pulse Ox 98 03/20/21 08:00 Intake & Output 03/19/21 03/20/21 03/20/21 18:59 06:59 18:59 Intake Total 580 240 Output Total 500 680 Balance 80 -680 240 Weight 95.254 kg Intake: Oral 580 240 Output: Urine 500 680 Other: Voiding Method Indwelling Catheter # Voids 1 - Labs CBC & Chem 7: 03/20/21 07:55 03/20/21 07:55 Labs: Abnormal Lab Results - Last 24 Hours (Table) 03/20/21 03/20/21 Range/Units 07:55 07:55 RBC 3.46 L (4.30-5.90) m/uL Hgb 10.6 L (13.0-17.5) gm/dL Hct 32.3 L (39.0-53.0) % RDW 15.6 H (11.5-15.5) % Lymphocytes # 0.8 L (1.0-4.8) k/uL Sodium 133 L (137-145) mmol/L Creatinine 0.50 L (0.66-1.25) mg/dL Total Protein 5.3 L (6.3-8.2) g/dL Albumin 2.6 L (3.5-5.0) g/dL Microbiology - Last 24 Hours (Table) 03/17/21 16:01 Blood Culture - Preliminary Blood No Growth after 48 hours
[2021-03-20 11:40] VITALS: BP 108/61; PULSE 89; RESP 16; TEMP 97.8
== END 2021-03-20 13:10 | DRG 871 ==
LOC: EC 12:51 → 3SCARD 14:23 → OBSVTOIN 03-18 09:11 → 3SCARD 03-18 19:27
PROVIDERS: ADMIT Internal Medicine Geriatric Medicine; ATTEND Internal Medicine Geriatric Medicine
DX: A41.9 Sepsis, unspecified organism (principal); G93.41 Metabolic encephalopathy; J96.21 Acute and chronic respiratory failure with hypoxia; I50.23 Acute on chronic systolic (congestive) heart failure; J69.0 Pneumonitis due to inhalation of food and vomit; N39.0 Urinary tract infection, site not specified; E22.2 Syndrome of inappropriate secretion of antidiuretic hormone; I42.9 Cardiomyopathy, unspecified; I48.19 Other persistent atrial fibrillation; J98.11 Atelectasis; Z16.24 Resistance to multiple antibiotics; Z20.822 Contact with and (suspected) exposure to COVID-19; I11.0 Hypertensive heart disease with heart failure; I25.10 Atherosclerotic heart disease of native coronary artery without angina pectoris; M19.90 Unspecified osteoarthritis, unspecified site; N40.1 Benign prostatic hyperplasia with lower urinary tract symptoms; I25.2 Old myocardial infarction; I08.1 Rheumatic disorders of both mitral and tricuspid valves; I27.20 Pulmonary hypertension, unspecified; I49.3 Ventricular premature depolarization; I71.2 Thoracic aortic aneurysm, without rupture; J44.9 Chronic obstructive pulmonary disease, unspecified; L89.152 Pressure ulcer of sacral region, stage 2; R33.8 Other retention of urine; J67.0 Farmer's lung; Z79.01 Long term (current) use of anticoagulants; Z79.899 Other long term (current) drug therapy; Z86.16 Personal history of COVID-19; Z87.01 Personal history of pneumonia (recurrent); Z87.891 Personal history of nicotine dependence; Z90.79 Acquired absence of other genital organ(s); Z96.643 Presence of artificial hip joint, bilateral; E78.5 Hyperlipidemia, unspecified
CPT/HCPCS: 36415; 71045; 71275; 80053; 81001; 82803; 83605; 83735; 83880; 84145; 84484; 85025; 85027; 85610; 85730; 87040; 87635; 93005; 94640; 96360; 99285